=== PATIENT | male | born 1935 | race Caucasian/White ===

== ENCOUNTER → 2016-12-09 | Outpatient (CLI) | payer BC ==
[~2016-12-09] MED LIST: ASCO500T16 PO; ASPEC81 PO; CLTP PO; ESCI10TA17 PO; FIBER CAPSULE PO; FLM4 PO; LISI-725 PO; MULTTAB PO; OMEG10007 PO; OMEP20CA59 PO; SIMV20TA2 PO; VITA400C15 PO
[2016-12-09 09:24] LABS: BASO % 0.6 %; BASO ABS # 0.04 K/uL (0-0.2); COMPLETE YES; EOS % 4.3 %; HEMATOCRIT 33.4 % (42-52); IG% 0.3 %; LYMPH % 29.3 %; LYMPH ABS # 1.91 K/uL (1.2-3.4); MEAN CELL VOLUME 78.2 fL (80-100); MEAN CORPUSCULAR HEMOGLOBIN 24.4 pg (25-34); MEAN CORPUSCULAR HGB CONC 31.1 g/dl (32-36); MONO % 6.6 %; NEUT % 58.9 %; PLATELET COUNT 517 K/uL (130-400); RED BLOOD COUNT 4.27 M/uL (4.7-6.1); WHITE BLOOD COUNT 6.51 K/uL (4.8-10.8)
[2016-12-09 09:38] LABS: ALT/SGPT 18 U/L (12-78); AST/SGOT 16 U/L (15-37); BLOOD UREA NITROGEN 25 mg/dl (7-18); BUN/CREATININE RATIO 20.4 (10-20); CALCIUM 8.4 mg/dl (8.5-10.1); CARBON DIOXIDE 27 mmol/L (21-32); CHLORIDE 106 mmol/L (98-107); CHOLESTEROL 151 mg/dl (0-200); GLUCOSE 92 mg/dl (70-99); SODIUM 141 mmol/L (136-145); TRIGLYCERIDES 122 mg/dl (0-150); VERY LOW DENSITY LIPOPROT CALC 24 mg/dl
[2016-12-09 09:50] LABS: CHOLESTEROL/HDL RATIO 4.4; FERRITIN 155.9 ng/ml (8.0-388.0); HDL CHOLESTEROL 34 mg/dl; LDL CHOLESTEROL CALCULATED 93 mg/dl
== END | disposition home or self-care (01) ==
LOC: C.LAB1850 08:11
PROVIDERS: ATTEND Internal Medicine
DX: E78.5 Hyperlipidemia, unspecified (principal); N28.9 Disorder of kidney and ureter, unspecified; R05 Cough

== ENCOUNTER → 2017-03-29 | Outpatient (CLI) | payer BC ==
[2017-03-29 10:40] LABS: BASO % 0.5 %; BASO ABS # 0.03 K/uL (0-0.2); EOS % 2.6 %; HEMATOCRIT 33.7 % (42-52); IG% 0.2 %; LYMPH % 24.5 %; LYMPH ABS # 1.51 K/uL (1.2-3.4); MEAN CELL VOLUME 79.1 fL (80-100); MEAN CORPUSCULAR HEMOGLOBIN 25.1 pg (25-34); MEAN CORPUSCULAR HGB CONC 31.8 g/dl (32-36); MONO % 5.2 %; PLATELET COUNT 484 K/uL (130-400); RED BLOOD COUNT 4.26 M/uL (4.7-6.1); WHITE BLOOD COUNT 6.16 K/uL (4.8-10.8)
[2017-03-29 10:52] LABS: ALT/SGPT 19 U/L (12-78); AST/SGOT 17 U/L (15-37); BLOOD UREA NITROGEN 27 mg/dl (7-18); BUN/CREATININE RATIO 22.8 (10-20); CALCIUM 8.5 mg/dl (8.5-10.1); CARBON DIOXIDE 25 mmol/L (21-32); CHLORIDE 109 mmol/L (98-107); GLUCOSE 92 mg/dl (70-99); POTASSIUM 3.8 mmol/L (3.5-5.1); SODIUM 141 mmol/L (136-145)
[2017-03-29 10:54] LABS: ALB/GLOB RATIO 1.2 (0.9-2); ALKALINE PHOSPHATASE 37 U/L (45-117)
[2017-03-29 11:32] LABS: ANISOCYTOSIS PRESENT; COMPLETE YES; LARGE PLATELETS 1+; POIKILOCYTOSIS PRESENT; SCHISTOCYTES 1+
[2017-03-30 09:16] LABS: OVALOCYTES 1+; TEAR DROP CELLS 1+
== END | disposition home or self-care (01) ==
LOC: C.LAB1850 09:30
PROVIDERS: ATTEND Internal Medicine
DX: N28.9 Disorder of kidney and ureter, unspecified (principal); D64.9 Anemia, unspecified

== ENCOUNTER → 2017-04-07 | Outpatient (CLI) | payer BC ==
--- NOTE | 2017-04-12 11:44 | CODING QUERY MEDICAL NECESSITY ---
SUPPORTING DIAGNOSIS NEEDED A supporting diagnosis is required for the test/procedure performed on this patient in order for us to be reimbursed by the patient's insurance. Please provide a supporting diagnosis for the following test/procedure listed below next to the test name along with your signature. *If there is no additional diagnosis for this patient that would support the following test/procedure please document that below next to the test/procedure. Test(s)/Procedure(s) that require a supporting diagnosis: * PSA DIAGNOSIS: Provider Signature: Date: Thank you Shelbi Funes [employer] Once completed, please kindly fax back to [phone] For questions please call [phone]
== END | disposition home or self-care (01) ==
LOC: C.LABBC 12:30
PROVIDERS: ATTEND Urology
DX: R39.9 Unspecified symptoms and signs involving the genitourinary system (principal); C61 Malignant neoplasm of prostate

== ENCOUNTER → 2017-05-24 | Outpatient (CLI) | payer BC ==
[2017-05-24 09:37] LABS: BASO % 0.6 %; BASO ABS # 0.04 K/uL (0-0.2); COMPLETE YES; HEMATOCRIT 34.3 % (42-52); IG% 0.3 %; LYMPH % 27.7 %; LYMPH ABS # 1.78 K/uL (1.2-3.4); MEAN CELL VOLUME 79.6 fL (80-100); MEAN CORPUSCULAR HEMOGLOBIN 24.6 pg (25-34); MEAN CORPUSCULAR HGB CONC 30.9 g/dl (32-36); MONO % 5.9 %; NEUT % 62.5 %; PLATELET COUNT 473 K/uL (130-400); RED BLOOD COUNT 4.31 M/uL (4.7-6.1); WHITE BLOOD COUNT 6.43 K/uL (4.8-10.8)
[2017-05-24 09:59] LABS: TOTAL IRON BINDING CAPACITY 295 mcg/dl (250-450)
== END | disposition home or self-care (01) ==
LOC: C.LAB1850 08:22
PROVIDERS: ATTEND Internal Medicine
DX: D64.9 Anemia, unspecified (principal)

== ENCOUNTER → 2017-12-15 | Outpatient (CLI) | payer BC ==
[2017-12-15 09:49] LABS: BASO ABS # 0.07 K/uL (0-0.2); EOS % 5.3 %; EOS ABS # 0.36 K/uL (0-0.5); HEMATOCRIT 35.8 % (42-52); HEMOGLOBIN 11.3 g/dL (14.0-18.0); IG# 0.01 K/uL (0.00-0.02); LYMPH % 30.4 %; LYMPH ABS # 2.08 K/uL (1.2-3.4); MEAN CELL VOLUME 79.2 fL (80-100); MEAN CORPUSCULAR HGB CONC 31.6 g/dl (32-36); MONO % 5.6 %; MONO ABS # 0.38 K/uL (0.11-0.59); NEUT % 57.6 %; NEUT ABS # 3.94 K/uL (1.4-6.5); PLATELET COUNT 552 K/uL (130-400); RED CELL DISTRIBUTION WIDTH CV 19.5 % (11.5-14.5); RED CELL DISTRIBUTION WIDTH SD 52.7 fL (36.4-46.3); WHITE BLOOD COUNT 6.84 K/uL (4.8-10.8)
[2017-12-15 10:56] LABS: ALT/SGPT 19 U/L (12-78); BLOOD UREA NITROGEN 24 mg/dl (7-18); CALCIUM 8.6 mg/dl (8.5-10.1); CARBON DIOXIDE 27 mmol/L (21-32); CHOLESTEROL 169 mg/dl (0-200); CREATININE 1.26 mg/dl (0.60-1.40); GLUCOSE 93 mg/dl (70-99); POTASSIUM 3.9 mmol/L (3.5-5.1); SODIUM 138 mmol/L (136-145)
[2017-12-15 11:00] LABS: AST/SGOT 18 U/L (15-37); LDL CHOLESTEROL CALCULATED 114 mg/dl
== END | disposition home or self-care (01) ==
LOC: C.LAB1850 08:21
PROVIDERS: ATTEND Internal Medicine
DX: E78.5 Hyperlipidemia, unspecified (principal); I10 Essential (primary) hypertension; D64.9 Anemia, unspecified

== ENCOUNTER → 2018-01-24 | Outpatient (CLI) | payer BC | END | disposition home or self-care (01) | LOC: C.LAB1850 09:26 | PROVIDERS: ATTEND Urology | DX: C61 Malignant neoplasm of prostate (principal) ==

== ENCOUNTER 2020-10-30 11:21 | Inpatient (IN) ==
[2020-10-30] MEDS ORDERED: DEXAMETHASONE SOD INJ 10 MG/ML VIAL IV ONE (11:27)
--- NOTE | 2020-10-30 11:46 | Emergency Department Note ---
History of Present Illness General Chief complaint: Respiratory Distress Time Seen by Provider: 10/30/20 11:25 History of Present Illness Provider complaint: Difficulty breathing Onset (ago): day(s) 1 Associated symptoms: + shortness of breath 85-year-old male presents emergency department for difficulty breathing. Started today. Patient reports anxiety. Home Medications Medication Instructions Recorded Confirmed Type ascorbic acid (vitamin C) 500 mg 500 mg PO DAILY 01/26/19 10/30/20 History capsule,extended release aspirin 81 mg tablet,delayed 81 mg PO DAILY 01/26/19 10/30/20 History release calcium carbonate 600 mg (1,500 1 tab PO BID 01/26/19 10/30/20 History mg)-vitamin D3 200 unit tablet multivitamin,fb-pepz-qlsetnnz 1 tab PO DAILY 01/26/19 10/30/20 History omega-3 fatty acids-fish oil 360 1 cap PO DAILY 01/26/19 10/30/20 History mg-1,200 mg capsule psyllium husk 0.52 gram capsule 0.52 gm PO QAM 01/26/19 10/30/20 History vitamin E mixed 1,000 unit capsule 1,000 units PO QAM cap 01/26/19 10/30/20 History escitalopram oxalate 10 mg tablet 10 mg PO QAM #90 tab 06/10/20 10/30/20 Rx lisinopril 20 mg tablet 20 mg PO QAM #90 tab 06/10/20 10/30/20 Rx omeprazole 20 mg tablet,delayed 20 mg PO QAM #90 tab 06/10/20 10/30/20 Rx release simvastatin 20 mg tablet 20 mg PO QPM #90 tab 06/10/20 10/30/20 Rx tamsulosin 0.4 mg capsule 0.8 mg PO DAILY 90 Days #180 cap 06/17/20 10/30/20 Rx hydroxyzine HCl 25 mg tablet 25 mg PO BID PRN #60 tab 10/16/20 10/30/20 Rx Allergies Allergy/AdvReac Type Severity Reaction Status Date / Time No Known Allergies Allergy Mild Verified 10/25/20 10:03 Past Med/Surg History Medical History Anemia Anxiety Cervical spondylosis GERD (gastroesophageal reflux disease) HTN (hypertension) Hyperlipidemia Osteoarthritis Prostate cancer SEED IMPLANT AND RADIATION THERAPY Skin cancer Surgical History History of colonoscopy History of prostate surgery History of tonsillectomy and adenoidectomy History of tooth extraction Hx of cataract surgery LEFT Family History Sister Breast cancer Denies family history of Colon cancer Ovarian cancer Prostate cancer Myocardial infarction Social History Smoking Status: Former smoker Tobacco Type: Cigars Second Hand Exposure: No; Hx Alcohol Use: No Hx Substance Use: No Preferred Language: [place] Communication Ability: Effective Visual Impairment: No Limitations Hearing Ability: Normal Rn Integrity Required: No Beliefs That Will Affect Care: None marital status: Current Living Situation: Spouse current occupational status: retired Feels Safe at Home: Yes Safety Concerns: Feels Safe At This Time Assistive Devices: Cane and Walker Review of Systems Other (unable to obtain due to respiratory distress) Physical Exam Vital Signs Vital Signs - 24 hr 10/30/20 11:21 10/30/20 11:25 10/30/20 11:26 Temperature 36.7 C Temperature Source Oral Pulse Rate 117 H 119 H 114 H Pulse Rate from SpO2 Sensor 120 H Pulse Rhythm Regular Regular Respiratory Rate 37 H 31 H 32 H Respiratory Effort / Characteristics Spontaneous Labored Spontaneous Spontaneous Respiratory Depth Normal Normal Respiratory Pattern Regular Tachypnea Blood Pressure 95/63 L 95/63 L Blood Pressure Mean 73 73 Pulse Oximetry 98 98 98 Oxygen Delivery Method BiPAP BiPAP Oxygen Flow Rate Fraction of Inspired Oxygen 50 50 50 SaO2/FiO2 Ratio 196 196 Sepsis Recent Fever Within 48 Hours No Sepsis New/Unexplained Change in Mental Status No Sepsis Action Taken by Nursing Physician Notified 10/30/20 11:56 10/30/20 11:57 10/30/20 12:00 Temperature Temperature Source Pulse Rate 127 H 116 H Pulse Rate from SpO2 Sensor 114 H 116 H Pulse Rhythm Respiratory Rate 32 H 31 H 33 H Respiratory Effort / Characteristics Spontaneous Respiratory Depth Respiratory Pattern Blood Pressure 93/72 L 88/62 L Blood Pressure Mean 79 70 Pulse Oximetry 98 98 98 Oxygen Delivery Method BiPAP BiPAP BiPAP Oxygen Flow Rate Fraction of Inspired Oxygen 50 SaO2/FiO2 Ratio 196 Sepsis Recent Fever Within 48 Hours Sepsis New/Unexplained Change in Mental Status Sepsis Action Taken by Nursing 10/30/20 12:15 10/30/20 12:26 10/30/20 12:30 Temperature Temperature Source Pulse Rate 117 H 116 H Pulse Rate from SpO2 Sensor 113 H 105 H Pulse Rhythm Respiratory Rate 32 H 33 H 33 H Respiratory Effort / Characteristics Spontaneous Spontaneous Respiratory Depth Respiratory Pattern Blood Pressure 97/64 L 97/57 L Blood Pressure Mean 75 70 Pulse Oximetry 98 96 96 Oxygen Delivery Method BiPAP BiPAP BiPAP Oxygen Flow Rate Fraction of Inspired Oxygen 50 50 SaO2/FiO2 Ratio 196 196 Sepsis Recent Fever Within 48 Hours Sepsis New/Unexplained Change in Mental Status Sepsis Action Taken by Nursing 10/30/20 12:45 10/30/20 13:00 10/30/20 13:30 Temperature Temperature Source Pulse Rate 117 H 108 H 108 H Pulse Rate from SpO2 Sensor 112 H 102 H 105 H Pulse Rhythm Respiratory Rate 30 H 30 H 29 H Respiratory Effort / Characteristics Spontaneous Spontaneous Respiratory Depth Respiratory Pattern Blood Pressure 103/57 L 99/71 L 102/58 L Blood Pressure Mean 72 80 72 Pulse Oximetry 99 100 100 Oxygen Delivery Method BiPAP BiPAP Oxygen Flow Rate Fraction of Inspired Oxygen 50 50 SaO2/FiO2 Ratio 196 196 Sepsis Recent Fever Within 48 Hours Sepsis New/Unexplained Change in Mental Status Sepsis Action Taken by Nursing 10/30/20 13:44 10/30/20 13:45 10/30/20 14:00 Temperature Temperature Source Pulse Rate 102 H 105 H 106 H Pulse Rate from SpO2 Sensor 105 H 105 H Pulse Rhythm Respiratory Rate 29 H 33 H 28 H Respiratory Effort / Characteristics Spontaneous Spontaneous Respiratory Depth Normal Respiratory Pattern Tachypnea Blood Pressure 103/49 L 97/56 L Blood Pressure Mean 67 69 Pulse Oximetry 98 96 96 Oxygen Delivery Method Oxymask Oxygen Flow Rate 5 Fraction of Inspired Oxygen 50 SaO2/FiO2 Ratio 196 Sepsis Recent Fever Within 48 Hours Sepsis New/Unexplained Change in Mental Status Sepsis Action Taken by Nursing 10/30/20 14:15 10/30/20 14:30 10/30/20 14:45 Temperature Temperature Source Pulse Rate 109 H 110 H 108 H Pulse Rate from SpO2 Sensor 104 H 105 H 99 H Pulse Rhythm Respiratory Rate 32 H 31 H 24 Respiratory Effort / Characteristics Spontaneous Respiratory Depth Respiratory Pattern Blood Pressure 106/56 L 113/61 104/58 L Blood Pressure Mean 72 78 73 Pulse Oximetry 97 97 97 Oxygen Delivery Method Oxymask Oxygen Flow Rate 5 Fraction of Inspired Oxygen 50 SaO2/FiO2 Ratio 196 Sepsis Recent Fever Within 48 Hours Sepsis New/Unexplained Change in Mental Status Sepsis Action Taken by Nursing 10/30/20 15:00 Temperature Temperature Source Pulse Rate 112 H Pulse Rate from SpO2 Sensor 107 H Pulse Rhythm Respiratory Rate 29 H Respiratory Effort / Characteristics Respiratory Depth Respiratory Pattern Blood Pressure 117/60 Blood Pressure Mean 79 Pulse Oximetry 97 Oxygen Delivery Method Oxygen Flow Rate Fraction of Inspired Oxygen SaO2/FiO2 Ratio Sepsis Recent Fever Within 48 Hours Sepsis New/Unexplained Change in Mental Status Sepsis Action Taken by Nursing Physical Exam GENERAL: Patient in respiratory distress. HENT: Exam performed. - Head: Normocephalic and atraumatic. - Right Ear: External ear normal. No mastoid tenderness. - Left Ear: External ear normal. No mastoid tenderness. - Mouth/Throat: The oropharynx is clear and moist. No trismus in the jaw. No dental abscesses or uvula swelling. No oropharyngeal exudate or tonsillar abscesses. EYES: Conjunctivae and EOM are normal. Pupils are equal, round, and reactive to light. Right eye exhibits no discharge. Left eye exhibits no discharge. No sc leral icterus. NECK: Normal range of motion. Neck supple. No JVD present. No spinous process tenderness present. No carotid bruit present. No rigidity. No tracheal deviation and normal range of motion present. No Brudzinski's sign and no Kernig's sign noted. CV: Tachycardic rate, regular rhythm, normal heart sounds and intact distal pulses. There is no peripheral edema. Palpable radial pulses bue. PULM/CHEST: Rales bilaterally. Rhonchi bilaterally. ABD: Abdomen distended. MUSC/SKEL: Normal range of motion. There is no peripheral edema, tenderness or deformity. LYMPH: No cervical adenopathy. NEURO: He is alert and oriented to person, place, and time. He has normal strength. No cranial nerve deficit or sensory deficit. Coordination and gait normal. GCS eye subscore is 4. GCS verbal subscore is 5. GCS motor subscore is 6. Cerebellar tests wnl. SKIN: Skin is warm and dry. He is not diaphoretic. PSYCH: He has a normal mood and affect. Behavior is normal. Judgment and thought content normal. Course Course 1125: The patient was evaluated in room B1. A complete history and physical exam was performed. Cardiac monitoring: An order was placed for continuous cardiac monitoring. The monitor shows a rate of 120 with sinus tachycardia rhythm Patient was seen in full airborne precautions. Patient was seen in N95's, gloves, gowns, face shield by myself and staff. Patient was started on CPAP by EMS. Patient was transitioned to BiPAP. Patient was hypoxic on room air, Decadron 6 IV push mg ordered empirically for any COVID-19 infection. 1345: Vital signs stable on BiPAP. Labs show a platelet count of 1062. His blood gas within normal limits. Lactic of 2.5. Procalcitonin is also elevated. Chest x-ray shows possible infiltrate. Given the elevation of the procalcitonin patient will also be started on empiric antibiotics for possible pneumonia. This is thought to be due to the patient's thalassemia and he has a history of thrombocytosis. Creatinine 1.76. Patient is COVID-19 positive. Troponin is elevated. Imaging does show a large bowel obstruction. Patient will be admitted to the [facility] Dr. Callaway. Administered Medications Heparin Sodium/Dextrose (Heparin Sodium/Dextrose) 25,000 units in 500 mls @ 29 mls/hr IV .[id number] [facility]; Protocol Stop: 11/29/20 15:14 Last Admin: 10/30/20 16:30 Dose: 1,450 units/hr, 29 mls/hr Documented by: [id number] Cosigned by: [id number] Potassium Chloride/Sodium Chloride (1/2 Nss + 20meq Kcl 1000ml) 20 meq in 1,000 mls @ 125 mls/hr IV .Q8H [facility] Stop: 11/29/20 16:59 Last Admin: 10/30/20 18:05 Dose: 125 mls/hr Documented by: Discontinued Medications Dexamethasone (Dexamethasone Sod Inj 10 Mg/Ml Vial) 6 mg IV NOW ONE Stop: 10/30/20 11:28 Last Admin: 10/30/20 11:40 Dose: 6 mg Documented by: [id number] Heparin Sodium/Dextrose (Heparin 20335 Unit/500 Ml D5w) Confirm Administered Dose 25,000 units IV .STK-MED ONE Stop: 10/30/20 16:06 Last Admin: 10/30/20 16:30 Dose: 1,450 units Documented by: [id number] Cosigned by: [id number] Sodium Chloride (Nss 1000ml) 500 mls @ 999 mls/hr IV .Q31M ONE Stop: 10/30/20 12:56 Last Infusion: 10/30/20 13:28 Dose: 0 mls/hr Documented by: [id number] Admin: 10/30/20 12:32 Dose: 999 mls/hr Documented by: [id number] Cefepime HCl (Maxipime) 2,000 mg in 20 mls @ 5 mls/min IV NOW STA; Protocol Stop: 10/30/20 13:42 Last Admin: 10/30/20 14:26 Dose: 5 mls/min Documented by: [id number] Vancomycin HCl 1,750 mg/ (Sodium Chloride) 535 mls @ 200 mls/hr IV NOW ONE Stop: 10/30/20 16:24 Last Infusion: 10/30/20 17:12 Dose: 0 mls/hr Documented by: [id number] Admin: 10/30/20 14:30 Dose: 200 mls/hr Documented by: [id number] Doxycycline Hyclate 100 mg/ (Dextrose) 110 mls @ 50 mls/hr IV NOW STA Stop: 10/30/20 15:58 Last Infusion: 10/30/20 17:11 Dose: 0 mls/hr Documented by: [id number] Admin: 10/30/20 14:30 Dose: 50 mls/hr Documented by: [id number] Sodium Chloride (Nss 1000ml) 1,000 mls @ 999 mls/hr IV .Q1H1M ONE Stop: 10/30/20 15:43 Last Infusion: 10/30/20 17:31 Dose: 0 mls/hr Documented by: [id number] Admin: 10/30/20 16:30 Dose: 999 mls/hr Documented by: [id number] Critical Care Time Critical Care Time: Yes Total Critical Care Time: 85 I have personally spent greater than 85 minutes of critical care time in the direct management of this patient. This includes bedside care, interpretation of diagnostic studies, and testing, discussion with consultants, patient, and family members, and other required patient management activities. This 85 minutes is in excess of all separately billable procedures. Medical Decision Making Laboratory Data Result diagrams: 10/30/20 11:41 10/30/20 11:35 Lab Results 10/30/20 10/30/20 10/30/20 Range/Units 11:35 11:35 11:38 WBC (4.8-10.8) K/uL RBC (4.7-6.1) M/uL Hgb (14.0-18.0) g/dL Hct (42-52) % MCV (80-100) fL MCH (25-34) pg MCHC (32-36) g/dL RDW Std Deviation (36.4-46.3) fL RDW Coeff of Maryann (11.5-14.5) % Plt Count (130-400) K/uL Neutrophils % (Manual) % Lymphocytes % (Manual) % Monocytes % (Manual) % Basophils % (Manual) % Metamyelocytes % (Man) % Neutrophils # (Manual) (1.4-6.5) K/uL Total Absolute Neuts (1.4-6.5) K/uL Lymphocytes # (Manual) (1.2-3.4) K/uL Total Abs Lymphocytes (1.2-3.4) K/uL Monocytes # (Manual) (0.11-0.59) K/uL Basophils # (Manual) (0-0.2) K/uL Metamyelocytes # (Man) (0-0) K/uL Hypochromasia Poikilocytosis Anisocytosis Microcytosis PT INR APTT PTT Ratio D-Dimer (0-500) ug/L FEU VBG pH (7.36-7.41) VBG pCO2 (38-50) mmHg VBG pO2 mmHg VBG HCO3 mmol/L VBG O2 Saturation % VBG Base Excess mEq/L Barometric Pressure mm/Hg Sodium 137 (136-145) mmol/L Potassium 3.8 (3.5-5.1) mmol/L Chloride 103 (98-107) mmol/L Carbon Dioxide 23 (21-32) mmol/L Anion Gap 11.0 (3-11) BUN 62 H (7-18) mg/dl Creatinine 1.76 H (0.6-1.4) mg/dl Est Cr Clr Drug Dosing 34.7 ml/min Est GFR ( Amer) 40.0 Est GFR (Non-Af Amer) 34.5 BUN/Creatinine Ratio 35.0 H (10-20) Glucose 112 H (70-99) mg/dl Lactate 2.5 H* (0.4-2.0) mmol/L Calcium 8.4 L (8.5-10.1) mg/dl Magnesium 2.3 (1.8-2.4) mg/dl Iron (35-175) mcg/dl Transferrin (200-360) mg/dl Transferrin % Sat Ferritin (8-388) ng/ml Total Bilirubin 1.6 H (0.2-1) mg/dl AST 27 (15-37) U/L ALT 23 (12-78) U/L Alkaline Phosphatase 47 (45-117) U/L Lactate Dehydrogenase (87-241) U/L Total Creatine Kinase (39-308) U/L Troponin I 0.123 H* (0-0.045) ng/ml C-Reactive Protein (0-0.29) mg/dl NT-Pro-B Natriuret Pep 1619 (0-1800) pg/ml Total Protein 6.5 (6.4-8.2) gm/dl Albumin 2.9 L (3.4-5.0) gm/dl Globulin 3.6 (2.5-4.0) gm/dl Albumin/Globulin Ratio 0.8 L (0.9-2) Lipase 77 (73-393) U/L Procalcitonin (0-0.5) ng/ml COVID-19 Eval Order CovFluRsv at [facility] SARS-CoV-2 (PCR) (Negative) Influenza Type A (PCR) (Neg) Influenza Type B (PCR) (Neg) RSV (RT-PCR) (Neg) Blood Type Antibody Screen 10/30/20 10/30/20 10/30/20 Range/Units 11:38 11:41 11:41 WBC 9.72 (4.8-10.8) K/uL RBC 4.90 (4.7-6.1) M/uL Hgb 10.7 L (14.0-18.0) g/dL Hct 34.0 L (42-52) % MCV 69.4 L (80-100) fL MCH 21.8 L (25-34) pg MCHC 31.5 L (32-36) g/dL RDW Std Deviation 51.5 H (36.4-46.3) fL RDW Coeff of Maryann 22.2 H (11.5-14.5) % Plt Count 1062 H* (130-400) K/uL Neutrophils % (Manual) 79.2 % Lymphocytes % (Manual) 4.3 % Monocytes % (Manual) 7.0 % Basophils % (Manual) 1.7 % Metamyelocytes % (Man) 7.8 % Neutrophils # (Manual) 7.70 H (1.4-6.5) K/uL Total Absolute Neuts 7.70 H (1.4-6.5) K/uL Lymphocytes # (Manual) 0.42 L (1.2-3.4) K/uL Total Abs Lymphocytes 0.42 L (1.2-3.4) K/uL Monocytes # (Manual) 0.68 H (0.11-0.59) K/uL Basophils # (Manual) 0.17 (0-0.2) K/uL Metamyelocytes # (Man) 0.76 H (0-0) K/uL Hypochromasia Present Poikilocytosis Present Anisocytosis Present Microcytosis Present PT Cancelled INR Cancelled APTT Cancelled PTT Ratio Cancelled D-Dimer (0-500) ug/L FEU VBG pH (7.36-7.41) VBG pCO2 (38-50) mmHg VBG pO2 mmHg VBG HCO3 mmol/L VBG O2 Saturation % VBG Base Excess mEq/L Barometric Pressure mm/Hg Sodium (136-145) mmol/L Potassium (3.5-5.1) mmol/L Chloride (98-107) mmol/L Carbon Dioxide (21-32) mmol/L Anion Gap (3-11) BUN (7-18) mg/dl Creatinine (0.6-1.4) mg/dl Est Cr Clr Drug Dosing ml/min Est GFR ( Amer) Est GFR (Non-Af Amer) BUN/Creatinine Ratio (10-20) Glucose (70-99) mg/dl Lactate (0.4-2.0) mmol/L Calcium (8.5-10.1) mg/dl Magnesium (1.8-2.4) mg/dl Iron (35-175) mcg/dl Transferrin (200-360) mg/dl Transferrin % Sat Ferritin (8-388) ng/ml Total Bilirubin (0.2-1) mg/dl AST (15-37) U/L ALT (12-78) U/L Alkaline Phosphatase (45-117) U/L Lactate Dehydrogenase (87-241) U/L Total Creatine Kinase (39-308) U/L Troponin I (0-0.045) ng/ml C-Reactive Protein (0-0.29) mg/dl NT-Pro-B Natriuret Pep (0-1800) pg/ml Total Protein (6.4-8.2) gm/dl Albumin (3.4-5.0) gm/dl Globulin (2.5-4.0) gm/dl Albumin/Globulin Ratio (0.9-2) Lipase (73-393) U/L Procalcitonin (0-0.5) ng/ml COVID-19 Eval Order SARS-CoV-2 (PCR) POSITIVE A* (Negative) Influenza Type A (PCR) Negative (Neg) Influenza Type B (PCR) Negative (Neg) RSV (RT-PCR) Negative (Neg) Blood Type Antibody Screen 10/30/20 10/30/20 10/30/20 Range/Units 11:41 12:04 12:55 WBC (4.8-10.8) K/uL RBC (4.7-6.1) M/uL Hgb (14.0-18.0) g/dL Hct (42-52) % MCV (80-100) fL MCH (25-34) pg MCHC (32-36) g/dL RDW Std Deviation (36.4-46.3) fL RDW Coeff of Maryann (11.5-14.5) % Plt Count (130-400) K/uL Neutrophils % (Manual) % Lymphocytes % (Manual) % Monocytes % (Manual) % Basophils % (Manual) % Metamyelocytes % (Man) % Neutrophils # (Manual) (1.4-6.5) K/uL Total Absolute Neuts (1.4-6.5) K/uL Lymphocytes # (Manual) (1.2-3.4) K/uL Total Abs Lymphocytes (1.2-3.4) K/uL Monocytes # (Manual) (0.11-0.59) K/uL Basophils # (Manual) (0-0.2) K/uL Metamyelocytes # (Man) (0-0) K/uL Hypochromasia Poikilocytosis Anisocytosis Microcytosis PT 12.1 H INR 1.2 H APTT 25.6 PTT Ratio 1.0 D-Dimer (0-500) ug/L FEU VBG pH 7.42 H (7.36-7.41) VBG pCO2 33 L (38-50) mmHg VBG pO2 53 mmHg VBG HCO3 21 mmol/L VBG O2 Saturation 85.4 % VBG Base Excess -2.6 mEq/L Barometric Pressure 724.3 mm/Hg Sodium (136-145) mmol/L Potassium (3.5-5.1) mmol/L Chloride (98-107) mmol/L Carbon Dioxide (21-32) mmol/L Anion Gap (3-11) BUN (7-18) mg/dl Creatinine (0.6-1.4) mg/dl Est Cr Clr Drug Dosing ml/min Est GFR ( Amer) Est GFR (Non-Af Amer) BUN/Creatinine Ratio (10-20) Glucose (70-99) mg/dl Lactate (0.4-2.0) mmol/L Calcium (8.5-10.1) mg/dl Magnesium (1.8-2.4) mg/dl Iron (35-175) mcg/dl Transferrin (200-360) mg/dl Transferrin % Sat Ferritin (8-388) ng/ml Total Bilirubin (0.2-1) mg/dl AST (15-37) U/L ALT (12-78) U/L Alkaline Phosphatase (45-117) U/L Lactate Dehydrogenase (87-241) U/L Total Creatine Kinase (39-308) U/L Troponin I (0-0.045) ng/ml C-Reactive Protein (0-0.29) mg/dl NT-Pro-B Natriuret Pep (0-1800) pg/ml Total Protein (6.4-8.2) gm/dl Albumin (3.4-5.0) gm/dl Globulin (2.5-4.0) gm/dl Albumin/Globulin Ratio (0.9-2) Lipase (73-393) U/L Procalcitonin 5.45 H (0-0.5) ng/ml COVID-19 Eval Order SARS-CoV-2 (PCR) (Negative) Influenza Type A (PCR) (Neg) Influenza Type B (PCR) (Neg) RSV (RT-PCR) (Neg) Blood Type Antibody Screen 10/30/20 10/30/20 10/30/20 Range/Units 14:21 14:21 14:21 WBC (4.8-10.8) K/uL RBC (4.7-6.1) M/uL Hgb (14.0-18.0) g/dL Hct (42-52) % MCV (80-100) fL MCH (25-34) pg MCHC (32-36) g/dL RDW Std Deviation (36.4-46.3) fL RDW Coeff of Maryann (11.5-14.5) % Plt Count (130-400) K/uL Neutrophils % (Manual) % Lymphocytes % (Manual) % Monocytes % (Manual) % Basophils % (Manual) % Metamyelocytes % (Man) % Neutrophils # (Manual) (1.4-6.5) K/uL Total Absolute Neuts (1.4-6.5) K/uL Lymphocytes # (Manual) (1.2-3.4) K/uL Total Abs Lymphocytes (1.2-3.4) K/uL Monocytes # (Manual) (0.11-0.59) K/uL Basophils # (Manual) (0-0.2) K/uL Metamyelocytes # (Man) (0-0) K/uL Hypochromasia Poikilocytosis Anisocytosis Microcytosis PT INR APTT PTT Ratio D-Dimer 1989 H* (0-500) ug/L FEU VBG pH (7.36-7.41) VBG pCO2 (38-50) mmHg VBG pO2 mmHg VBG HCO3 mmol/L VBG O2 Saturation % VBG Base Excess mEq/L Barometric Pressure mm/Hg Sodium (136-145) mmol/L Potassium (3.5-5.1) mmol/L Chloride (98-107) mmol/L Carbon Dioxide (21-32) mmol/L Anion Gap (3-11) BUN (7-18) mg/dl Creatinine (0.6-1.4) mg/dl Est Cr Clr Drug Dosing ml/min Est GFR ( Amer) Est GFR (Non-Af Amer) BUN/Creatinine Ratio (10-20) Glucose (70-99) mg/dl Lactate (0.4-2.0) mmol/L Calcium (8.5-10.1) mg/dl Magnesium (1.8-2.4) mg/dl Iron < 5 L (35-175) mcg/dl Transferrin 208 (200-360) mg/dl Transferrin % Sat TNP Ferritin 61.5 (8-388) ng/ml Total Bilirubin (0.2-1) mg/dl AST (15-37) U/L ALT (12-78) U/L Alkaline Phosphatase (45-117) U/L Lactate Dehydrogenase (87-241) U/L Total Creatine Kinase 247 (39-308) U/L Troponin I (0-0.045) ng/ml C-Reactive Protein 12.30 H (0-0.29) mg/dl NT-Pro-B Natriuret Pep (0-1800) pg/ml Total Protein (6.4-8.2) gm/dl Albumin (3.4-5.0) gm/dl Globulin (2.5-4.0) gm/dl Albumin/Globulin Ratio (0.9-2) Lipase (73-393) U/L Procalcitonin (0-0.5) ng/ml COVID-19 Eval Order SARS-CoV-2 (PCR) (Negative) Influenza Type A (PCR) (Neg) Influenza Type B (PCR) (Neg) RSV (RT-PCR) (Neg) Blood Type O Positive Antibody Screen NEGATIVE 10/30/20 10/30/20 Range/Units 14:21 14:25 WBC (4.8-10.8) K/uL RBC (4.7-6.1) M/uL Hgb (14.0-18.0) g/dL Hct (42-52) % MCV (80-100) fL MCH (25-34) pg MCHC (32-36) g/dL RDW Std Deviation (36.4-46.3) fL RDW Coeff of Maryann (11.5-14.5) % Plt Count (130-400) K/uL Neutrophils % (Manual) % Lymphocytes % (Manual) % Monocytes % (Manual) % Basophils % (Manual) % Metamyelocytes % (Man) % Neutrophils # (Manual) (1.4-6.5) K/uL Total Absolute Neuts (1.4-6.5) K/uL Lymphocytes # (Manual) (1.2-3.4) K/uL Total Abs Lymphocytes (1.2-3.4) K/uL Monocytes # (Manual) (0.11-0.59) K/uL Basophils # (Manual) (0-0.2) K/uL Metamyelocytes # (Man) (0-0) K/uL Hypochromasia Poikilocytosis Anisocytosis Microcytosis PT INR APTT PTT Ratio D-Dimer (0-500) ug/L FEU VBG pH (7.36-7.41) VBG pCO2 (38-50) mmHg VBG pO2 mmHg VBG HCO3 mmol/L VBG O2 Saturation % VBG Base Excess mEq/L Barometric Pressure mm/Hg Sodium (136-145) mmol/L Potassium (3.5-5.1) mmol/L Chloride (98-107) mmol/L Carbon Dioxide (21-32) mmol/L Anion Gap (3-11) BUN (7-18) mg/dl Creatinine (0.6-1.4) mg/dl Est Cr Clr Drug Dosing ml/min Est GFR ( Amer) Est GFR (Non-Af Amer) BUN/Creatinine Ratio (10-20) Glucose (70-99) mg/dl Lactate 1.9 (0.4-2.0) mmol/L Calcium (8.5-10.1) mg/dl Magnesium (1.8-2.4) mg/dl Iron (35-175) mcg/dl Transferrin (200-360) mg/dl Transferrin % Sat Ferritin (8-388) ng/ml Total Bilirubin (0.2-1) mg/dl AST (15-37) U/L ALT (12-78) U/L Alkaline Phosphatase (45-117) U/L Lactate Dehydrogenase 277 H (87-241) U/L Total Creatine Kinase (39-308) U/L Troponin I (0-0.045) ng/ml C-Reactive Protein (0-0.29) mg/dl NT-Pro-B Natriuret Pep (0-1800) pg/ml Total Protein (6.4-8.2) gm/dl Albumin (3.4-5.0) gm/dl Globulin (2.5-4.0) gm/dl Albumin/Globulin Ratio (0.9-2) Lipase (73-393) U/L Procalcitonin (0-0.5) ng/ml COVID-19 Eval Order SARS-CoV-2 (PCR) (Negative) Influenza Type A (PCR) (Neg) Influenza Type B (PCR) (Neg) RSV (RT-PCR) (Neg) Blood Type Antibody Screen Imaging Data Radiologist's Impression: CT OF THE ABDOMEN AND PELVIS WITHOUT CONTRAST CLINICAL HISTORY: Abdominal pain. Distention. COMPARISON STUDY: Abdominal series October 25, 2020. TECHNIQUE: Axial images of the abdomen and pelvis were obtained without IV contrast. Images were reviewed in the axial, sagittal, and coronal planes. Automated exposure control was utilized for the study. A dose lowering techniqu e was utilized adhering to the principles of ALARA. FINDINGS: Imaged portions of the lower chest demonstrate multifocal groundglass opacities within the lungs. There is a moderate sized hiatal hernia with partially intrathoracic stomach. Visualized portions of the esophagus are dilated and fluid-filled. Small amount of ascites within the hernia sac is noted. Evaluation of the abdomen and pelvis is suboptimal on this unenhanced examination. There is no pneumatosis, free air or portal venous gas. Note is made of an indeterminate hypodense 2.4 cm lateral segment hepatic lesion. There is no biliary or pancreatic ductal dilatation. There is no peripancreatic infiltration. Mild splenomegaly is noted. A water attenuation 7.7 cm lesion within the upper pole of the right kidney is suboptimally assessed on this unenhanced exam but favors a cyst. Hypodense left adrenal nodularity is likely benign. No abdominal or pelvic lymphadenopathy is present. Brachytherapy seeds within the prostate are noted. There is a small right posterolateral bladder diverticula which contains small layering calcifications. A left internal hernia contains a small portion of the sigmoid colon. This does not result in the bowel obstruction. Note is made of moderately dilated fluid-filled small bowel. Addition, the cecum is markedly distended, measuring 10.6 cm in transverse dimension. There is a large amount of poorly formed stool within the right colon. Although suboptimally assessed on this unenhanced exam, there is probable transition point within the mid transverse colon on image 132 of 521. Although no mass is identified by CT, an obstructing lesion is the diagnosis of exclusion. The more distal colon is relatively decompressed. A small amount of ascites is noted. No bowel wall thickening is identified on this unenhanced exam. There is minimal mesenteric infiltration. No suspicious osseous lesions are present. There is no hydronephrosis. IMPRESSION: 1. Findings consistent with a large bowel obstruction with probable transition point within the mid transverse colon. Although no mass identified by CT, an occult obstructing lesion is the diagnosis of exclusion. Further evaluation with colonoscopy is recommended. Large amount of poorly formed stool within the right colon. Marked cecal distention. Moderate small bowel dilatation. Small amount of abdominal ascites and mild mesenteric infiltration. 2. Moderate sized hiatal hernia with partially intrathoracic stomach. Visualized portions of the esophagus dilated and fluid-filled. 3. Indeterminate 2.4 cm lateral segment hepatic lesion which could be assessed with a follow-up nonemergent liver protocol CT when clinical condition permits. 4. Multifocal ground glass opacities within the lower lungs suggestive of viral pneumonia. 5. Left inguinal hernia which contains a small portion of the sigmoid colon. This does not result in the bowel obstruction. 6. Mild splenomegaly. ACT 112: Negative or not required by law. Electronically signed by: Neil Venegas M.D. 10/30/2020 1:45 PM Dictated: 10/30/20 1323Transcribed: 10/30/20 1323 ECG Data Indication: + SOB/dyspnea Rate (beats per minute): 120 Rhythm: + sinus tachycardia ECG Intervals/blocks: + Normal QRS, + Prolonged QT and + Normal TX ECG ST segments: + Normal ST segments MDM Narrative 1125: The patient was evaluated in room B1. A complete history and physical exam was performed. Cardiac monitoring: An order was placed for continuous cardiac monitoring. The monitor shows a rate of 120 with sinus tachycardia rhythm Patient was seen in full airborne precautions. Patient was seen in N95's, gloves, gowns, face shield by myself and staff. Patient was started on CPAP by EMS. Patient was transitioned to BiPAP. Patient was hypoxic on room air, Decadron 6 IV push mg ordered empirically for any COVID-19 infection. 1345: Vital signs stable on BiPAP. Labs show a platelet count of 1062. His blood gas within normal limits. Lactic of 2.5. Procalcitonin is also elevated. Chest x-ray shows possible infiltrate. Given the elevation of the procalcitonin patient will also be started on empiric antibiotics for possible p neumonia. This is thought to be due to the patient's thalassemia and he has a history of thrombocytosis. Creatinine 1.76. Patient is COVID-19 positive. Troponin is elevated. Imaging does show a large bowel obstruction. Patient will be admitted to the [facility] Dr. Callaway. Impression & Plan Hypoxia, Large bowel obstruction, COVID-19, Elevated troponin Discharge Plan Visit Data Chief Complaint: Respiratory Distress ED Provider: Shailesh Watkins Discharge Problem: Hypoxia, Large bowel obstruction, COVID-19, Elevated troponin Patient Disposition: Admitted As Inpatient Discharge Instructions Interventions: ED Discharge Assessment Last Done: 10/30/20 17:05
[2020-10-30 12:20] LABS: Base Excess VBG -2.6 mEq/L; Oxygen Saturation VBG 85.4 %; pH VBG 7.42 (7.36-7.41)
[2020-10-30 12:25] LABS: Albumin Level 2.9 gm/dl (3.4-5.0); Calcium 8.4 mg/dl (8.5-10.1); Creatinine Clr Calc Pharmacy 34.7 ml/min; Est GFR (Non-African American) 34.5; Magnesium 2.3 mg/dl (1.8-2.4); Potassium 3.8 mmol/L (3.5-5.1)
[2020-10-30] MEDS ORDERED: SODIUM CHLORIDE 0.9% 1000ML 500 ML IV ONE (12:26)
[2020-10-30 12:27] LABS: Platelet Count 1062 K/uL (130-400)
[2020-10-30 12:32] LABS: Hemoglobin 10.7 g/dL (14.0-18.0); Mean Corpuscular Hemoglobin 21.8 pg (25-34); Mean Corpuscular Hgb Conc 31.5 g/dL (32-36); Mean Corpuscular Volume 69.4 fL (80-100); RDW Coefficient of Variation 22.2 % (11.5-14.5); RDW Standard Deviation 51.5 fL (36.4-46.3); White Blood Count 9.72 K/uL (4.8-10.8)
[2020-10-30 12:32] LABS: Influenza A virus by PCR Negative (Neg); Influenza B virus by PCR Negative (Neg); RSV by PCR Negative (Neg)
[2020-10-30 12:36] LABS: Albumin Globulin Ratio 0.8 (0.9-2); Bilirubin,Total 1.6 mg/dl (0.2-1); Globulin 3.6 gm/dl (2.5-4.0); Total Protein 6.5 gm/dl (6.4-8.2); Troponin I 0.123 ng/ml (0-0.045)
[2020-10-30 12:37] LABS: ALC (manual) 0.42 K/uL (1.2-3.4); Anisocytosis Present; Basophils # (manual) 0.17 K/uL (0-0.2); Basophils % (manual) 1.7 %; Hypochromasia Present; Lymphocytes # (manual) 0.42 K/uL (1.2-3.4); Lymphocytes % (manual) 4.3 %; Metamyelocytes # (manual) 0.76 K/uL (0-0); Metamyelocytes % (manual) 7.8 %; Microcytosis Present; Monocytes # (manual) 0.68 K/uL (0.11-0.59); Neutrophils % (manual) 79.2 %; Poikilocytosis Present
[2020-10-30 13:05] LABS: SARS CoV2 RNA(COVID-19) InHosp POSITIVE (Negative)
--- NOTE | 2020-10-30 13:18 | XRay Report ---
XR chest 1V portable CLINICAL HISTORY: Sepsis. COMPARISON STUDY: Chest radiograph October 25, 2020. FINDINGS: Lung volumes are mildly diminished. There is no pneumothorax. No definite pleural effusion. A 3.6 cm right midlung opacity is new since prior exam. There is left basilar opacity. Mild cardiome celso is noted without evidence for pulmonary edema. IMPRESSION: . 1. 3.6 cm right midlung opacity, new since chest radiograph of October 25, 2020. Therefore, this favo rs an infectious process. Left basilar opacity also may reflect an infectious process. Radiographic f ollow-up is recommended. 2. Cardiomegaly without evidence for pulmonary edema. ACT 112: Negative or not required by law. Electronically signed by: Neil Venegas M.D. 10/30/2020 1:17 PM
[2020-10-30 13:19] LABS: INR 1.2 (0.9-1.1); Partial Thromboplastin Time 25.6 Seconds (21.0-31.0); Prothrombin Time 12.1 Seconds (9.0-12.0)
[2020-10-30] MEDS ORDERED: CEFEPIME 2,000 MG/20 ML VIAL IV STA (13:39)
[2020-10-30] MEDS ORDERED: VANCOMYCIN CONSULT ACTIVE PRN (13:44)
[2020-10-30] MEDS ORDERED: VANCOMYCIN HCL 1,750 MG in SODIUM CHLORIDE 0.9% 500 ML IV ONE (13:44)
--- NOTE | 2020-10-30 13:46 | CT Scan Report ---
CT OF THE ABDOMEN AND PELVIS WITHOUT CONTRAST CLINICAL HISTORY: Abdominal pain. Distention. COMPARISON STUDY: Abdominal series October 25, 2020. TECHNIQUE: Axial images of the abdomen and pelvis were obtained without IV contrast. Images were revi ewed in the axial, sagittal, and coronal planes. Automated exposure control was utilized for the thelma dy. A dose lowering technique was utilized adhering to the principles of ALARA. FINDINGS: Imaged portions of the lower chest demonstrate multifocal groundglass opacities within the lungs. There is a moderate sized hiatal hernia with partially intrathoracic stomach. Visualized porti ons of the esophagus are dilated and fluid-filled. Small amount of ascites within the hernia sac is n oted. Evaluation of the abdomen and pelvis is suboptimal on this unenhanced examination. There is no pneuma tosis, free air or portal venous gas. Note is made of an indeterminate hypodense 2.4 cm lateral segme nt hepatic lesion. There is no biliary or pancreatic ductal dilatation. There is no peripancreatic in filtration. Mild splenomegaly is noted. A water attenuation 7.7 cm lesion within the upper pole of th e right kidney is suboptimally assessed on this unenhanced exam but favors a cyst. Hypodense left adr enal nodularity is likely benign. No abdominal or pelvic lymphadenopathy is present. Brachytherapy se eds within the prostate are noted. There is a small right posterolateral bladder diverticula which co ntains small layering calcifications. A left internal hernia contains a small portion of the sigmoid colon. This does not result in the bowel obstruction. Note is made of moderately dilated fluid-filled small bowel. Addition, the cecum is markedly distended, measuring 10.6 cm in transverse dimension. T here is a large amount of poorly formed stool within the right colon. Although suboptimally assessed on this unenhanced exam, there is probable transition point within the mid transverse colon on image 132 of 521. Although no mass is identified by CT, an obstructing lesion is the diagnosis of exclusion . The more distal colon is relatively decompressed. A small amount of ascites is noted. No bowel wall thickening is identified on this unenhanced exam. There is minimal mesenteric infiltration. No suspi cious osseous lesions are present. There is no hydronephrosis. IMPRESSION: 1. Findings consistent with a large bowel obstruction with probable transition point within the mid t ransverse colon. Although no mass identified by CT, an occult obstructing lesion is the diagnosis of exclusion. Further evaluation with colonoscopy is recommended. Large amount of poorly formed stool wi thin the right colon. Marked cecal distention. Moderate small bowel dilatation. Small amount of abdom inal ascites and mild mesenteric infiltration. 2. Moderate sized hiatal hernia with partially intrathoracic stomach. Visualized portions of the esop hagus dilated and fluid-filled. 3. Indeterminate 2.4 cm lateral segment hepatic lesion which could be assessed with a follow-up nonem ergent liver protocol CT when clinical condition permits. 4. Multifocal ground glass opacities within the lower lungs suggestive of viral pneumonia. 5. Left inguinal hernia which contains a small portion of the sigmoid colon. This does not result in the bowel obstruction. 6. Mild splenomegaly. ACT 112: Negative or not required by law. Electronically signed by: Neil Venegas M.D. 10/30/2020 1:45 PM
[2020-10-30] MEDS ORDERED: DOXYCYCLINE HYCLATE 100 MG in DEXTROSE 5% 100 ML IV STA (13:47)
--- NOTE | 2020-10-30 13:51 | History & Physical Report ---
Date of Service October 30, 2020 Assessment & Plan (1) Sepsis: Lactate 2.5, repeat 1.9 Avoiding aggressive IV fluids due to COVID-19 diagnosis. Suspected source community-acquired pneumonia, COVID-19. (2) Acute respiratory failure with hypoxia: Suspect secondary to mucous plugging requiring BiPAP on arrival given rapid improvement now currently requiring oxygen mask 5 L/min. Additionally secondary to COVID-19/bacterial pneumonia. Unable to get CTA to rule out PE therefore started on heparin drip as below. Aim O2 sats > 90% (3) Pneumonia due to COVID-19 virus: COVID isolation precautions Dexamethasone 6 mg IV daily Discussed convalescent plasma however opted against this given multiple other comorbidities contributing towards his overall illness and ambulate as significant his COVID-19 severity is. (4) Community acquired pneumonia: Community-acquired versus aspiration pneumonia - fluid-filled esophagus on CT with bilateral rhonchi on auscultation Possible diagnosis with elevated procalcitonin although this may be elevated in colon cancer. If MRSA nares swab negative vancomycin can be discontinued Switch cefepime for Unasyn and add doxycycline (5) Large bowel obstruction: Concerning for colon cancer given weight loss, imaging and age. Previous prostate brachytherapy however transition point in mid transverse colon with suggest against this is the cause. N.p.o., IV fluids, will defer NG tube at this time. Consult surgery and gastroenterology Ideally should have colonoscopy if able to tolerate a bowel prep although in the setting of COVID-19 unclear when he can have this. CEA added to a.m. labs (6) Microcytic anemia: History of thalassemia. Iron levels undetectable - suspect some degree of lower GI bleed with possible colon cancer, consider Venofer this admission once more stable. Monitor with H&H this evening due to starting on heparin drip. (7) Elevated d-dimer: Certainly may be elevated due to probable colon cancer and COVID-19 however given tachycardia with hypoxia in the setting of COVID-19 and possible cancer difficult to rule out pulmonary embolism. Will start treatment with IV heparin without bolus given risk of bleeding (likely some degree of acute blood loss anemia with elevated BUN out of proportion to creatinine in the setting of possible colon cancer and iron deficiency anemia). (8) Acute kidney injury: Suspected prerenal in the setting of poor oral intake. IV fluids as above. (9) Thrombocytosis: History of thrombocytosis (?essential), elevated in the setting of sepsis. Continue aspirin 81 mg p.o. (10) GERD (gastroesophageal reflux disease): Switch omeprazole for pantoprazole as per hospital formulary (11) HTN (hypertension): Avoid antihypertensives at this time. Discontinue lisinopril. (12) Prostate CA: Notable history of this. 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 He reports feeling fatigued, poor appetite with generalized weakness for the past week. He denies any fevers, chills, loss of taste or smell, headache, sore throat, nausea/vomiting, chest or abdominal pain. For the past 2 days he has had increasing shortness of breath with cough on lying flat. He was significantly worse today and unable to stand up therefore his called for an ambulance. The patient was started on CPAP by EMS due to hypoxia, however he managed to wean to oxygen mask @ 5 LPM when seen. He also reports increased anxiety for which he saw his PCP on October 16. He was started on hydroxyzine at this time and doubled the dose during the last week as he has felt increasingly anxious. He is also been having problems with changing bowel habit with abdominal distention also for the past 2 weeks. Chronic constipation prior to this. For the past 2 days he reports diarrhea with nonwatery stool. He denies any nausea, vomiting, abdominal pain, melena, bright red blood in stool. He reports passing urine normally with no hesitancy, frequency, nocturia or terminal dribbling (he has a significant history of prostate cancer treated with brachytherapy). He was seen in the emergency room for constipation 5 days ago and felt much improved after an enema. He also notes weight loss although cannot quantify this. Last colonoscopy 12 years ago. No family history of bowel cancer. In the ER chest x-ray with right midlung and left basilar opacity concerning for bacterial pneumonia. Procalcitonin positive. He was started on IV cefepime and vancomycin to cover for pneumonia. SARS-CoV-2 PCR positive, treated with 6 mg IV dexamethasone. Subsequent CT abdomen pelvis showed a large bowel obstruction with probable transition point mid transverse colon. He was referred to medicine for admission and ongoing management of COVID-19, bacterial pneumonia, hypoxia. Allergies Allergy/AdvReac Type Severity Reaction Status Date / Time No Known Allergies Allergy Mild Verified 10/25/20 10:03 Home Medications Medication Instructions Recorded Confirmed Type ascorbic acid (vitamin C) 500 mg 500 mg PO DAILY 01/26/19 10/30/20 History capsule,extended release aspirin 81 mg tablet,delayed 81 mg PO DAILY 01/26/19 10/30/20 History release calcium carbonate 600 mg (1,500 1 tab PO BID 01/26/19 10/30/20 History mg)-vitamin D3 200 unit tablet multivitamin,oh-nyrs-xxjothui 1 tab PO DAILY 01/26/19 10/30/20 History omega-3 fatty acids-fish oil 360 1 cap PO DAILY 01/26/19 10/30/20 History mg-1,200 mg capsule psyllium husk 0.52 gram capsule 0.52 gm PO QAM 01/26/19 10/30/20 History vitamin E mixed 1,000 unit capsule 1,000 units PO QAM cap 01/26/19 10/30/20 History escitalopram oxalate 10 mg tablet 10 mg PO QAM #90 tab 06/10/20 10/30/20 Rx lisinopril 20 mg tablet 20 mg PO QAM #90 tab 06/10/20 10/30/20 Rx omeprazole 20 mg tablet,delayed 20 mg PO QAM #90 tab 06/10/20 10/30/20 Rx release simvastatin 20 mg tablet 20 mg PO QPM #90 tab 06/10/20 10/30/20 Rx tamsulosin 0.4 mg capsule 0.8 mg PO DAILY 90 Days #180 cap 06/17/20 10/30/20 Rx hydroxyzine HCl 25 mg tablet 25 mg PO BID PRN #60 tab 10/16/20 10/30/20 Rx Past Med/Surg History Medical History Anemia Anxiety Cervical spondylosis GERD (gastroesophageal reflux disease) HTN (hypertension) Hyperlipidemia Osteoarthritis Prostate cancer SEED IMPLANT AND RADIATION THERAPY Skin cancer Surgical History History of colonoscopy History of prostate surgery History of tonsillectomy and adenoidectomy History of tooth extraction Hx of cataract surgery LEFT Family History Sister Breast cancer Denies family history of Colon cancer Ovarian cancer Prostate cancer Myocardial infarction Social History Smoking Status: Former smoker Tobacco Type: Cigars Second Hand Exposure: No; Hx Alcohol Use: No Hx Substance Use: No Preferred Language: Uzbek Communication Ability: Effective Visual Impairment: No Limitations Hearing Ability: Normal Oven Heater Helper Required: No Beliefs That Will Affect Care: None marital status: Current Living Situation: Spouse current occupational status: retired Feels Safe at Home: Yes Safety Concerns: Feels Safe At This Time Assistive Devices: Cane and Walker Review of Systems Review of Systems: All systems reviewed & are unremarkable except as noted in HPI & below Constitutional: + body aches, + fatigue, + weakness and + weight loss; no fever and no chills Physical Exam Constitutional: well developed, well nourished and + acute distress (Respiratory) Eyes: PERRL, conjunctivae normal, anicteric sclerae ENMT: Ears: no external ear abnormality Nose: no external nose abnormality Mouth: + dry oral mucous membranes Neck: trachea midline Respiratory: + respiratory distress, + labored breathing, + retractions, + uses accessory muscles, able to speak in complete sentences and + tachypneic; no cough, normal respiratory pattern and expiratory phase not prolonged Auscultation: + rhonchi (Bilaterally throughout); no diminished lung sounds and no wheezes Cardiovascular: Rate/Rhythm: regular rhythm and + tachycardic Heart Sounds: no murmur Vessels: no JVD Extremities: normal capillary refill; no calf tenderness and no pedal edema Gastrointestinal (Abdomen): Inspection/Auscultation: + abdomen distended and + hypoactive bowel sounds Percussion/Palpation: abdomen soft; abdomen nontender, no guarding and abdomen not rigid Musculoskeletal: no cyanosis or clubbing, extremities motor strength 5/5 Skin: no rashes, warm and dry Neurologic: moves all extremities and awake; no focal motor deficits and not confused Psychiatric: A+Ox3, euthymic affect Genitourinary: no CVA tenderness Results & Data Results & Data ([facility]) Vital Signs (Past 12 Hours) Vital Signs Temp Pulse Resp BP Pulse Ox 10/30/20 13:44 102 H 29 H 98 10/30/20 13:30 108 H 29 H 102/58 L 100 10/30/20 13:00 108 H 30 H 99/71 L 100 10/30/20 12:45 117 H 30 H 103/57 L 99 10/30/20 12:30 116 H 33 H 97/57 L 96 10/30/20 12:26 33 H 96 10/30/20 12:15 117 H 32 H 97/64 L 98 10/30/20 12:00 116 H 33 H 88/62 L 98 10/30/20 11:57 127 H 31 H 93/72 L 98 10/30/20 11:56 32 H 98 10/30/20 11:26 114 H 32 H 98 10/30/20 11:25 119 H 31 H 95/63 L 98 10/30/20 11:21 36.7 C 117 H 37 H 95/63 L 98 Diagnostic Findings XR chest 1V portable IMPRESSION: . 1. 3.6 cm right midlung opacity, new since chest radiograph of October 25, 2020. Therefore, this favors an infectious process. Left basilar opacity also may reflect an infectious process. Radiographic follow-up is recommended. 2. Cardiomegaly without evidence for pulmonary edema. CT OF THE ABDOMEN AND PELVIS WITHOUT CONTRAST IMPRESSION: 1. Findings consistent with a large bowel obstruction with probable transition point within the mid transverse colon. Although no mass identified by CT, an occult obstructing lesion is the diagnosis of exclusion. Further evaluation with colonoscopy is recommended. Large amount of poorly formed stool within the right colon. Marked cecal distention. Moderate small bowel dilatation. Small amount of abdominal ascites and mild mesenteric infiltration. 2. Moderate sized hiatal hernia with partially intrathoracic stomach. Visualized portions of the esophagus dilated and fluid-filled. 3. Indeterminate 2.4 cm lateral segment hepatic lesion which could be assessed with a follow-up nonemergent liver protocol CT when clinical condition permits. 4. Multifocal ground glass opacities within the lower lungs suggestive of viral pneumonia. 5. Left inguinal hernia which contains a small portion of the sigmoid colon. Thi s does not result in the bowel obstruction. 6. Mild splenomegaly. Medications Administered ER medications given: Dexamethasone 6 mg IV NSS 500 mL bolus Cefepime 2 g IV Vancomycin 1750 mg IV ECG Indication: SOB/dyspnea Rate (beats per minute): 120 Rhythm: sinus tachycardia Findings: no acute ischemic change Comparison ECG Date: from (April 02, 2016) Change: the following changes noted (Ventricular rate increased) Code Status & VTE Plan Code Status Full VTE Prophylaxis Plan VTE Prophylaxis will be ordered: Yes PG Care Time/CCT Total # of Minutes Spent Total Time Spent with Patient: Total time spent is greater than 50% in coordination of care (as documented) at patient's floor/unit and/or counseling patient: Coding Level of Care Code 19243 Initial Inpt Care Lvl 3 Diagnoses Sepsis A41.9 Acute respiratory failure with hypoxia J96.01 Pneumonia due to COVID-19 virus U07.1; J12.82 Community acquired pneumonia J18.9 Large bowel obstruction K56.609 Microcytic anemia D50.9 Elevated d-dimer R79.89 Acute kidney injury N17.9 Thrombocytosis D47.3 GERD (gastroesophageal reflux disease) K21.9 HTN (hypertension) I10 Prostate CA C61 Thalassemia syndrome D56.9 DVT prophylaxis Z29.9
[2020-10-30] MEDS ORDERED: SODIUM CHLORIDE 0.9% 1000ML 1,000 ML IV ONE (14:43)
[2020-10-30 15:01] LABS: D Dimer 1990 ug/L FEU (0-500)
[2020-10-30 15:02] LABS: Creatine Kinase 247 U/L (39-308); Ferritin 61.5 ng/ml (8-388); Iron < 5 mcg/dl (35-175); Transferrin 208 mg/dl (200-360)
[2020-10-30] MEDS ORDERED: HEPARIN 25000 UNIT/500 ML D5W IV ONE (16:05)
--- NOTE | 2020-10-30 16:14 | Electrocardiogram Report ---
Test Reason : Blood Pressure : / mmHG Vent. Rate : 120 BPM Atrial Rate : 120 BPM P-R Int : 146 ms QRS Dur : 088 ms QT Int : 376 ms P-R-T Axes : 061 020 010 degrees QTc Int : 531 ms Sinus tachycardia Nonspecific ST and T wave abnormality Abnormal ECG When compared with ECG of 02-APR-2016 15:38, Vent. rate has increased BY 44 BPM Confirmed by Francis Guadalupe ([id number]) on 10/30/2020 4:14:12 PM Referred By: ER Confirmed By:Francis Guadalupe
[2020-10-30] MEDS: HEPARIN SODIUM/DEXTROSE 25,000 UNITS/500 ML BAG IV SCH (16:30)
[2020-10-30] MEDS: Heparin IV Adult Wt-Based Standard *NO* Bolus Protocol IV SCH ×4 (17:00→20:02)
[2020-10-30] MEDS ORDERED: ACETAMINOPHEN 1,000 MG/100 ML VIAL IV PRN (17:00)
--- NOTE | 2020-10-30 18:04 | Pharmacy Report ---
Pharmacy Abx Dose Short Note - Date of Service October 30, 2020 - Assessment & Plan Assessment 85 year old M receiving vancomycin for treatment of pneumonia Day # 1 of antimicrobial therapy. Plan Vancomycin * patient currently has JEAN (current creatinine =1.76 mg/dL vs baseline of 1.03 mg/dL) * patient received 20 mg/kg vancomycin load (dose of 1750 mg) * Due to kidney injury, will order random for AM labs Pharmacy will continue to follow and will adjust dose/frequency as necessary. Thank you.
[2020-10-30] MEDS: SODIUM CHLOR 0.45% + 20MEQ KCL 20 MEQ/1,000 ML BAG IV SCH (18:05)
[2020-10-30] MEDS: AMPICILLIN/SULBACTAM SOD 3,000 MG in 0.9 % SODIUM CHLORIDE 100 ML IV SCH ×2 (18:15→23:25)
[2020-10-30 19:59] LABS: Appearance Urine Cloudy (Clear); Bacteria Urine Automated Negative (Negative); Blood Urine Negative (Negative); Color Urine Dark Yellow; Epithelial Cell Urine Auto >30 /lpf (0-5); Glucose Urine UA Negative (Negative); Ketones Urine Trace (Negative); Leukocyte Esterase Urine Negative (Negative); Nitrite Urine Negative (Negative); Protein Urine Trace (Negative); Specific Gravity Urine 1.024 (1.000-1.030); Urobilinogen Urine Negative (Negative)
[2020-10-30 20:02] LABS: Bilirubin Urine 1+ (Negative)
[2020-10-30 20:26] LABS: RBC Urine Automated 0-4 /hpf (0-4)
[2020-10-30 20:28] LABS: Calcium Oxalate Crystals Urine Present (None Prsent)
[2020-10-30 23:22] LABS: Hematocrit (blood only) 27.2 % (42-52); Hemoglobin 8.7 g/dL (14.0-18.0)
[2020-10-30 23:33] LABS: Partial Thromboplastin Ratio 1.2; Partial Thromboplastin Time 32.5 Seconds (21.0-31.0)
[2020-10-30] MEDS ORDERED: HEPARIN IV BOLUS 3,000 UNITS in SYRINGE 0 ML IV STA (23:41)
[2020-10-31] MEDS: SODIUM CHLOR 0.45% + 20MEQ KCL 20 MEQ/1,000 ML BAG IV SCH (01:52)
[2020-10-31] MEDS ORDERED: FUROSEMIDE 40 MG in SYRINGE 0 ML IV ONE (03:51)
--- NOTE | 2020-10-31 04:47 | Communication Note ---
Date of Service: October 31, 2020 Called by nurse regarding increased oxygen demand after getting up to use the bathroom. Was on 5L Oxymask, then increased to 11L due to hypoxia to 84%. P atient endorsed sensation of SOB during this episode. No complaints of CP, dizziness, lightheadedness. However, on exam patient had significant moist rales/crackles that could be heard on auscultation but could also be heard audibly with patient's breathing in the room. Lasix 40mg IV x1 given and IVF stopped. ABG and CXR ordered. CXR without significant change from prior imaging. ABG without acidosis. Low CO2 noted.
[2020-10-31 04:58] LABS: Eosinophils # (auto) 0.01 K/uL (0-0.5); Eosinophils % (auto) 0.1 %; Hemoglobin 9.2 g/dL (14.0-18.0); Immature Granulocytes # (auto) 0.02 K/uL (0.00-0.02); Immature Granulocytes % (auto) 0.2 %; Lymphocytes # (auto) 0.59 K/uL (1.2-3.4); Lymphocytes % (auto) 7.3 %; Mean Corpuscular Hemoglobin 22.3 pg (25-34); Mean Corpuscular Hgb Conc 31.7 g/dL (32-36); Mean Corpuscular Volume 70.2 fL (80-100); Monocytes # (auto) 0.85 K/uL (0.11-0.59); Monocytes % (auto) 10.6 %; Neutrophils # (auto) 6.56 K/uL (1.4-6.5); Neutrophils % (auto) 81.8 %; Platelet Count 895 K/uL (130-400); RDW Coefficient of Variation 21.9 % (11.5-14.5); RDW Standard Deviation 51.1 fL (36.4-46.3); Red Blood Count 4.13 M/uL (4.7-6.1); White Blood Count 8.03 K/uL (4.8-10.8)
[2020-10-31 04:59] LABS: Allen Test Pos (Pos); Base Excess ABG -2.8 mEq/L (-9-1.8); HCO3 ABG 21 mmol/L (19-24); Oxygen Saturation ABG 93.1 % (90-95); PCO2 ABG 32 mmHg (35-46); PO2 ABG 66 mmHg (80-95); pH ABG 7.44 (7.35-7.45)
[2020-10-31] MEDS: AMPICILLIN/SULBACTAM SOD 3,000 MG in 0.9 % SODIUM CHLORIDE 100 ML IV SCH ×4 (05:04→23:00)
[2020-10-31] MEDS: DOXYCYCLINE HYCLATE 100 MG in DEXTROSE 5% 100 ML IV SCH ×2 (05:05→17:25)
[2020-10-31 05:15] LABS: Albumin Level 2.4 gm/dl (3.4-5.0); BUN Creatinine Ratio 47.9 (10-20); Calcium 7.7 mg/dl (8.5-10.1); Creatinine Clr Calc Pharmacy 38.5 ml/min; Est GFR (African American) 50.5; Est GFR (Non-African American) 43.6; Potassium 3.6 mmol/L (3.5-5.1)
[2020-10-31 05:19] LABS: Partial Thromboplastin Ratio 1.7
[2020-10-31 05:50] LABS: Albumin Globulin Ratio 0.7 (0.9-2); Bilirubin,Total 1.3 mg/dl (0.2-1); Globulin 3.4 gm/dl (2.5-4.0); Total Protein 5.8 gm/dl (6.4-8.2); Troponin I 0.128 ng/ml (0-0.045)
[2020-10-31 06:24] LABS: Anisocytosis Present; Echinocytes 1+; Ovalocytes 1+; Tear Drop Cells 1+
[2020-10-31] MEDS: dexAMETHasone 6 MG in SYRINGE 0 ML IV SCH (07:20)
[2020-10-31 08:06] LABS: Partial Thromboplastin Ratio 1.3; Partial Thromboplastin Time 33.9 Seconds (21.0-31.0)
--- NOTE | 2020-10-31 08:25 | XRay Report ---
SINGLE VIEW CHEST CLINICAL HISTORY: Hypoxia. FINDINGS: An AP, portable, upright chest radiograph is compared to study dated 10/30/2020. The examinat ion is degraded by portable technique and apical lordotic positioning. The heart is enlarged noting a therosclerotic calcification of the thoracic aorta. The pulmonary vasculature is noncongested. An karla roximately 3 cm nodular opacity is seen in the right midlung. There is increasing patchy airspace con solidation the left mid to lower lung. No large pleural effusion or pneumothorax is seen. The skeleta l structures are osteopenic. The bony thorax is grossly intact. IMPRESSION: 1. Cardiomegaly without radiographic evidence of congestive failure. 2. There is increasing airspace consolidation the left mid to lower lung. Correlate clinically for ev idence of an infectious/inflammatory pneumonitis. 3. An approximately 3 cm nodular density is again seen in the right midlung. This is pathologically i ndeterminant and may be on an infectious basis. If this fails to resolve a chest CT should be obtaine d for further assessment. ACT 112: Negative or not required by law. Electronically signed by: Zachary Hicks M.D. 10/31/2020 8:24 AM
[2020-10-31] MEDS ORDERED: HEPARIN IV BOLUS 3,000 UNITS in SYRINGE 0 ML IV ONE ×2 (08:30→14:00)
[2020-10-31] MEDS ORDERED: DEXAMETHASONE SOD INJ 4 MG/ML VIAL IV SCH (09:00)
[2020-10-31] MEDS: HEPARIN SODIUM/DEXTROSE 25,000 UNITS/500 ML BAG IV SCH ×2 (10:03→10:50)
--- NOTE | 2020-10-31 11:32 | Gastrointestinal Consultation ---
Date of Consultation October 31, 2020 Assessment & Plan (1) Large bowel obstruction: (2) Pneumonia due to COVID-19 virus: (3) Constipation: Ddx: severe constipation vs ileus vs obstruction (?stricture or mass). Given chronicity, possibly represents a colon mass. Patient is not currently in any acute GI distress and is having ongoing hypoxia r/t COVID associated pneumonia which poses increased risk of anesthesia at present. Discussed this with Dr. Feldman. Therefore recommendations as follows: 1. NPO for now. 2. Recommend daily KUB imaging. Will obtain today. 3. NG insertion to LIW suction if abdominal pain or N/V develops. 4. Plan for possible colonoscopy next week if respiratory status improves and he is deemed a reasonable candidate for anesthesia. 5. Continue supportive medical management. Thank you for allowing us to participate in the care of this pleasant patient. If you have any questions or concerns, please do not hesitate to contact us. Supervising Physician Co-Signing Physician Notes I agree with the findings as documented by GINA Sifuentes History of Present Illness Reason for Consultation: Abnormal CT, Colon obstruction Requesting Physician: Dr. Callaway Attending Physician: Jean Marie Feldman, History of Present Illness Patient is a very pleasant 85 y.o male with a history of chronic constipation which has been ongoing for years admitted due to progressive weakness. He was noted to have a mild cough and hypoxia and was positive for COVID-19. He is unclear of how he contracted this illness as he has no known exposures. Since admission, he has developed worsened hypoxia this morning and has been escalated on supportive oxygen. He stated he remains chronically constipated and last bowel movement was the day before admission and reports "it was a good one". He denies any nausea or vomiting, abdominal pain or overt GIB symptoms. Reports only bloating. No fevers or chills. Last colonoscopy was performed in [address] Bermudez and no further surveillance was recommended due to age. No family history of colon cancer. Allergies Allergy/AdvReac Type Severity Reaction Status Date / Time No Known Allergies Allergy Mild Verified 10/25/20 10:03 Home Medications Medication Instructions Recorded Confirmed Type ascorbic acid (vitamin C) 500 mg 500 mg PO DAILY 01/26/19 10/30/20 History capsule,extended release aspirin 81 mg tablet,delayed 81 mg PO DAILY 01/26/19 10/30/20 History release calcium carbonate 600 mg (1,500 1 tab PO BID 01/26/19 10/30/20 History mg)-vitamin D3 200 unit tablet multivitamin,hd-ptnc-snwjihws 1 tab PO DAILY 01/26/19 10/30/20 History omega-3 fatty acids-fish oil 360 1 cap PO DAILY 01/26/19 10/30/20 History mg-1,200 mg capsule psyllium husk 0.52 gram capsule 0.52 gm PO QAM 01/26/19 10/30/20 History vitamin E mixed 1,000 unit capsule 1,000 units PO QAM cap 01/26/19 10/30/20 History escitalopram oxalate 10 mg tablet 10 mg PO QAM #90 tab 06/10/20 10/30/20 Rx lisinopril 20 mg tablet 20 mg PO QAM #90 tab 06/10/20 10/30/20 Rx omeprazole 20 mg tablet,delayed 20 mg PO QAM #90 tab 06/10/20 10/30/20 Rx release simvastatin 20 mg tablet 20 mg PO QPM #90 tab 06/10/20 10/30/20 Rx tamsulosin 0.4 mg capsule 0.8 mg PO DAILY 90 Days #180 cap 06/17/20 10/30/20 Rx hydroxyzine HCl 25 mg tablet 25 mg PO BID PRN #60 tab 10/16/20 10/30/20 Rx Patient History Medical History Anemia Anxiety Cervical spondylosis GERD (gastroesophageal reflux disease) HTN (hypertension) Hyperlipidemia Osteoarthritis Prostate cancer SEED IMPLANT AND RADIATION THERAPY Skin cancer Surgical History History of colonoscopy History of prostate surgery History of tonsillectomy and adenoidectomy History of tooth extraction Hx of cataract surgery LEFT Family History Sister Breast cancer Denies family history of Colon cancer Ovarian cancer Prostate cancer Myocardial infarction Social History Smoking Status: Former smoker Tobacco Type: Cigars Second Hand Exposure: No; Hx Alcohol Use: No Hx Substance Use: No Preferred Language: Maori Communication Ability: Effective Visual Impairment: No Limitations Hearing 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: Normal 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 Beliefs That Will Affect Care: None marital status: Current Living Situation: Spouse current occupational status: retired Feels Safe at Home: Yes Safety Concerns: Feels Safe At This Time Assistive Devices: Oxygen - Continuous Review of Systems Constitutional: as per Subjective / HPI Respiratory: as per Subjective / HPI, + cough, + dyspnea and + dyspnea on exertion Cardiovascular: no chest pain Gastrointestinal: as per Subjective / HPI Physical Exam Constitutional: WD/WN, vitals as above Respiratory: + tachypneic Auscultation: + crackles and + rales Cardiovascular: Rate/Rhythm: regular rate and regular rhythm Gastrointestinal (Abdomen): Inspection/Auscultation: + abdomen distended and normal bowel sounds Percussion/Palpation: abdomen soft; abdomen nontender Psychiatric: A+Ox3, euthymic affect Results & Data ([facility]) Vital Signs (Past 12 Hours) Vital Signs Temp Pulse Pulse Pulse Resp BP Pulse Ox 10/31/20 11:25 37.2 C 108 H 108 H 30 H 112/62 93 10/31/20 10:58 10/31/20 07:14 36.4 C L 102 H 102 H 24 123/67 95 10/31/20 06:44 95 10/31/20 03:38 37.0 C 113 H 26 H 136/66 90 10/31/20 01:29 101 H 10/30/20 23:36 37.3 C 94 H 24 104/49 L 94 Pulse Ox 10/31/20 11:25 10/31/20 10:58 92 10/31/20 07:14 10/31/20 06:44 10/31/20 03:38 10/31/20 01:29 10/30/20 23:36 Laboratory Results Abnormal lab results 10/30/20 10/30/20 10/30/20 Range/Units 11:35 11:35 11:38 RBC (4.7-6.1) M/uL Hgb (14.0-18.0) g/dL Hct (42-52) % MCV (80-100) fL MCH (25-34) pg MCHC (32-36) g/dL RDW Std Deviation (36.4-46.3) fL RDW Coeff of Maryann (11.5-14.5) % Plt Count (130-400) K/uL Neut # (Auto) (1.4-6.5) K/uL Lymph # (Auto) (1.2-3.4) K/uL [place] # (Auto) (0.11-0.59) K/uL Neutrophils # (Manual) (1.4-6.5) K/uL Total Absolute Neuts (1.4-6.5) K/uL Lymphocytes # (Manual) (1.2-3.4) K/uL Total Abs Lymphocytes (1.2-3.4) K/uL Monocytes # (Manual) (0.11-0.59) K/uL Metamyelocytes # (Man) (0-0) K/uL PT (9.0-12.0) Seconds INR (0.9-1.1) APTT (21.0-31.0) Seconds D-Dimer (0-500) ug/L FEU ABG pCO2 (35-46) mmHg ABG pO2 (80-95) mmHg VBG pH (7.36-7.41) VBG pCO2 (38-50) mmHg BUN 62 H (7-18) mg/dl Creatinine 1.76 H (0.6-1.4) mg/dl BUN/Creatinine Ratio 35.0 H (10-20) Glucose 112 H (70-99) mg/dl Lactate 2.5 H* (0.4-2.0) mmol/L Calcium 8.4 L (8.5-10.1) mg/dl Iron (35-175) mcg/dl Total Bilirubin 1.6 H (0.2-1) mg/dl Alkaline Phosphatase (45-117) U/L Lactate Dehydrogenase (87-241) U/L Troponin I 0.123 H* (0-0.045) ng/ml C-Reactive Protein (0-0.29) mg/dl Total Protein (6.4-8.2) gm/dl Albumin 2.9 L (3.4-5.0) gm/dl Albumin/Globulin Ratio 0.8 L (0.9-2) Procalcitonin (0-0.5) ng/ml Urine Appearance (Clear) Urine Protein (Negative) Urine Ketones (Negative) Urine Bilirubin (Negative) U Hyaline Cast (Auto) (0-5) /lpf U Epithel Cells (Auto) (0-5) /lpf Calcium Oxalate Crystal (None Prsent) Granular Casts (0) /lpf SARS-CoV-2 (PCR) POSITIVE A* (Negative) 10/30/20 10/30/20 10/30/20 Range/Units 11:41 11:41 12:04 RBC (4.7-6.1) M/uL Hgb 10.7 L (14.0-18.0) g/dL Hct 34.0 L (42-52) % MCV 69.4 L (80-100) fL MCH 21.8 L (25-34) pg MCHC 31.5 L (32-36) g/dL RDW Std Deviation 51.5 H (36.4-46.3) fL RDW Coeff of Maryann 22.2 H (11.5-14.5) % Plt Count 1062 H* (130-400) K/uL Neut # (Auto) (1.4-6.5) K/uL Lymph # (Auto) (1.2-3.4) K/uL [place] # (Auto) (0.11-0.59) K/uL Neutrophils # (Manual) 7.70 H (1.4-6.5) K/uL Total Absolute Neuts 7.70 H (1.4-6.5) K/uL Lymphocytes # (Manual) 0.42 L (1.2-3.4) K/uL Total Abs Lymphocytes 0.42 L (1.2-3.4) K/uL Monocytes # (Manual) 0.68 H (0.11-0.59) K/uL Metamyelocytes # (Man) 0.76 H (0-0) K/uL PT (9.0-12.0) Seconds INR (0.9-1.1) APTT (21.0-31.0) Seconds D-Dimer (0-500) ug/L FEU ABG pCO2 (35-46) mmHg ABG pO2 (80-95) mmHg VBG pH 7.42 H (7.36-7.41) VBG pCO2 33 L (38-50) mmHg BUN (7-18) mg/dl Creatinine (0.6-1.4) mg/dl BUN/Creatinine Ratio (10-20) Glucose (70-99) mg/dl Lactate (0.4-2.0) mmol/L Calcium (8.5-10.1) mg/dl Iron (35-175) mcg/dl Total Bilirubin (0.2-1) mg/dl Alkaline Phosphatase (45-117) U/L Lactate Dehydrogenase (87-241) U/L Troponin I (0-0.045) ng/ml C-Reactive Protein (0-0.29) mg/dl Total Protein (6.4-8.2) gm/dl Albumin (3.4-5.0) gm/dl Albumin/Globulin Ratio (0.9-2) Procalcitonin 5.45 H (0-0.5) ng/ml Urine Appearance (Clear) Urine Protein (Negative) Urine Ketones (Negative) Urine Bilirubin (Negative) U Hyaline Cast (Auto) (0-5) /lpf U Epithel Cells (Auto) (0-5) /lpf Calcium Oxalate Crystal (None Prsent) Granular Casts (0) /lpf SARS-CoV-2 (PCR) (Negative) 10/30/20 10/30/20 10/30/20 Range/Units 12:55 14:21 14:21 RBC (4.7-6.1) M/uL Hgb (14.0-18.0) g/dL Hct (42-52) % MCV (80-100) fL MCH (25-34) pg MCHC (32-36) g/dL RDW Std Deviation (36.4-46.3) fL RDW Coeff of Maryann (11.5-14.5) % Plt Count (130-400) K/uL Neut # (Auto) (1.4-6.5) K/uL Lymph # (Auto) (1.2-3.4) K/uL [place] # (Auto) (0.11-0.59) K/uL Neutrophils # (Manual) (1.4-6.5) K/uL Total Absolute Neuts (1.4-6.5) K/uL Lymphocytes # (Manual) (1.2-3.4) K/uL Total Abs Lymphocytes (1.2-3.4) K/uL Monocytes # (Manual) (0.11-0.59) K/uL Metamyelocytes # (Man) (0-0) K/uL PT 12.1 H (9.0-12.0) Seconds INR 1.2 H (0.9-1.1) APTT (21.0-31.0) Seconds D-Dimer 1990 H* (0-500) ug/L FEU ABG pCO2 (35-46) mmHg ABG pO2 (80-95) mmHg VBG pH (7.36-7.41) VBG pCO2 (38-50) mmHg BUN (7-18) mg/dl Creatinine (0.6-1.4) mg/dl BUN/Creatinine Ratio (10-20) Glucose (70-99) mg/dl Lactate (0.4-2.0) mmol/L Calcium (8.5-10.1) mg/dl Iron < 5 L (35-175) mcg/dl Total Bilirubin (0.2-1) mg/dl Alkaline Phosphatase (45-117) U/L Lactate Dehydrogenase (87-241) U/L Troponin I (0-0.045) ng/ml C-Reactive Protein 12.30 H (0-0.29) mg/dl Total Protein (6.4-8.2) gm/dl Albumin (3.4-5.0) gm/dl Albumin/Globulin Ratio (0.9-2) Procalcitonin (0-0.5) ng/ml Urine Appearance (Clear) Urine Protein (Negative) Urine Ketones (Negative) Urine Bilirubin (Negative) U Hyaline Cast (Auto) (0-5) /lpf U Epithel Cells (Auto) (0-5) /lpf Calcium Oxalate Crystal (None Prsent) Granular Casts (0) /lpf SARS-CoV-2 (PCR) (Negative) 10/30/20 10/30/20 10/30/20 Range/Units 14:21 19:20 23:03 RBC (4.7-6.1) M/uL Hgb 8.7 L (14.0-18.0) g/dL Hct 27.2 L (42-52) % MCV (80-100) fL MCH (25-34) pg MCHC (32-36) g/dL RDW Std Deviation (36.4-46.3) fL RDW Coeff of Maryann (11.5-14.5) % Plt Count (130-400) K/uL Neut # (Auto) (1.4-6.5) K/uL Lymph # (Auto) (1.2-3.4) K/uL [place] # (Auto) (0.11-0.59) K/uL Neutrophils # (Manual) (1.4-6.5) K/uL Total Absolute Neuts (1.4-6.5) K/uL Lymphocytes # (Manual) (1.2-3.4) K/uL Total Abs Lymphocytes (1.2-3.4) K/uL Monocytes # (Manual) (0.11-0.59) K/uL Metamyelocytes # (Man) (0-0) K/uL PT (9.0-12.0) Seconds INR (0.9-1.1) APTT (21.0-31.0) Seconds D-Dimer (0-500) ug/L FEU ABG pCO2 (35-46) mmHg ABG pO2 (80-95) mmHg VBG pH (7.36-7.41) VBG pCO2 (38-50) mmHg BUN (7-18) mg/dl Creatinine (0.6-1.4) mg/dl BUN/Creatinine Ratio (10-20) Glucose (70-99) mg/dl Lactate (0.4-2.0) mmol/L Calcium (8.5-10.1) mg/dl Iron (35-175) mcg/dl Total Bilirubin (0.2-1) mg/dl Alkaline Phosphatase (45-117) U/L Lactate Dehydrogenase 277 H (87-241) U/L Troponin I (0-0.045) ng/ml C-Reactive Protein (0-0.29) mg/dl Total Protein (6.4-8.2) gm/dl Albumin (3.4-5.0) gm/dl Albumin/Globulin Ratio (0.9-2) Procalcitonin (0-0.5) ng/ml Urine Appearance Cloudy A (Clear) Urine Protein Trace H (Negative) Urine Ketones Trace H (Negative) Urine Bilirubin 1+ H (Negative) U Hyaline Cast (Auto) 5-10 H (0-5) /lpf U Epithel Cells (Auto) >30 H (0-5) /lpf Calcium Oxalate Crystal Present A (None Prsent) Granular Casts 5-10 H (0) /lpf SARS-CoV-2 (PCR) (Negative) 10/30/20 10/31/20 10/31/20 Range/Units 23:03 04:33 04:33 RBC 4.13 L (4.7-6.1) M/uL Hgb 9.2 L (14.0-18.0) g/dL Hct 29.0 L (42-52) % MCV 70.2 L (80-100) fL MCH 22.3 L (25-34) pg MCHC 31.7 L (32-36) g/dL RDW Std Deviation 51.1 H (36.4-46.3) fL RDW Coeff of Maryann 21.9 H (11.5-14.5) % Plt Count 895 H (130-400) K/uL Neut # (Auto) 6.56 H (1.4-6.5) K/uL Lymph # (Auto) 0.59 L (1.2-3.4) K/uL [place] # (Auto) 0.85 H (0.11-0.59) K/uL Neutrophils # (Manual) (1.4-6.5) K/uL Total Absolute Neuts (1.4-6.5) K/uL Lymphocytes # (Manual) (1.2-3.4) K/uL Total Abs Lymphocytes (1.2-3.4) K/uL Monocytes # (Manual) (0.11-0.59) K/uL Metamyelocytes # (Man) (0-0) K/uL PT (9.0-12.0) Seconds INR (0.9-1.1) APTT 32.5 H (21.0-31.0) Seconds D-Dimer (0-500) ug/L FEU ABG pCO2 (35-46) mmHg ABG pO2 (80-95) mmHg VBG pH (7.36-7.41) VBG pCO2 (38-50) mmHg BUN 69 H (7-18) mg/dl Creatinine 1.45 H D (0.6-1.4) mg/dl BUN/Creatinine Ratio 47.9 H (10-20) Glucose 101 H (70-99) mg/dl Lactate (0.4-2.0) mmol/L Calcium 7.7 L (8.5-10.1) mg/dl Iron (35-175) mcg/dl Total Bilirubin 1.3 H (0.2-1) mg/dl Alkaline Phosphatase 43 L (45-117) U/L Lactate Dehydrogenase (87-241) U/L Troponin I 0.128 H* (0-0.045) ng/ml C-Reactive Protein (0-0.29) mg/dl Total Protein 5.8 L (6.4-8.2) gm/dl Albumin 2.4 L (3.4-5.0) gm/dl Albumin/Globulin Ratio 0.7 L (0.9-2) Procalcitonin (0-0.5) ng/ml Urine Appearance (Clear) Urine Protein (Negative) Urine Ketones (Negative) Urine Bilirubin (Negative) U Hyaline Cast (Auto) (0-5) /lpf U Epithel Cells (Auto) (0-5) /lpf Calcium Oxalate Crystal (None Prsent) Granular Casts (0) /lpf SARS-CoV-2 (PCR) (Negative) 10/31/20 10/31/20 10/31/20 Range/Units 04:33 04:38 07:07 RBC (4.7-6.1) M/uL Hgb (14.0-18.0) g/dL Hct (42-52) % MCV (80-100) fL MCH (25-34) pg MCHC (32-36) g/dL RDW Std Deviation (36.4-46.3) fL RDW Coeff of Maryann (11.5-14.5) % Plt Count (130-400) K/uL Neut # (Auto) (1.4-6.5) K/uL Lymph # (Auto) (1.2-3.4) K/uL [place] # (Auto) (0.11-0.59) K/uL Neutrophils # (Manual) (1.4-6.5) K/uL Total Absolute Neuts (1.4-6.5) K/uL Lymphocytes # (Manual) (1.2-3.4) K/uL Total Abs Lymphocytes (1.2-3.4) K/uL Monocytes # (Manual) (0.11-0.59) K/uL Metamyelocytes # (Man) (0-0) K/uL PT (9.0-12.0) Seconds INR (0.9-1.1) APTT 45.0 H 33.9 H (21.0-31.0) Seconds D-Dimer (0-500) ug/L FEU ABG pCO2 32 L (35-46) mmHg ABG pO2 66 L (80-95) mmHg VBG pH (7.36-7.41) VBG pCO2 (38-50) mmHg BUN (7-18) mg/dl Creatinine (0.6-1.4) mg/dl BUN/Creatinine Ratio (10-20) Glucose (70-99) mg/dl Lactate (0.4-2.0) mmol/L Calcium (8.5-10.1) mg/dl Iron (35-175) mcg/dl Total Bilirubin (0.2-1) mg/dl Alkaline Phosphatase (45-117) U/L Lactate Dehydrogenase (87-241) U/L Troponin I (0-0.045) ng/ml C-Reactive Protein (0-0.29) mg/dl Total Protein (6.4-8.2) gm/dl Albumin (3.4-5.0) gm/dl Albumin/Globulin Ratio (0.9-2) Procalcitonin (0-0.5) ng/ml Urine Appearance (Clear) Urine Protein (Negative) Urine Ketones (Negative) Urine Bilirubin (Negative) U Hyaline Cast (Auto) (0-5) /lpf U Epithel Cells (Auto) (0-5) /lpf Calcium Oxalate Crystal (None Prsent) Granular Casts (0) /lpf SARS-CoV-2 (PCR) (Negative) PG Care Time/CCT Total # of Minutes Spent Total Time Spent with Patient: Total time spent is greater than 50% in coordination of care (as documented) at patient's floor/unit and/or counseling patient: Coding Level of Care Code 22093 Initial Inpt Care Lvl 3 Diagnoses Large bowel obstruction K56.609 Pneumonia due to COVID-19 virus U07.1; J12.82 Constipation K59.00 Constipation type: unspecified constipation type (1) Constipation Constipation type: unspecified constipation type Qualified Code(s): K59.00 - Constipation, unspecified
--- NOTE | 2020-10-31 12:51 | XRay Report ---
KUB HISTORY: Acute generalized abdominal pain with distention cecal distention COMPARISON: CT abdomen pelvis 10/30/2020 FINDINGS: There are persistent dilated air filled loops of large and small bowel with large bowel loo ps measuring up to 6.2 cm and small bowel loops measuring up to 3.8 cm. This appears stable to mildly improved from comparison. No renal calculi. No ureteral calculi. No pneumoperitoneum or pneumatosis . No fracture. IMPRESSION: Persistent dilation involving loops of air-filled large and small bowel compatible with previously de scribed large bowel obstruction. ACT 112: Negative or not required by law. The above report was generated using voice recognition software. It may contain grammatical, syntax o r spelling errors. Electronically signed by: Kayden Valentin M.D. 10/31/2020 12:50 PM
[2020-10-31 13:33] LABS: Partial Thromboplastin Ratio 1.4; Partial Thromboplastin Time 36.3 Seconds (21.0-31.0)
--- NOTE | 2020-10-31 16:19 | Hospitalist Progress Note ---
Date of Service October 31, 2020 Assessment & Plan (1) Sepsis: Lactate 2.5, repeat 1.9 Avoiding aggressive IV fluids due to COVID-19 diagnosis. Suspected source community-acquired pneumonia, COVID-19 BP stable, no fever, WBC 8k continue Unasyn and Doxycycline, responding well no growth on blood cultures (2) Acute respiratory failure with hypoxia: due to bacterial pneumonia as well as COVID 19 pneumonia improved, down to 1L NC this evening flutter valve, mobilizing secretions dexamethasone for COVID got Lasix early this morning for some pulmonary edema, resolved stop heparin drip, low suspicion for PE Aim O2 sats > 90% (3) Pneumonia due to COVID-19 virus: COVID isolation precautions Dexamethasone 6 mg IV daily x 10 days, day 2 (4) Community acquired pneumonia: Community-acquired versus aspiration pneumonia - fluid-filled esophagus on CT with bilateral rhonchi on auscultation continue Unasyn and Doxycycline WBC normal productive cough with flutter valve on exam he has bilateral rhonchi and crackles (5) Large bowel obstruction: Concerning for colon cancer given weight loss, imaging and age. last colonoscopy was 12 years ago gives history of 2 weeks of bowel changes, chronic constipation last BM was two days ago, not passing gas appreciate GI consult, consider colonoscopy next week if respiratory status improves keep NPO KUB today still with dilated colon CEA noted to be normal (6) Microcytic anemia: History of thalassemia. Hb is 9 today repeat tomorrow (7) Elevated d-dimer: due to COVID 19 infection he has COVID pneumonia and bacterial pneumonia saturations improving with flutter valve and mobilizing sputum will stop heparin drip (8) Acute kidney injury: Suspected prerenal in the setting of poor oral intake. Cr improved to 1.4 from 1.7, making urine hold on fluids right now due to pulmonary edema overnight likely give maintenance fluids tomorrow since he is NPO (9) Thrombocytosis: History of thrombocytosis (?essential), elevated in the setting of sepsis. Continue aspirin 81 mg p.o. (10) GERD (gastroesophageal reflux disease): Switch omeprazole for pantoprazole as per hospital formulary (11) HTN (hypertension): Avoid antihypertensives at this time. Discontinue lisinopril. (12) Prostate CA: Notable history of this. 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 (14) DVT prophylaxis: Lovenox tomorrow Admission and Anticipated Discharge Date Admission Date: October 30, 2020 Subjective patient feeling much better, breathing easier, he got a dose of Lasix early this morning IV fluids off for now no nausea or vomiting, no abdominal pain, no BM since 2/2 will stop heparin drip, low chance of PE he is using flutter valve, coughing up a lot of sputum, breathing better and lungs clearing up discussed with GI, will plan for colonoscopy but want to improve respiratory status first maybe he can get scope next week reviewed chart reviewed labs, WBC 8k, Hb 9, plts 895 BUN 69 and Cr 1.45, troponin 0.128 CEA is normal at 1.6 as per COVID, he said his had it in September, she was on quarantine he never had symptoms or tested positive at that time Review of Systems Review of Systems: All systems reviewed & are unremarkable except as noted in Subjective Respiratory: + cough, + dyspnea, + dyspnea on exertion and + sputum production Cardiovascular: no chest pain, no palpitations, no syncope and no edema Gastrointestinal: + constipation (obstipation); no abdominal pain, no nausea, no vomiting and no diarrhea/loose stools Physical Exam Constitutional: WD/WN, vitals as above no acute distress Neck: trachea midline, no thyromegaly Respiratory: normal respiratory effort; no respiratory distress and no labored breathing Auscultation: + crackles and + rhonchi; no rales and no wheezes Cardiovascular: RRR, no murmur, no edema Gastrointestinal (Abdomen): Inspection/Auscultation: + abdomen distended and + hypoactive bowel sounds Percussion/Palpation: abdomen soft and + tympanic to percussion; abdomen nontender, no guarding and abdomen not rigid Musculoskeletal: no cyanosis or clubbing, extremities motor strength 5/5 Skin: no rashes, warm and dry Neurologic: patellar DTR's 2+ bilat, sensation intact and PERRL, EOMI, accommodation nl, no face palsy, no dysarthria Psychiatric: A+Ox3, euthymic affect Lymphatic: no cervical or axillary lymphadenopathy Results & Data Results & Data ([facility]) Vital Signs (Past 12 Hours) Vital Signs Temp Pulse Pulse Resp BP Pulse Ox Pulse Ox 10/31/20 15:12 37.5 C 96 H 96 H 24 111/67 93 10/31/20 11:25 37.2 C 108 H 108 H 30 H 112/62 93 10/31/20 10:58 92 10/31/20 07:14 36.4 C L 102 H 102 H 24 123/67 95 10/31/20 06:44 95 Laboratory Results Laboratory Results - last 24 hr 10/30/20 10/30/20 10/30/20 18:00 19:20 23:03 WBC RBC Hgb 8.7 L Hct 27.2 L MCV MCH MCHC RDW Std Deviation RDW Coeff of Maryann Plt Count Immature Gran % (Auto) Neut % (Auto) Lymph % (Auto) [place] % (Auto) Eos % (Auto) Baso % (Auto) Neut # (Auto) Lymph # (Auto) [place] # (Auto) Eos # (Auto) Baso # (Auto) Immature Gran # (Auto) Anisocytosis Tear Drop Cells Ovalocytes Echinocytes APTT PTT Ratio ABG pH ABG pCO2 ABG pO2 ABG HCO3 ABG O2 Saturation ABG Base Excess [place] Test Oxygen Given Sodium Potassium Chloride Carbon Dioxide Anion Gap BUN Creatinine Est Cr Clr Drug Dosing Est GFR ( Amer) Est GFR (Non-Af Amer) BUN/Creatinine Ratio Glucose Calcium Total Bilirubin AST ALT Alkaline Phosphatase Troponin I Total Protein Albumin Globulin Albumin/Globulin Ratio Carcinoembryonic Ag Urine Color Dark Yellow Urine Appearance Cloudy A Urine pH 5.0 Ur Specific Hobbs 1.024 Urine Protein Trace H Urine Glucose (UA) Negative Urine Ketones Trace H Urine Blood Negative Urine Nitrite Negative Urine Bilirubin 1+ H Urine Urobilinogen Negative Ur Leukocyte Esterase Negative Urine WBC (Auto) 1-5 Urine RBC (Auto) 0-4 U Hyaline Cast (Auto) 5-10 H U Epithel Cells (Auto) >30 H Urine Bacteria (Auto) Negative Calcium Oxalate Crystal Present A Granular Casts 5-10 H Urine Yeast Not Reportable Nasal Screen MRSA (PCR) Negative 10/30/20 10/31/20 10/31/20 23:03 04:33 04:33 WBC 8.03 RBC 4.13 L Hgb 9.2 L Hct 29.0 L MCV 70.2 L MCH 22.3 L MCHC 31.7 L RDW Std Deviation 51.1 H RDW Coeff of Maryann 21.9 H Plt Count 895 H Immature Gran % (Auto) 0.2 Neut % (Auto) 81.8 Lymph % (Auto) 7.3 [place] % (Auto) 10.6 Eos % (Auto) 0.1 Baso % (Auto) 0.0 Neut # (Auto) 6.56 H Lymph # (Auto) 0.59 L [place] # (Auto) 0.85 H Eos # (Auto) 0.01 Baso # (Auto) 0.00 Immature Gran # (Auto) 0.02 Anisocytosis Present Tear Drop Cells 1+ Ovalocytes 1+ Echinocytes 1+ APTT 32.5 H PTT Ratio 1.2 ABG pH ABG pCO2 ABG pO2 ABG HCO3 ABG O2 Saturation ABG Base Excess [place] Test Oxygen Given Sodium 138 Potassium 3.6 Chloride 107 Carbon Dioxide 23 Anion Gap 8.0 BUN 69 H Creatinine 1.45 H D Est Cr Clr Drug Dosing 38.5 Est GFR ( Amer) 50.5 Est GFR (Non-Af Amer) 43.6 BUN/Creatinine Ratio 47.9 H Glucose 101 H Calcium 7.7 L Total Bilirubin 1.3 H AST 27 ALT 22 Alkaline Phosphatase 43 L Troponin I 0.128 H* Total Protein 5.8 L Albumin 2.4 L Globulin 3.4 Albumin/Globulin Ratio 0.7 L Carcinoembryonic Ag Urine Color Urine Appearance Urine pH Ur Specific Hobbs Urine Protein Urine Glucose (UA) Urine Ketones Urine Blood Urine Nitrite Urine Bilirubin Urine Urobilinogen Ur Leukocyte Esterase Urine WBC (Auto) Urine RBC (Auto) U Hyaline Cast (Auto) U Epithel Cells (Auto) Urine Bacteria (Auto) Calcium Oxalate Crystal Granular Casts Urine Yeast Nasal Screen MRSA (PCR) 10/31/20 10/31/20 10/31/20 04:33 04:33 04:38 WBC RBC Hgb Hct MCV MCH MCHC RDW Std Deviation RDW Coeff of Maryann Plt Count Immature Gran % (Auto) Neut % (Auto) Lymph % (Auto) [place] % (Auto) Eos % (Auto) Baso % (Auto) Neut # (Auto) Lymph # (Auto) [place] # (Auto) Eos # (Auto) Baso # (Auto) Immature Gran # (Auto) Anisocytosis Tear Drop Cells Ovalocytes Echinocytes APTT 45.0 H PTT Ratio 1.7 ABG pH 7.44 ABG pCO2 32 L ABG pO2 66 L ABG HCO3 21 ABG O2 Saturation 93.1 ABG Base Excess -2.8 Milton Test Pos Oxygen Given 11L Sodium Potassium Chloride Carbon Dioxide Anion Gap BUN Creatinine Est Cr Clr Drug Dosing Est GFR ( Amer) Est GFR (Non-Af Amer) BUN/Creatinine Ratio Glucose Calcium Total Bilirubin AST ALT Alkaline Phosphatase Troponin I Total Protein Albumin Globulin Albumin/Globulin Ratio Carcinoembryonic Ag 1.6 Urine Color Urine Appearance Urine pH Ur Specific [place] Urine Protein Urine Glucose (UA) Urine Ketones Urine Blood Urine Nitrite Urine Bilirubin Urine Urobilinogen Ur Leukocyte Esterase Urine WBC (Auto) Urine RBC (Auto) U Hyaline Cast (Auto) U Epithel Cells (Auto) Urine Bacteria (Auto) Calcium Oxalate Crystal Granular Casts Urine Yeast Nasal Screen MRSA (PCR) 10/31/20 10/31/20 07:07 13:09 WBC RBC Hgb Hct MCV MCH MCHC RDW Std Deviation RDW Coeff of Maryann Plt Count Immature Gran % (Auto) Neut % (Auto) Lymph % (Auto) [place] % (Auto) Eos % (Auto) Baso % (Auto) Neut # (Auto) Lymph # (Auto) [place] # (Auto) Eos # (Auto) Baso # (Auto) Immature Gran # (Auto) Anisocytosis Tear Drop Cells Ovalocytes Echinocytes APTT 33.9 H 36.3 H PTT Ratio 1.3 1.4 ABG pH ABG pCO2 ABG pO2 ABG HCO3 ABG O2 Saturation ABG Base Excess [place] Test Oxygen Given Sodium Potassium Chloride Carbon Dioxide Anion Gap BUN Creatinine Est Cr Clr Drug Dosing Est GFR ( Amer) Est GFR (Non-Af Amer) BUN/Creatinine Ratio Glucose Calcium Total Bilirubin AST ALT Alkaline Phosphatase Troponin I Total Protein Albumin Globulin Albumin/Globulin Ratio Carcinoembryonic Ag Urine Color Urine Appearance Urine pH Ur Specific [place] Urine Protein Urine Glucose (UA) Urine Ketones Urine Blood Urine Nitrite Urine Bilirubin Urine Urobilinogen Ur Leukocyte Esterase Urine WBC (Auto) Urine RBC (Auto) U Hyaline Cast (Auto) U Epithel Cells (Auto) Urine Bacteria (Auto) Calcium Oxalate Crystal Granular Casts Urine Yeast Nasal Screen MRSA (PCR) Medications Administered Current Inpatient Medications Acetaminophen (Ofirmev) 1,000 mg in 100 mls @ 400 mls/hr IV Q8H PRN PRN Reason: Pain or Fever Stop: 11/02/20 16:59 Ampicillin Sodium/Sulbactam Sodium 3,000 mg/ Sodium Chloride 108 mls @ 200 mls/hr IV Q6H ADE; Protocol Stop: 11/06/20 16:59 Last Infusion: 10/31/20 11:40 Dose: Infused Documented by: Dexamethasone Sodium Phosphate (6 mg/ Syringe) 1.5 mls @ 1 mls/min IV DAILY ADE Stop: 11/09/20 08:59 Last Admin: 10/31/20 07:20 Dose: 1 mls/min Documented by: Doxycycline Hyclate 100 mg/ (Dextrose) 110 mls @ 50 mls/hr IV Q12H ADE Stop: 11/07/20 05:59 Last Infusion: 10/31/20 07:22 Dose: Infused Documented by: PG Care Time/CCT Total # of Minutes Spent Total Time Spent with Patient: Total time spent is greater than 50% in coordination of care (as documented) at patient's floor/unit and/or counseling patient: Coding Level of Care Code 38377 Subseq Hosp Care Lvl 3 Diagnoses Sepsis A41.9 Acute respiratory failure with hypoxia J96.01 Pneumonia due to COVID-19 virus U07.1; J12.82 Community acquired pneumonia J18.9 Large bowel obstruction K56.609 Microcytic anemia D50.9 Elevated d-dimer R79.89 Acute kidney injury N17.9 Thrombocytosis D47.3 GERD (gastroesophageal reflux disease) K21.9 HTN (hypertension) I10 Prostate CA C61 Thalassemia syndrome D56.9 DVT prophylaxis Z29.9
[2020-11-01] MEDS: AMPICILLIN/SULBACTAM SOD 3,000 MG in 0.9 % SODIUM CHLORIDE 100 ML IV SCH ×4 (05:27→23:47)
[2020-11-01] MEDS: DOXYCYCLINE HYCLATE 100 MG in DEXTROSE 5% 100 ML IV SCH ×2 (05:27→17:21)
[2020-11-01 06:36] LABS: Hematocrit (blood only) 27.2 % (42-52); Hemoglobin 8.6 g/dL (14.0-18.0); Mean Corpuscular Hemoglobin 22.2 pg (25-34); Mean Corpuscular Hgb Conc 31.6 g/dL (32-36); Mean Corpuscular Volume 70.3 fL (80-100); Platelet Count 784 K/uL (130-400); RDW Coefficient of Variation 22.2 % (11.5-14.5); RDW Standard Deviation 52.3 fL (36.4-46.3); Red Blood Count 3.87 M/uL (4.7-6.1); White Blood Count 8.89 K/uL (4.8-10.8)
[2020-11-01 07:07] LABS: BUN Creatinine Ratio 53.5 (10-20); Calcium 8.3 mg/dl (8.5-10.1); Creatinine Clr Calc Pharmacy 46.1 ml/min; Est GFR (African American) 62.9; Est GFR (Non-African American) 54.3; Magnesium 2.6 mg/dl (1.8-2.4); Potassium 3.6 mmol/L (3.5-5.1)
[2020-11-01] MEDS: dexAMETHasone 6 MG in SYRINGE 0 ML IV SCH (07:28)
[2020-11-01] MEDS: ENOXAPARIN INJ 40 MG/0.4 ML SYR SQ SCH (07:28)
[2020-11-01] MEDS ORDERED: LACTATED RINGER'S 1,000 ML IV SCH (08:00)
--- NOTE | 2020-11-01 08:37 | XRay Report ---
KUB HISTORY: large bowel obstruction COMPARISON: KUB 10/31/2020. FINDINGS: No significant change in the dilated gas-filled loops of large and small bowel consistent t he patient's known large bowel obstruction. No renal calculi. No ureteral calculi. No pneumoperitoneu m or pneumatosis. Multiple brachytherapy seeds again noted within the prostate gland. IMPRESSION: No significant change in the large bowel obstruction. ACT 112: Negative or not required by law. Electronically signed by: Rian Narvaez M.D. 11/01/2020 8:40 AM
--- NOTE | 2020-11-01 09:24 | Hospitalist Progress Note ---
Date of Service November 01, 2020 Assessment & Plan (1) Sepsis: Lactate 2.5, repeat 1.9 Suspected source community-acquired pneumonia, bacterial he is COVID positive but his had it in August, suspect he had it end of CXR does not have the appearance of COVID pneumonia BP stable, no fever, WBC 8k continue Unasyn and Doxycycline, responding well no growth on blood cultures (2) Acute respiratory failure with hypoxia: due to bacterial pneumonia as well as COVID 19 pneumonia improved, down to room air today while sitting up in the chair flutter valve, mobilizing secretions dexamethasone for COVID, continue for now but if he remains off oxygen then will stop Dexamethasone 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, resolved likely that his fluids were really aggressive initially that led to volume overload stopped heparin drip 10/31, low suspicion for PE Aim O2 sats > 90%, he is stable on room air (3) Pneumonia due to COVID-19 virus: COVID isolation precautions Dexamethasone 6 mg IV daily x 10 days, day 3 if he remains off oxygen then stop dexamethasone low clinical suspicion that this is truly COVID pneumonia, CXR looks more like bacterial (4) Community acquired pneumonia: Community-acquired versus aspiration pneumonia - fluid-filled esophagus on CT with bilateral rhonchi on auscultation continue Unasyn and Doxycycline for 7 day course WBC normal again today productive cough with flutter valve on exam he has bilateral rhonchi and crackles but they are less today (5) Large bowel obstruction: Concerning for colon cancer given weight loss, imaging and age. last colonoscopy was 12 years ago gives history of 2 weeks of bowel changes, chronic constipation last BM was three days ago, not passing gas still if he has some flatus then he can have some clear liquids appreciate GI consult, consider colonoscopy next week if respiratory status improves keep NPO KUB 2/5 is unchanged CEA noted to be normal on 10/31 (6) Microcytic anemia: History of thalassemia. Hb is 8.6 today repeat tomorrow (7) Elevated d-dimer: due to COVID 19 infection he has COVID pneumonia and bacterial pneumonia saturations improving with flutter valve and mobilizing sputum will stop heparin drip on 10/31 (8) Acute kidney injury: Suspected prerenal in the setting of poor oral intake. Cr improved to 1.2 from 1.7, making urine will give LR at 50cc/hr since he cannot eat or drink watch closely for any signs of pulmonary edema (9) Thrombocytosis: History of thrombocytosis (?essential), elevated in the setting of sepsis. Continue aspirin 81 mg p.o. plts 784 today (10) GERD (gastroesophageal reflux disease): Switch omeprazole for pantoprazole as per hospital formulary (11) HTN (hypertension): Avoid antihypertensives at this time. Discontinue lisinopril due to JEAN BP 140s systolic, let it ride for today (12) Prostate CA: Notable history of this. 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 (14) DVT prophylaxis: Lovenox Admission and Anticipated Discharge Date Admission Date: October 30, 2020 Subjective patient continues to improve from respiratory standpoint, he is coughing up phlegm, breathing easier sitting up in a chair his saturations are 93-94% on room air still no flatus or BM, will give him gentle LR at 50cc/hr reviewed labs, Cr down to 1.2, electrolytes stable, WBC normal KUB viewed by me, looks unchanged from yesterday with signs of obstruction, dilated small bowels Review of Systems Review of Systems: All systems reviewed & are unremarkable except as noted in Subjective Respiratory: + cough, + dyspnea, + dyspnea on exertion and + sputum production Gastrointestinal: + constipation (obstipation); no abdominal pain, no nausea, no vomiting and no diarrhea/loose stools Physical Exam Constitutional: WD/WN, vitals as above no acute distress Neck: trachea midline, no thyromegaly Respiratory: normal respiratory effort; no respiratory distress and no labored breathing Auscultation: + crackles and + rhonchi; no rales and no wheezes Cardiovascular: RRR, no murmur, no edema Gastrointestinal (Abdomen): Inspection/Auscultation: + abdomen distended and + hypoactive bowel sounds Percussion/Palpation: abdomen soft and + tympanic to percussion; abdomen nontender, no guarding and abdomen not rigid Musculoskeletal: no cyanosis or clubbing, extremities motor strength 5/5 Skin: no rashes, warm and dry Neurologic: patellar DTR's 2+ bilat, sensation intact and PERRL, EOMI, accommodation nl, no face palsy, no dysarthria Psychiatric: A+Ox3, euthymic affect Lymphatic: no cervical or axillary lymphadenopathy Results & Data Results & Data ([facility]) Vital Signs (Past 12 Hours) Vital Signs Temp Pulse Pulse Resp BP Pulse Ox Pulse Ox 11/01/20 07:36 95 11/01/20 07:19 36.9 C 86 18 141/75 H 95 11/01/20 03:51 36.5 C 90 25 H 127/74 91 11/01/20 00:33 87 11/01/20 00:00 37.0 C 91 H 21 118/69 91 Laboratory Results Laboratory Results - last 24 hr 10/31/20 11/01/20 11/01/20 13:09 05:42 05:42 WBC 8.89 RBC 3.87 L Hgb 8.6 L Hct 27.2 L MCV 70.3 L MCH 22.2 L MCHC 31.6 L RDW Std Deviation 52.3 H RDW Coeff of Maryann 22.2 H Plt Count 784 H APTT 36.3 H PTT Ratio 1.4 Sodium 142 Potassium 3.6 Chloride 110 H Carbon Dioxide 25 Anion Gap 7.0 BUN 65 H Creatinine 1.21 Est Cr Clr Drug Dosing 46.1 Est GFR ( Amer) 62.9 Est GFR (Non-Af Amer) 54.3 BUN/Creatinine Ratio 53.5 H Glucose 93 Calcium 8.3 L Magnesium 2.6 H Diagnostic Findings KUB HISTORY: large bowel obstruction COMPARISON: KUB 10/31/2020. FINDINGS: No significant change in the dilated gas-filled loops of large and small bowel consistent the patient's known large bowel obstruction. No renal calculi. No ureteral calculi. No pneumoperitoneum or pneumatosis. Multiple brachytherapy seeds again noted within the prostate gland. IMPRESSION: No significant change in the large bowel obstruction. Medications Administered Current Inpatient Medications Enoxaparin Sodium (Enoxaparin Inj 40 Mg/0.4 Ml Syr) 40 mg SQ QAM [facility] Stop: 12/01/20 08:59 Last Admin: 11/01/20 07:28 Dose: 40 mg Documented by: Acetaminophen (Ofirmev) 1,000 mg in 100 mls @ 400 mls/hr IV Q8H PRN PRN Reason: Pain or Fever Stop: 11/02/20 16:59 Ampicillin Sodium/Sulbactam Sodium 3,000 mg/ Sodium Chloride 108 mls @ 200 mls/hr IV Q6H ADE; Protocol Stop: 11/06/20 16:59 Last Infusion: 11/01/20 06:01 Dose: Infused Documented by: Dexamethasone Sodium Phosphate (6 mg/ Syringe) 1.5 mls @ 1 mls/min IV DAILY ADE Stop: 11/09/20 08:59 Last Admin: 11/01/20 07:28 Dose: 1 mls/min Documented by: Doxycycline Hyclate 100 mg/ (Dextrose) 110 mls @ 50 mls/hr IV Q12H ADE Stop: 11/07/20 05:59 Last Infusion: 11/01/20 07:45 Dose: Infused Documented by: Lactated Ringer's (Lr) 1,000 mls @ 50 mls/hr IV .Q20H ADE Stop: 12/01/20 07:59 Last Admin: 11/01/20 07:27 Dose: 50 mls/hr Documented by: PG Care Time/CCT Total # of Minutes Spent Total Time Spent with Patient: Total time spent is greater than 50% in coordination of care (as documented) at patient's floor/unit and/or counseling patient: Coding Level of Care Code 21360 Subseq Hosp Care Lvl 3 Diagnoses Sepsis A41.9 Acute respiratory failure with hypoxia J96.01 Pneumonia due to COVID-19 virus U07.1; J12.82 Community acquired pneumonia J18.9 Large bowel obstruction K56.609 Microcytic anemia D50.9 Elevated d-dimer R79.89 Acute kidney injury N17.9 Thrombocytosis D47.3 GERD (gastroesophageal reflux disease) K21.9 HTN (hypertension) I10 Prostate CA C61 Thalassemia syndrome D56.9 DVT prophylaxis Z29.9
--- NOTE | 2020-11-01 10:07 | Surgery Progress Note ---
Date of Service November 01, 2020 Assessment & Plan (1) Large bowel obstruction: Patient here with Covid + pneumonia, found to have large bowel obstruction - CT showed: Findings consistent with a large bowel obstruction with probable transition point within the mid transverse colon. Although no mass identified by CT, an occult obstructing lesion is the diagnosis of exclusion. Further evaluation with colonoscopy is recommended. Large amount of poorly formed stool within the right colon. Marked cecal distention. Moderate small bowel dilatation - Agree with GI workup for colonoscopy for further evaluation when able to tolerate bowel prep - Would have low threshold to place NGT should patient develop n/v or worsening abdominal pain - Following daily KUBs - Pt seen and examined with Dr. Rodriguez [facility] surgery covering over the weekend Admission and Anticipated Discharge Date Admission Date: October 30, 2020 Subjective Patient states he is doing okay. Denies abdominal pain/nausea/vomiting. No BM since 10/29. Says he is passing a very small amount of gas. Physical Exam Physical Exam: awake/alert, sitting up in bed Respiratory: normal respiratory effort Gastrointestinal (Abdomen): Inspection/Auscultation: + abdomen distended Percussion/Palpation: abdomen soft; abdomen nontender Results & Data ([facility]) Vital Signs (Past 12 Hours) Vital Signs Temp Pulse Pulse Resp BP Pulse Ox Pulse Ox 11/01/20 07:36 95 11/01/20 07:19 36.9 C 86 18 141/75 H 95 11/01/20 03:51 36.5 C 90 25 H 127/74 91 11/01/20 00:33 87 11/01/20 00:00 37.0 C 91 H 21 118/69 91 PG Care Time/CCT Total # of Minutes Spent Total Time Spent with Patient: Total time spent is greater than 50% in coordination of care (as documented) at patient's floor/unit and/or counseling patient: Coding Level of Care Code 16668 Subseq Hosp Care Lvl 1 Diagnoses Large bowel obstruction K56.609
--- NOTE | 2020-11-01 11:13 | Communication Note ---
Date of Service: November 01, 2020 Chart review of labs, vital signs and provider notes. Patient's oxygen demands are decreasing. Passing a small amount of flatus per general surgery note. KUB without any acute changes. Tentative colonoscopy Wednesday11/05/20 if acceptable anesthesia risk and patient amenable to testing.
[2020-11-02] MEDS: DOXYCYCLINE HYCLATE 100 MG in DEXTROSE 5% 100 ML IV SCH ×2 (05:35→18:40)
[2020-11-02] MEDS: AMPICILLIN/SULBACTAM SOD 3,000 MG in 0.9 % SODIUM CHLORIDE 100 ML IV SCH ×3 (05:36→18:13)
[2020-11-02 06:57] LABS: Hematocrit (blood only) 26.9 % (42-52); Hemoglobin 8.5 g/dL (14.0-18.0); Mean Corpuscular Hemoglobin 22.3 pg (25-34); Mean Corpuscular Hgb Conc 31.6 g/dL (32-36); Mean Corpuscular Volume 70.6 fL (80-100); Platelet Count 720 K/uL (130-400); RDW Coefficient of Variation 21.8 % (11.5-14.5); RDW Standard Deviation 52.4 fL (36.4-46.3); Red Blood Count 3.81 M/uL (4.7-6.1); White Blood Count 10.98 K/uL (4.8-10.8)
[2020-11-02 07:07] LABS: BUN Creatinine Ratio 55.1 (10-20); Calcium 8.7 mg/dl (8.5-10.1); Creatinine Clr Calc Pharmacy 58.7 ml/min; Est GFR (African American) 84.3; Est GFR (Non-African American) 72.7; Potassium 3.8 mmol/L (3.5-5.1)
[2020-11-02] MEDS: dexAMETHasone 6 MG in SYRINGE 0 ML IV SCH (08:14)
[2020-11-02] MEDS: ENOXAPARIN INJ 40 MG/0.4 ML SYR SQ SCH (08:14)
--- NOTE | 2020-11-02 09:36 | XRay Report ---
KUB HISTORY: large bowel obstruction COMPARISON: KUB 11/01/2020. FINDINGS: Dilated gas-filled loops of large and small bowel remain unchanged. This is consistent with the patient's known large bowel obstruction. Transition point is located within the distal transvers e colon. No renal calculi. No ureteral calculi. No pneumoperitoneum or pneumatosis. IMPRESSION: No change in the large bowel obstruction. ACT 112: Negative or not required by law. Electronically signed by: Rian Narvaez M.D. 11/02/2020 9:34 AM
--- NOTE | 2020-11-02 09:50 | Hospitalist Progress Note ---
Date of Service November 02, 2020 Assessment & Plan (1) Sepsis: Lactate 2.5, repeat 1.9 Suspected source community-acquired pneumonia, bacterial he is COVID positive but his had it in August, suspect he had it end of CXR does not have the appearance of COVID pneumonia BP stable, no fever, WBC normal continue Unasyn and Doxycycline, responding well no growth on blood cultures sepsis resolved (2) Acute respiratory failure with hypoxia: due to bacterial pneumonia, doubt there was any component of COVID 19 at this time improved, down to room air for three days, 96% today flutter valve, mobilizing secretions dexamethasone initially for COVID, stop now since he is not hypoxemic got Lasix spinner cap frame of 10/31 for some pulmonary edema, resolved likely that his fluids were really aggressive initially that led to volume overload stopped heparin drip 10/31, low suspicion for PE (3) Pneumonia due to COVID-19 virus: COVID isolation precautions Dexamethasone 6 mg IV daily x 10 days, day 4 today, will stop as he has been stable on room air low clinical suspicion that this is truly COVID pneumonia, CXR looks more like bacterial and he has productive cough, yellow sputum (4) Community acquired pneumonia: Community-acquired versus aspiration pneumonia - fluid-filled esophagus on CT with bilateral rhonchi on auscultation continue Unasyn and Doxycycline for 7 day course WBC normal productive cough with flutter valve on exam he had bilateral rhonchi and crackles but they are essentially resolved (5) Large bowel obstruction: Concerning for colon cancer given weight loss, imaging and age. last colonoscopy was 12 years ago gives history of 2 weeks of bowel changes, chronic constipation last BM was four days ago, not passing gas still if he has some flatus then he can have some clear liquids appreciate GI consult, plan for colonoscopy on Wednesday keep NPO except ice chips and sips KUB 11/02 is unchanged CEA noted to be normal on 10/31 (6) Microcytic anemia: History of thalassemia. Hb is 8.5 today repeat tomorrow (7) Elevated d-dimer: due to COVID 19 infection he has COVID pneumonia and bacterial pneumonia saturations improving with flutter valve and mobilizing sputum will stop heparin drip on 10/31 (8) Acute kidney injury: Suspected prerenal in the setting of poor oral intake. Cr improved to 0.9 today will give LR at 50cc/hr for another bag today since he cannot eat or drink watch closely for any signs of pulmonary edema (9) Thrombocytosis: History of thrombocytosis (?essential), elevated in the setting of sepsis. Continue aspirin 81 mg p.o. plts 720 today (10) GERD (gastroesophageal reflux disease): Switch omeprazole for pantoprazole as per hospital formulary (11) HTN (hypertension): give Vasotec IV, typically on Lisinopril BP 150s systolic (12) Prostate CA: Notable history of this. 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 (14) DVT prophylaxis: Lovenox Admission and Anticipated Discharge Date Admission Date: October 30, 2020 Subjective patient feeling well, no issues overnight no more flatus, no BM, he says he feels like he has to go but nothing comes out he is doing okay with ice chips, sips will resume the LR at 50 for another bag today, just to stay hydrated breathing is very stable, 96% on room air, coughing up phlegm but a lot less, lungs are clearer no fever/chills discussed with him plans for colonoscopy Wednesday, he agrees Review of Systems Review of Systems: All systems reviewed & are unremarkable except as noted in Subjective Constitutional: no fever, no chills, no sweats, no fatigue and no weakness Respiratory: + cough and + sputum production (scant yellow); no dyspnea and no dyspnea on exertion Cardiovascular: no chest pain Gastrointestinal: + bloating (distended) and + constipation (obstipation); no abdominal pain, no nausea, no vomiting and no diarrhea/loose stools Physical Exam Constitutional: WD/WN, vitals as above no acute distress Neck: trachea midline, no thyromegaly Respiratory: normal respiratory effort; no respiratory distress and no labored breathing Auscultation: no rales and no wheezes Cardiovascular: RRR, no murmur, no edema Gastrointestinal (Abdomen): Inspection/Auscultation: + abdomen distended and + hypoactive bowel sounds Percussion/Palpation: abdomen soft and + tympanic to percussion; abdomen nontender, no guarding and abdomen not rigid Musculoskeletal: no cyanosis or clubbing, extremities motor strength 5/5 Skin: no rashes, warm and dry Neurologic: patellar DTR's 2+ bilat, sensation intact and PERRL, EOMI, accommo dation nl, no face palsy, no dysarthria Psychiatric: A+Ox3, euthymic affect Lymphatic: no cervical or axillary lymphadenopathy Results & Data Results & Data ([facility]) Vital Signs (Past 12 Hours) Vital Signs Temp Pulse Pulse Resp BP Pulse Ox Pulse Ox 11/02/20 08:23 94 11/02/20 07:30 36.8 C 87 20 152/92 H 96 11/02/20 03:52 36.9 C 83 20 150/82 H 93 11/02/20 01:52 84 11/01/20 23:17 37.1 C 78 20 151/71 H 92 Laboratory Results Laboratory Results - last 24 hr 11/02/20 11/02/20 06:14 06:14 WBC 10.98 H RBC 3.81 L Hgb 8.5 L Hct 26.9 L MCV 70.6 L MCH 22.3 L MCHC 31.6 L RDW Std Deviation 52.4 H RDW Coeff of Maryann 21.8 H Plt Count 720 H Sodium 143 Potassium 3.8 Chloride 113 H Carbon Dioxide 22 Anion Gap 8.0 BUN 53 H Creatinine 0.95 Est Cr Clr Drug Dosing 58.7 Est GFR ( Amer) 84.3 Est GFR (Non-Af Amer) 72.7 BUN/Creatinine Ratio 55.1 H Glucose 86 Calcium 8.7 Diagnostic Findings KUB: unchanged appearance of large bowel obstruction, dilated small bowel loops Medications Administered Current Inpatient Medications Enoxaparin Sodium (Enoxaparin Inj 40 Mg/0.4 Ml Syr) 40 mg SQ QAM [facility] Stop: 12/01/20 08:59 Last Admin: 11/02/20 08:14 Dose: 40 mg Documented by: Acetaminophen (Ofirmev) 1,000 mg in 100 mls @ 400 mls/hr IV Q8H PRN PRN Reason: Pain or Fever Stop: 11/02/20 16:59 Ampicillin Sodium/Sulbactam Sodium 3,000 mg/ Sodium Chloride 108 mls @ 200 mls/hr IV Q6H [facility]; Protocol Stop: 11/06/20 16:59 Last Infusion: 11/02/20 06:58 Dose: Infused Documented by: Dexamethasone Sodium Phosphate (6 mg/ Syringe) 1.5 mls @ 1 mls/min IV DAILY [facility] Stop: 11/09/20 08:59 Last Admin: 11/02/20 08:14 Dose: 1 mls/min Documented by: Doxycycline Hyclate 100 mg/ (Dextrose) 110 mls @ 50 mls/hr IV Q12H ADE Stop: 11/07/20 05:59 Last Infusion: 11/02/20 08:00 Dose: Infused Documented by: PG Care Time/CCT Total # of Minutes Spent Total Time Spent with Patient: Total time spent is greater than 50% in coordination of care (as documented) at patient's floor/unit and/or counseling patient: Coding Level of Care Code 71493 Subseq Hosp Care Lvl 3 Diagnoses Sepsis A41.9 Acute respiratory failure with hypoxia J96.01 Pneumonia due to COVID-19 virus U07.1; J12.82 Community acquired pneumonia J18.9 Large bowel obstruction K56.609 Microcytic anemia D50.9 Elevated d-dimer R79.89 Acute kidney injury N17.9 Thrombocytosis D47.3 GERD (gastroesophageal reflux disease) K21.9 HTN (hypertension) I10 Prostate CA C61 Thalassemia syndrome D56.9 DVT prophylaxis Z29.9
[2020-11-02] MEDS ORDERED: LACTATED RINGER'S 1,000 ML IV SCH (10:15)
[2020-11-02] MEDS: ENALAPRILAT 1.25 MG in DEXTROSE 5% 25 ML IV SCH ×2 (11:17→18:12)
--- NOTE | 2020-11-02 14:44 | Surgery Progress Note ---
Date of Service F/U colon obstruction, pt is stable, passed some gas, no abdominal pain, no nausea, no vomiting, pt is on RA, no SOB, November 02, 2020 Assessment & Plan (1) Large bowel obstruction: KUB: IMPRESSION: No change in the large bowel obstruction. F/U colon obstruction, stable, no nausea, no vomiting, no abdominal pain, per-GI doctor colonoscopy on 11/05/2020, continue treatment, will F/U Present on Admission?: Yes Admission and Anticipated Discharge Date Admission Date: October 30, 2020 Supervising Physician Co-Signing Physician Notes I agree with the findings as documented by GINA Sifuentes Subjective patient feeling well, no issues overnight no more flatus, no BM, he says he feels like he has to go but nothing comes out he is doing okay with ice chips, sips will resume the LR at 50 for another bag today, just to stay hydrated breathing is very stable, 96% on room air, coughing up phlegm but a lot less, lungs are clearer no fever/chills discussed with him plans for colonoscopy Wednesday, he agrees Physical Exam Constitutional: WD/WN, vitals as above well developed and well nourished Neck: trachea midline, no thyromegaly Respiratory: normal respiratory effort, lungs clear to auscultation normal respiratory effort Cardiovascular: RRR, no murmur, no edema Gastrointestinal (Abdomen): normal bowel sounds, soft, nontender, no hepatosplenomegaly Musculoskeletal: no cyanosis or clubbing, extremities motor strength 5/5 Neurologic: awake Psychiatric: Orientation: alert and oriented x 3 Results & Data ([facility]) Vital Signs (Past 12 Hours) Vital Signs Temp Pulse Pulse Resp BP Pulse Ox Pulse Ox 11/02/20 11:25 36.8 C 87 20 139/78 96 11/02/20 08:24 65 11/02/20 08:23 94 11/02/20 07:30 36.8 C 87 20 152/92 H 96 11/02/20 03:52 36.9 C 83 20 150/82 H 93 Laboratory Results Abnormal lab results 11/02/20 11/02/20 Range/Units 06:14 06:14 WBC 10.98 H (4.8-10.8) K/uL RBC 3.81 L (4.7-6.1) M/uL Hgb 8.5 L (14.0-18.0) g/dL Hct 26.9 L (42-52) % MCV 70.6 L (80-100) fL MCH 22.3 L (25-34) pg MCHC 31.6 L (32-36) g/dL RDW Std Deviation 52.4 H (36.4-46.3) fL RDW Coeff of Maryann 21.8 H (11.5-14.5) % Plt Count 720 H (130-400) K/uL Chloride 113 H (98-107) mmol/L BUN 53 H (7-18) mg/dl BUN/Creatinine Ratio 55.1 H (10-20)
[2020-11-02] MEDS ORDERED: TPN/PPN CONSULT PHARMACY PRN (15:58)
[2020-11-03] MEDS: ENALAPRILAT 1.25 MG in DEXTROSE 5% 25 ML IV SCH ×5 (00:06→23:21)
[2020-11-03] MEDS: AMPICILLIN/SULBACTAM SOD 3,000 MG in 0.9 % SODIUM CHLORIDE 100 ML IV SCH ×5 (00:32→23:40)
[2020-11-03] MEDS: DOXYCYCLINE HYCLATE 100 MG in DEXTROSE 5% 100 ML IV SCH ×2 (06:20→18:23)
[2020-11-03 07:47] LABS: Hematocrit (blood only) 29.5 % (42-52); Hemoglobin 9.3 g/dL (14.0-18.0); Mean Corpuscular Hemoglobin 22.6 pg (25-34); Mean Corpuscular Hgb Conc 31.5 g/dL (32-36); Mean Corpuscular Volume 71.8 fL (80-100); Platelet Count 852 K/uL (130-400); RDW Coefficient of Variation 22.1 % (11.5-14.5); RDW Standard Deviation 52.7 fL (36.4-46.3); Red Blood Count 4.11 M/uL (4.7-6.1); White Blood Count 14.42 K/uL (4.8-10.8)
[2020-11-03] MEDS: ENOXAPARIN INJ 40 MG/0.4 ML SYR SQ SCH (08:12)
[2020-11-03 08:14] LABS: BUN Creatinine Ratio 46.2 (10-20); Calcium 8.9 mg/dl (8.5-10.1); Creatinine Clr Calc Pharmacy 62.7 ml/min; Est GFR (African American) 90.4; Magnesium 2.2 mg/dl (1.8-2.4); Potassium 4.1 mmol/L (3.5-5.1)
[2020-11-03 08:15] LABS: Phosphorus 3.2 mg/dl (2.5-4.9)
[2020-11-03] MEDS ORDERED: DEXTROSE 10% 1,000 ML IV PRN (09:05)
--- NOTE | 2020-11-03 09:16 | Pharmacy Report ---
Pharmacy PN Initial Consult - Date of Service November 03, 2020 - Scope Pharmacy has been consulted to manage parenteral nutrition orders and order appropriate labs. As part of the Nutrition Support Team guidelines, pharmacy will work in conjunction with dietary when determining the patients caloric needs. - Subjective The patient is a 85 year old M admitted on 10/30/20 15:01 for COVID 19 PNEUMONIA, LARGE BOWEL OBSTRUCTIONS,. Patient is to receive parenteral nutriti on for prolonged NPO status with bowel obstruction. Pertinent PMH: recent pulmonary edema - Objective Height: 5 ft 10 in Weight: 85.8 kg Diet: NPO Vascular Access:: peripheral Intake & Output (Last 24Hrs): Intake & Output 11/01/20 11/02/20 11/03/20 11/04/20 06:59 06:59 06:59 06:59 Intake Total 1038.75 / 1038.75 1799.5 / 1799.5 956 / 956 110 / 110 Output Total 1125 / 1125 825 / 825 625 / 625 Balance -86.25 / -86.25 974.5 / 974.5 331 / 331 110 / 110 Weight 87.2 kg 86.4 kg 85.8 kg Laboratory Data (Last 24 Hrs):: 11/03/20 05:40 Sodium 141 Potassium 4.1 Chloride 109 H Carbon Dioxide 21 BUN 41 H Creatinine 0.89 Glucose 72 Calcium 8.9 Phosphorus 3.2 Magnesium 2.2 Nutrition Assessment:: Please refer to the Notes section of the EMR for the most recent flat grinder operator note. - Assessment Patient with prolonged NPO status and large bowel obstruction. Recent pulmonary edema so volume restriction. - Plan For day 1 of PN administration, the following will be ordered: Macronutrients Amino acids 40 grams/day Dextrose 75 grams/day Lipids 50 grams/day Micronutrients Combined electrolytes 20 mL - contains 35 mEq Na, 20 meq K, 4.5 mEq Ca, 5 mEq Mg, 35 mEq Cl, 29.5 mEq acetate per 20 mL Sodium phosphate -- MMol Sodium chloride 25 mEq Sodium acetate 25 mEq Potassium phosphate 24 mMol Potassium chloride -- mEq Potassium acetate -- mEq Magnesium sulfate -- mEq Calcium gluconate -- mEq Multivitamins 10 mL Trace Elements 10 mL Additional additives: thiamine, folic acid, and pepcid Total volume 1200 mL to be infused over 24 hrs will provide 715 kcal/day Final osmolarity 875 mOsm/L (maximum for PPN is 900 mOsm/L) Labs to be ordered per PN order protocol Pharmacy will follow and adjust parenteral nutrition orders on a daily basis. Thank you.
--- NOTE | 2020-11-03 09:31 | Hospitalist Progress Note ---
Date of Service November 03, 2020 Assessment & Plan (1) Large bowel obstruction: Concerning for colon cancer given weight loss, imaging and age. last colonoscopy was 12 years ago gives history of 2 weeks of bowel changes, chronic constipation last BM was five days ago, scant flatus while here, no BM appreciate GI consult, plan for colonoscopy on Wednesday keep NPO except ice chips and sips KUB 11/02 is unchanged, repeat today will start PPN today, low volume CEA noted to be normal on 10/31 (2) Sepsis: Lactate 2.5, repeat 1.9 Suspected source community-acquired pneumonia, bacterial he is COVID positive but his had it in August, suspect he had it end of August/September CXR does not have the appearance of COVID pneumonia BP stable, no fever, WBC up to 14 today, suspect it is from dexamethasone use continue Unasyn and Doxycycline for 7 days total, responding well no growth on blood cultures sepsis resolved (3) Acute respiratory failure with hypoxia: due to bacterial pneumonia, doubt there was any component of COVID 19 at this time improved, down to room air for four days, 95% today flutter valve, mobilizing secretions dexamethasone initially for COVID, stopped since he was not hypoxemic got Lasix sensory scientist of 10/31 for some pulmonary edema, resolved likely that his fluids were really aggressive initially that led to volume overload stopped heparin drip 10/31, low suspicion for PE clinically presents like bacterial pneumonia and improving with antibiotics (4) Pneumonia due to COVID-19 virus: COVID isolation precautions Dexamethasone 6 mg IV daily, stopped after 4 days since he was stable on room air low clinical suspicion that this is truly COVID pneumonia, CXR looks more like bacterial and he has productive cough, yellow sputum (5) Community acquired pneumonia: Community-acquired versus aspiration pneumonia - fluid-filled esophagus on CT with bilateral rhonchi on auscultation continue Unasyn and Doxycycline for 7 day course, last day would be 11/05 in the afternoon/evening WBC 14k but suspect it is from dexamethasone productive cough with flutter valve on exam his lungs are clearing (6) Microcytic anemia: History of thalassemia. Hb is 9.3 today repeat tomorrow (7) Acute kidney injury: Suspected prerenal in the setting of poor oral intake. Cr improved to 0.89 today will hydrate with PPN starting today got LR at 50cc/hr the past two days (8) Thrombocytosis: History of thrombocytosis (?essential), elevated in the setting of sepsis. Continue aspirin 81 mg p.o. plts 852 today (9) GERD (gastroesophageal reflux disease): Switch omeprazole for pantoprazole as per hospital formulary (10) HTN (hypertension): give Vasotec IV, typically on Lisinopril BP 150s systolic (11) Prostate CA: Notable history of this. 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 (13) DVT prophylaxis: Lovenox Admission and Anticipated Discharge Date Admission Date: October 30, 2020 Subjective patient said he had a long night last night, could not sleep, was restless, agreed to try some Ativan tonight if he has similar issue he passed a little bit of gas today, still just taking some sips of water he feels like he might have to have a BM later will check a KUB labs show WBC up to 14k, suspect this is due to recent dexamethasone use, follow up tomorrow no fever, coughing up sputum, breathing feels good discussed starting some PPN today, he agrees with the plan he is frustrated being here, wishes he could just go home, understands he needs the scope Wednesday Review of Systems Review of Systems: All systems reviewed & are unremarkable except as noted in Subjective Physical Exam Constitutional: WD/WN, vitals as above no acute distress Neck: trachea midline, no thyromegaly Respiratory: normal respiratory effort; no respiratory distress and no labored breathing Auscultation: no rales and no wheezes Cardiovascular: RRR, no murmur, no edema Gastrointestinal (Abdomen): Inspection/Auscultation: + abdomen distended and + hypoactive bowel sounds Percussion/Palpation: abdomen soft and + tympanic to percussion; abdomen nontender, no guarding and abdomen not rigid Musculoskeletal: no cyanosis or clubbing, extremities motor strength 5/5 Skin: no rashes, warm and dry Neurologic: patellar DTR's 2+ bilat, sensation intact and PERRL, EOMI, accommodation nl, no face palsy, no dysarthria Psychiatric: A+Ox3, euthymic affect Lymphatic: no cervical or axillary lymphadenopathy Results & Data Results & Data ([facility]) Vital Signs (Past 12 Hours) Vital Signs Temp Pulse Pulse Resp BP Pulse Ox Pulse Ox 11/03/20 09:00 93 11/03/20 06:59 36.8 C 90 19 158/86 H 94 11/03/20 06:21 90 11/03/20 03:54 36.5 C 83 18 177/85 H 96 11/03/20 00:13 36.6 C 82 20 156/85 H 95 Laboratory Results Laboratory Results - last 24 hr 11/03/20 11/03/20 05:40 05:40 WBC 14.42 H RBC 4.11 L Hgb 9.3 L Hct 29.5 L MCV 71.8 L MCH 22.6 L MCHC 31.5 L RDW Std Deviation 52.7 H RDW Coeff of Maryann 22.1 H Plt Count 852 H Sodium 141 Potassium 4.1 Chloride 109 H Carbon Dioxide 21 Anion Gap 11.0 BUN 41 H Creatinine 0.89 Est Cr Clr Drug Dosing 62.7 Est GFR ( Amer) 90.4 Est GFR (Non-Af Amer) 78.0 BUN/Creatinine Ratio 46.2 H Glucose 72 Calcium 8.9 Phosphorus 3.2 Magnesium 2.2 Medications Administered Current Inpatient Medications Enoxaparin Sodium (Enoxaparin Inj 40 Mg/0.4 Ml Syr) 40 mg SQ QAM [facility] Stop: 12/01/20 08:59 Last Admin: 11/03/20 08:12 Dose: 40 mg Documented by: Ampicillin Sodium/Sulbactam Sodium 3,000 mg/ Sodium Chloride 108 mls @ 200 mls/hr IV Q6H [facility]; Protocol Stop: 11/06/20 16:59 Last Infusion: 11/03/20 06:20 Dose: Infused Documented by: Doxycycline Hyclate 100 mg/ (Dextrose) 110 mls @ 50 mls/hr IV Q12H [facility] Stop: 11/07/20 05:59 Last Infusion: 11/03/20 08:32 Dose: Infused Documented by: Enalaprilat 1.25 mg/ Dextrose 26 mls @ 100 mls/hr IV Q6 [facility] Stop: 12/02/20 11:59 Last Infusion: 11/03/20 05:37 Dose: Infused Documented by: Dextrose (D10w) 1,000 mls @ 0 mls/hr IV .Q0M PRN PRN Reason: protocol (see label comments) Stop: 12/03/20 09:04 Nutrition (Parenteral) 1,200 (ml/ TPN BAG) 1,200 mls @ 50 mls/hr IV .Q24H [facility]; Protocol Stop: 11/04/20 15:59 Miscellaneous Information (Tpn/Ppn Consult Pharmacy) 1 ea N/A UD PRN PRN Reason: Consult Stop: 12/02/20 15:57 PG Care Time/CCT Total # of Minutes Spent Total Time Spent with Patient: Total time spent is greater than 50% in coordination of care (as documented) at patient's floor/unit and/or counseling patient: Coding Level of Care Code 81374 Subseq Hosp Care Lvl 3 Diagnoses Large bowel obstruction K56.609 Sepsis A41.9 Acute respiratory failure with hypoxia J96.01 Pneumonia due to COVID-19 virus U07.1; J12.82 Community acquired pneumonia J18.9 Microcytic anemia D50.9 Acute kidney injury N17.9 Thrombocytosis D47.3 GERD (gastroesophageal reflux disease) K21.9 HTN (hypertension) I10 Prostate CA C61 Thalassemia syndrome D56.9 DVT prophylaxis Z29.9
--- NOTE | 2020-11-03 10:44 | Surgery Progress Note ---
Date of Service F/U colon obstruction, pt is stable, passed some gas, no abdominal pain, no nausea, no vomiting, pt is on RA, no SOB,but WBC 14,000 November 03, 2020 Assessment & Plan (1) Large bowel obstruction: KUB: IMPRESSION: No change in the large bowel obstruction. F/U colon obstruction, stable, no nausea, no vomiting, no abdominal pain, per-GI doctor colonoscopy on 11/05/2020, continue treatment, will F/U 11/03/2020 10:42AM F/U colon obstruction, stable, no nausea, no vomiting, no abdominal pain, per-GI doctor colonoscopy on 11/05/2020, continue iv antibiotic treatment, repeat labs in morning will F/U Admission and Anticipated Discharge Date Admission Date: October 30, 2020 Supervising Physician Co-Signing Physician Notes I agree with the findings as documented by GINA Sifuentes Subjective patient feeling well, no issues overnight no more flatus, no BM, he says he feels like he has to go but nothing comes out he is doing okay with ice chips, sips will resume the LR at 50 for another bag today, just to stay hydrated breathing is very stable, 96% on room air, coughing up phlegm but a lot less, lungs are clearer no fever/chills discussed with him plans for colonoscopy Wednesday, he agrees Physical Exam Constitutional: WD/WN, vitals as above well developed and well nourished Neck: trachea midline, no thyromegaly Respiratory: normal respiratory effort, lungs clear to auscultation normal respiratory effort Cardiovascular: RRR, no murmur, no edema Gastrointestinal (Abdomen): normal bowel sounds, soft, nontender, no hepatosplenomegaly mild distend, no tenderness, BS + Musculoskeletal: no cyanosis or clubbing, extremities motor strength 5/5 Neurologic: awake Psychiatric: Orientation: alert and oriented x 3 Results & Data ([facility]) Vital Signs (Past 12 Hours) Vital Signs Temp Pulse Pulse Resp BP Pulse Ox Pulse Ox 11/03/20 09:00 93 11/03/20 06:59 36.8 C 90 19 158/86 H 94 11/03/20 06:21 90 11/03/20 03:54 36.5 C 83 18 177/85 H 96 11/03/20 00:13 36.6 C 82 20 156/85 H 95
[2020-11-03] MEDS ORDERED: TPN IV SCH (16:00)
[2020-11-03] MEDS ORDERED: PERIPHERAL PN IV SCH (16:00)
--- NOTE | 2020-11-03 16:28 | XRay Report ---
KUB HISTORY: Follow up study in a patient with large bowel obstruction follow up large bowel obstruction COMPARISON: KUB 11/02/2020 FINDINGS: Persistent small bowel obstruction pattern appears unchanged from comparison. No pneumatosi s or pneumoperitoneum. No urolith or acute fracture identified. Brachytherapy seeds of the prostate. IMPRESSION: Persistent large bowel obstruction. ACT 112: Negative or not required by law. The above report was generated using voice recognition software. It may contain grammatical, syntax o r spelling errors. Electronically signed by: Kayden Valentin M.D. 11/03/2020 4:26 PM
[2020-11-03] MEDS: LORazepam 0.25 MG/0.5 ML VIAL IV PRN (23:40)
[2020-11-04] MEDS: AMPICILLIN/SULBACTAM SOD 3,000 MG in 0.9 % SODIUM CHLORIDE 100 ML IV SCH ×4 (05:43→23:54)
[2020-11-04 05:54] LABS: Hematocrit (blood only) 31.4 % (42-52); Hemoglobin 9.7 g/dL (14.0-18.0); Mean Corpuscular Hemoglobin 21.8 pg (25-34); Mean Corpuscular Hgb Conc 30.9 g/dL (32-36); Mean Corpuscular Volume 70.7 fL (80-100); Platelet Count 817 K/uL (130-400); RDW Coefficient of Variation 21.6 % (11.5-14.5); RDW Standard Deviation 52.1 fL (36.4-46.3); Red Blood Count 4.44 M/uL (4.7-6.1); White Blood Count 17.81 K/uL (4.8-10.8)
[2020-11-04 06:20] LABS: BUN Creatinine Ratio 39.5 (10-20); Calcium 8.7 mg/dl (8.5-10.1); Creatinine Clr Calc Pharmacy 63.4 ml/min; Est GFR (African American) 90.8; Est GFR (Non-African American) 78.3; Magnesium 2.1 mg/dl (1.8-2.4); Phosphorus 3.5 mg/dl (2.5-4.9); Potassium 4.1 mmol/L (3.5-5.1)
[2020-11-04] MEDS: ENALAPRILAT 1.25 MG in DEXTROSE 5% 25 ML IV SCH ×3 (06:31→17:57)
[2020-11-04] MEDS: DOXYCYCLINE HYCLATE 100 MG in DEXTROSE 5% 100 ML IV SCH ×2 (06:32→19:24)
--- NOTE | 2020-11-04 08:43 | Communication Note ---
Date of Service: November 04, 2020 stable on RA, plan for colonoscopy tomorrow in the OR to further evaluate for possible colonic mass proceed with colonoscopy. risks/benefits and procedure discussed with patient, who agrees to proceed César Orona MD Gastroenterology
[2020-11-04] MEDS: ENOXAPARIN INJ 40 MG/0.4 ML SYR SQ SCH (08:52)
--- NOTE | 2020-11-04 12:29 | Surgery Progress Note ---
Date of Service November 04, 2020 Assessment & Plan (1) Large bowel obstruction: Patient doing about the same, no worsening symptoms. Some flatus, no BM. KUB ordered for today. Over the weekend x-rays showed ongoing large bowel obstruction basically unchanged Patient's respiratory status has improved GI is planning on taking pt tomorrow for colonoscopy We will follow up on results from C-scope tomorrow Admission and Anticipated Discharge Date Admission Date: October 30, 2020 Subjective Patient states he is doing fine. Feels like time is moving slow in the hospital. Says abdomen is about the same. Denies pain/n/v. He is passing very little amounts of flatus. No BM. Breathing comfortably on room air. Physical Exam Physical Exam: awake/alert Constitutional: cooperative and comfortable; no acute distress Respiratory: normal respiratory effort (on room air) Gastrointestinal (Abdomen): Inspection/Auscultation: + abdomen distended Percussion/Palpation: abdomen soft; abdomen nontender Results & Data ([facility]) Vital Signs (Past 12 Hours) Vital Signs Temp Pulse Resp BP Pulse Ox 11/04/20 11:38 97 H 142/81 H 11/04/20 08:48 36.9 C 99 H 18 152/85 H 96 11/04/20 06:39 91 H 160/82 H 96 PG Care Time/CCT Total # of Minutes Spent Total Time Spent with Patient: Total time spent is greater than 50% in coordination of care (as documented) at patient's floor/unit and/or counseling patient: Coding Level of Care Code 53482 Subseq Hosp Care Lvl 1 Diagnoses Large bowel obstruction K56.609
--- NOTE | 2020-11-04 14:07 | XRay Report ---
XR KUB/Abdomen 1 view CLINICAL HISTORY: follow up colonic obstruction COMPARISON STUDY: November 03, 2020 FINDINGS: There is a persistent obstructive bowel gas pattern with a paucity of left colonic bowel ga s. Small bowel loops measure up to 5.2 cm in diameter. Note is made of prostate radiation therapy see ds. IMPRESSION: Persistent obstructive bowel gas pattern with a paucity of left colonic bowel gas, a fin ding consistent with a colonic obstruction ACT 112: Negative or not required by law. Electronically signed by: Maxx Ellis M.D. 11/04/2020 2:06 PM
[2020-11-04] MEDS ORDERED: TPN IV SCH (16:00)
[2020-11-04] MEDS ORDERED: PERIPHERAL PN IV SCH (16:00)
[2020-11-04] MEDS: LAVAGE SOLUTION 4000ML PO SCH (17:57)
--- NOTE | 2020-11-04 17:59 | Anesthesiology Consultation ---
Date of Service November 04, 2020 The patient tested positive for Covid 19 on 10/30/20. However, his tested positive for Covid 19 at the end of August and the patient was symptomatic for Covid 19 at that time as well. The patient currently has symptoms of pneumonia but the pneumonia is thought to be bacterial in origin as per internal medicine and has been improving with treatment. The patient remains under Covid 19 precautions. The patient is an elevated risk for anesthesia due to his pneumonia, however the surgery is a low risk procedure and may be necessary due to a possible colonic mass. I spoke with Dr. Marsh who will be the anesthesiologist in charge tomorrow. He will coordinate the patient's care tomorrow with Dr. Orona. Assessment & Plan (1) Encounter for pre-operative examination: Chart Review Chart Review: Acceptable Risk for Surgery (necessary surgery) Teaching & Discussion medicine is following History Surgery Operation Date: 11/05/20 07:00 Proposed Procedures p Colonoscopy - César Orona MD Height/Weight Height: 5 ft 10 in Weight: 86.2 kg Allergies Allergy/AdvReac Type Severity Reaction Status Date / Time No Known Allergies Allergy Mild Verified 10/25/20 10:03 Medications Home Medications Medication Instructions Recorded Confirmed Last Taken ascorbic acid (vitamin C) 500 mg 500 mg PO DAILY 01/26/19 10/30/20 07/19/19 capsule,extended release aspirin 81 mg tablet,delayed 81 mg PO DAILY 01/26/19 10/30/20 07/19/19 release calcium carbonate 600 mg (1,500 1 tab PO BID 01/26/19 10/30/20 07/19/19 mg)-vitamin D3 200 unit tablet multivitamin,un-ovhm-kbjfnaez 1 tab PO DAILY 01/26/19 10/30/20 07/19/19 omega-3 fatty acids-fish oil 360 1 cap PO DAILY 01/26/19 10/30/20 07/19/19 mg-1,200 mg capsule psyllium husk 0.52 gram capsule 0.52 gm PO QAM 01/26/19 10/30/20 07/19/19 vitamin E mixed 1,000 unit capsule 1,000 units PO QAM cap 01/26/19 10/30/20 07/19/19 escitalopram oxalate 10 mg tablet 10 mg PO QAM #90 tab 06/10/20 10/30/20 Unknown lisinopril 20 mg tablet 20 mg PO QAM #90 tab 06/10/20 10/30/20 Unknown omeprazole 20 mg tablet,delayed 20 mg PO QAM #90 tab 06/10/20 10/30/20 Unknown release simvastatin 20 mg tablet 20 mg PO QPM #90 tab 06/10/20 10/30/20 Unknown tamsulosin 0.4 mg capsule 0.8 mg PO DAILY 90 Days #180 cap 06/17/20 10/30/20 Unknown hydroxyzine HCl 25 mg tablet 25 mg PO BID PRN #60 tab 10/16/20 10/30/20 Unknown Active Medications Generic Name Dose Route Start Last Admin Trade Name Freq PRN Reason Stop Dose Admin Enoxaparin Sodium 40 mg 11/01/20 09:00 11/04/20 08:52 Enoxaparin Inj 40 Mg/0.4 Ml Syr SQ 12/01/20 08:59 40 mg QAM ADE Administration Ampicillin Sodium/Sulbactam 108 mls @ 200 mls/hr 10/30/20 18:00 11/04/20 18:10 Sodium 3,000 mg/ Sodium IV 11/06/20 16:59 200 mls/hr Chloride Q6H ADE Administration Protocol Doxycycline Hyclate 100 mg/ 110 mls @ 50 mls/hr 10/31/20 06:00 11/04/20 10:07 Dextrose IV 11/07/20 05:59 Infused Q12H ADE Infusion Enalaprilat 1.25 mg/ Dextrose 26 mls @ 100 mls/hr 11/02/20 12:00 11/04/20 18:26 IV 12/02/20 11:59 Infused Q6 ADE Infusion Lorazepam 0.25 mg in 0.5 mls @ 0.5 mls/min 11/03/20 13:00 11/03/20 23:40 Ativan IV 12/03/20 12:59 0.5 mls/min HS PRN Administration Insomnia Nutrition (Parenteral) 1,200 1,200 mls @ 50 mls/hr 11/04/20 16:00 11/04/20 16:11 ml/ TPN BAG IV 11/05/20 15:59 50 mls/hr .Q24H ADE Administration Protocol Polyethylene Glycol/Electrolytes 8 dose 11/04/20 18:00 11/04/20 17:57 Lavage Solution 4000ml PO 11/05/20 08:00 8 dose TODAY@0300,1800 ADE Administration Past Medical History Medical History (Updated 11/04/20 @ 18:52 by Rian Condon MD) Anemia Anxiety Cervical spondylosis GERD (gastroesophageal reflux disease) HTN (hypertension) Hyperlipidemia Osteoarthritis Prostate cancer SEED IMPLANT AND RADIATION THERAPY Skin cancer Weight loss Past Family History Family History Sister Breast cancer Denies family history of Colon cancer Ovarian cancer Prostate cancer Myocardial infarction Past Surgical History Surgical History History of colonoscopy History of prostate surgery History of tonsillectomy and adenoidectomy History of tooth extraction Hx of cataract surgery LEFT Social History Smoking Status: Former smoker Hx Alcohol Use: No Hx Substance Use: No substance use type: does not use Physical Exam Vital Signs Last Vital Signs Temp 36.5 C 11/04/20 16:18 Pulse 94 H 11/04/20 18:00 Resp 20 11/04/20 16:18 BP 144/84 H 11/04/20 18:00 Pulse Ox 94 11/04/20 16:18 Testing Laboratory Results 11/04/20 05:35 11/04/20 05:35 PT 12.1 Seconds (9.0-12.0) H 10/30/20 12:55 INR 1.2 (0.9-1.1) H 10/30/20 12:55 APTT 36.3 Seconds (21.0-31.0) H 10/31/20 13:09 Urine Color Dark Yellow 10/30/20 19:20 Urine Appearance Cloudy (Clear) A 10/30/20 19:20 Urine pH 5.0 (4.5-7.5) 10/30/20 19:20 Ur Specific [place] 1.024 (1.000-1.030) 10/30/20 19:20 Urine Protein Trace (Negative) H 10/30/20 19:20 Urine Glucose (UA) Negative (Negative) 10/30/20 19:20 Urine Ketones Trace (Negative) H 10/30/20 19:20 Urine Nitrite Negative (Negative) 10/30/20 19:20 Ur Leukocyte Esterase Negative (Negative) 02/03/21 19:20 Urine WBC (Auto) 1-5 /hpf (0-5) 10/30/20 19:20 Urine RBC (Auto) 0-4 /hpf (0-4) 10/30/20 19:20 U Hyaline Cast (Auto) 5-10 /lpf (0-5) H 10/30/20 19:20 U Epithel Cells (Auto) >30 /lpf (0-5) H 10/30/20 19:20 Urine Bacteria (Auto) Negative (Negative) 10/30/20 19:20 Blood Type O Positive 10/30/20 14:21 Antibody Screen NEGATIVE 10/30/20 14:21 10/30/20 12:04 Aerobic Blood Culture - Final Blood No growth in Aerobic bottle after 5 days. Anaerobic Blood Culture - Final 10/30/20 11:35 Aerobic Blood Culture - Final Blood No growth in Aerobic bottle after 5 days. Anaerobic Blood Culture - Final No growth in Anaerobic bottle after 5 days. 10/30/20 19:20 Urine Culture - Final Urine,Clean Catch No growth - less than 1,000 colonies/mL. 11/04/20 11/04/20 18:04 11:56 POC Glucose 127 H 132 H Electrocardiogram Date: 10/30/20 Findings: + NSST changes and + ST @ (120) Chest X-Ray Date: 10/31/20 SINGLE VIEW CHEST CLINICAL HISTORY: Hypoxia. FINDINGS: An AP, portable, upright chest radiograph is compared to study dated 10/30/2020. The examination is degraded by portable technique and apical lordotic positioning. The heart is enlarged noting atherosclerotic calcification of the thoracic aorta. The pulmonary vasculature is noncongested. An approximately 3 cm nodular opacity is seen in the right midlung. There is increasing patchy airspace consolidation the left mid to lower lung. No large pleural effusion or pneumothorax is seen. The skeletal structures are osteopenic. The bony thorax is grossly intact. IMPRESSION: 1. Cardiomegaly without radiographic evidence of congestive failure. 2. There is increasing airspace consolidation the left mid to lower lung. Correlate clinically for evidence of an infectious/inflammatory pneumonitis. 3. An approximately 3 cm nodular density is again seen in the right midlung. This is pathologically indeterminant and may be on an infectious basis. If this fails to resolve a chest CT should be obtained for further assessment. ACT 112: Negative or not required by law. Electronically signed by: Zachary Hicks M.D. 10/31/2020 8:24 AM Dictated: 10/31/20 0811Transcribed: 10/31/20 0811 Other Testing XR KUB/Abdomen 1 view CLINICAL HISTORY: follow up colonic obstruction COMPARISON STUDY: November 03, 2020 FINDINGS: There is a persistent obstructive bowel gas pattern with a paucity of left colonic bowel gas. Small bowel loops measure up to 5.2 cm in diameter. Note is made of prostate radiation therapy seeds. IMPRESSION: Persistent obstructive bowel gas pattern with a paucity of left colonic bowel gas, a finding consistent with a colonic obstruction ACT 112: Negative or not required by law. Electronically signed by: Maxx Ellis M.D. 11/04/2020 2:06 PM Dictated: 11/04/20 1404Transcribed: 11/04/20 1404
--- NOTE | 2020-11-04 22:45 | Hospitalist Progress Note ---
Date of Service November 04, 2020 Assessment & Plan (1) Large bowel obstruction: Concerning for colon cancer given weight loss, imaging and age. last colonoscopy was 12 years ago gives history of 2 weeks of bowel changes, chronic constipation last BM was five days ago, scant flatus while here, no BM appreciate GI consult, plan for colonoscopy on Wednesday keep NPO except ice chips and sips KUB 11/02 is unchanged will continue PPN today, low volume CEA noted to be normal on 10/31 Plan is for colonoscopy tomorrow. GI ordered prep (2) Sepsis: Lactate 2.5, repeat 1.9 Suspected source community-acquired pneumonia, bacterial he is COVID positive but his had it in August, suspect he had it end of CXR does not have the appearance of COVID pneumonia BP stable, no fever, WBC up to 14 today, suspect it is from dexamethasone use continue Unasyn and Doxycycline for 7 days total, responding well no growth on blood cultures sepsis resolved (3) Acute respiratory failure with hypoxia: due to bacterial pneumonia, doubt there was any component of COVID 19 at this time improved, down to room air for four days, 95% today flutter valve, mobilizing secretions dexamethasone initially for COVID, stopped since he was not hypoxemic got Lasix early breastfeeding care specialist of 10/31 for some pulmonary edema, resolved likely that his fluids were really aggressive initially that led to volume overload stopped heparin drip 10/31, low suspicion for PE clinically presents like bacterial pneumonia and improving with antibiotics (4) Pneumonia due to COVID-19 virus: COVID isolation precautions Dexamethasone 6 mg IV daily, stopped after 4 days since he was stable on room air low clinical suspicion that this is truly COVID pneumonia, CXR looks more like bacterial and he has productive cough, yellow sputum (5) Community acquired pneumonia: Community-acquired versus aspiration pneumonia - fluid-filled esophagus on CT with bilateral rhonchi on auscultation continue Unasyn and Doxycycline for 7 day course, last day would be 11/05 in the afternoon/evening WBC 14k but suspect it is from dexamethasone productive cough with flutter valve on exam his lungs are clearing (6) Microcytic anemia: History of thalassemia. Hb is 9.3 today repeat tomorrow (7) Acute kidney injury: Suspected prerenal in the setting of poor oral intake. Cr improved to 0.89 today will hydrate with PPN starting today got LR at 50cc/hr the past two days (8) Thrombocytosis: History of thrombocytosis (?essential), elevated in the setting of sepsis. Continue aspirin 81 mg p.o. plts 852 today (9) GERD (gastroesophageal reflux disease): Switch omeprazole for pantoprazole as per hospital formulary (10) HTN (hypertension): give Vasotec IV, typically on Lisinopril BP 150s systolic (11) Prostate CA: Notable history of this. 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 He has no complaints. Denies any BM today. Review of Systems Review of Systems: All systems reviewed & are unremarkable except as noted in HPI & below Physical Exam Physical Exam: Constitutional: WD/WN, vitals as above no acute distress Neck: trachea midline, no thyromegaly Respiratory: normal respiratory effort; no respiratory distress and no labored breathing Auscultation: no rales and no wheezes Cardiovascular: RRR, no murmur, no edema Gastrointestinal (Abdomen): Inspection/Auscultation: + abdomen distended and + hypoactive bowel sounds Percussion/Palpation: abdomen soft and + tympanic to percussion; abdomen nontender, no guarding and abdomen not rigid Musculoskeletal: no cyanosis or clubbing, extremities motor strength 5/5 Skin: no rashes, warm and dry Neurologic: patellar DTR's 2+ bilat, sensation intact and PERRL, EOMI, accommodation nl, no face palsy, no dysarthria Psychiatric: A+Ox3, euthymic affect Lymphatic: no cervical or axillary lymphadenopathy Results & Data Results & Data ([facility]) Vital Signs (Past 12 Hours) Vital Signs Temp Pulse Resp BP Pulse Ox 11/04/20 18:00 94 H 144/84 H 11/04/20 16:18 36.5 C 92 H 20 145/83 H 94 11/04/20 11:38 97 H 142/81 H PG Care Time/CCT Total # of Minutes Spent Total Time Spent with Patient: Total time spent is greater than 50% in coordination of care (as documented) at patient's floor/unit and/or counseling patient: Coding Level of Care Code 94848 Subseq Hosp Care Lvl 3 Diagnoses Large bowel obstruction K56.609 Sepsis A41.9 Acute respiratory failure with hypoxia J96.01 Pneumonia due to COVID-19 virus U07.1; J12.82 Community acquired pneumonia J18.9 Microcytic anemia D50.9 Acute kidney injury N17.9 Thrombocytosis D47.3 GERD (gastroesophageal reflux disease) K21.9 HTN (hypertension) I10 Prostate CA C61 Thalassemia syndrome D56.9 DVT prophylaxis Z29.9 Time Spent (min) 35
[2020-11-05] MEDS: ENALAPRILAT 1.25 MG in DEXTROSE 5% 25 ML IV SCH ×4 (00:31→17:48)
[2020-11-05] MEDS: LAVAGE SOLUTION 4000ML PO SCH (02:48)
[2020-11-05] MEDS ORDERED: ONDANSETRON INJ 2 MG/ML 2 ML VIAL IV STA (06:23)
[2020-11-05] MEDS: AMPICILLIN/SULBACTAM SOD 3,000 MG in 0.9 % SODIUM CHLORIDE 100 ML IV SCH ×3 (06:25→17:13)
[2020-11-05] MEDS ORDERED: LEVALBUTEROL HCL 0.63 MG/3 ML NEB NEB STA (06:42)
[2020-11-05 07:01] LABS: Hematocrit (blood only) 33.1 % (42-52); Hemoglobin 10.3 g/dL (14.0-18.0); Mean Corpuscular Hemoglobin 22.1 pg (25-34); Mean Corpuscular Hgb Conc 31.1 g/dL (32-36); Mean Corpuscular Volume 70.9 fL (80-100); Platelet Count 966 K/uL (130-400); RDW Coefficient of Variation 22.5 % (11.5-14.5); RDW Standard Deviation 53.3 fL (36.4-46.3); Red Blood Count 4.67 M/uL (4.7-6.1); White Blood Count 23.94 K/uL (4.8-10.8)
[2020-11-05] MEDS: DOXYCYCLINE HYCLATE 100 MG in DEXTROSE 5% 100 ML IV SCH ×2 (07:16→18:20)
[2020-11-05 07:20] LABS: Calcium 9.1 mg/dl (8.5-10.1); Creatinine Clr Calc Pharmacy 66.7 ml/min; Est GFR (African American) 88.8; Est GFR (Non-African American) 76.6; Magnesium 2.2 mg/dl (1.8-2.4); Phosphorus 4.2 mg/dl (2.5-4.9); Potassium 4.7 mmol/L (3.5-5.1)
[2020-11-05] MEDS: ENOXAPARIN INJ 40 MG/0.4 ML SYR SQ SCH (08:41)
--- NOTE | 2020-11-05 09:09 | XRay Report ---
SINGLE VIEW CHEST CLINICAL HISTORY: Aspiration. FINDINGS: 2 AP, portable, upright chest radiographs are compared to study dated 10/31/2020. The examina tion is degraded by portable technique and apical lordotic positioning. The heart is enlarged noting atherosclerotic calcification of the thoracic aorta. The pulmonary vasculature is noncongested. There are persistent bibasilar opacities, left greater than right. Perihilar opacities have almost complet otto resolved from previous. No large pleural effusion or pneumothorax is seen. The skeletal structure s are osteopenic. The bony thorax is grossly intact. Arthritic change is seen in the shoulders. IMPRESSION: 1. Cardiomegaly without radiographic evidence of congestive failure. 2. Bibasilar airspace opacities are similar to previous. Correlate clinically for evidence of pneumon ia/aspiration pneumonitis. 3. Right perihilar opacities have almost completely resolved from previous ACT 112: Negative or not required by law. Electronically signed by: Zachary Hicks M.D. 11/05/2020 9:08 AM
--- NOTE | 2020-11-05 11:44 | Gastroenterology Progress Note ---
Date of Service November 05, 2020 Assessment & Plan (1) Large bowel obstruction: (2) Pneumonia due to COVID-19 virus: (3) Constipation: Ddx: severe constipation vs ileus vs obstruction (?stricture or mass). Given chronicity, possibly represents a colon mass. Patient has become hypoxic this morning after an episode of vomiting and he remains in respiratory distress. Due to this, the patient is not interested in undergoing any invasive testing and remains higher risk for anesthesia. The refore, planned colonoscopy for today is now cancelled. Recommend a palliative care consultation. Admission and Anticipated Discharge Date Admission Date: October 30, 2020 Subjective Patient with feculent emesis at approximately 0700. Since that time, he has been noted to have declining respiratory status. At 10:16 he was noted to have 85% 02 saturation on 15 L NRB mask. Currently, he is at 91% with desaturation noted while talking and tachycardic. He verbalizes frustration with current health status and states he does not wish to have a colonoscopy. Review of Systems Respiratory: as per Subjective / HPI Cardiovascular: as per Subjective / HPI Gastrointestinal: as per Subjective / HPI Physical Exam Constitutional: + in distress (mild) Respiratory: + labored breathing and + tachypneic Auscultation: + diminished lung sounds (diffusely) Cardiovascular: Rate/Rhythm: + tachycardic Gastrointestinal (Abdomen): Inspection/Auscultation: + abdomen distended and + hyperactive bowel sounds Percussion/Palpation: abdomen nontender Results & Data Results & Data ([facility]) Vital Signs (Past 12 Hours) Vital Signs Temp Pulse Pulse Pulse Resp BP BP 11/05/20 10:16 11/05/20 09:30 11/05/20 08:29 11/05/20 07:51 11/05/20 07:38 11/05/20 07:20 97 H 18 11/05/20 06:51 103 H 20 11/05/20 06:42 36.1 C L 107 H 18 157/86 H 11/05/20 06:05 94 H 158/91 H Pulse Ox Pulse Ox 11/05/20 10:16 85 L 11/05/20 09:30 96 11/05/20 08:29 86 L 11/05/20 07:51 86 L 11/05/20 07:38 87 L 11/05/20 07:20 92 11/05/20 06:51 91 11/05/20 06:42 88 L 11/05/20 06:05 Laboratory Results Abnormal lab results 11/04/20 11/04/20 11/04/20 Range/Units 11:56 18:04 23:52 WBC (4.8-10.8) K/uL RBC (4.7-6.1) M/uL Hgb (14.0-18.0) g/dL Hct (42-52) % MCV (80-100) fL MCH (25-34) pg MCHC (32-36) g/dL RDW Std Deviation (36.4-46.3) fL RDW Coeff of Maryann (11.5-14.5) % Plt Count (130-400) K/uL Chloride (98-107) mmol/L BUN (7-18) mg/dl BUN/Creatinine Ratio (10-20) Glucose (70-99) mg/dl POC Glucose 132 H 127 H 114 H (70-99) mg/dl 11/05/20 11/05/20 11/05/20 Range/Units 05:32 05:32 06:03 WBC 23.94 H (4.8-10.8) K/uL RBC 4.67 L (4.7-6.1) M/uL Hgb 10.3 L (14.0-18.0) g/dL Hct 33.1 L (42-52) % MCV 70.9 L (80-100) fL MCH 22.1 L (25-34) pg MCHC 31.1 L (32-36) g/dL RDW Std Deviation 53.3 H (36.4-46.3) fL RDW Coeff of Maryann 22.5 H (11.5-14.5) % Plt Count 966 H (130-400) K/uL Chloride 108 H (98-107) mmol/L BUN 34 H (7-18) mg/dl BUN/Creatinine Ratio 37.0 H (10-20) Glucose 112 H (70-99) mg/dl POC Glucose 136 H (70-99) mg/dl PG Care Time/CCT Total # of Minutes Spent Total Time Spent with Patient: Total time spent is greater than 50% in boarding house cook rdination of care (as documented) at patient's floor/unit and/or counseling patient: Coding Level of Care Code 94084 Subseq Hosp Care Lvl 3 Diagnoses Large bowel obstruction K56.609 Pneumonia due to COVID-19 virus U07.1; J12.82 Constipation K59.00 Constipation type: unspecified constipation type (1) Constipation Constipation type: unspecified constipation type Qualified Code(s): K59.00 - Constipation, unspecified
--- NOTE | 2020-11-05 13:10 | Pulmonary Consultation ---
Date of Consultation November 05, 2020 Assessment & Plan (1) Hypoxia: (2) Acute respiratory failure with hypoxia: Impression: 85-year-old male admitted with a Covid positive test however his chest x-ray findings and oxygenation on presentation were not entirely concerning. He had acute decompensation this morning associated with some nausea and vomiting. Unclear if this is related to his bowel obstruction. There was concern that he would require adjuvant respiratory therapy but he appe ars to be improved with supplemental oxygen and supportive care. Recommendations: 1. Acute on chronic hypoxemic respiratory failure: Could be related to aspiration event however the x-ray findings were not particularly concerning. Given that he may have a colonic malignancy as well as a hypercoagulable state in the setting of Covid, I would proceed with a CT angiogram to exclude PE. This will also allow for interrogation of the pulmonary parenchyma and better elucidation of etiologies for his hypoxemic respiratory failure. Would not recommend empiric anticoagulation currently until we have been able to better assess. Wean oxygen to maintain saturations at or above 90% 2. Possible aspiration events: The patient has been on antibiotics in the form of Unasyn and doxycycline since presentation and is currently day #7. Will await results of his white blood cell count as well as the CT imaging before making changes to his antimicrobial regiment. He is at risk for intra-abdominal processes as well. 3. Covid pneumonia: Findings on his x-ray are minimal currently and certainly would not account for this degree of hypoxemia. No indication for steroids or remdesivir currently. Management of the patient's other medical issues is deferred to his primary service and GI service. His persistent climbing white blood cell count is concerning for a potential evolving abdominal process. He does have significant thrombocytosis which also may be an acute phase reactant. His prognosis is somewhat guarded. If colonoscopy is recommended and the patient needs mechanical ventilation to facilitate this in order to better define his intra-abdominal process and prevent obstruction, I would be happy to assist with intubation and caring for the patient post procedurally in the ICU if needed. If he elects to forego any additional procedures, would strongly recommend reassessment of CODE STATUS and involvement of palliative care as his current process may not be compatible with his goals of therapy 40 minutes critical care time was spent evaluating managing this patient with po tential life-threatening illness and process. History of Present Illness Attending Physician: Bruce Merino History of Present Illness Asked by hospitalist to evaluate this patient with respiratory distress. History is obtained from discussion with the hospitalist, review electronic medical record, and interview the patient. The patient is an 85-year-old male with a history of hyperlipidemia, reflux, and hypertension who was admitted to the facility October 30. He presented with shortness of breath. He initially was on CPAP but then weaned to nasal cannula. He was noted to have increasing abdominal distention and chronic constipation. He tested positive for Covid and was initially treated with dexamethasone as well as cefepime and vancomycin. CT of the abdomen demonstrated potential bowel obstruction with transition point in the transverse colon. Surgical consultation was obtained and was recommended that the patient undergo colonoscopy. He was completing the prep for his colonoscopy which was anticipated to take place today. This morning he became acutely nauseated and vomited. Thereafter he had an increase in his oxygen requirement. He was on 15 L nonrebreather and I was contacted by the hospitalist as they were concerned he may deteriorate to the point of requiring intubation. I recommended the patient be transferred to higher level of care where we could intubate him if possible. I assessed the patient on the Covid unit. He is currently resting comfortably. He is not tachypneic and has respiratory rate in the mid to high teens. His oxygen saturation is currently 97% on 15 L. I did turn him down to 12 L which he tolerated quite well. He states that he is continuing to have some nausea and abdominal pain but nothing compared to what he had this morning. He denies any chest pain or palpitations. No syncope or presyncope. He is not noted any significant lower extremity edema. He continues to have a distended abdomen. He has been on DVT prophylaxis throughout his hospitalization. He initially presented with an elevated D-dimer and was placed on a heparin infusion. This was discontinued within 24 hours as it was felt to be more consistent with Covid pneumonia and bacterial pneumonia. He never had a CT angiogram. Given his clinical decline, his colonoscopy today was canceled. Allergies Allergy/AdvReac Type Severity Reaction Status Date / Time No Known Allergies Allergy Mild Verified 10/25/20 10:03 Home Medications Medication Instructions Recorded Confirmed Type ascorbic acid (vitamin C) 500 mg 500 mg PO DAILY 01/26/19 10/30/20 History capsule,extended release aspirin 81 mg tablet,delayed 81 mg PO DAILY 01/26/19 10/30/20 History release calcium carbonate 600 mg (1,500 1 tab PO BID 01/26/19 10/30/20 History mg)-vitamin D3 200 unit tablet multivitamin,ad-bguy-hcoswwmk 1 tab PO DAILY 01/26/19 10/30/20 History omega-3 fatty acids-fish oil 360 1 cap PO DAILY 01/26/19 10/30/20 History mg-1,200 mg capsule psyllium husk 0.52 gram capsule 0.52 gm PO QAM 01/26/19 10/30/20 History vitamin E mixed 1,000 unit capsule 1,000 units PO QAM cap 01/26/19 10/30/20 History escitalopram oxalate 10 mg tablet 10 mg PO QAM #90 tab 06/10/20 10/30/20 Rx lisinopril 20 mg tablet 20 mg PO QAM #90 tab 06/10/20 10/30/20 Rx omeprazole 20 mg tablet,delayed 20 mg PO QAM #90 tab 06/10/20 10/30/20 Rx release simvastatin 20 mg tablet 20 mg PO QPM #90 tab 06/10/20 10/30/20 Rx tamsulosin 0.4 mg capsule 0.8 mg PO DAILY 90 Days #180 cap 06/17/20 10/30/20 Rx hydroxyzine HCl 25 mg tablet 25 mg PO BID PRN #60 tab 10/16/20 10/30/20 Rx Patient History Medical History (Updated 11/04/20 @ 18:52 by Rian Condon MD) Anemia Anxiety Cervical spondylosis GERD (gastroesophageal reflux disease) HTN (hypertension) Hyperlipidemia Osteoarthritis Prostate cancer SEED IMPLANT AND RADIATION THERAPY Skin cancer Weight loss Surgical History History of colonoscopy History of prostate surgery History of tonsillectomy and adenoidectomy History of tooth extraction Hx of cataract surgery LEFT Family History Sister Breast cancer Denies family history of Colon cancer Ovarian cancer Prostate cancer Myocardial infarction Social History Smoking Status: Former smoker Tobacco Type: Cigars Second Hand Exposure: No; Hx Alcohol Use: No Hx Substance Use: No Preferred Language: Ug[place] Communication Ability: Effective Visual Impairment: No Limitations Hearing Ability: Normal Cooker Cleaner Required: No Beliefs That Will Affect Care: None marital status: Current Living Situation: Spouse current occupational status: retired Feels Safe at Home: Yes Safety Concerns: Feels Safe At This Time Assistive Devices: Oxygen - Continuous and Walker Review of Systems Review of Systems: All systems reviewed & are unremarkable except as noted in HPI & below Physical Exam Constitutional: WD/WN, vitals as above well developed and well nourished Neck: trachea midline, no thyromegaly Respiratory: normal respiratory effort, lungs clear to auscultation normal respiratory effort Cardiovascular: RRR, no murmur, no edema Gastrointestinal (Abdomen): normal bowel sounds, soft, nontender, no he patosplenomegaly mild distend, no tenderness, BS + Musculoskeletal: no cyanosis or clubbing, extremities motor strength 5/5 Neurologic: awake Psychiatric: Orientation: alert and oriented x 3 Results & Data Results & Data ([facility]) Vital Signs (Past 12 Hours) Vital Signs Temp Pulse Pulse Pulse Resp BP BP 11/05/20 10:16 11/05/20 09:30 11/05/20 08:29 11/05/20 07:51 11/05/20 07:38 11/05/20 07:20 97 H 18 11/05/20 06:51 103 H 20 11/05/20 06:42 36.1 C L 107 H 18 157/86 H 11/05/20 06:05 94 H 158/91 H Pulse Ox Pulse Ox 11/05/20 10:16 85 L 11/05/20 09:30 96 11/05/20 08:29 86 L 11/05/20 07:51 86 L 11/05/20 07:38 87 L 11/05/20 07:20 92 11/05/20 06:51 91 11/05/20 06:42 88 L 11/05/20 06:05 Laboratory Results 11/05/20 05:32 11/05/20 05:32 Diagnostic Findings Chest x-ray from this morning was independently reviewed. No overt airspace opa cities identified. Previously noted right perihilar opacities resolved. Mild cardiomegaly although it is a portable film. PG Care Time/CCT Total # of Minutes Spent Total Time Spent with Patient: Total time spent is greater than 50% in coordination of care (as documented) at patient's floor/unit and/or counseling patient: Coding Level of Care Code None Diagnoses Hypoxia R09.02 Acute respiratory failure with hypoxia J96.01 Time Spent (min) 40 Comment 40 minutes critical care time. Please code [id number]
[2020-11-05] MEDS ORDERED: OPTIRAY 320 125ml IV ONE (15:01)
--- NOTE | 2020-11-05 15:29 | CT Scan Report ---
CT ANGIOGRAPHY OF THE CHEST, PULMONARY EMBOLUS PROTOCOL CLINICAL HISTORY: Shortness of breath. COMPARISON STUDY: Chest radiographs October 31, 2020 and November 05, 2020. TECHNIQUE: Following IV administration of 121 mL of Optiray-320, helical axial images of the chest we re obtained utilizing the pulmonary embolus protocol. Maximal intensity projections and sagittal and coronal reformats were viewed on an independent 3D workstation. IV contrast was administered withou t complication. Automated exposure control was utilized for the study. A dose lowering technique wa s utilized adhering to the principles of ALARA. CT DOSE: 369.63 mGycm FINDINGS: No pulmonary emboli are identified although the segmental and subsegmental pulmonary arter ies are suboptimally assessed given respiratory motion. There is no thoracic aortic dissection. Mild cardiomegaly is noted. A moderate sized hiatal hernia is noted. The esophagus is dilated and fluid-fi lled. There is also a suspected fluid within the hernia sac. Secretions within the trachea are noted. Lungs are suboptimally assessed given respiratory motion. Moderate multifocal airspace opacities are noted within the lungs, including subluxation within both lower lobes. There are numerous tree-in-bu d nodules within the lungs. There is no pneumothorax. No pleural effusion is noted. Visualized portio ns of the upper abdomen again demonstrate an indeterminate 2.8 cm hypodense lateral segment hepatic l esion on image 23 of 233. Dilated bowel loops are partially imaged within the upper abdomen. IMPRESSION: 1. No pulmonary emboli identified although segmental and subsegmental pulmonary arteries suboptimally assessed due to respiratory motion. 2. Multifocal airspace opacities within lungs, including consolidation within both lower lobes, great est within the right lower lobe. The findings may reflect aspiration pneumonitis or pneumonia. 3. Redemonstration of an indeterminate 2.8 cm lateral hepatic segment lesion. This can be assessed wi th a nonemergent liver protocol CT when clinical condition permits. 4. Moderate sized hiatal hernia. 5. Dilated loops of bowel within the upper abdomen, partially imaged on this exam, suggestive of a la rge bowel obstruction. This is depicted on prior abdominal CT. ACT 112: Positive. There are findings on this exam that require communication between the performing entity and the patient following Patient Test Result Information Act ([place] Act 112) guidelines. Electronically signed by: Neil Venegas M.D. 11/05/2020 3:28 PM
[2020-11-05] MEDS ORDERED: TPN IV SCH (16:00)
[2020-11-05] MEDS ORDERED: PERIPHERAL PN IV SCH (16:00)
--- NOTE | 2020-11-05 16:01 | Electrocardiogram Report ---
Test Reason : Blood Pressure : / mmHG Vent. Rate : 109 BPM Atrial Rate : 109 BPM P-R Int : 128 ms QRS Dur : 086 ms QT Int : 380 ms P-R-T Axes : 014 -03 032 degrees QTc Int : 511 ms Sinus tachycardia Normal ECG When compared with ECG of 30-OCT-2020 11:27, No significant change Confirmed by Adrian Bates ([id number]) on 11/05/2020 4:01:10 PM Referred By: REFERRED SELF Confirmed By:Adrian Bates
--- NOTE | 2020-11-05 22:06 | Hospitalist Progress Note ---
Date of Service November 05, 2020 Assessment & Plan (1) Acute respiratory failure with hypoxia: due to bacterial pneumonia, doubt there was any component of COVID 19 at this time improved, down to room air for four days, 95% today flutter valve, mobilizing secretions dexamethasone initially for COVID, stopped since he was not hypoxemic got Lasix boat buffer plastic of 10/31 for some pulmonary edema, resolved likely that his fluids were really aggressive initially that led to volume overload stopped heparin drip 10/31, low suspicion for PE clinically presents like bacterial pneumonia and improving with antibiotics On 11/05 patient required more oxygen. Will continue current antibiotics. Obtained chest x ray. Will transfer to PCU for more oxygen requirements, may require high flow oxygen. Concern over BIPAP as patient reports regurgitations Had multiple visits with patient. Patient improved by evening, consulted pulmonary appreciate input. (2) Large bowel obstruction: Concerning for colon cancer given weight loss, imaging and age. last colonoscopy was 12 years ago gives history of 2 weeks of bowel changes, chronic constipation last BM was five days ago, scant flatus while here, no BM appreciate GI consult, plan for colonoscopy on Wednesday keep NPO except ice chips and sips KUB 11/02 is unchanged will continue PPN today, low volume CEA noted to be normal on 10/31 Plan is for colonoscopy delayed. Patient is still very much interested in colonoscopy, however due to more oxygen requirement, this is delayed. Depends on how quickly patient responds to antibiotics. (3) Sepsis: Lactate 2.5, repeat 1.9 Suspected source community-acquired pneumonia, bacterial he is COVID positive but his had it in August, suspect he had it end of CXR does not have the appearance of COVID pneumonia BP stable, no fever, WBC up to 14 today, suspect it is from dexamethasone use continue Unasyn and Doxycycline for 7 days total, responding well no growth on blood cultures sepsis resolved (4) Pneumonia due to COVID-19 virus: COVID isolation precautions Dexamethasone 6 mg IV daily, stopped after 4 days since he was stable on room air low clinical suspicion that this is truly COVID pneumonia, CXR looks more like bacterial and he has productive cough, yellow sputum (5) Community acquired pneumonia: Community-acquired versus aspiration pneumonia - fluid-filled esophagus on CT with bilateral rhonchi on auscultation continue Unasyn and Doxycycline for 7 day course, last day would be 11/05 in the afternoon/evening WBC 14k but suspect it is from dexamethasone productive cough with flutter valve (6) Microcytic anemia: History of thalassemia. Hb is 9.3 today repeat tomorrow (7) Acute kidney injury: Suspected prerenal in the setting of poor oral intake. Cr improved to 0.89 today will hydrate with PPN starting today got LR at 50cc/hr the past two days (8) Thrombocytosis: History of thrombocytosis (?essential), elevated in the setting of sepsis. Continue aspirin 81 mg p.o. plts 852 today (9) GERD (gastroesophageal reflux disease): Switch omeprazole for pantoprazole as per hospital formulary (10) HTN (hypertension): give Vasotec IV, typically on Lisinopril BP 150s systolic (11) Prostate CA: Notable history of this. 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 Patient had an episode of aspiration at 6:30 am. Patient vomited brownish material and shortly thereafter became hypoxic. Despite requiring oxygen, patient reports not being in acute distress. Review of Systems Review of Systems: All systems reviewed & are unremarkable except as noted in HPI & below Physical Exam Physical Exam: Constitutional: WD/WN, vitals as above no acute distress, on oxymask Neck: trachea midline, no thyromegaly Respiratory: normal respiratory effort; no respiratory distress and no labored breathing Auscultation: no rales and no wheezes Cardiovascular: RRR, no murmur, no edema Gastrointestinal (Abdomen): Inspection/Auscultation: + abdomen distended and + hypoactive bowel sounds Percussion/Palpation: abdomen soft and + tympanic to percussion; abdomen nontender, no guarding and abdomen not rigid Musculoskeletal: no cyanosis or clubbing, extremities motor strength 5/5 Skin: no rashes, warm and dry Neurologic: patellar DTR's 2+ bilat, sensation intact and PERRL, EOMI, accommodation nl, no face palsy, no dysarthria Psychiatric: A+Ox3, euthymic affect Lymphatic: no cervical or axillary lymphadenopathy Results & Data Results & Data ([facility]) Vital Signs (Past 12 Hours) Vital Signs Temp Pulse Resp BP Pulse Ox 11/05/20 19:44 36.9 C 93 H 25 H 112/63 99 11/05/20 15:49 37.0 C 108 H 22 114/68 95 11/05/20 13:00 110 H 24 93 11/05/20 11:25 37.2 C 118 H 30 H 124/78 93 11/05/20 10:16 85 L PG Care Time/CCT Total # of Minutes Spent Total Time Spent with Patient: Total time spent is greater than 50% in coordination of care (as documented) at patient's floor/unit and/or counseling p atient: Prolonged Care Time Prolonged Care Time: Yes Total Prolonged Care Time: 65 Spent from 7:30 to 8:15 10:00 to 10:05 13:05 to 13:10 18:10 to 18:20 Coding Level of Care Code 73544 Subseq Hosp Care Lvl 3 Diagnoses Acute respiratory failure with hypoxia J96.01 Large bowel obstruction K56.609 Sepsis A41.9 Pneumonia due to COVID-19 virus U07.1; J12.82 Community acquired pneumonia J18.9 Microcytic anemia D50.9 Acute kidney injury N17.9 Thrombocytosis D47.3 GERD (gastroesophageal reflux disease) K21.9 HTN (hypertension) I10 Prostate CA C61 Thalassemia syndrome D56.9 DVT prophylaxis Z29.9 Additional Codes Prolonged Care Time - Prolonged Care Time: Yes ([id number])
[2020-11-06] MEDS: ENALAPRILAT 1.25 MG in DEXTROSE 5% 25 ML IV SCH ×4 (00:24→17:19)
[2020-11-06] MEDS: AMPICILLIN/SULBACTAM SOD 3,000 MG in 0.9 % SODIUM CHLORIDE 100 ML IV SCH ×3 (00:24→11:51)
[2020-11-06] MEDS: DOXYCYCLINE HYCLATE 100 MG in DEXTROSE 5% 100 ML IV SCH ×2 (06:40→17:53)
[2020-11-06] MEDS: ENOXAPARIN INJ 40 MG/0.4 ML SYR SQ SCH (08:16)
[2020-11-06 08:17] LABS: BUN Creatinine Ratio 41.5 (10-20); Calcium 8.3 mg/dl (8.5-10.1); Creatinine Clr Calc Pharmacy 56.8 ml/min; Magnesium 2.2 mg/dl (1.8-2.4); Phosphorus 4.2 mg/dl (2.5-4.9); Potassium 3.8 mmol/L (3.5-5.1)
--- NOTE | 2020-11-06 10:12 | Communication Note ---
Date of Service: November 06, 2020 GI brief note patient is improved from a respiratory standpoint and now wishes to have colonoscopy. Recs: --give 1 fleet enema tonight after 8 pm --NPO --colonoscopy tomorrow to further evaluate César Orona MD Gastroenterology
--- NOTE | 2020-11-06 12:30 | Pulmonology Progress Note ---
Date of Service November 06, 2020 Assessment & Plan (1) Acute respiratory failure with hypoxia: Impression: This is an 85-year-old male that is a retired [employer]. He retired in 1994. The patient presented with shortness of breath. He was initially on CPAP and then weaned to nasal cannula. The patient then was found to have potential bowel obstruction with transition point in the transverse colon. He was being prepped for GI work-up and had vomiting with suspected aspiration. He initially required 15 L of supplemental oxygen via Oxymask to maintain saturations above 90%. He is currently weaned down to 2 L/min via nasal cannula. He did have a positive Covid test and was treated with remdesivir and dexamethasone. He is currently receiving doxy cycline and Unasyn (day #8). Patient is afebrile per chart review. Recommendations: 1. Hypoxia: Patient has CT scan of the chest chest with contrast which was negative for pulmonary emboli. There is evidence of bilateral lower lobe consolidation versus infiltrate. Right is worse than left. This could be pneumonitis. Patient currently is on day 8 of IV antibiotics including Unasyn and doxycycline. We will continue to titrate supplemental oxygen to maintain SaO2 greater than 90%. Patient has progressively elevating leukocytosis concerning for infection. This is most likely secondary to abdominal process. From a pulmonary standpoint, the patient appears stable to undergo colonoscopy with conscious sedation. Continue to titrate supplemental oxygen to maintain SaO2 greater than 90%. Ambulate patient as tolerated. We will also recommend incentive spirometry every hour while awake. If patient still requiring supplemental oxygen at time of discharge, would order two-step evaluation. 2. Possible aspiration pneumonitis: Patient appears comfortable with 2 L/min via nasal cannula. He has no conversational dyspnea. He has no rhonchorous breath sounds. He is currently on day #8 of Unasyn and doxycycline. This should provide adequate coverage for aspiration pneumonitis. We will continue with aspiration precautions including head of bed greater than 30 degrees at all times. 3. COVID-19 pneumonia: This appears to be resolving. Imaging yesterday does not show progressive infiltrate or suggestion of ARDs. No bronchospasm on exam. Oxygenation is improving. Would not recommend additional steroids at this time. Continue with prophylactic anticoagulation with enoxaparin. CTA of the chest yesterday with no evidence of pulmonary emboli or progressive pneumonia consistent with Covid. 4. Leukocytosis: This progressively has been increasing and is currently a 24,000. Low suspicion that this is related to pulmonary process. We will continue to rule out intra-abdominal process and continue antibiotics for now. Currently not on systemic steroids or any other agents that would cause i ncreased white count. Continue to monitor daily labs. Consider checking lactic acid. Procalcitonin on 11/05/2020 was elevated at 0.61 -consider trending procalcitonin. Blood cultures on 10/30/2020 were negative for growth x2. No indication for repeat blood cultures at this time as patient has been afebrile. Thank you for including us in the care of this patient. He seems to be significantly improved from a pulmonary standpoint. We will sign off at this time. Please feel free to reconsult as needed. (2) Pneumonia due to COVID-19 virus: (3) Ileus, unspecified: (4) Thrombocytosis: (5) Large bowel obstruction: Admission and Anticipated Discharge Date Admission Date: October 30, 2020 Supervising Physician Co-Signing Physician Notes Seen and agree with AP as noted by JAMAL. Will sign off. Call if questions. Subjective Attending: Dr. Reynaga Patient seen and examined at bedside. He is comfortable and currently oxygenating well with 2 L/min via nasal cannula. He has no shortness of breath. He denies any chest pain. He has no back pain. He denies any abdominal pain. He has been having watery diarrhea secondary to prep for colonoscopy. He denies any abdominal pain at this time. He denies fever, chills, sweats, rigors. He does have a minimal cough and reports only clear sputum. He denies any hemoptysis. He has no other acute complaints. Review of Systems Review of Systems: All systems reviewed & are unremarkable except as noted in Subjective Physical Exam Physical Exam: GENERAL : No acute distress EYES: No icterus, gaze conjugate NOSE: No evidence of epistaxis MOUTH: No lesions or candidiasis NECK: Supple LUNGS: CTA B/L, no wheezes, rales or rhonchi. No appreciation of adventitious breath sounds. He does have a slight cough with deep inspiration with no sputum production. HEART: Regular, rate controlled ABDOMEN: Soft, NT, ND, BS Present. Patient does not have any pain to palpation. He does have some high-pitched belly sounds with auscultation. EXTREMITIES: No LE edema, pedal pulses intact and equal bilaterally. He has no pain with palpation of feet. He has no calf tenderness. NEURO: A&OX3 Results & Data Results & Data ([facility]) Vital Signs (Past 12 Hours) Vital Signs Temp Pulse Pulse Resp BP Pulse Ox Pulse Ox 11/06/20 11:15 36.8 C 78 20 111/52 L 99 11/06/20 08:46 92 11/06/20 08:15 18 93 11/06/20 08:00 78 11/06/20 07:34 36.8 C 73 22 114/55 L 99 11/06/20 04:00 36.9 C 85 20 143/59 H 100 Laboratory Results 11/05/20 05:32 11/06/20 06:23 INR 1.2 (0.9-1.1) H 10/30/20 12:55 Diagnostic Findings No new diagnostic imaging since 11/05/2020 PG Care Time/CCT Total # of Minutes Spent Total Time Spent with Patient: Total time spent is greater than 50% in coordination of care (as documented) at patient's floor/unit and/or counseling patient: 30 minutes Coding Level of Care Code 50295 Subseq Hosp Care Lvl 2 Diagnoses Acute respiratory failure with hypoxia J96.01 Pneumonia due to COVID-19 virus U07.1; J12.82 Ileus, unspecified K56.7 Thrombocytosis D47.3 Large bowel obstruction K56.609 Time Spent (min) 30
[2020-11-06] MEDS ORDERED: TPN IV SCH (16:00)
[2020-11-06] MEDS ORDERED: PERIPHERAL PN IV SCH (16:00)
[2020-11-06] MEDS ORDERED: SOD PHOSPHATE/SOD BIPHOSPHATE ENEMA 132 ML BTL PR ONE (20:00)
[2020-11-06] MEDS: LORazepam 0.25 MG/0.5 ML VIAL IV PRN (20:49)
--- NOTE | 2020-11-06 23:18 | Hospitalist Progress Note ---
Date of Service November 06, 2020 Assessment & Plan (1) Acute respiratory failure with hypoxia: due to bacterial pneumonia, doubt there was any component of COVID 19 at this time improved, down to room air for four days, 95% today flutter valve, mobilizing secretions dexamethasone initially for COVID, stopped since he was not hypoxemic got Lasix intelligence agent of 10/31 for some pulmonary edema, resolved likely that his fluids were really aggressive initially that led to volume overload stopped heparin drip 10/31, low suspicion for PE clinically presents like bacterial pneumonia and improving with antibiotics The day prior he had an aspiration event and required oxymask and transfered to PCU. Patient is now improving and only on 2 liters (was on 15 liters). Colonoscopy will be completed on Wednesday by Dr. Holliday. Patient will have a colonic stent. He will have 2 fleet enemas on evening and one Wednesday morning. (2) Large bowel obstruction: Concerning for colon cancer given weight loss, imaging and age. last colonoscopy was 12 years ago gives history of 2 weeks of bowel changes, chronic constipation last BM was five days ago, scant flatus while here, no BM appreciate GI consult, plan for colonoscopy on Wednesday keep NPO except ice chips and sips KUB 11/02 is unchanged will continue PPN today, low volume CEA noted to be normal on 10/31 Plan is for colonoscopy delayed until Wednesday. Patient is still very much interested in colonoscopy. (3) Sepsis: Lactate 2.5, repeat 1.9 Suspected source community-acquired pneumonia, bacterial he is COVID positive but his had it in August, suspect he had it end of CXR does not have the appearance of COVID pneumonia BP stable, no fever, WBC up to 14 today, suspect it is from dexamethasone use continue Unasyn and Doxycycline for 7 days total, responding well no growth on blood cultures sepsis resolved (4) Pneumonia due to COVID-19 virus: COVID isolation precautions Dexamethasone 6 mg IV daily, stopped after 4 days since he was stable on room air low clinical suspicion that this is truly COVID pneumonia, CXR looks more like bacterial and he has productive cough, yellow sputum (5) Community acquired pneumonia: Community-acquired versus aspiration pneumonia - fluid-filled esophagus on CT with bilateral rhonchi on auscultation continue Unasyn and Doxycycline for 7 day course, last day would be 11/05 in the afternoon/evening WBC 14k but suspect it is from dexamethasone productive cough with flutter valve. Patient now had an aspiration event. (6) Microcytic anemia: History of thalassemia. Hb is 10.3 (7) Acute kidney injury: Suspected prerenal in the setting of poor oral intake. resolved (8) Thrombocytosis: History of thrombocytosis (?essential), elevated in the setting of sepsis. Continue aspirin 81 mg p.o. plts over 900 (9) GERD (gastroesophageal reflux disease): Switch omeprazole for pantoprazole as per hospital formulary (10) HTN (hypertension): give Vasotec IV, typically on Lisinopril BP 150s systolic (11) Prostate CA: Notable history of this. 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 As per nurse, he has been transitioned to 2 liters nasal cannula. Review of Systems Review of Systems: All systems reviewed & are unremarkable except as noted in HPI & below Physical Exam Physical Exam: Constitutional: WD/WN, vitals as above no acute distress, on nasal cannula Neck: trachea midline, no thyromegaly Respiratory: normal respiratory effort; no respiratory distress and no labored breathing Auscultation: no rales and no wheezes Cardiovascular: RRR, no murmur, no edema Gastrointestinal (Abdomen): Inspection/Auscultation: + abdomen distended Percussion/Palpation: abdomen soft and + tympanic to percussion; abdomen nontender, no guarding and abdomen not rigid Musculoskeletal: no cyanosis or clubbing, extremities motor strength 5/5 Skin: no rashes, warm and dry Neurologic: patellar DTR's 2+ bilat, sensation intact and PERRL, EOMI, accommodation nl, no face palsy, no dysarthria Psychiatric: A+Ox3, euthymic affect Lymphatic: no cervical or axillary lymphadenopathy Results & Data Results & Data ([facility]) Vital Signs (Past 12 Hours) Vital Signs Temp Pulse Pulse Resp BP Pulse Ox 11/06/20 19:31 36.9 C 86 17 125/71 96 11/06/20 16:00 96 11/06/20 15:39 36.5 C 74 20 112/53 L 98 11/06/20 15:27 75 11/06/20 12:39 92 11/06/20 11:30 95 PG Care Time/CCT Total # of Minutes Spent Total Time Spent with Patient: Total time spent is greater than 50% in coordination of care (as documented) at patient's floor/unit and/or counseling patient: Coding Level of Care Code 92880 Subseq Hosp Care Lvl 3 Diagnoses Acute respiratory failure with hypoxia J96.01 Large bowel obstruction K56.609 Sepsis A41.9 Pneumonia due to COVID-19 virus U07.1; J12.82 Community acquired pneumonia J18.9 Microcytic anemia D50.9 Acute kidney injury N17.9 Thrombocytosis D47.3 GERD (gastroesophageal reflux disease) K21.9 HTN (hypertension) I10 Prostate CA C61 Thalassemia syndrome D56.9 DVT prophylaxis Z29.9 Time Spent (min) 35
[2020-11-07] MEDS: ENALAPRILAT 1.25 MG in DEXTROSE 5% 25 ML IV SCH ×5 (00:06→17:25)
[2020-11-07 06:23] LABS: BUN Creatinine Ratio 37.7 (10-20); Calcium 8.1 mg/dl (8.5-10.1); Creatinine Clr Calc Pharmacy 68.8 ml/min; Est GFR (African American) 93.9; Magnesium 2.2 mg/dl (1.8-2.4); Potassium 3.9 mmol/L (3.5-5.1)
[2020-11-07 08:32] LABS: Anisocytosis Present; Basophils # (auto) 0.01 K/uL (0-0.2); Basophils % (auto) 0.1 %; Eosinophils # (auto) 0.16 K/uL (0-0.5); Eosinophils % (auto) 1.5 %; Hematocrit (blood only) 27.4 % (42-52); Hemoglobin 8.4 g/dL (14.0-18.0); Immature Granulocytes # (auto) 0.06 K/uL (0.00-0.02); Immature Granulocytes % (auto) 0.6 %; Lymphocytes # (auto) 0.73 K/uL (1.2-3.4); Lymphocytes % (auto) 6.7 %; Mean Corpuscular Hemoglobin 22.1 pg (25-34); Mean Corpuscular Hgb Conc 30.7 g/dL (32-36); Mean Corpuscular Volume 72.1 fL (80-100); Microcytosis Present; Monocytes # (auto) 0.52 K/uL (0.11-0.59); Monocytes % (auto) 4.8 %; Neutrophils # (auto) 9.41 K/uL (1.4-6.5); Neutrophils % (auto) 86.3 %; Ovalocytes 1+; Platelet Count 506 K/uL (130-400); Platelet Estimate Increased (Normal); Poikilocytosis Present; RDW Coefficient of Variation 22.1 % (11.5-14.5); RDW Standard Deviation 54.5 fL (36.4-46.3); Tear Drop Cells 1+; Toxic Vacuolation 1+; White Blood Count 10.89 K/uL (4.8-10.8)
[2020-11-07] MEDS: ENOXAPARIN INJ 40 MG/0.4 ML SYR SQ SCH (08:52)
[2020-11-07] MEDS ORDERED: SOD PHOSPHATE/SOD BIPHOSPHATE ENEMA 132 ML BTL PR STA (09:05)
--- NOTE | 2020-11-07 11:23 | Gastroenterology Progress Note ---
Date of Service November 07, 2020 Assessment & Plan (1) Pneumonia due to COVID-19 virus: (2) Large bowel obstruction: Pt is a 85 y/o male, currently admitted w COVID19 pneumonia on isolation; followed by GI for large bowel obstruction w CT evidence of transition point over transverse colon. - Repeat KUB today - Keep NPO - Plan for colonoscopy w colonic stent placement in OR by Dr. Amy Holliday. Prep w tap water and fleets enema Admission and Anticipated Discharge Date Admission Date: October 30, 2020 Supervising Physician Co-Signing Physician Notes I saw and evaluated the patient. We are planning to do a colonic stent as per the request from Dr. Orona. The patient presents with colonic obstruction suspicious for a mass in the transverse colon. We have discussed the risks and benefits of colonoscopy and stent placement to include bleeding, infection, perforation, failed deployment of a stent and need for follow-up procedures to include surgeries Subjective Pt in COVI 19 isolation room. He denies cough, SOB, CP, abd pain, n/v. He is passing flatus but admits not having stools and having hard time holding in his enema. Denies rectal bleeding. Review of Systems Review of Systems: All systems reviewed & are unremarkable except as noted in HPI & below Physical Exam Constitutional: WD/WN, vitals as above well groomed, cooperative and comfortable Eyes: PERRL, conjunctivae normal, anicteric sclerae ENMT: external ear and nose normal, oropharynx normal Respiratory: normal respiratory effort, lungs clear to auscultation Auscultation: + diminished lung sounds (lower lobes) Cardiovascular: RRR, no murmur, no edema Gastrointestinal (Abdomen): Percussion/Palpation: abdomen soft; abdomen nontender Unable to auscultate bowel sounds Skin: no rashes, warm and dry no jaundice Psychiatric: A+Ox3, euthymic affect Lymphatic: no lymphedema Results & Data ([facility]) Vital Signs (Past 12 Hours) Vital Signs Temp Pulse Pulse Pulse Resp BP Pulse Ox 11/07/20 08:00 76 11/07/20 07:51 36.8 C 76 20 131/62 99 11/07/20 06:47 36.9 C 77 18 124/57 L 92 11/07/20 03:31 36.9 C 75 17 114/55 L 96 02/10/21 23:47 36.5 C 78 17 151/94 H 98 11/06/20 23:30 76
--- NOTE | 2020-11-07 12:27 | XRay Report ---
KUB HISTORY: re-eval bowel obstruction COMPARISON: KUB 26 05/02/2021. FINDINGS: Dilated gas-filled loops of large and small bowel have slightly improved. Findings still re main consistent with a large bowel obstruction. No renal calculi. No ureteral calculi. No pneumoperi toneum or pneumatosis. Multiple brachytherapy seeds again noted the prostate gland. IMPRESSION: Above findings consistent with a large bowel obstruction. The dilated gas-filled loops of large and s mall bowel have slightly improved. ACT 112: Negative or not required by law. Electronically signed by: Rian Narvaez M.D. 11/07/2020 12:25 PM
[2020-11-07] MEDS ORDERED: fentaNYL citrate 100 MCG/2 ML VIAL ONE ×2 (14:04)
[2020-11-07] MEDS ORDERED: MIDAZOLAM HCL 1 MG/ML 2ML VIAL ONE (14:04)
[2020-11-07] MEDS ORDERED: MINERAL OIL 30 ML UDC ONE (14:23)
--- NOTE | 2020-11-07 14:37 | Anesthesiology Consultation ---
Date of Service November 07, 2020 Assessment & Plan (1) Encounter for pre-operative examination: Chart Review Chart Review: Acceptable Risk for Surgery and Patient NOT seen in Pre Admission Testing Consults Requested none History Surgery Operation Date: 11/05/20 07:00 Proposed Procedures p Colonoscopy - César Orona MD Operation Date: 11/07/20 08:50 Proposed Procedures p Colonoscopy with Colonic Stent Placement - Amy Holliday DO Operation Date: 11/07/20 16:00 Proposed Procedures p Colonoscopy Dr. Orona - César Orona MD Height/Weight Height: 5 ft 10 in Weight: 84 kg Allergies Allergy/AdvReac Type Severity Reaction Status Date / Time No Known Allergies Allergy Mild Verified 10/25/20 10:03 Medications Home Medications Medication Instructions Recorded Confirmed Last Taken ascorbic acid (vitamin C) 500 mg 500 mg PO DAILY 01/26/19 10/30/20 07/19/19 capsule,extended release aspirin 81 mg tablet,delayed 81 mg PO DAILY 01/26/19 10/30/20 07/19/19 release calcium carbonate 600 mg (1,500 1 tab PO BID 01/26/19 10/30/20 07/19/19 mg)-vitamin D3 200 unit tablet multivitamin,[id number] 1 tab PO DAILY 01/26/19 10/30/20 07/19/19 omega-3 fatty acids-fish oil 360 1 cap PO DAILY 01/26/19 10/30/20 07/19/19 mg-1,200 mg capsule psyllium husk 0.52 gram capsule 0.52 gm PO QAM 01/26/19 10/30/20 07/19/19 vitamin E mixed 1,000 unit capsule 1,000 units PO QAM cap 01/26/19 10/30/20 07/19/19 escitalopram oxalate 10 mg tablet 10 mg PO QAM #90 tab 06/10/20 10/30/20 Unknown lisinopril 20 mg tablet 20 mg PO QAM #90 tab 06/10/20 10/30/20 Unknown omeprazole 20 mg tablet,delayed 20 mg PO QAM #90 tab 06/10/20 10/30/20 Unknown release simvastatin 20 mg tablet 20 mg PO QPM #90 tab 06/10/20 10/30/20 Unknown tamsulosin 0.4 mg capsule 0.8 mg PO DAILY 90 Days #180 cap 06/17/20 10/30/20 Unknown hydroxyzine HCl 25 mg tablet 25 mg PO BID PRN #60 tab 10/16/20 10/30/20 Unknown Active Medications Generic Name Dose Route Start Last Admin Trade Name Freq PRN Reason Stop Dose Admin Enoxaparin Sodium 40 mg 11/01/20 09:00 11/07/20 08:52 Enoxaparin Inj 40 Mg/0.4 Ml Syr SQ 12/01/20 08:59 40 mg QAM ADE Administration Enalaprilat 1.25 mg/ Dextrose 26 mls @ 100 mls/hr 11/02/20 12:00 11/07/20 12:49 IV 12/02/20 11:59 Infused Q6 ADE Infusion Lorazepam 0.25 mg in 0.5 mls @ 0.5 mls/min 11/03/20 13:00 11/06/20 20:49 Ativan IV 12/03/20 12:59 0.5 mls/min HS PRN Administration Insomnia Nutrition (Parenteral) 1,200 1,200 mls @ 50 mls/hr 11/06/20 16:00 11/06/20 15:49 ml/ TPN BAG IV 11/07/20 15:59 50 mls/hr .Q24H ADE Administration Protocol NPO Date Last Intake of Fluids: 11/07/20 Time Last Intake of Fluids: 11:00 Last Intake of Fluids Comment: sip this am Date Last Intake of Solids: 10/28/20 Time Last Intake of Solids: 23:59 Past Medical History Medical History Anemia Anxiety Cervical spondylosis GERD (gastroesophageal reflux disease) HTN (hypertension) Hyperlipidemia Osteoarthritis Prostate cancer SEED IMPLANT AND RADIATION THERAPY Skin cancer Weight loss Past Family History Family History Sister Breast cancer Denies family history of Colon cancer Ovarian cancer Prostate cancer Myocardial infarction Past Surgical History Surgical History History of colonoscopy History of prostate surgery History of tonsillectomy and adenoidectomy History of tooth extraction Hx of cataract surgery LEFT Social History Smoking Status: Former smoker Hx Alcohol Use: No Hx Substance Use: No substance use type: does not use Physical Exam Vital Signs Last Vital Signs Temp 36.6 C 11/07/20 14:18 Pulse 73 11/07/20 14:18 Resp 18 11/07/20 14:18 BP 132/60 11/07/20 14:18 Pulse Ox 100 11/07/20 14:18 Testing Laboratory Results 11/07/20 07:44 11/07/20 05:13 PT 12.1 Seconds (9.0-12.0) H 10/30/20 12:55 INR 1.2 (0.9-1.1) H 10/30/20 12:55 APTT 36.3 Seconds (21.0-31.0) H 10/31/20 13:09 Urine Color Dark Yellow 10/30/20 19:20 Urine Appearance Cloudy (Clear) A 10/30/20 19:20 Urine pH 5.0 (4.5-7.5) 10/30/20 19:20 Ur Specific [place] 1.024 (1.000-1.030) 10/30/20 19:20 Urine Protein Trace (Negative) H 10/30/20 19:20 Urine Glucose (UA) Negative (Negative) 10/30/20 19:20 Urine Ketones Trace (Negative) H 10/30/20 19:20 Urine Nitrite Negative (Negative) 10/30/20 19:20 Ur Leukocyte Esterase Negative (Negative) 10/30/20 19:20 Urine WBC (Auto) 1-5 /hpf (0-5) 10/30/20 19:20 Urine RBC (Auto) 0-4 /hpf (0-4) 10/30/20 19:20 U Hyaline Cast (Auto) 5-10 /lpf (0-5) H 10/30/20 19:20 U Epithel Cells (Auto) >30 /lpf (0-5) H 10/30/20 19:20 Urine Bacteria (Auto) Negative (Negative) 10/30/20 19:20 Blood Type O Positive 10/30/20 14:21 Antibody Screen NEGATIVE 10/30/20 14:21 10/30/20 12:04 Aerobic Blood Culture - Final Blood No growth in Aerobic bottle after 5 days. Anaerobic Blood Culture - Final 10/30/20 11:35 Aerobic Blood Culture - Final Blood No growth in Aerobic bottle after 5 days. Anaerobic Blood Culture - Final No growth in Anaerobic bottle after 5 days. 10/30/20 19:20 Urine Culture - Final Urine,Clean Catch No growth - less than 1,000 colonies/mL. 11/07/20 06:16 POC Glucose 109 H Electrocardiogram Date: 10/30/20 Findings: + NSST changes and + ST @ (120) Chest X-Ray Date: 10/31/20 SINGLE VIEW CHEST CLINICAL HISTORY: Hypoxia. FINDINGS: An AP, portable, upright chest radiograph is compared to study dated 10/30/2020. The examination is degraded by portable technique and apical lordotic positioning. The heart is enlarged noting atherosclerotic calcification of the thoracic aorta. The pulmonary vasculature is noncongested. An approximately 3 cm nodular opacity is seen in the right midlung. There is increasing patchy airspace consolidation the left mid to lower lung. No large pleural effusion or pneumothorax is seen. The skeletal structures are osteopenic. The bony thorax is grossly intact. IMPRESSION: 1. Cardiomegaly without radiographic evidence of congestive failure. 2. There is increasing airspace consolidation the left mid to lower lung. Correlate clinically for evidence of an infectious/inflammatory pneumonitis. 3. An approximately 3 cm nodular density is again seen in the right midlung. This is pathologically indeterminant and may be on an infectious basis. If this fails to resolve a chest CT should be obtained for further assessment. ACT 112: Negative or not required by law. Electronically signed by: Zachary Hicks M.D. 10/31/2020 8:24 AM Dictated: 10/31/20 0811Transcribed: 10/31/20 0811 Other Testing XR KUB/Abdomen 1 view CLINICAL HISTORY: follow up colonic obstruction COMPARISON STUDY: November 03, 2020 FINDINGS: There is a persistent obstructive bowel gas pattern with a paucity of left colonic bowel gas. Small bowel loops measure up to 5.2 cm in diameter. Note is made of prostate radiation therapy seeds. IMPRESSION: Persistent obstructive bowel gas pattern with a paucity of left colonic bowel gas, a finding consistent with a colonic obstruction ACT 112: Negative or not required by law. Electronically signed by: Maxx Ellis M.D. 11/04/2020 2:06 PM Dictated: 11/04/20 1404Transcribed: 11/04/20 1404
[2020-11-07] MEDS ORDERED: ePHEDrine sulfate 50 MG/ML AMP IV PRN (14:52)
[2020-11-07] MEDS ORDERED: ATROPINE SULFATE 0.1 MG/ML 10ML SYR IV PRN (14:52)
--- NOTE | 2020-11-07 15:43 | Hospitalist Progress Note ---
Date of Service November 07, 2020 Assessment & Plan (1) Acute respiratory failure with hypoxia: Due to bacterial pneumonia, doubt there was any component of COVID-19 at this time. Dexamethasone initially for COVID, stopped since he was not hypoxemic. Got Lasix shaft tender of 10/31 for some pulmonary edema, resolved likely that his fluids were really aggressive initially that led to volume overload - Clinically presents like bacterial pneumonia and improving with antibiotics. On 11/05, he had an aspiration event and required Oxymask and transferred to PCU. - Improving again at this time. Down to 3L NC with 100% O2 sat. Not on any abx at present. (2) Large bowel obstruction: Concerning for colon cancer given weight loss, imaging and age. Last colonoscopy was 12 years ago. - CEA noted to be normal on 10/31. - Colonoscopy on 11/08 with probable colonic stent. (3) Sepsis: Suspected source community-acquired pneumonia, bacterial. - As above. (4) Pneumonia due to COVID-19 virus: COVID isolation precautions. Initially on dexamethasone 6 mg IV daily, stopped after 4 days since he was stable on room air. - Low clinical suspicion that this is truly COVID pneumonia, CXR looks more like bacterial and he has productive cough, yellow sputum. (5) Community acquired pneumonia: Community-acquired versus aspiration pneumonia - fluid-filled esophagus on CT with bilateral rhonchi on auscultation. - Last day of Unasyn and doxycycline was 11/05 (6) HTN (hypertension): BP presently 130/60. Usually on lisinopril 20 mg PO daily. - Continue enalaprilat IV until not NPO (7) Thrombocytosis: History of thrombocytosis (?essential), elevated in the setting of sepsis. - Plts now 500 on 11/07 - Hold aspirin 81 mg p.o. for now. (8) Microcytic anemia: History of thalassemia. - Hgb was 8.4 on 11/07. (9) GERD (gastroesophageal reflux disease): No issues today. - Previously switched omeprazole for pantoprazole as per hospital formulary - Presently not on anything for being NPO (10) Prostate CA: Notable history of this. Treated with seed radiotherapy. - No inpatient needs (11) DVT prophylaxis: Lovenox 40 mg SQ daily -> Hold on 11/08 for colonoscopy and stent Admission and Anticipated Discharge Date Admission Date: October 30, 2020 Subjective Feeling fine overall. He is impatient to get his stent done. Reports no fevers/chills, chest pain, shortness of breath, abdominal pain, nausea, or vomiting. Physical Exam Constitutional: WD/WN, vitals as above Eyes: EOM intact bilaterally; no conjunctival abnormality ENMT: external ear and nose normal, oropharynx normal Neck: trachea midline, no thyromegaly normal visual inspection Respiratory: normal respiratory effort, lungs clear to auscultation no respiratory distress Cardiovascular: RRR, no murmur, no edema Gastrointestinal (Abdomen): Inspection/Auscultation: abdomen normal to inspection; abdomen not distended Musculoskeletal: no cyanosis or clubbing, extremities motor strength 5/5 Skin: no rashes, warm and dry Neurologic: moves all extremities and awake Psychiatric: Orientation: alert, oriented to person and cooperative Results & Data Results & Data ([facility]) Vital Signs (Past 12 Hours) Vital Signs Temp Pulse Pulse Pulse Resp BP Pulse Ox 11/07/20 14:18 36.6 C 73 18 132/60 100 11/07/20 11:35 36.4 C L 73 20 118/60 97 11/07/20 08:00 76 11/07/20 07:51 36.8 C 76 20 131/62 99 11/07/20 06:47 36.9 C 77 18 124/57 L 92 PG Care Time/CCT Total # of Minutes Spent Total Time Spent with Patient: Total time spent is greater than 50% in coordination of care (as documented) at patient's floor/unit and/or counseling patient: Coding Level of Care Code 85810 Subseq Hosp Care Lvl 2 Diagnoses Acute respiratory failure with hypoxia J96.01 Large bowel obstruction K56.609 Sepsis A41.9 Pneumonia due to COVID-19 virus U07.1; J12.82 Community acquired pneumonia J18.9 HTN (hypertension) I10 Thrombocytosis D47.3 Microcytic anemia D50.9 GERD (gastroesophageal reflux disease) K21.9 Prostate CA C61 DVT prophylaxis Z29.9
--- NOTE | 2020-11-07 15:57 | GI REPORT ---
Patient Name: Adrian Blanco Procedure Date: 11/07/2020 2:32 PM Date of : 1935 Admit Type: Inpatient Age: 85 Gender: Male Attending MD: Amy Holliday DO Procedure: Colonoscopy Providers: Amy Holliday DO Referring MD: Oleg Griffith Md Indications: Abnormal CT of the GI tract Medicines: General Anesthesia Complications: No immediate complications. Estimated blood loss: Minimal. Estimated Blood Loss: Estimated blood loss was minimal. Procedure: Pre-Anesthesia Assessment: - Prior to the procedure, a History and Physical was performed, and patient medications, allergies and sensitivities were reviewed. The patient's tolerance of previous anesthesia was reviewed. - The risks and benefits of the procedure and the sedation options and risks were discussed with the patient. All questions were answered and informed consent was obtained. - Patient identification and proposed procedure were verified prior to the procedure by the physician, the nurse and the adoption coordinator. The procedure was verified in the procedure room. - Pre-procedure physical examination revealed no contraindications to sedation. - ASA Grade Assessment: IV - A patient with severe systemic disease that is a constant threat to life. - After reviewing the risks and benefits, the patient was deemed in satisfactory condition to undergo the procedure. - The anesthesia plan was to use general anesthesia. - Immediately prior to administration of medications, the patient was re-assessed for adequacy to receive sedatives. - The heart rate, respiratory rate, oxygen saturations, blood pressure, adequacy of pulmonary ventilation, and response to care were monitored throughout the procedure. - The physical status of the patient was re-assessed after the procedure. After I obtained informed consent, the scope was passed under direct vision. Throughout the procedure, the patient's blood pressure, pulse, and oxygen saturations were monitored continuously. The Endoscope was introduced through the anus and advanced to the transverse colon to examine a mass. This was the intended extent. The colonoscopy was performed without difficulty. The patient tolerated the procedure well. The quality of the bowel preparation was fair. Findings: The digital rectal exam findings include non-thrombosed external hemorrhoids. Pertinent negatives include normal sphincter tone. A fungating and ulcerated completely obstructing large mass was found in the transverse colon. The mass was circumferential and obstructed the lumen. In addition, its diameter measured three mm. Oozing was present. Biopsies were taken with a cold forceps for histology. This was stented with Swoopo Evolution Colonic Stent (8 cm length, REF OLI [id number], LOT [id number])) under fluoroscopic guidance using a 0.035 Guidwire placed through the stricture with an extraction balloon. Estimated blood loss was minimal. The pathology specimen was placed into Bottle A. Impression: - Preparation of the colon was fair. - Non-thrombosed external hemorrhoids found on digital rectal exam. - Rule out malignancy, completely obstructing tumor in the transverse colon. Biopsied. Colonic stent placed. Recommendation: - Return patient to hospital omra for ongoing care. - NPO today. - Await pathology results. - Start Miralax 17 gm 1 time daily to prevent stent occlusion. - General surgery consultation - Medical oncology consultation Amy Holliday D.O. Amy Holliday, 11/07/2020 3:56:49 PM This report has been signed electronically. Note Initiated On: 11/07/2020 2:32 PM Number of Addenda: 0 I attest to the content of the Intraoperative Record and orders documented therein, exceptions below {[id number]}
--- NOTE | 2020-11-07 15:58 | Post Operative Brief Note ---
Immediate Post Op Note v1 Date of Surgery November 07, 2020 Pre & Post Diagnosis Operation Date: 11/05/20 07:00 <No data on this case meets the specified criteria> Operation Date: 11/07/20 08:50 <No data on this case meets the specified criteria> Operation Date: 11/07/20 16:00 Colonic obstruction I identified the patient and participated in the time-out.: Yes Procedure Operation Date: 11/05/20 07:00 <No data on this case meets the specified criteria> Operation Date: 11/07/20 08:50 <No data on this case meets the specified criteria> Operation Date: 11/07/20 16:00 Colonoscopy, Obstructing mass in the transverse colon, Colonic stent placed. Surgeon Amy Holliday DO Casting Machine Operator Automatic none Estimated Blood Loss 0 Findings Consistent with Post-Op Diagnosis
--- NOTE | 2020-11-07 15:59 | Communication Note ---
Date of Service: November 07, 2020 The patient underwent colonoscopy this afternoon. He was found to have a obstructing colonic mass in the midportion of the transverse colon. Biopsies were obtained. The mass was stented with an 8 cm colonic stent. Recommendations N.p.o. today Continue daily abdominal x-rays Would start MiraLAX 17 g daily tomorrow General surgery consultation Medical oncology consultation
[2020-11-07] MEDS ORDERED: TPN IV SCH (16:00)
[2020-11-07] MEDS ORDERED: PERIPHERAL PN IV SCH (16:00)
--- NOTE | 2020-11-07 16:00 | Fluoroscopy Report ---
[place] [facility] CLINICAL HISTORY: COLONOSCOPY W/STENT PLACEMENT COMPARISON STUDY: Supine abdomen dated 11/07/2020 FLUOROSCOPY TIME: 37 seconds. NUMBER OF FLUOROSCOPIC IMAGES: 5 FINDINGS: 5 fluoroscopic spot images demonstrating a colonoscope. An expandable stent was deployed in the region of the left transverse colon. The stent demonstrates a moderate waist. IMPRESSION: Fluoroscopic spot images obtained during deployment of a transverse colon expandable holland nt. ACT 112: Negative or not required by law. Electronically signed by: Maxx Ellis M.D. 11/07/2020 3:59 PM
[2020-11-07] MEDS ORDERED: LIDOCAINE HCL 2% 2 ML VIAL/AMP(20MG/ML) INFIL ONE (16:29)
[2020-11-07] MEDS ORDERED: PROPOFOL IV EMULSION 10 MG/ML 20 ML VIAL IV ONE (16:29)
[2020-11-07] MEDS ORDERED: PHENYLEPHRINE 100MCG/ML 5ML SYR ONE (16:29)
[2020-11-07] MEDS ORDERED: ROCURONIUM BROMIDE 10 MG/ML 5 ML VIAL IV ONE (16:29)
[2020-11-07] MEDS ORDERED: NEOSTIGMINE METHYLSULFATE 1 MG/ML 10ML VIAL ONE (16:29)
[2020-11-07] MEDS ORDERED: SUCCINYLCHOLINE 100MG/5ML SYR IV ONE (16:29)
[2020-11-07] MEDS ORDERED: GLYCOPYRROLATE 0.2 MG/ML VIAL ONE (16:29)
--- NOTE | 2020-11-07 18:47 | Anesthesiology Progress Note ---
Date of Service November 07, 2020 Anesthesia Post Procedure Vital Signs Vital Signs: Temp Pulse Pulse Pulse Resp BP Pulse Ox 11/07/20 16:55 68 22 132/52 L 98 11/07/20 16:45 36.6 C 74 22 124/52 L 96 11/07/20 16:35 60 24 116/65 99 11/07/20 16:25 65 23 135/58 L 95 11/07/20 16:17 36.9 C 66 20 125/60 92 11/07/20 16:00 69 11/07/20 14:18 36.6 C 73 18 132/60 100 11/07/20 11:35 36.4 C L 73 20 118/60 97 11/07/20 08:00 76 11/07/20 07:51 36.8 C 76 20 131/62 99 11/07/20 06:47 36.9 C 77 18 124/57 L 92 11/07/20 03:31 36.9 C 75 17 114/55 L 96 11/06/20 23:47 36.5 C 78 17 151/94 H 98 11/06/20 23:30 76 11/06/20 19:31 36.9 C 86 17 125/71 96 Transfer of Care Handoff Completed per policy Notes Mental Status: alert / awake / arousable and participated in evaluation Patient Amnestic to Procedure: Yes Nausea / Vomiting: adequately controlled Pain: adequately controlled Airway Patency, RR, SpO2: stable & adequate BP & HR: stable & adequate Hydration State: stable & adequate Anesthetic Complications: no major complications apparent
[2020-11-08] MEDS: ENALAPRILAT 1.25 MG in DEXTROSE 5% 25 ML IV SCH ×2 (00:50→06:00)
[2020-11-08 07:38] LABS: BUN Creatinine Ratio 29.8 (10-20); Creatinine Clr Calc Pharmacy 79.7 ml/min; Est GFR (African American) 99.7; Est GFR (Non-African American) 86.1; Magnesium 2.2 mg/dl (1.8-2.4); Potassium 4.3 mmol/L (3.5-5.1)
[2020-11-08 07:39] LABS: Phosphorus 3.4 mg/dl (2.5-4.9)
--- NOTE | 2020-11-08 08:23 | Surgery Progress Note ---
Date of Service November 08, 2020 Assessment & Plan (1) Large bowel obstruction: Discussed the patient the procedure that was done by gastroenterology yesterday indicating we will proceed with plans for elective colon resection the patient would like to proceed with this soon as possible although at the present time he is recuperating for Covid and he certainly has an element of malnutrition not able to eat fully although he is on hyperalimentation my feeling would be to postpone the surgery for a week or 2 until he regains his strength and continues to recover from the Covid We will discuss with the medical service but if they agree with the plans that I outlined the patient to be discharged at their discretion I will see him in the office in a week or 2 the plan elective surgery These plans were also discussed with the patient who is eager to have surgery done and all his questions were answered Admission and Anticipated Discharge Date Admission Date: October 30, 2020 Subjective Feels much better today hungry no abdominal pain Physical Exam Physical Exam: Alert coherent comfortable The abdomen is soft nontender no masses Results & Data ([facility]) Vital Signs (Past 12 Hours) Vital Signs Temp Pulse Pulse Resp BP Pulse Ox 11/08/20 08:06 36.9 C 79 19 137/66 97 11/08/20 08:00 70 11/08/20 04:46 36.8 C 65 18 129/65 97 11/07/20 23:34 37.1 C 71 22 107/60 98 11/07/20 23:02 73 PG Care Time/CCT Total # of Minutes Spent Total Time Spent with Patient: Total time spent is greater than 50% in coordination of care (as documented) at patient's floor/unit and/or counseling patient: Coding Level of Care Code 84884 Subseq Hosp Care Lvl 3 Diagnoses Large bowel obstruction K56.609
[2020-11-08] MEDS: POLYETHYLENE (MIRALAX) 17 GM PACK PO SCH (10:56)
--- NOTE | 2020-11-08 11:57 | Gastroenterology Progress Note ---
Date of Service November 08, 2020 Assessment & Plan (1) Pneumonia due to COVID-19 virus: (2) Large bowel obstruction: Pt is a 85 y/o male, currently admitted w COVID19 pneumonia on isolation; followed by GI for large bowel obstruction w CT evidence of transition point over transverse colon. He had colonoscopy w colonic stent placement over transverse colon obstructing lesion yesterday. Is passing loose stools and flatus, abd exam benign. - KUB today - Miralax 17g daily - Surgery consulted to terri for colonic mass resection - CL diet today, FL diet tomorrow and eventually may have soft, low fiber diet to help maintain stent patency Admission and Anticipated Discharge Date Admission Date: October 30, 2020 Supervising Physician Co-Signing Physician Notes Discussed the patient with my nurse practitioner. The patient appears to have responded well to placement of the colonic stent yesterday. Recommendations Miralax 17 g/day Colace 200 mg/day Appreciate surgical evaluation These call with any questions or concerns, GI to sign off Subjective Pt feels well, denies abd pain, n/v. Having loose stools and passing flatus Review of Systems Review of Systems: All systems reviewed & are unremarkable except as noted in HPI & below Physical Exam Constitutional: WD/WN, vitals as above well groomed, cooperative and comfortable Eyes: PERRL, conjunctivae normal, anicteric sclerae ENMT: external ear and nose normal, oropharynx normal Respiratory: normal respiratory effort, lungs clear to auscultation Cardiovascular: RRR, no murmur, no edema Gastrointestinal (Abdomen): normal bowel sounds, soft, nontender, no hepatosplenomegaly Skin: no rashes, warm and dry no jaundice Psychiatric: A+Ox3, euthymic affect Lymphatic: no lymphedema Results & Data ([facility]) Vital Signs (Past 12 Hours) Vital Signs Temp Pulse Pulse Resp BP Pulse Ox 11/08/20 08:06 36.9 C 79 19 137/66 97 11/08/20 08:00 70 11/08/20 04:46 36.8 C 65 18 129/65 97
--- NOTE | 2020-11-08 12:51 | XRay Report ---
KUB HISTORY: s/p colonic stent placement, eval bowel obstruction COMPARISON: KUB 11/07/2020. FINDINGS: Redemonstration of the multiple dilated gas-filled loops of large and small bowel. This has slightly progressed. There has been interval placement of a stent within the expected location of th e mid to distal transverse colon. This is at the location of the transition point for the large bowel obstruction. No renal calculi. No ureteral calculi. No pneumoperitoneum or pneumatosis. IMPRESSION: 1. Interval placement of a stent within the expected location of the mid to distal transverse colon. This is at the location of the transition point for the large bowel obstruction. 2. Mildly dilated gas-filled loops of large and small bowel have slightly progressed. This could be r elated to the recent stent placement rather than a progressive large bowel obstruction. Follow-up rec ommended. ACT 112: Negative or not required by law. Electronically signed by: Rian Narvaez M.D. 11/08/2020 12:50 PM
--- NOTE | 2020-11-08 13:05 | Hospitalist Progress Note ---
Date of Service November 08, 2020 Assessment & Plan (1) Acute respiratory failure with hypoxia: Due to bacterial pneumonia, doubt there was any component of COVID-19 at this time. Dexamethasone initially for COVID, stopped since he was not hypoxemic. Got Lasix sharepoint solutions architect of 10/31 for some pulmonary edema, resolved likely that his fluids were really aggressive initially that led to volume overload - Clinically presents like bacterial pneumonia and improving with antibiotics. On 11/05, he had an aspiration event and required Oxymask and transferred to PCU. - Improving again at this time. Down to room air. Discussed with ADVANCED DEVELOPER who feel this is related to LBO which is now resolved. Will defer consult for now. (2) Large bowel obstruction: Concerning for colon cancer given weight loss, imaging and age. Last colonoscopy was 12 years ago. - CEA noted to be normal on 10/31. - Colonoscopy on 11/07 with colonic stent. Now having BMs. Advancing diet per GI. - Likely cancer. Biopsies taken and will follow up with Dr. Rodriguez in 1-2 weeks to discuss surgical options. (3) Sepsis: Suspected source community-acquired pneumonia, bacterial. - As above. (4) Pneumonia due to COVID-19 virus: COVID isolation precautions. Initially on dexamethasone 6 mg IV daily, stopped after 4 days since he was stable on room air. - Low clinical suspicion that this is truly COVID pneumonia, CXR looks more like bacterial and he has productive cough, yellow sputum. (5) Community acquired pneumonia: Community-acquired versus aspiration pneumonia - fluid-filled esophagus on CT with bilateral rhonchi on auscultation. - Last day of Unasyn and doxycycline was 11/05 (6) HTN (hypertension): BP presently 130/60. Usually on lisinopril 20 mg PO daily. - Restart lisinopril as needed (7) Thrombocytosis: History of thrombocytosis (?essential), elevated in the setting of sepsis. - Plts now 500 on 11/07 - Hold aspirin 81 mg p.o. for now given need for surgery in the near future. (8) Microcytic anemia: History of thalassemia. - Hgb was 8.4 on 11/07. (9) GERD (gastroesophageal reflux disease): No issues today. - Previously switched omeprazole for pantoprazole as per hospital formulary - Presently not on anything for being NPO (10) Prostate CA: Notable history of this. Treated with seed radiotherapy. - No inpatient needs (11) DVT prophylaxis: Lovenox 40 mg SQ daily -> Hold for colonoscopy and stent. Will defer un less he is not discharged tomorrow. Admission and Anticipated Discharge Date Admission Date: October 30, 2020 Subjective Now having BMs. Doing well. Reports no fevers/chills, chest pain, shortness of breath, abdominal pain, nausea, or vomiting. Physical Exam Constitutional: WD/WN, vitals as above Eyes: EOM intact bilaterally; no conjunctival abnormality ENMT: external ear and nose normal, oropharynx normal Neck: trachea midline, no thyromegaly normal visual inspection Respiratory: normal respiratory effort, lungs clear to auscultation no respiratory distress Cardiovascular: RRR, no murmur, no edema Gastrointestinal (Abdomen): Inspection/Auscultation: abdomen normal to inspection; abdomen not distended Musculoskeletal: no cyanosis or clubbing, extremities motor strength 5/5 Skin: no rashes, warm and dry Neurologic: moves all extremities and awake Psychiatric: Orientation: alert, oriented to person and cooperative Results & Data Results & Data ([facility]) Vital Signs (Past 12 Hours) Vital Signs Temp Pulse Pulse Resp BP Pulse Ox 11/08/20 11:56 36.6 C 81 21 124/66 95 11/08/20 08:06 36.9 C 79 19 137/66 97 11/08/20 08:00 70 11/08/20 04:46 36.8 C 65 18 129/65 97 PG Care Time/CCT Total # of Minutes Spent Total Time Spent with Patient: Total time spent is greater than 50% in coordination of care (as documented) at patient's floor/unit and/or counseling patient: Coding Level of Care Code 26344 Subseq Hosp Care Lvl 2 Diagnoses Acute respiratory failure with hypoxia J96.01 Large bowel obstruction K56.609 Sepsis A41.9 Pneumonia due to COVID-19 virus U07.1; J12.82 Community acquired pneumonia J18.9 HTN (hypertension) I10 Thrombocytosis D47.3 Microcytic anemia D50.9 GERD (gastroesophageal reflux disease) K21.9 Prostate CA C61 DVT prophylaxis Z29.9
[2020-11-08] MEDS: LORazepam 0.25 MG/0.5 ML VIAL IV PRN (19:56)
[2020-11-09 06:30] LABS: Hematocrit (blood only) 27.5 % (42-52); Hemoglobin 8.5 g/dL (14.0-18.0); Mean Corpuscular Hgb Conc 30.9 g/dL (32-36); Mean Corpuscular Volume 71.2 fL (80-100); Platelet Count 587 K/uL (130-400); RDW Coefficient of Variation 22.2 % (11.5-14.5); RDW Standard Deviation 53.5 fL (36.4-46.3); Red Blood Count 3.86 M/uL (4.7-6.1); White Blood Count 11.92 K/uL (4.8-10.8)
[2020-11-09 06:47] LABS: Albumin Level 2.1 gm/dl (3.4-5.0); BUN Creatinine Ratio 24.2 (10-20); Calcium 7.8 mg/dl (8.5-10.1); Creatinine Clr Calc Pharmacy 80.8 ml/min; Est GFR (African American) 100.3; Est GFR (Non-African American) 86.6; Magnesium 2.2 mg/dl (1.8-2.4); Potassium 4.2 mmol/L (3.5-5.1)
[2020-11-09 06:50] LABS: Albumin Globulin Ratio 0.6 (0.9-2); Bilirubin,Total 0.8 mg/dl (0.2-1); Globulin 3.3 gm/dl (2.5-4.0); Total Protein 5.4 gm/dl (6.4-8.2)
[2020-11-09] MEDS: POLYETHYLENE (MIRALAX) 17 GM PACK PO SCH (08:31)
--- NOTE | 2020-11-09 12:28 | Hospitalist Progress Note ---
Date of Service November 09, 2020 Assessment & Plan (1) Large bowel obstruction: Concerning for colon cancer given weight loss, imaging and age. Last colonoscopy was 12 years ago. - CEA noted to be normal on 10/31. - Colonoscopy on 11/07 with colonic stent. Now having BMs. Advancing diet per GI. - Likely cancer. Biopsies taken and will follow up with Dr. Rodriguez in 1-2 weeks to discuss surgical options. - Will advance to soft diet today. Discussed with and daughter the next steps as well. Hopefully home tomorrow if tolerating diet. (2) Acute respiratory failure with hypoxia: Due to bacterial pneumonia, doubt there was any component of COVID-19 at this time. Dexamethasone initially for COVID, stopped since he was not hypoxemic. Got [employer] electronics hardware design engineer of 10/31 for some pulmonary edema, resolved likely that his fluids were really aggressive initially that led to volume overload - Clinically presents like bacterial pneumonia and improving with antibiotics. On 11/05, he had an aspiration event and required Oxymask and transferred to PCU. - Down to room air. Discussed with UTILITY TECHNICIAN who feel this is related to LBO which is now resolved. Will defer consult for now. (3) Sepsis: Suspected source community-acquired pneumonia, bacterial. - As above. (4) Pneumonia due to COVID-19 virus: COVID isolation precautions. Initially on dexamethasone 6 mg IV daily, stopped after 4 days since he was stable on room air. - Low clinical suspicion that this is truly COVID pneumonia, CXR looks more like bacterial and he has productive cough, yellow sputum. (5) Community acquired pneumonia: Community-acquired versus aspiration pneumonia - fluid-filled esophagus on CT with bilateral rhonchi on auscultation. - Last day of Unasyn and doxycycline was 11/05 - Breathing comfortably on room air at present. (6) HTN (hypertension): BP presently 125/80. Usually on lisinopril 20 mg PO daily. - Restart lisinopril as needed (7) Thrombocytosis: History of thrombocytosis (?essential), elevated in the setting of sepsis. - Plts now 500 on 11/07 - Hold aspirin 81 mg p.o. for now given need for surgery in the near future. (8) Microcytic anemia: History of thalassemia. - Hgb was 8.5 on 11/09. Will give IV iron x 1 dose as iron studies indicate low iron as well. (9) GERD (gastroesophageal reflux disease): No issues today. - Previously switched omeprazole for pantoprazole as per hospital formulary - Continue PPI (10) Prostate CA: Notable history of this. Treated with seed radiotherapy. - No inpatient needs (11) DVT prophylaxis: Lovenox 40 mg SQ daily Admission and Anticipated Discharge Date Admission Date: October 30, 2020 Subjective Feeling weak, but overall he reports improvement in appetite. Reports no fevers/chills, chest pain, shortness of breath, abdominal pain, nausea, or vomiting. Physical Exam Constitutional: WD/WN, vitals as above Eyes: EOM intact bilaterally; no conjunctival abnormality ENMT: external ear and nose normal, oropharynx normal Neck: trachea midline, no thyromegaly normal visual inspection Respiratory: normal respiratory effort, lungs clear to auscultation no respiratory distress Cardiovascular: RRR, no murmur, no edema Gastrointestinal (Abdomen): Inspection/Auscultation: abdomen normal to inspection; abdomen not distended Musculoskeletal: no cyanosis or clubbing, extremities motor strength 5/5 Skin: no rashes, warm and dry Neurologic: moves all extremities and awake Psychiatric: Orientation: alert, oriented to person and cooperative Results & Data Results & Data ([facility]) Vital Signs (Past 12 Hours) Vital Signs Temp Pulse Pulse Resp BP Pulse Ox 11/09/20 11:07 36.8 C 87 19 124/82 96 11/09/20 08:00 84 11/09/20 07:45 36.7 C 86 18 123/67 93 PG Care Time/CCT Total # of Minutes Spent Total Time Spent with Patient: Total time spent is greater than 50% in coordination of care (as documented) at patient's floor/unit and/or counseling patient: Coding Level of Care Code 67880 Subseq Hosp Care Lvl 2 Diagnoses Large bowel obstruction K56.609 Acute respiratory failure with hypoxia J96.01 Sepsis A41.9 Pneumonia due to COVID-19 virus U07.1; J12.82 Community acquired pneumonia J18.9 HTN (hypertension) I10 Thrombocytosis D47.3 Microcytic anemia D50.9 GERD (gastroesophageal reflux disease) K21.9 Prostate CA C61 DVT prophylaxis Z29.9
[2020-11-09] MEDS ORDERED: IRON SUCROSE 300 MG in SODIUM CHLORIDE 0.9% 250 ML IV ONE (13:15)
[2020-11-09] MEDS ORDERED: ALUMINUM/MAGNESIUM SUSP 30 ML UDC PO PRN (14:13)
[2020-11-10] MEDS ORDERED: hydrOXYzine HCl 25 MG TAB PO PRN (07:16)
[2020-11-10] MEDS: ESCITALOPRAM OXALATE 10 MG TAB PO SCH (09:08)
[2020-11-10] MEDS: TAMSULOSIN HCL 0.4 MG CAP PO SCH (09:09)
[2020-11-10] MEDS: PANTOprazole 40 MG TAB PO SCH (09:12)
[2020-11-10] MEDS: ENOXAPARIN INJ 40 MG/0.4 ML SYR SQ SCH (09:13)
[2020-11-10] MEDS: POLYETHYLENE (MIRALAX) 17 GM PACK PO SCH (09:16)
--- NOTE | 2020-11-10 12:20 | Hospitalist Progress Note ---
Date of Service November 10, 2020 Assessment & Plan (1) Large bowel obstruction: Concerning for colon cancer given weight loss, imaging and age. Last colonoscopy was 12 years ago. - CEA noted to be normal on 10/31. - Colonoscopy on 11/07 with colonic stent. Now having BMs. Advancing diet per GI. - Likely cancer. Biopsies taken and will follow up with Dr. Rodriguez in 1-2 weeks to discuss surgical options. - Advanced to soft diet on 11/09. Doing well, but the patient now feels a SNF would be a better option for safety. (2) Acute respiratory failure with hypoxia: Due to bacterial pneumonia, doubt there was any component of COVID-19 at this time. Dexamethasone initially for COVID, stopped since he was not hypoxemic. Got Lasix health program manager of 10/31 for some pulmonary edema, resolved likely that his fluids were really aggressive initially that led to volume overload - Clinically presents like bacterial pneumonia and improving with antibiotics. On 11/05, he had an aspiration event and required Oxymask and transferred to PCU. - Down to room air. Discussed with DIRECTOR OF CATERING who feel this is related to LBO which is now resolved. Will defer consult for now. (3) Sepsis: Suspected source community-acquired pneumonia, bacterial. - As above. (4) Pneumonia due to COVID-19 virus: COVID isolation precautions. Initially on dexamethasone 6 mg IV daily, stopped after 4 days since he was stable on room air. - Low clinical suspicion that this is truly COVID pneumonia, CXR looks more like bacterial and he has productive cough, yellow sputum. (5) Community acquired pneumonia: Community-acquired versus aspiration pneumonia - fluid-filled esophagus on CT with bilateral rhonchi on auscultation. - Last day of Unasyn and doxycycline was 11/05 - Breathing comfortably on room air at present. (6) HTN (hypertension): BP presently 140/70. Usually on lisinopril 20 mg PO daily. - Restart lisinopril as needed (7) Thrombocytosis: History of thrombocytosis (?essential), elevated in the setting of sepsis. - Plts now 500 on 11/07 - Hold aspirin 81 mg p.o. for now given need for surgery in the near future. (8) Microcytic anemia: History of thalassemia. - Hgb was 8.5 on 11/09. IV iron x 1 dose on 11/09. (9) GERD (gastroesophageal reflux disease): No issues today. - Previously switched omeprazole for pantoprazole as per hospital formulary - Continue PPI (10) Prostate CA: Notable history of this. Treated with seed radiotherapy. - No inpatient needs (11) DVT prophylaxis: Lovenox 40 mg SQ daily Admission and Anticipated Discharge Date Admission Date: October 30, 2020 Subjective Feeling well today. No major concerns. Still having looser stools. Reports no fevers/chills, chest pain, shortness of breath, abdominal pain, nausea, or vomiting. Physical Exam Constitutional: WD/WN, vitals as above Eyes: EOM intact bilaterally; no conjunctival abnormality ENMT: external ear and nose normal, oropharynx normal Neck: trachea midline, no thyromegaly normal visual inspection Respiratory: normal respiratory effort, lungs clear to auscultation no respiratory distress Cardiovascular: RRR, no murmur, no edema Gastrointestinal (Abdomen): Inspection/Auscultation: abdomen normal to insp ection; abdomen not distended Musculoskeletal: no cyanosis or clubbing, extremities motor strength 5/5 Skin: no rashes, warm and dry Neurologic: moves all extremities and awake Psychiatric: Orientation: alert, oriented to person and cooperative Results & Data Results & Data ([facility]) Vital Signs (Past 12 Hours) Vital Signs Temp Pulse Resp BP Pulse Ox 11/10/20 07:12 36.8 C 88 18 137/70 90 PG Care Time/CCT Total # of Minutes Spent Total Time Spent with Patient: Total time spent is greater than 50% in coordination of care (as documented) at patient's floor/unit and/or counseling patient: Coding Level of Care Code 40101 Subseq Hosp Care Lvl 2 Diagnoses Large bowel obstruction K56.609 Acute respiratory failure with hypoxia J96.01 Sepsis A41.9 Pneumonia due to COVID-19 virus U07.1; J12.82 Community acquired pneumonia J18.9 HTN (hypertension) I10 Thrombocytosis D47.3 Microcytic anemia D50.9 GERD (gastroesophageal reflux disease) K21.9 Prostate CA C61 DVT prophylaxis Z29.9
[2020-11-11] MEDS: POLYETHYLENE (MIRALAX) 17 GM PACK PO SCH (08:42)
[2020-11-11] MEDS: ESCITALOPRAM OXALATE 10 MG TAB PO SCH (08:42)
[2020-11-11] MEDS: ENOXAPARIN INJ 40 MG/0.4 ML SYR SQ SCH (08:42)
[2020-11-11] MEDS: PANTOprazole 40 MG TAB PO SCH (08:42)
[2020-11-11] MEDS: TAMSULOSIN HCL 0.4 MG CAP PO SCH (08:42)
--- NOTE | 2020-11-11 14:32 | Hospitalist Progress Note ---
Date of Service November 11, 2020 Assessment & Plan (1) Large bowel obstruction: Concerning for colon cancer given weight loss, imaging and age. Last colonoscopy was 12 years ago. - CEA noted to be normal on 10/31. - Colonoscopy on 11/07 with colonic stent. Now having BMs. Advancing diet per GI. - Likely cancer. Biopsies taken and will follow up with Dr. Rodriguez in 1-2 weeks to discuss surgical options. - Advanced to soft diet on 11/09. Doing well, but the patient now feels a SNF would be a better option for safety. Referrals made. (2) Acute respiratory failure with hypoxia: Due to bacterial pneumonia, doubt there was any component of COVID-19 at this time. Dexamethasone initially for COVID, stopped since he was not hypoxemic. Got Lasix citrus fruit colorer of 10/31 for some pulmonary edema, resolved likely that his fluids were really aggressive initially that led to volume overload - Clinically presents like bacterial pneumonia and improving with antibiotics. On 11/05, he had an aspiration event and required Oxymask and transferred to PCU. - Down to room air. Discussed with WELDING MACHINE OPERATOR [employer] who feel this is related to LBO which is now resolved. Will defer consult for now. (3) Sepsis: Suspected source community-acquired pneumonia, bacterial. - As above. (4) Pneumonia due to COVID-19 virus: COVID isolation precautions. Initially on dexamethasone 6 mg IV daily, stopped after 4 days since he was stable on room air. - Low clinical suspicion that this is truly COVID pneumonia, CXR looks more like bacterial and he has productive cough, yellow sputum. (5) Community acquired pneumonia: Community-acquired versus aspiration pneumonia - fluid-filled esophagus on CT with bilateral rhonchi on auscultation. - Last day of Unasyn and doxycycline was 11/05 - Breathing comfortably on room air at present. (6) HTN (hypertension): BP presently 140/70. Usually on lisinopril 20 mg PO daily. - Restart lisinopril as needed (7) Thrombocytosis: History of thrombocytosis (?essential), elevated in the setting of sepsis. - Plts now 500 on 11/07 - Hold aspirin 81 mg p.o. for now given need for surgery in the near future. (8) Microcytic anemia: History of thalassemia. - Hgb was 8.5 on 11/09. IV iron x 1 dose on 11/09. (9) GERD (gastroesophageal reflux disease): No issues today. - Previously switched omeprazole for pantoprazole as per hospital formulary - Continue PPI (10) Prostate CA: Notable history of this. Treated with seed radiotherapy. - No inpatient needs (11) DVT prophylaxis: Lovenox 40 mg SQ daily Admission and Anticipated Discharge Date Admission Date: October 30, 2020 Subjective Had a large BM which he reports "wiped him out." Otherwise, reports no fevers/chills, chest pain, shortness of breath, abdominal pain, nausea, or vomiting. Physical Exam Constitutional: WD/WN, vitals as above Eyes: EOM intact bilaterally; no conjunctival abnormality ENMT: external ear and nose normal, oropharynx normal Neck: trachea midline, no thyromegaly normal visual inspection Respiratory: normal respiratory effort, lungs clear to auscultation no respiratory distress Cardiovascular: RRR, no murmur, no edema Gastrointestinal (Abdomen): Inspection/Auscultation: abdomen normal to inspection; abdomen not distended Musculoskeletal: no cyanosis or clubbing, extremities motor strength 5/5 Skin: no rashes, warm and dry Neurologic: moves all extremities and awake Psychiatric: Orientation: alert, oriented to person and cooperative Results & Data Results & Data ([facility]) Vital Signs (Past 12 Hours) Vital Signs Temp Pulse Resp BP Pulse Ox 11/11/20 07:36 36.8 C 92 H 19 112/53 L 94 11/11/20 03:44 36.8 C 93 H 20 105/54 L 93 PG Care Time/CCT Total # of Minutes Spent Total Time Spent with Patient: Total time spent is greater than 50% in coordination of care (as documented) at patient's floor/unit and/or counseling patient: Coding Level of Care Code 39627 Subseq Hosp Care Lvl 1 Diagnoses Large bowel obstruction K56.609 Acute respiratory failure with hypoxia J96.01 Sepsis A41.9 Pneumonia due to COVID-19 virus U07.1; J12.82 Community acquired pneumonia J18.9 HTN (hypertension) I10 Thrombocytosis D47.3 Microcytic anemia D50.9 GERD (gastroesophageal reflux disease) K21.9 Prostate CA C61 DVT prophylaxis Z29.9
[2020-11-12] MEDS: ESCITALOPRAM OXALATE 10 MG TAB PO SCH (08:23)
[2020-11-12] MEDS: PANTOprazole 40 MG TAB PO SCH (08:23)
[2020-11-12] MEDS: TAMSULOSIN HCL 0.4 MG CAP PO SCH (08:23)
[2020-11-12] MEDS: ENOXAPARIN INJ 40 MG/0.4 ML SYR SQ SCH (08:23)
[2020-11-12] MEDS: POLYETHYLENE (MIRALAX) 17 GM PACK PO SCH (08:24)
--- NOTE | 2020-11-12 21:45 | Hospitalist Progress Note ---
Date of Service November 12, 2020 Assessment & Plan (1) Large bowel obstruction: Concerning for colon cancer given weight loss, imaging and age. Last colonoscopy was 12 years ago. - CEA noted to be normal on 10/31. - Colonoscopy on 11/07 with colonic stent. Now having BMs. Advancing diet per GI. - Likely cancer. Biopsies taken and will follow up with Dr. Rodriguez in 1-2 weeks to discuss surgical options. - Advanced to soft diet on 11/09. Doing wel om 11/12l, but the patient now feels a SNF would be a better option for safety. Referrals made. (2) Acute respiratory failure with hypoxia: Due to bacterial pneumonia, doubt there was any component of COVID-19 at this time. Dexamethasone initially for COVID, stopped since he was not hypoxemic. Got Lasix oil mixer of 10/31 for some pulmonary edema, resolved likely that his fluids were really aggressive initially that led to volume overload - Clinically presents like bacterial pneumonia and improving with antibiotics. On 11/05, he had an aspiration event and required Oxymask and transferred to PCU. - Down to room air. Discussed with HELP DESK INTERN who feel this is related to LBO which is now resolved. Will defer consult for now. (3) Sepsis: Suspected source community-acquired pneumonia, bacterial. - As above. (4) Pneumonia due to COVID-19 virus: COVID isolation precautions. Initially on dexamethasone 6 mg IV daily, stopped after 4 days since he was stable on room air. - Low clinical suspicion that this is truly COVID pneumonia, CXR looks more like bacterial and he has productive cough, yellow sputum. (5) Community acquired pneumonia: Community-acquired versus aspiration pneumonia - fluid-filled esophagus on CT with bilateral rhonchi on auscultation. - Last day of Unasyn and doxycycline was 11/05 - Breathing comfortably on room air at present. (6) HTN (hypertension): BP presently 140/70. Usually on lisinopril 20 mg PO daily. - Restart lisinopril as needed (7) Thrombocytosis: History of thrombocytosis (?essential), elevated in the setting of sepsis. - Plts now 500 on 11/07 - Hold aspirin 81 mg p.o. for now given need for surgery in the near future. (8) Microcytic anemia: History of thalassemia. - Hgb was 8.5 on 11/09. IV iron x 1 dose on 11/09. (9) GERD (gastroesophageal reflux disease): No issues today. - Previously switched omeprazole for pantoprazole as per hospital formulary - Continue PPI (10) Prostate CA: Notable history of this. Treated with seed radiotherapy. - No inpatient needs (11) DVT prophylaxis: Lovenox 40 mg SQ daily Admission and Anticipated Discharge Date Admission Date: October 30, 2020 Subjective Patient reports feeling well. He has no new symptoms. Review of Systems Review of Systems: All systems reviewed & are unremarkable except as noted in HPI & below Physical Exam Physical Exam: Constitutional: WD/WN, vitals as above no acute distress, on nasal cannula Neck: trachea midline, no thyromegaly Respiratory: normal respiratory effort; no respiratory distress and no labored breathing Auscultation: no rales and no wheezes Cardiovascular: RRR, no murmur, no edema Gastrointestinal (Abdomen): Inspection/Auscultation: + abdomen distended Percussion/Palpation: abdomen soft and + tympanic to percussion; abdomen nontender, no guarding and abdomen not rigid Musculoskeletal: no cyanosis or clubbing, extremities motor strength 5/5 Skin: no rashes, warm and dry Neurologic: patellar DTR's 2+ bilat, sensation intact and PERRL, EOMI, accommodation nl, no face palsy, no dysarthria Psychiatric: A+Ox3, euthymic affect Lymphatic: no cervical or axillary lymphadenopathy Results & Data Results & Data ([facility]) Vital Signs (Past 12 Hours) Vital Signs Temp Pulse Resp BP Pulse Ox 11/12/20 15:07 36.4 C L 84 20 121/68 94 PG Care Time/CCT Total # of Minutes Spent Total Time Spent with Patient: Total time spent is greater than 50% in coordination of care (as documented) at patient's floor/unit and/or counseling patient: Coding Level of Care Code 90743 Subseq Hosp Care Lvl 2 Diagnoses Large bowel obstruction K56.609 Acute respiratory failure with hypoxia J96.01 Sepsis A41.9 Pneumonia due to COVID-19 virus U07.1; J12.82 Community acquired pneumonia J18.9 HTN (hypertension) I10 Thrombocytosis D47.3 Microcytic anemia D50.9 GERD (gastroesophageal reflux disease) K21.9 Prostate CA C61 DVT prophylaxis Z29.9 Time Spent (min) 25
[2020-11-13 07:54] LABS: BUN Creatinine Ratio 17.1 (10-20); Calcium 7.9 mg/dl (8.5-10.1); Creatinine Clr Calc Pharmacy 65.6 ml/min; Est GFR (African American) 92.1; Est GFR (Non-African American) 79.5; Potassium 3.8 mmol/L (3.5-5.1)
[2020-11-13 07:55] LABS: Hematocrit (blood only) 22.3 % (42-52); Hemoglobin 6.9 g/dL (14.0-18.0); Mean Corpuscular Hemoglobin 22.2 pg (25-34); Mean Corpuscular Hgb Conc 30.9 g/dL (32-36); Mean Corpuscular Volume 71.7 fL (80-100); Platelet Count 447 K/uL (130-400); RDW Coefficient of Variation 22.6 % (11.5-14.5); RDW Standard Deviation 54.8 fL (36.4-46.3); Red Blood Count 3.11 M/uL (4.7-6.1); White Blood Count 4.84 K/uL (4.8-10.8)
[2020-11-13 07:56] LABS: Anisocytosis Present; Basophils # (auto) 0.01 K/uL (0-0.2); Basophils % (auto) 0.2 %; Eosinophils # (auto) 0.06 K/uL (0-0.5); Eosinophils % (auto) 1.2 %; Hypochromasia Present; Immature Granulocytes # (auto) 0.01 K/uL (0.00-0.02); Immature Granulocytes % (auto) 0.2 %; Lymphocytes # (auto) 0.78 K/uL (1.2-3.4); Lymphocytes % (auto) 16.1 %; Monocytes # (auto) 0.28 K/uL (0.11-0.59); Monocytes % (auto) 5.8 %; Neutrophils % (auto) 76.5 %; Schistocytes 1+; Tear Drop Cells 1+
[2020-11-13] MEDS: ESCITALOPRAM OXALATE 10 MG TAB PO SCH (08:39)
[2020-11-13] MEDS: TAMSULOSIN HCL 0.4 MG CAP PO SCH (08:39)
[2020-11-13] MEDS: PANTOprazole 40 MG TAB PO SCH (08:40)
[2020-11-13] MEDS: ENOXAPARIN INJ 40 MG/0.4 ML SYR SQ SCH (08:40)
[2020-11-13 08:46] LABS: Hematocrit (blood only) 25.6 % (42-52); Hemoglobin 7.9 g/dL (14.0-18.0)
[2020-11-13] MEDS: POLYETHYLENE (MIRALAX) 17 GM PACK PO SCH (08:55)
[2020-11-13] MEDS ORDERED: IRON SUCROSE 200 MG in 0.9 % SODIUM CHLORIDE 100 ML IV ONE (17:06)
[2020-11-13 17:24] LABS: Hematocrit (blood only) 22.3 % (42-52); Hemoglobin 6.9 g/dL (14.0-18.0)
[2020-11-13] MEDS ORDERED: SODIUM CHLORIDE 0.9% 250 ML IV PRN (17:29)
--- NOTE | 2020-11-13 22:25 | Hospitalist Progress Note ---
Date of Service November 13, 2020 Assessment & Plan (1) Large bowel obstruction: Concerning for colon cancer given weight loss, imaging and age. Last colonoscopy was 12 years ago. - CEA noted to be normal on 10/31. - Colonoscopy on 11/07 with colonic stent. Now having BMs. Advancing diet per GI. - Likely cancer. Biopsies taken and will follow up with Dr. Rodriguez in 1-2 weeks to discuss surgical options. - Advanced to soft diet on 11/09. Doing wel om 16l, but the patient now feels a SNF would be a better option for safety. Referrals made. (2) Acute respiratory failure with hypoxia: Due to bacterial pneumonia, doubt there was any component of COVID-19 at this time. Dexamethasone initially for COVID, stopped since he was not hypoxemic. Got Lasix rn lab of 10/31 for some pulmonary edema, resolved likely that his fluids were really aggressive initially that led to volume overload - Clinically presents like bacterial pneumonia and improving with antibiotics. On 11/05, he had an aspiration event and required Oxymask and transferred to PCU. - Down to room air. Discussed with CASH CLERK who feel this is related to LBO which is now resolved. Will defer consult for now. (3) Sepsis: Suspected source community-acquired pneumonia, bacterial. - As above. (4) Pneumonia due to COVID-19 virus: COVID isolation precautions. Initially on dexamethasone 6 mg IV daily, stopped after 4 days since he was stable on room air. - Low clinical suspicion that this is truly COVID pneumonia, CXR looks more like bacterial and he has productive cough, yellow sputum. (5) Community acquired pneumonia: Community-acquired versus aspiration pneumonia - fluid-filled esophagus on CT with bilateral rhonchi on auscultation. - Last day of Unasyn and doxycycline was 11/05 - Breathing comfortably on room air at present. (6) HTN (hypertension): BP presently 140/70. Usually on lisinopril 20 mg PO daily. - Restart lisinopril as needed (7) Thrombocytosis: History of thrombocytosis (?essential), elevated in the setting of sepsis. - Plts now 500 on 11/07 - Hold aspirin 81 mg p.o. for now given need for surgery in the near future. (8) Microcytic anemia: History of thalassemia. - Hgb was 8.5 on 11/09. IV iron x 1 dose on 11/09. Hemoglobin dropped further, likely has a slow GI bleed. hemoglobin is 6.9 reordered hemoglobin and it was higher. in the afternoon, however hemoglobin again was 6.9. Likely these values are correct given that 2 of the 3 lab results were below the threshold. Will transfuse. Obtain verbal and written consent from the patient, who showed understanding. (9) GERD (gastroesophageal reflux disease): No issues today. - Previously switched omeprazole for pantoprazole as per hospital formulary - Continue PPI (10) Prostate CA: Notable history of this. Treated with seed radiotherapy. - No inpatient needs (11) DVT prophylaxis: Lovenox 40 mg SQ daily Admission and Anticipated Discharge Date Admission Date: October 30, 2020 Subjective 85 yo male reports feeling well. He has no new complaints. Review of Systems Review of Systems: All systems reviewed & are unremarkable except as noted in HPI & below Physical Exam Physical Exam: Constitutional: WD/WN, vitals as above no acute distress, on nasal cannula Neck: trachea midline, no thyromegaly Respiratory: normal respiratory effort; no respiratory distress and no labored breathing Auscultation: no rales and no wheezes Cardiovascular: RRR, no murmur, no edema Gastrointestinal (Abdomen): Inspection/Auscultation: + abdomen distended Percussion/Palpation: abdomen soft and + tympanic to percussion; abdomen nontender, no guarding and abdomen not rigid Musculoskeletal: no cyanosis or clubbing, extremities motor strength 5/5 Skin: no rashes, warm and dry Neurologic: patellar DTR's 2+ bilat, sensation intact and PERRL, EOMI, accommodation nl, no face palsy, no dysarthria Psychiatric: A+Ox3, euthymic affect Lymphatic: no cervical or axillary lymphadenopathy Results & Data Results & Data ([facility]) Vital Signs (Past 12 Hours) Vital Signs Temp Pulse Pulse Resp BP BP Pulse Ox 11/13/20 21:24 37 C 84 18 131/70 94 11/13/20 20:55 36.4 C L 86 18 131/63 96 11/13/20 19:55 36.4 C L 83 18 123/65 94 11/13/20 19:25 36.4 C L 85 16 109/64 96 11/13/20 18:55 37 C 82 17 110/61 98 11/13/20 18:40 37.4 C 80 18 110/66 11/13/20 18:20 37.1 C 82 18 126/62 11/13/20 16:27 36.4 C L 87 17 115/67 94 PG Care Time/CCT Total # of Minutes Spent Total Time Spent with Patient: Total time spent is greater than 50% in coordination of care (as documented) at patient's floor/unit and/or counseling patient: Coding Level of Care Code 19340 Subseq Hosp Care Lvl 3 Diagnoses Large bowel obstruction K56.609 Acute respiratory failure with hypoxia J96.01 Sepsis A41.9 Pneumonia due to COVID-19 virus U07.1; J12.82 Community acquired pneumonia J18.9 HTN (hypertension) I10 Thrombocytosis D47.3 Microcytic anemia D50.9 GERD (gastroesophageal reflux disease) K21.9 Prostate CA C61 DVT prophylaxis Z29.9 Time Spent (min) 35
[2020-11-14 06:29] LABS: BUN Creatinine Ratio 16.6 (10-20); Calcium 7.8 mg/dl (8.5-10.1); Creatinine Clr Calc Pharmacy 68.8 ml/min; Est GFR (African American) 93.9; Potassium 3.8 mmol/L (3.5-5.1)
[2020-11-14 06:32] LABS: Hematocrit (blood only) 25.3 % (42-52); Hemoglobin 7.9 g/dL (14.0-18.0); Mean Corpuscular Hemoglobin 23.2 pg (25-34); Mean Corpuscular Hgb Conc 31.2 g/dL (32-36); Mean Corpuscular Volume 74.2 fL (80-100); Platelet Count 488 K/uL (130-400); RDW Coefficient of Variation 23.2 % (11.5-14.5); RDW Standard Deviation 59.5 fL (36.4-46.3); Red Blood Count 3.41 M/uL (4.7-6.1); White Blood Count 4.55 K/uL (4.8-10.8)
[2020-11-14] MEDS: ENOXAPARIN INJ 40 MG/0.4 ML SYR SQ SCH (08:49)
[2020-11-14] MEDS: ESCITALOPRAM OXALATE 10 MG TAB PO SCH (08:49)
[2020-11-14] MEDS: TAMSULOSIN HCL 0.4 MG CAP PO SCH (08:49)
[2020-11-14] MEDS: PANTOprazole 40 MG TAB PO SCH (08:49)
[2020-11-14] MEDS: POLYETHYLENE (MIRALAX) 17 GM PACK PO SCH (08:49)
--- NOTE | 2020-11-22 08:32 | Discharge Summary ---
Date of Service November 14, 2020 Admission HPI Per Admitting Provider Adrian Blanco is an 85-year-old male who presents to the ER with shortness of breath. He reports feeling fatigued, poor appetite with generalized weakness for the past week. He denies any fevers, chills, loss of taste or smell, headache, sore throat, nausea/vomiting, chest or abdominal pain. For the past 2 days he has had increasing shortness of breath with cough on lying flat. He was significantly worse today and unable to stand up therefore his called for an ambulance. The patient was started on CPAP by EMS due to hypoxia, however he managed to wean to oxygen mask @ 5 LPM when seen. He also reports increased anxiety for which he saw his PCP on October 16. He was started on hydroxyzine at this time and doubled the dose during the last week as he has felt increasingly anxious. He is also been having problems with changing bowel habit with abdominal distention also for the past 2 weeks. Chronic constipation prior to this. For the past 2 days he reports diarrhea with nonwatery stool. He denies any nausea, vomiting, abdominal pain, melena, bright red blood in stool. He reports passing urine normally with no hesitancy, frequency, nocturia or terminal dribbling (he has a significant history of prostate cancer treated with brachytherapy). He was seen in the emergency room for constipation 5 days ago and felt much improved after an enema. He also notes weight loss although cannot quantify this. Last colonoscopy 12 years ago. No family history of bowel cancer. In the ER chest x-ray with right midlung and left basilar opacity concerning for bacterial pneumonia. Procalcitonin positive. He was started on IV cefepime and vancomycin to cover for pneumonia. SARS-CoV-2 PCR positive, treated with 6 mg IV dexamethasone. Subsequent CT abdomen pelvis showed a large bowel obstruction with probable transition point mid transverse colon. He was referred to medicine for admission and ongoing management of COVID-19, bacterial pneumonia, hypoxia. Principal Diagnosis large bowel obstruction Discharge Exam Constitutional: WD/WN, vitals as above no acute distress, on nasal cannula Neck: trachea midline, no thyromegaly Respiratory: normal respiratory effort; no respiratory distress and no labored breathing Auscultation: no rales and no wheezes Cardiovascular: RRR, no murmur, no edema Gastrointestinal (Abdomen): Inspection/Auscultation: + abdomen distended Percussion/Palpation: abdomen soft and abdomen nontender, no guarding and abdomen not rigid Musculoskeletal: no cyanosis or clubbing, extremities motor strength 5/5 Skin: no rashes, warm and dry Neurologic: patellar DTR's 2+ bilat, sensation intact and PERRL, EOMI, accommodation nl, no face palsy, no dysarthria Psychiatric: A+Ox3, euthymic affect Lymphatic: no cervical or axillary lymphadenopathy Discharge Data Allergies Allergy/AdvReac Type Severity Reaction Status Date / Time No Known Allergies Allergy Mild Verified 10/25/20 10:03 Consultations 10/30/20 13:43 ED Decision to Admit Stat 10/30/20 14:41 Consult General Surgery Routine 10/30/20 15:17 Consult Gastroenterology Routine 11/05/20 22:06 Consult Pulmonology Routine Procedures Performed Operation Date: 11/05/20 07:00 <No data on this case meets the specified criteria> Operation Date: 11/07/20 08:50 Actual Procedures p Colonoscopy with Colonic Stent Placement(Not Applicable) - Amy Holliday DO Operation Date: 11/07/20 16:00 <No data on this case meets the specified criteria> Ordered Studies 10/30/20 12:27 CT abd pelvis wo con Stat 11/05/20 13:15 CT angio chest PE protocol Urgent 11/07/20 13:30 FL KUB Routine FL fluoroscopy <1hr Routine Hospital Course (1) Large bowel obstruction: Concerning for colon cancer given weight loss, imaging and age. Last colonoscopy was 12 years ago. - CEA noted to be normal on 10/31. - Colonoscopy on 11/07 with colonic stent. Now having BMs. Advancing diet per GI. - Likely cancer. Biopsies taken and will follow up with Dr. Rodriguez in 1-2 weeks to discuss surgical options. - Advanced to soft diet on 11/09. Doing well om 11/13, but the patient now feels a SNF would be a better option for safety. Referrals made. Continue to do well on 11/14 and will be discharged (2) Acute respiratory failure with hypoxia: Due to bacterial pneumonia, doubt there was any component of COVID-19 at this time. Dexamethasone initially for COVID, stopped since he was not hypoxemic. Got Lasix ramp service agent of 10/31 for some pulmonary edema, resolved likely that his fluids were really aggressive initially that led to volume overload - Clinically presents like bacterial pneumonia and improving with antibiotics. On 11/05, he had an aspiration event and required Oxymask and transferred to PCU. - Down to room air. Discussed with CUSTOMER ENGAGEMENT REPRESENTATIVE who feel this is related to LBO which is now resolved. Will defer consult for now. (3) Sepsis: Suspected source community-acquired pneumonia, bacterial. - As above. (4) Pneumonia due to COVID-19 virus: COVID isolation precautions. Initially on dexamethasone 6 mg IV daily, stopped after 4 days since he was stable on room air. - Low clinical suspicion that this is truly COVID pneumonia, CXR looks more like bacterial and he has productive cough, yellow sputum. (5) Community acquired pneumonia: Community-acquired versus aspiration pneumonia - fluid-filled esophagus on CT with bilateral rhonchi on auscultation. - Last day of Unasyn and doxycycline was 11/05 - Breathing comfortably on room air at present. (6) HTN (hypertension): BP presently 140/70. Usually on lisinopril 20 mg PO daily. - Restart lisinopril as needed (7) Thrombocytosis: History of thrombocytosis (?essential), elevated in the setting of sepsis. - Plts now 500 on 11/07 - Hold aspirin 81 mg p.o. for now given need for surgery in the near future. (8) Microcytic anemia: History of thalassemia. - Hgb was 8.5 on 11/09. IV iron x 1 dose on 11/09. Hemoglobin dropped further, likely has a slow GI bleed. hemoglobin is 6.9 reordered hemoglobin and it was higher. in the afternoon, however hemoglobin again was 6.9. Likely these values are correct given that 2 of the 3 lab results were below the threshold. Will transfuse. Obtain verbal and written consent from the patient, who showed understanding. (9) GERD (gastroesophageal reflux disease): No issues today. - Previously switched omeprazole for pantoprazole as per hospital formulary - Continue PPI (10) Prostate CA: Notable history of this. Treated with seed radiotherapy. - No inpatient needs (11) DVT prophylaxis: Lovenox 40 mg SQ daily Total Time Total Time Spent Total Time Spent (In Minutes): 32 Discharge Plan Discharge Items Patient Disposition: Transfer Assisted Fac Reason For Visit: COVID 19 PNEUMONIA, LARGE BOWEL OBSTRUCTIONS, Discharge Diagnosis: COVID 19 Pneumonia, Large Bowel Obstructions Activity: Resume your previous activity Non-emergency contact: Primary Care Provider Call non-emergency contact if: you have any medication questions Follow-up/Referrals: Francis Garcia MD [Primary Care Provider] - Marcus Rodriguez MD [Surgeon] - (Please call the office to be seen in 7-10 days to further discuss and schedule surgery) Diet: Heart Healthy Diet Texture: Pureed (blended smooth) Addtl Attending Provider Instructions: Followup with Dr. Rodriguez in a week or 2 the plan elective surgery Pending Studies at Discharge: No Stand-Alone Forms: My [facility] [place] [employer] Skilled Items Patient informed of condition?: No DNR: No Discharge Level of Care: Skilled Communicable Disease: No Discharge Prognosis: Stable Lines: None Urinary Catheter: No Medications and DC Order Prescriptions: Continued calcium carbonate-vitamin D3 600 mg(1,500mg) -200 unit tablet 1 tab PO BID RF: 0 omega-3 fatty acids-fish oil [Fish Oil] 360-1,200 mg capsule 1 cap PO DAILY RF: 0 psyllium husk [Metamucil] 0.52 gram capsule 0.52 gm PO QAM RF: 0 multivitamin,ar-ostw-uwkoicyp tablet 1 tab PO DAILY RF: 0 ascorbic acid (vitamin C) 500 mg capsule, extended release 500 mg PO DAILY RF: 0 vitamin E mixed 1,000 unit capsule 1,000 units PO QAM RF: 0 simvastatin 20 mg tablet 20 mg PO QPM Qty: 90 RF: 3 escitalopram oxalate [Lexapro] 10 mg tablet 10 mg PO QAM Qty: 90 RF: 3 hydroxyzine HCl 25 mg tablet 25 mg PO BID PRN (Reason: anxiety) Qty: 60 RF: 3 tamsulosin 0.4 mg capsule 0.8 mg PO DAILY 90 Days Qty: 180 RF: 3 Changed omeprazole 20 mg tablet,delayed release (DR/EC) 40 mg PO QAM Qty: 90 RF: 3 Discontinued aspirin [Adult Aspirin Regimen] 81 mg tablet,delayed release (DR/EC) 81 mg PO DAILY RF: 0 lisinopril 20 mg tablet 20 mg PO QAM Qty: 90 RF: 3 Discharge Orders: Discharge Order (Routine); Ordered 11/14/20 Ordered By: Bruce Merino Admission Data Admit Date/Time: 10/30/20 15:01 Attending Provider: Bruce Merino Admit Provider: Jacob Callaway Primary Care Provider: Francis Garcia Other Providers: Marcus Rdoriguez ; Rafa Reynaga ; César Orona ; Niya Augustine Other Interventions: Discharge Summary Assessment (RN) Last Done: 11/14/20 16:57 Coding Level of Care Code D/C Day Management >30 mins Diagnoses Large bowel obstruction K56.609 Acute respiratory failure with hypoxia J96.01 Sepsis A41.9 Pneumonia due to COVID-19 virus U07.1; J12.82 Community acquired pneumonia J18.9 HTN (hypertension) I10 Thrombocytosis D47.3 Microcytic anemia D50.9 GERD (gastroesophageal reflux disease) K21.9 Prostate CA C61 DVT prophylaxis Z29.9
== END 2020-11-14 17:58 | DRG 853 ==
LOC: ED 11:21 → 2E 15:01 → SUATTDRO 15:01 → 2E 17:05 → 3E 11-03 19:35 → 2E 11-05 11:24 → 3N 11-11 18:10

== ENCOUNTER 2020-11-29 11:04 | Inpatient (IN) ==
[2020-11-29] MEDS ORDERED: MoRPHine SULFATE 2 MG/ML CARP IV PRN (12:12)
[2020-11-29] MEDS ORDERED: MoRPHine SULFATE 4 MG/ML 1 ML CARP\\VIAL IV PRN (12:12)
[2020-11-29] MEDS ORDERED: ONDANSETRON INJ 2 MG/ML 2 ML VIAL IV PRN (12:12)
[2020-11-29] MEDS ORDERED: ACETAMINOPHEN 325 MG TAB PO PRN (12:12)
[2020-11-29 12:59] LABS: Basophils # (auto) 0.04 K/uL (0-0.2); Basophils % (auto) 0.4 %; Eosinophils # (auto) 0.14 K/uL (0-0.5); Eosinophils % (auto) 1.4 %; Hematocrit (blood only) 31.6 % (42-52); Hemoglobin 9.7 g/dL (14.0-18.0); Immature Granulocytes # (auto) 0.02 K/uL (0.00-0.02); Immature Granulocytes % (auto) 0.2 %; Lymphocytes # (auto) 1.86 K/uL (1.2-3.4); Mean Corpuscular Hemoglobin 22.8 pg (25-34); Mean Corpuscular Hgb Conc 30.7 g/dL (32-36); Mean Corpuscular Volume 74.4 fL (80-100); Monocytes # (auto) 0.54 K/uL (0.11-0.59); Monocytes % (auto) 5.2 %; Neutrophils # (auto) 7.71 K/uL (1.4-6.5); Neutrophils % (auto) 74.8 %; Platelet Count 644 K/uL (130-400); RDW Coefficient of Variation 23.2 % (11.5-14.5); RDW Standard Deviation 60.2 fL (36.4-46.3); Red Blood Count 4.25 M/uL (4.7-6.1); White Blood Count 10.31 K/uL (4.8-10.8)
[2020-11-29] MEDS ORDERED: TPN/PPN CONSULT PHARMACY STA (12:59)
[2020-11-29] MEDS ORDERED: PATIENT'S HEIGHT AND/OR WEIGHT NEEDED SCH (13:00)
[2020-11-29] MEDS ORDERED: TPN/PPN CONSULT PHARMACY PRN (13:04)
[2020-11-29] MEDS ORDERED: DEXTROSE 10% 1,000 ML IV PRN (13:10)
[2020-11-29 13:16] LABS: Anisocytosis Present; Ovalocytes 1+; Tear Drop Cells 1+
[2020-11-29 13:35] LABS: Creatinine Clr Calc Pharmacy 54.7 ml/min; Est GFR (African American) 77.3; Est GFR (Non-African American) 66.7; Magnesium 2.2 mg/dl (1.8-2.4); Phosphorus 3.4 mg/dl (2.5-4.9); Potassium 4.2 mmol/L (3.5-5.1)
--- NOTE | 2020-11-29 14:24 | Pharmacy Report ---
Pharmacy PN Initial Consult - Date of Service November 29, 2020 - Scope Pharmacy has been consulted to manage parenteral nutrition orders and order appropriate labs. As part of the Nutrition Support Team guidelines, pharmacy will work in conjunction with dietary when determining the patients caloric needs. - Subjective The patient is a 85 year old M admitted on 11/29/20 12:16 for MALNUTRITION, FAILURE TO THRIVE. Patient is to receive parenteral nutrition for prolonged malnutrition/weight loss secondary to colon cancer (in preparation for surgery). Pertinent PMH: * Recent COVID-19 pneumonia and bowel obstruction. Pathology obtained during that admission in October showed findings consistent with infiltrative adenocarcinoma. * GERD - Objective Height: 5 ft 10 in Weight: 76.3 kg Intake & Output (Last 24Hrs): Intake & Output 11/27/20 11/28/20 11/29/20 11/30/20 06:59 06:59 06:59 06:59 Weight 76.3 kg Laboratory Data (Last 24 Hrs):: 11/29/20 12:45 Sodium 137 Potassium 4.2 Chloride 106 Carbon Dioxide 24 BUN 22 H Creatinine 1.02 Glucose 83 Calcium 9.0 Phosphorus 3.4 Magnesium 2.2 Nutrition Assessment:: Please refer to the Notes section of the EMR for the most recent unindentured apprentice note. - Assessment * AP is an 85 year old male who was recently discharged from [facility] on 11/14/20 * During that time he was treated for COVID-19 pneumonia and found to have large bowel obstruction secondary to obstructing lesion * Biopsy of transverse colon revealed findings consistent with infiltrative adenocarcinoma * Patient discharged to [facility], but patient has struggled to maintain physiological reserve with PO * TPN was initiated in hopes of surgical intervention in the near-term * PICC line to be placed today - will initiate PPN today with first bag and then plan for TPN starting tomorrow * Electrolytes stable * Patient at risk for refeeding syndrome - will maximize phosphate/potassium in PPN (limited by osmolarity) and add thiamine 200 mg * Discussed with general surgery PAAlanC and will utilize minimum volume PPN/TPN * Total volume of 1200 mL today - limited in macronutrients for today's bag - Plan For day 1 of PN administration, the following will be ordered: Macronutrients Amino acids 40 grams/day Dextrose 75 grams/day Lipids 25 grams/day Micronutrients Combined electrolytes 220 mL - contains 35 mEq Na, 20 meq K, 4.5 mEq Ca, 5 mEq Mg, 35 mEq Cl, 29.5 mEq acetate per 20 mL Sodium phosphate MMol Sodium chloride 25 mEq Sodium acetate 10 mEq Potassium phosphate 24 mMol Potassium chloride mEq Potassium acetate 20 mEq Magnesium sulfate 4.06 mEq Calcium gluconate mEq Multivitamins 10 mL Trace Elements 10 mL Additional additives: folic acid 1 mg and thiamine 200 mg Total volume 1200 mL to be infused over 24 hrs will provide 665 kcal/day Final osmolarity 880 mOsm/L (maximum for PPN is 900 mOsm/L) Labs to be ordered per PN order protocol Pharmacy will follow and adjust parenteral nutrition orders on a daily basis. Thank you.
[2020-11-29] MEDS ORDERED: hydrOXYzine HCl 25 MG TAB PO PRN (14:30)
[2020-11-29] MEDS ORDERED: THIAMINE HCL 50 MG TABLET PO ONE (15:00)
[2020-11-29] MEDS ORDERED: PERIPHERAL PN IV SCH (16:00)
[2020-11-29] MEDS ORDERED: TPN IV SCH (16:00)
--- NOTE | 2020-11-29 18:44 | Hospitalist Progress Note ---
Date of Service November 29, 2020 Assessment & Plan (1) Weight loss: Struggling with adequate intake, losing weight, admitted for nutritional support so that he can be optimized prior to surgery for his colon lesion. TPN has been started, dietitian consulted, we will encourage oral intake, and de pending on how he is doing also consider an appetite stimulant (2) Adenocarcinoma: Transverse colonstented. Plan is for surgical intervention in the near fu ture, but the patient was having significant failure to thrive post having had Covidhence above plan (3) HTN (hypertension): Per history, but at this point time his blood pressure is at the low end of normal. He is not on any antihypertensives, we will continue to follow (4) BPH (benign prostatic hyperplasia): Continue tamsulosin (5) Hypercholesteremia: Okay to continue with Zocor for now (6) DVT prophylaxis: Lovenox (7) Discharge planning issues: Medical for now, follow along with surgery, work towards optimizing to manage his transverse colon lesion. Admission and Anticipated Discharge Date Admission Date: November 29, 2020 Subjective Resting comfortably in bed, TPN infusing Physical Exam Physical Exam: General he is resting comfortably, no distress, appears s omewhat thin with maybe a little bit of temporal muscle wasting. HEENT normocephalic atraumatic mucous membranes moist. Breathing unlabored no accessory muscle use good effort. Skin shows no rashes no pallor or icterus. Neuro no resting asymmetry Results & Data Results & Data ([facility]) Vital Signs (Past 12 Hours) Vital Signs Temp Pulse Resp BP Pulse Ox 11/29/20 16:04 98.1 F 80 16 96/55 L 99 11/29/20 12:40 97.3 F L 98 H 14 102/62 99 PG Care Time/CCT Total # of Minutes Spent Total Time Spent with Patient: Total time spent is greater than 50% in coordination of care (as documented) at patient's floor/unit and/or counseling patient: Coding Level of Care Code 10614 Subseq Hosp Care Lvl 1 Diagnoses Weight loss R63.4 Adenocarcinoma C80.1 HTN (hypertension) I10 BPH (benign prostatic hyperplasia) N40.0 Hypercholesteremia E78.00 DVT prophylaxis Z29.9 Discharge planning issues Z02.9
--- NOTE | 2020-11-29 18:44 | Billing Data ---
Date of Service November 29, 2020 Coding Level of Care Code 56450 Subseq Hosp Care Lvl 1
[2020-11-29] MEDS: SIMVASTATIN 20 MG TAB PO SCH (20:43)
--- NOTE | 2020-11-30 05:55 | Surgery Progress Note ---
Date of Service November 30, 2020 Assessment & Plan (1) Adenocarcinoma: Patient is status post colonoscopy with stent placement. Plan was to pursue elective surgical resection once patient's nutritional status was optimized. As patient was noted to be malnourished while at [facility] it was felt that admission was warranted to help optimize his nutritional status. To new diet as tolerated Continue parenteral nutrition as ordered Lovenox is in place for DVT prevention Admission and Anticipated Discharge Date Admission Date: November 29, 2020 Subjective Patient is resting comfortably in bed. No nausea, vomiting, fevers, shakes, chills are reported. Physical Exam Constitutional: well developed and well nourished; no acute distress Respiratory: normal respiratory effort; no respiratory distress and no labored breathing Cardiovascular: Rate/Rhythm: regular rate and regular rhythm Gastrointestinal (Abdomen): Percussion/Palpation: abdomen soft; abdomen nontender Results & Data ([facility]) Vital Signs (Past 12 Hours) Vital Signs Temp Pulse Resp BP Pulse Ox 11/29/20 22:31 36.9 C 71 18 128/66 96 PG Care Time/CCT Total # of Minutes Spent Total Time Spent with Patient: Total time spent is greater than 50% in coordination of care (as documented) at patient's floor/unit and/or counseling patient: Coding Level of Care Code 81837 Subseq Hosp Care Lvl 1 Diagnoses Adenocarcinoma C80.1
[2020-11-30 06:54] LABS: BUN Creatinine Ratio 30.4 (10-20); Creatinine Clr Calc Pharmacy 76.4 ml/min; Est GFR (Non-African American) 84.6; Magnesium 2.3 mg/dl (1.8-2.4); Potassium 4.3 mmol/L (3.5-5.1)
[2020-11-30 06:56] LABS: Phosphorus 3.7 mg/dl (2.5-4.9)
[2020-11-30] MEDS: ESCITALOPRAM OXALATE 10 MG TAB PO SCH (09:34)
[2020-11-30] MEDS: TAMSULOSIN HCL 0.4 MG CAP PO SCH (09:34)
[2020-11-30] MEDS: PSYLLIUM 58.6% POWDER PACKET PO SCH (09:35)
[2020-11-30] MEDS: ENOXAPARIN INJ 40 MG/0.4 ML SYR SQ SCH (09:35)
[2020-11-30 13:15] LABS: Bilirubin,Total 0.4 mg/dl (0.2-1)
[2020-11-30] MEDS ORDERED: TPN IV SCH (16:00)
[2020-11-30] MEDS ORDERED: CENTRAL PN IV SCH (16:00)
--- NOTE | 2020-11-30 19:03 | Hospitalist Progress Note ---
Date of Service November 30, 2020 Assessment & Plan (1) Weight loss: Struggling with adequate intake, losing weight, admitted for nutritional support so that he can be optimized prior to surgery for his colon lesion. TPN has been started, dietitian consulted, he is actually doing quite well on oral intake now. Probably no need for an appetite stimulant. Continue to encourage. (2) Adenocarcinoma: Transverse colonstented. Plan is for surgical intervention in the near future, but the patient was having significant failure to thrive post having had Covidhence above plan We will work together with surgery to determine when he would be most optimized to proceed (3) HTN (hypertension): Per history. BP is acceptable. No medications. Follow (4) BPH (benign prostatic hyperplasia): Continue tamsulosin (5) Hypercholesteremia: Okay to continue with Zocor for now (6) DVT prophylaxis: Lovenox (7) Discharge planning issues: Medical for now, follow along with surgery, work towards optimizing to manage his transverse colon lesion. Admission and Anticipated Discharge Date Admission Date: November 29, 2020 Subjective feeling ok. tolerating TPN well. Actually eating quite well as well. No abdominal pain, no chest pain no shortness of breath. Review of Systems Review of Systems: All systems reviewed & are unremarkable except as noted in HPI & below Physical Exam Physical Exam: Vitals noted, in no distress. HEENT normocephalic atraumatic mucous membranes moist. Breathing unlabored no accessory muscle use good effort. Skin shows no rashes no pallor or icterus. Neuro shows no focal deficits. Results & Data Results & Data ([facility]) Vital Signs (Past 12 Hours) Vital Signs Temp Pulse Resp BP Pulse Ox 11/30/20 15:26 98.2 F 67 16 138/67 95 11/30/20 07:18 97.3 F L 73 18 126/63 96 PG Care Time/CCT Total # of Minutes Spent Total Time Spent with Patient: Total time spent is greater than 50% in coordination of care (as documented) at patient's floor/unit and/or counseling patient: Coding Level of Care Code 10893 Subseq Hosp Care Lvl 2 Diagnoses Weight loss R63.4 Adenocarcinoma C80.1 HTN (hypertension) I10 BPH (benign prostatic hyperplasia) N40.0 Hypercholesteremia E78.00 DVT prophylaxis Z29.9 Discharge planning issues Z02.9
[2020-11-30] MEDS: SIMVASTATIN 20 MG TAB PO SCH (19:47)
--- NOTE | 2020-12-01 06:31 | Surgery Progress Note ---
Date of Service December 01, 2020 Assessment & Plan (1) Adenocarcinoma: Patient is status post colonoscopy with stent placement during previous admission Elective surgical resection planned once patient's nutritional status improved It was felt that admission was required to optimize nutritional status Continue parenteral nutrition as ordered Continue current diet Lovenox is in place for DVT prevention Admission and Anticipated Discharge Date Admission Date: November 29, 2020 Subjective Patient is resting in bed and no complaints are noted at this time. Physical Exam Constitutional: no acute distress Gastrointestinal (Abdomen): Percussion/Palpation: abdomen soft; abdomen nontender Results & Data ([facility]) Vital Signs (Past 12 Hours) Vital Signs Temp Pulse Resp BP Pulse Ox 11/30/20 23:26 36.5 C 79 18 127/61 94 PG Care Time/CCT Total # of Minutes Spent Total Time Spent with Patient: Total time spent is greater than 50% in coordination of care (as documented) at patient's floor/unit and/or counseling patient: Coding Level of Care Code 35748 Subseq Hosp Care Lvl 1 Diagnoses Adenocarcinoma C80.1
[2020-12-01 06:45] LABS: BUN Creatinine Ratio 32.5 (10-20); Calcium 8.2 mg/dl (8.5-10.1); Creatinine Clr Calc Pharmacy 77.4 ml/min; Est GFR (African American) 98.6; Est GFR (Non-African American) 85.1; Magnesium 2.3 mg/dl (1.8-2.4); Phosphorus 3.7 mg/dl (2.5-4.9); Potassium 4.4 mmol/L (3.5-5.1)
[2020-12-01] MEDS: ESCITALOPRAM OXALATE 10 MG TAB PO SCH (08:03)
[2020-12-01] MEDS: TAMSULOSIN HCL 0.4 MG CAP PO SCH (08:03)
[2020-12-01] MEDS: PSYLLIUM 58.6% POWDER PACKET PO SCH (08:04)
[2020-12-01] MEDS: PANTOprazole 40 MG TAB PO SCH (08:04)
[2020-12-01] MEDS: ENOXAPARIN INJ 40 MG/0.4 ML SYR SQ SCH (08:04)
[2020-12-01] MEDS ORDERED: TPN IV SCH (16:00)
[2020-12-01] MEDS ORDERED: CENTRAL PN IV SCH (16:00)
--- NOTE | 2020-12-01 16:52 | Hospitalist Progress Note ---
Date of Service December 01, 2020 Assessment & Plan (1) Weight loss: Struggling with adequate intake, losing weight, admitted for nutritional support so that he can be optimized prior to surgery for his colon lesion. TPN has been started, dietitian consulted, he is actually doing quite well on oral intake now. Probably no need for an appetite stimulant given that he is eating quite well. Continue to encourage. (2) Adenocarcinoma: Transverse colonstented. Plan is for surgical intervention in the near future, but the patient was having significant failure to thrive post having had Covidhence above plan We will work together with surgery to determine when he would be most optimized to proceed, but he is definitely showing nutritional status improvement by the day (3) HTN (hypertension): Per history. BP remains acceptable. No medications. Follow (4) BPH (benign prostatic hyperplasia): Continue tamsulosin, no problems identified (5) Hypercholesteremia: Okay to continue with Zocor for now (6) DVT prophylaxis: Lovenox (7) Discharge planning issues: Medical for now, follow along with surgery, work towards optimizing to manage his transverse colon lesion. Admission and Anticipated Discharge Date Admission Date: November 29, 2020 Subjective Feeling well overall. Tolerating TPN well. Had eggs and waffles for breakfast, noted a question of a little bit of indigestion for a little while later versus a little bit of back pain for a little while later he said he could not quite tell. At any rate it is gone. No other new complaints. Review of Systems Review of Systems: All systems reviewed & are unremarkable except as noted in HPI & below Physical Exam Physical Exam: In general he is awake and alert pleasant no distress. HEENT normocephalic atraumatic mucous membranes moist. Abdomen is soft nondistended nontender no masses organomegaly, breathing unlabored no accessory muscle use good effort. Skin shows no rashes no pallor or icterus. Results & Data Results & Data ([facility]) Vital Signs (Past 12 Hours) Vital Signs Temp Pulse Resp BP Pulse Ox 12/01/20 15:08 99.1 F 76 18 112/65 97 12/01/20 07:27 97.7 F 76 18 131/67 97 PG Care Time/CCT Total # of Minutes Spent Total Time Spent with Patient: Total time spent is greater than 50% in coordination of care (as documented) at patient's floor/unit and/or counseling patient: Coding Level of Care Code 96800 Subseq Hosp Care Lvl 2 Diagnoses Weight loss R63.4 Adenocarcinoma C80.1 HTN (hypertension) I10 BPH (benign prostatic hyperplasia) N40.0 Hypercholesteremia E78.00 DVT prophylaxis Z29.9 Discharge planning issues Z02.9
[2020-12-01] MEDS: SIMVASTATIN 20 MG TAB PO SCH (20:35)
[2020-12-02 06:35] LABS: BUN Creatinine Ratio 40.5 (10-20); Calcium 8.3 mg/dl (8.5-10.1); Creatinine Clr Calc Pharmacy 78.5 ml/min; Est GFR (African American) 99.2; Est GFR (Non-African American) 85.6; Magnesium 2.3 mg/dl (1.8-2.4); Potassium 4.5 mmol/L (3.5-5.1)
[2020-12-02] MEDS: PANTOprazole 40 MG TAB PO SCH (08:07)
[2020-12-02] MEDS: TAMSULOSIN HCL 0.4 MG CAP PO SCH (08:07)
[2020-12-02] MEDS: PSYLLIUM 58.6% POWDER PACKET PO SCH (08:08)
[2020-12-02] MEDS: ENOXAPARIN INJ 40 MG/0.4 ML SYR SQ SCH (08:08)
[2020-12-02] MEDS: ESCITALOPRAM OXALATE 10 MG TAB PO SCH (08:08)
--- NOTE | 2020-12-02 08:20 | Surgery Progress Note ---
Date of Service December 02, 2020 Assessment & Plan (1) Adenocarcinoma: Patient is status post colonoscopy with stent placement during previous admission Continue parenteral nutrition as ordered Continue current diet Tentatively plan surgery for Seen with Dr. Rodriguez Admission and Anticipated Discharge Date Admission Date: November 29, 2020 Subjective bowels moving, tolerating regular diet Physical Exam Gastrointestinal (Abdomen): Percussion/Palpation: abdomen soft Results & Data ([facility]) Vital Signs (Past 12 Hours) Vital Signs Temp Pulse Resp BP Pulse Ox 12/02/20 07:41 36.5 C 85 16 168/77 H 94 12/01/20 22:17 36.4 C L 79 16 122/64 96 PG Care Time/CCT Total # of Minutes Spent Total Time Spent with Patient: Total time spent is greater than 50% in coordination of care (as documented) at patient's floor/unit and/or counseling patient: Coding Level of Care Code None Diagnoses Adenocarcinoma C80.1
[2020-12-02] MEDS ORDERED: CENTRAL PN IV SCH (16:00)
[2020-12-02] MEDS ORDERED: TPN IV SCH (16:00)
[2020-12-02] MEDS: SIMVASTATIN 20 MG TAB PO SCH (19:45)
--- NOTE | 2020-12-03 06:49 | Hospitalist Progress Note ---
Date of Service December 03, 2020 Assessment & Plan (1) Weight loss: Struggling with adequate intake, losing weight, admitted for nutritional support so that he can be optimized prior to surgery for his colon lesion. TPN has been started, dietitian consulted, he is actually doing quite well on oral intake now. Probably no need for an appetite stimulant given that he is eating quite well. Continue to encourage. He continues to be doing well and plan is fot surgery on 12/05/20 (2) Adenocarcinoma: Transverse colonstented. Plan is for surgical intervention in the near future, but the patient was having significant failure to thrive post having had Covidhence above plan We will work together with surgery to determine when he would be most optimized to proceed, but he is definitely showing nutritional status improvement by the day (3) HTN (hypertension): Per history. BP remains acceptable. No medications. Follow (4) BPH (benign prostatic hyperplasia): Continue tamsulosin, no problems identified (5) Hypercholesteremia: Okay to continue with Zocor for now (6) DVT prophylaxis: Lovenox (7) Discharge planning issues: Medical for now, follow along with surgery, work towards optimizing to manage his transverse colon lesion. Admission and Anticipated Discharge Date Admission Date: November 29, 2020 Subjective Patient reports feeling well. He has no new symptoms at this time. Review of Systems Review of Systems: All systems reviewed & are unremarkable except as noted in HPI & below Physical Exam Constitutional: WD/WN, vitals as above Eyes: PERRL, conjunctivae normal, anicteric sclerae ENMT: external ear and nose normal, oropharynx normal Neck: trachea midline, no thyromegaly Respiratory: normal respiratory effort, lungs clear to auscultation Cardiovascular: RRR, no murmur, no edema Gastrointestinal (Abdomen): normal bowel sounds, soft, nontender, no hepatosplenomegaly Skin: no rashes, warm and dry Results & Data Results & Data ([facility]) Vital Signs (Past 12 Hours) Vital Signs Temp Pulse Resp BP Pulse Ox 12/02/20 23:23 36.3 C L 77 16 125/64 96 PG Care Time/CCT Total # of Minutes Spent Total Time Spent with Patient: Total time spent is greater than 50% in coordination of care (as documented) at patient's floor/unit and/or counseling patient: Coding Level of Care Code 25525 Subseq Hosp Care Lvl 3 Diagnoses Weight loss R63.4 Adenocarcinoma C80.1 HTN (hypertension) I10 BPH (benign prostatic hyperplasia) N40.0 Hypercholesteremia E78.00 DVT prophylaxis Z29.9 Discharge planning issues Z02.9 Time Spent (min) 35
[2020-12-03] MEDS: PANTOprazole 40 MG TAB PO SCH (08:10)
[2020-12-03] MEDS: ESCITALOPRAM OXALATE 10 MG TAB PO SCH (08:10)
[2020-12-03] MEDS: ENOXAPARIN INJ 40 MG/0.4 ML SYR SQ SCH (08:11)
[2020-12-03] MEDS: TAMSULOSIN HCL 0.4 MG CAP PO SCH (08:11)
[2020-12-03] MEDS: PSYLLIUM 58.6% POWDER PACKET PO SCH (08:11)
[2020-12-03 09:09] LABS: BUN Creatinine Ratio 45.6 (10-20); Calcium 8.5 mg/dl (8.5-10.1); Creatinine Clr Calc Pharmacy 76.4 ml/min; Est GFR (Non-African American) 84.6; Magnesium 2.3 mg/dl (1.8-2.4); Potassium 4.5 mmol/L (3.5-5.1)
--- NOTE | 2020-12-03 12:27 | Surgery Progress Note ---
Date of Service December 03, 2020 Assessment & Plan (1) Adenocarcinoma: Patient is status post colonoscopy with stent placement during previous admission Continue parenteral nutrition as ordered Will back down to full liquids for colon prep, add boost, plan surgery for Seen with Dr. Rodriguez Admission and Anticipated Discharge Date Admission Date: November 29, 2020 Subjective feeling better, tolerating diet Physical Exam Gastrointestinal (Abdomen): Percussion/Palpation: abdomen soft Results & Data ([facility]) Vital Signs (Past 12 Hours) Vital Signs Temp Pulse Resp BP Pulse Ox 12/03/20 07:36 36.6 C 78 16 114/61 94 PG Care Time/CCT Total # of Minutes Spent Total Time Spent with Patient: Total time spent is greater than 50% in coordination of care (as documented) at patient's floor/unit and/or counseling patient: Coding Level of Care Code 34268 Subseq Hosp Care Lvl 1 Diagnoses Adenocarcinoma C80.1
[2020-12-03] MEDS ORDERED: CENTRAL PN IV SCH (16:00)
[2020-12-03] MEDS ORDERED: TPN IV SCH (16:00)
[2020-12-03] MEDS: SIMVASTATIN 20 MG TAB PO SCH (19:26)
--- NOTE | 2020-12-04 08:18 | Surgery Progress Note ---
Date of Service December 04, 2020 Assessment & Plan (1) Adenocarcinoma: Patient is status post colonoscopy with stent placement during previous admission Continue parenteral nutrition as ordered Plan for colon resection tomorrow Seen with Dr. Rodriguez Admission and Anticipated Discharge Date Admission Date: November 29, 2020 Subjective no complaints Physical Exam Gastrointestinal (Abdomen): Percussion/Palpation: abdomen soft Results & Data ([facility]) Vital Signs (Past 12 Hours) Vital Signs Temp Pulse Resp BP Pulse Ox 12/04/20 07:07 36.2 C L 78 16 126/64 97 12/03/20 22:33 36.9 C 80 18 107/55 L 95 PG Care Time/CCT Total # of Minutes Spent Total Time Spent with Patient: Total time spent is greater than 50% in coordination of care (as documented) at patient's floor/unit and/or counseling patient: Coding Level of Care Code 14736 Subseq Hosp Care Lvl 1 Diagnoses Adenocarcinoma C80.1
[2020-12-04] MEDS: ENOXAPARIN INJ 40 MG/0.4 ML SYR SQ SCH (08:51)
[2020-12-04] MEDS: TAMSULOSIN HCL 0.4 MG CAP PO SCH (08:51)
[2020-12-04] MEDS: PANTOprazole 40 MG TAB PO SCH (08:51)
[2020-12-04] MEDS: ESCITALOPRAM OXALATE 10 MG TAB PO SCH (08:51)
[2020-12-04] MEDS: PSYLLIUM 58.6% POWDER PACKET PO SCH (08:51)
[2020-12-04] MEDS: bisacodyL 5 MG TABEC PO SCH ×2 (09:18→20:16)
[2020-12-04] MEDS: NEOMYCIN SULFATE 500 MG TAB PO SCH ×3 (13:12→20:13)
[2020-12-04] MEDS: metroNIDAZOLE 500 MG TAB PO SCH ×3 (13:12→20:13)
--- NOTE | 2020-12-04 13:16 | Anesthesiology Consultation ---
Date of Service December 04, 2020 Assessment & Plan Chart Review Chart Review: Acceptable Risk for Surgery and Patient NOT seen in Pre Admission Testing Consults Requested none ASA ASA4 Proposed Anesthesia Anesthesia Type: General Anesthesia Line Insertion: Arterial line History Surgery Operation Date: 12/05/20 07:00 Proposed Procedures p Open Colon Resection - Marcus Rodriguez MD, FACS Height/Weight Height: 5 ft 10 in Weight: 75.5 kg Allergies Allergy/AdvReac Type Severity Reaction Status Date / Time No Known Allergies Allergy Mild Verified 10/25/20 10:03 Medications Home Medications Medication Instructions Recorded Confirmed Last Taken ascorbic acid (vitamin C) 500 mg 500 mg PO DAILY 01/26/19 10/30/20 07/19/19 capsule,extended release calcium carbonate 600 mg (1,500 1 tab PO BID 01/26/19 10/30/20 07/19/19 mg)-vitamin D3 200 unit tablet multivitamin,ut-jsnk-kbjczwcy 1 tab PO DAILY 01/26/19 10/30/20 07/19/19 omega-3 fatty acids-fish oil 360 1 cap PO DAILY 01/26/19 10/30/20 07/19/19 mg-1,200 mg capsule psyllium husk 0.52 gram capsule 0.52 gm PO QAM 01/26/19 10/30/20 07/19/19 vitamin E mixed 1,000 unit capsule 1,000 units PO QAM cap 01/26/19 10/30/20 07/19/19 escitalopram oxalate 10 mg tablet 10 mg PO QAM #90 tab 06/10/20 10/30/20 Unknown simvastatin 20 mg tablet 20 mg PO QPM #90 tab 06/10/20 10/30/20 Unknown tamsulosin 0.4 mg capsule 0.8 mg PO DAILY 90 Days #180 cap 06/17/20 10/30/20 Unknown hydroxyzine HCl 25 mg tablet 25 mg PO BID PRN #60 tab 10/16/20 10/30/20 Unknown omeprazole 40 mg PO QAM #90 tab 11/14/20 10/30/20 Unknown Active Medications Generic Name Dose Route Start Last Admin Trade Name Freq PRN Reason Stop Dose Admin Bisacodyl 5 mg 12/04/20 09:00 12/04/20 09:18 Bisacodyl 5 Mg Tabec PO 12/05/20 08:59 5 mg BID ADE Administration Enoxaparin Sodium 40 mg 11/30/20 09:00 12/04/20 08:51 Enoxaparin Inj 40 Mg/0.4 Ml Syr SQ 12/30/20 08:59 40 mg QAM ADE Administration Escitalopram Oxalate 10 mg 11/30/20 09:00 12/04/20 08:51 Escitalopram Oxalate 10 Mg Tab PO 12/30/20 08:59 10 mg QAM ADE Administration Nutrition (Parenteral) 1,867 1,867 mls @ 77.8 mls/hr 12/03/20 16:00 12/03/20 16:38 ml/ TPN BAG IV 12/04/20 15:59 77.8 mls/hr .Q24H ADE Administration Protocol Metronidazole 500 mg 12/04/20 14:00 12/04/20 13:12 Metronidazole 500 Mg Tab PO 12/04/20 20:01 500 mg TODAY@1400,1600,2000 ADE Administration Neomycin Sulfate 1,000 mg 12/04/20 14:00 12/04/20 13:12 Neomycin Sulfate 500 Mg Tab PO 12/04/20 20:01 1,000 mg TODAY@1400,1600,2000 ADE Administration Pantoprazole Sodium 40 mg 12/01/20 09:00 12/04/20 08:51 Pantoprazole 40 Mg Tab PO 12/31/20 08:59 40 mg QAM ADE Administration Psyllium Hydrophilic Mucilloid 1 pkt 11/30/20 09:00 12/04/20 08:51 Psyllium 58.6% Powder Packet PO 12/30/20 08:59 1 pkt QAM ADE Administration Simvastatin 20 mg 11/29/20 21:00 12/03/20 19:26 Simvastatin 20 Mg Tab PO 12/29/20 20:59 20 mg QPM ADE Administration Tamsulosin HCl 0.8 mg 11/30/20 09:00 12/04/20 08:51 Tamsulosin Hcl 0.4 Mg Cap PO 12/30/20 08:59 0.8 mg DAILY ADE Administration Past Medical History Medical History Anemia Anxiety Cervical spondylosis GERD (gastroesophageal reflux disease) HTN (hypertension) Hyperlipidemia Osteoarthritis Prostate cancer SEED IMPLANT AND RADIATION THERAPY Skin cancer Weight loss Exercise / Class Metabolic Activity III < 4 Walking/Shop/Light housework Past Family History Family History Sister Breast cancer Denies family history of Colon cancer Ovarian cancer Prostate cancer Myocardial infarction Past Surgical History Surgical History History of colonoscopy History of prostate surgery History of tonsillectomy and adenoidectomy History of tooth extraction Hx of cataract surgery LEFT Past Anesthesia History No Hx of Anesthesia Complications and No Family Hx of Anesthesia Complications History of PONV No Hx of PONV and No Hx of Motion Sickness Social History Smoking Status: Never smoker Hx Alcohol Use: No Hx Substance Use: No substance use type: does not use Physical Exam Vital Signs Last Vital Signs Temp 36.2 C L 12/04/20 07:07 Pulse 78 12/04/20 07:07 Resp 16 12/04/20 07:07 BP 126/64 12/04/20 07:07 Pulse Ox 97 12/04/20 07:07 Testing Laboratory Results 11/29/20 12:45 12/03/20 08:08 12/04/20 12/04/20 11:59 06:14 POC Glucose 111 H 186 H Electrocardiogram Date: 11/05/20 Findings: + ST @ (at 109) Echocardiogram Date: 04/03/16 EF: 60% LV Function: normal RWMA: + none Other Findings: + diastolic dysfunction (grade 1) Valvular Disease: + pertinent finding (TR- moderate; GA-mild;Increased RV systolic pressure- 50-60 Torr)
[2020-12-04] MEDS ORDERED: CENTRAL PN IV SCH (16:00)
[2020-12-04] MEDS ORDERED: TPN IV SCH (16:00)
[2020-12-04] MEDS: SIMVASTATIN 20 MG TAB PO SCH (20:14)
[2020-12-05] MEDS ORDERED: ACETAMINOPHEN 1000 MG/100 ML IV IV ONE (06:31)
--- NOTE | 2020-12-05 06:36 | History & Physical Bridge Note ---
Date of Service December 05, 2020 History & Physical Bridge Note I have examined the patient, reviewed the History & Physical and in the interval since the performance of the History & Physical I have noted the following changes of clinical significance: no changes noted all question answered asked pt to void and will hold off anderson insertion
[2020-12-05] MEDS ORDERED: ONDANSETRON INJ 2 MG/ML 2 ML VIAL ONE (06:49)
[2020-12-05] MEDS ORDERED: PROPOFOL IV EMULSION 10 MG/ML 20 ML VIAL IV ONE (06:49)
[2020-12-05] MEDS ORDERED: DEXAMETHASONE SOD INJ 4 MG/ML VIAL ONE (06:49)
[2020-12-05] MEDS ORDERED: CISATRACURIUM BESYLATE IV SOLN 2 MG/ML 10 ML VIAL IV ONE (06:49)
[2020-12-05] MEDS ORDERED: SUCCINYLCHOLINE 100MG/5ML SYR IV ONE (06:49)
[2020-12-05] MEDS ORDERED: fentaNYL citrate 100 MCG/2 ML VIAL ONE ×2 (06:49→08:11)
[2020-12-05] MEDS ORDERED: HYDROmorphone INJ 1 MG/ML SYRINGE ONE ×2 (07:32→08:35)
[2020-12-05] MEDS: ENOXAPARIN INJ 40 MG/0.4 ML SYR SQ SCH (07:35)
[2020-12-05] MEDS: TAMSULOSIN HCL 0.4 MG CAP PO SCH (07:35)
[2020-12-05] MEDS: PSYLLIUM 58.6% POWDER PACKET PO SCH (07:35)
[2020-12-05] MEDS: PANTOprazole 40 MG TAB PO SCH (07:35)
[2020-12-05] MEDS: ESCITALOPRAM OXALATE 10 MG TAB PO SCH (07:35)
[2020-12-05] MEDS ORDERED: cefOXitin 2,000 MG in DEXTROSE 5% 50 ML IV STA (07:35)
[2020-12-05] MEDS ORDERED: LABETALOL HCL IV 5 MG/ML 20ML IV ONE (08:51)
[2020-12-05] MEDS ORDERED: GLYCOPYRROLATE 0.2 MG/ML VIAL ONE (08:51)
[2020-12-05] MEDS ORDERED: NEOSTIGMINE METHYLSULFATE 5 MG/5 ML SYR ONE (08:51)
[2020-12-05] MEDS ORDERED: ALBUMIN HUMAN 5% 12.5 GM/250 ML VIAL IV ONE (09:11)
--- NOTE | 2020-12-05 09:30 | Post Operative Brief Note ---
PG Immediate Post Op with CF Date of Surgery December 05, 2020 Pre & Post Diagnosis Operation Date: 12/05/20 07:00 Pre-Op Diagnosis: Colon cancer Post-Op Diagnosis: Colon cancer I identified the patient and participated in the time-out.: Yes Procedure Operation Date: 12/05/20 07:00 Actual Procedures p Open Colon Resection - Marcus Rodriguez MD, FACS Surgeon Marcus Rodriguez MD, FACS Woodworker b colton hernandez Estimated Blood Loss 100 Findings Consistent with Post-Op Diagnosis Specimens Specimen Description: A. Ascending, hepatic and transverse colon- long silk suture on right colic, semi long silk suture on middle colic Drains Talita Drain
[2020-12-05] MEDS ORDERED: NALOXONE HCL 0.4 MG/1 ML VIAL/CARP IV PRN ×2 (09:46→11:01)
[2020-12-05] MEDS ORDERED: fentaNYL citrate 100 MCG/2 ML VIAL IV PRN (09:46)
[2020-12-05] MEDS ORDERED: LABETALOL HCL IV 5 MG/ML 20ML IV PRN (09:46)
[2020-12-05] MEDS ORDERED: ePHEDrine sulfate 50 MG/ML AMP IV PRN (09:46)
[2020-12-05] MEDS ORDERED: ATROPINE SULFATE 0.1 MG/ML 10ML SYR IV PRN (09:46)
[2020-12-05] MEDS ORDERED: ONDANSETRON INJ 2 MG/ML 2 ML VIAL IV PRN (09:46)
[2020-12-05] MEDS ORDERED: HYDROmorphone INJ 1 MG/ML SYRINGE IV PRN (09:46)
[2020-12-05] MEDS ORDERED: PROMETHAZINE HCL 12.5 MG in SODIUM CHLORIDE 0.9% 50 ML IV PRN (09:46)
--- NOTE | 2020-12-05 09:55 | Operative Report ---
PG Post Operative Report Pre & Post Diagnosis Operation Date: 12/05/20 07:00 Pre-Op Diagnosis: Colon cancer Post-Op Diagnosis: Colon cancer I identified the patient and participated in the time-out.: Yes Procedure Operation Date: 12/05/20 07:00 Actual Procedures p Resection of ascending, hepatic and transverse colon - Marcus Rodriguez MD, FACS Patient was brought into the operating room theater general trach anesthesia supine position the abdomen was prepped byline solution properly draped systemic antibiotics given timeout was had patient was identified made a small incision above the umbilicus midline approximately 4 inches long deepened through subcutaneous tissue we entered the abdominal cavity there was no gross pathology identified we at this point ran the small bowel from the ligament of Treitz down to the terminal ileum. The transverse colon is where the area had been stented because of obstructing lesion we need to extend the incision more cephalad to access that since the greater omentum was pushing it up towards the stomach once we extended that incision I was able to palpate the area which the stent I can feel in the proximal aspect to be in gauze and what appeared to be more tumor than what a constricting lesion which was narrowed could be appreciated was not sure if the mass extended well beyond the limit of the stent I palpated the hepatic flexure which was not that far away from the stent and the ascending colon I cannot feel any significant masses because this is been an area that was not inspected with endoscopic evaluation divided the greater omentum from the mesentery to the right colon but we took it off the greater curvature the stomach ligated between hemostats and 2-0 silk ties once we are able to mobilize this in the wound we found that of the colon itself in the towards the left upper quadrant was redundant on itself had a very mobile splenic flexure ascending colon towards us we were able to free this up so we had enough mobility from the colonic aspect distal to the stent for anastomosis we also mobilized the right colon dividing the white line of Toldt and significant omentum adherent from this around the and underneath the liver to the right colon these were taken down in similar fashion and with the specimen eventually we mobilized the right colon to the terminal ileum the appendix was fibrotic and significant adhesions retroperitoneally that we freed it all up at this point having given the situation and the lesion where it was I felt it be better to remove the ascending colon along with the lesion worried that if I did an office resection of the mass itself the vascular supply may be compromised therefore we at this point the use the MANUEL stapler to divide the colon distal to the lesion approximately 15 cm firing the MANUEL then we scored the mesentery circumferentially all the way down to the terminal ileum I dissected the retroperitoneal area bluntly mostly identifying the duodenum and avoiding any close injury to it. We then divided the mesentery with 2-0 silk suture from that area that we scored in the terminal ileum to the L beyond the lesion and used an apical 2-0 silk one of the sutures in the mesentery to estrellita the area that would be the upper limits of our closure of the mesentery. Used a MANUEL to divide the terminal ileum approximately 4 inches from the ileocecal valve. Once the specimen had been removed I marked the middle colic with a short silk suture double tying at the approximately in the right colic in a similar fashion with a long silk suture of note I did not palpate any gross lymph nodes although the patient has significant amount of fatty tissue in the specimen. Hemostasis that area appear satisfactory at this point I asked anesthesia to put an NG tube since the patient had a hiatal hernia and we felt event was in the stomach appropriately we pulled it back at 55 cm estrellita to the neighbors. We then closed the mesentery to avoid any internal rotation with down or openings with 2-0 interrupted silk using intestinal clamp and the colon distal to the line of resection and is similarly we brought into the terminal ileum to do a [id number] anastomosis. First while we oversewed the staple line in both the colon and the terminal ileum with 3 interrupted suture initially I thought that the alignment of the colon would be best to place the colon into a [id number] fashion using the staple line on both abdomen as a on the same axis but this rotated better to have the 2 lines of resection and cytocide anastomosis and o pposite poles. We did a 2 layer anastomosis using 3-0 silk outer layer 3-0 chromic inner layer we checked the anastomosis but accommodate a finger and a half without any difficulty we then made sure the mesentery to this loop was closed with interrupted 3-0 silk suture. Once that is performed we irrigated the abdomen and hemostasis was excellent we then closed the abdomen with #1 PDS starting one cephalad one caudad tying in the middle we used the quarter inch Talita in the subcu attachments the stent and proximal end of the incision with 3-0 silk suture mau for skin edges dressing was applied procedure was tolerated well by the patient estimated blood loss approximately 100 cc addendumB Ernesto hernandez was present throughout the procedure and helped the retraction exposure and wound closure Surgeon Marcus Rodriguez MD, FACS Machine Sneller b ernesto hernandez Estimated Blood Loss 100 Findings Consistent with Post-Op Diagnosis Specimens right hepatic and transverse colon Description of Procedure merda I attest to the content of the Intraoperative Record and any orders documented therein. Any exceptions are noted below.
[2020-12-05 10:06] LABS: Hematocrit (blood only) 29.4 % (42-52)
[2020-12-05 10:27] LABS: BUN Creatinine Ratio 35.2 (10-20); Calcium 8.4 mg/dl (8.5-10.1); Creatinine Clr Calc Pharmacy 53.6 ml/min; Est GFR (African American) 75.5; Est GFR (Non-African American) 65.2; Potassium 4.5 mmol/L (3.5-5.1)
[2020-12-05 10:30] LABS: Bilirubin,Total 0.6 mg/dl (0.2-1); Phosphorus 4.4 mg/dl (2.5-4.9)
[2020-12-05] MEDS ORDERED: ACETAMINOPHEN 1,000 MG/100 ML VIAL IV PRN (11:01)
--- NOTE | 2020-12-05 11:02 | Anesthesiology Progress Note ---
Date of Service December 05, 2020 Anesthesia Post Procedure Vital Signs Vital Signs: Temp Pulse Pulse Resp BP BP Pulse Ox 12/05/20 10:50 81 20 109/55 L 97 12/05/20 10:40 79 16 114/62 97 12/05/20 10:30 36.8 C 80 16 108/57 L 96 12/05/20 10:20 84 20 104/45 L 116/63 96 12/05/20 10:10 88 20 115/63 123/61 100 12/05/20 10:00 95 H 16 131/73 149/84 H 100 12/05/20 09:55 88 14 143/90 H 151/62 H 95 12/05/20 09:49 36.4 C L 82 12 167/64 H 95 12/05/20 06:19 36.9 C 84 18 123/67 96 12/04/20 23:15 36.6 C 85 16 122/62 95 12/04/20 15:43 37.1 C 89 16 125/70 93 Transfer of Care Handoff Completed per policy Notes Mental Status: alert / awake / arousable and participated in evaluation Patient Amnestic to Procedure: Yes Nausea / Vomiting: adequately controlled Pain: adequately controlled Airway Patency, RR, SpO2: stable & adequate BP & HR: stable & adequate Hydration State: stable & adequate Anesthetic Complications: no major complications apparent
[2020-12-05] MEDS: LACTATED RINGER'S 1,000 ML IV SCH ×2 (11:08→20:55)
[2020-12-05] MEDS: MoRPHine SULFATE PCA 30 MG/30 ML IV PRN (12:25)
[2020-12-05] MEDS: SODIUM CHLORIDE 0.9% 1000ML 1,000 ML IV SCH (12:25)
[2020-12-05] MEDS: PANTOprazole 40 MG in SYRINGE 0 ML IV SCH (12:48)
[2020-12-05] MEDS: cefOXitin 2,000 MG in DEXTROSE 5% 50 ML IV SCH ×2 (15:45→19:48)
[2020-12-05] MEDS ORDERED: CENTRAL PN IV SCH (16:00)
[2020-12-05] MEDS ORDERED: TPN IV SCH (16:00)
[2020-12-06] MEDS: cefOXitin 2,000 MG in DEXTROSE 5% 50 ML IV SCH ×2 (01:11→06:53)
[2020-12-06 07:19] LABS: Basophils # (auto) 0.01 K/uL (0-0.2); Basophils % (auto) 0.1 %; Eosinophils % (auto) 0.9 %; Hemoglobin 8.5 g/dL (14.0-18.0); Immature Granulocytes # (auto) 0.02 K/uL (0.00-0.02); Immature Granulocytes % (auto) 0.2 %; Lymphocytes # (auto) 1.62 K/uL (1.2-3.4); Lymphocytes % (auto) 14.2 %; Mean Corpuscular Hemoglobin 22.8 pg (25-34); Mean Corpuscular Hgb Conc 31.5 g/dL (32-36); Mean Corpuscular Volume 72.6 fL (80-100); Monocytes # (auto) 0.81 K/uL (0.11-0.59); Monocytes % (auto) 7.1 %; Neutrophils # (auto) 8.83 K/uL (1.4-6.5); Neutrophils % (auto) 77.5 %; Platelet Count 642 K/uL (130-400); RDW Coefficient of Variation 23.1 % (11.5-14.5); RDW Standard Deviation 58.8 fL (36.4-46.3); Red Blood Count 3.72 M/uL (4.7-6.1); White Blood Count 11.39 K/uL (4.8-10.8)
--- NOTE | 2020-12-06 07:51 | Surgery Progress Note ---
Date of Service December 06, 2020 Assessment & Plan Admission and Anticipated Discharge Date Admission Date: November 29, 2020 Her plan is to DC the NG tube may start him on some clear liquids increase his activity keep him on hyperalimentation will oral intake is sufficient Subjective Patient is 24 hours postop colon resection states feels fine except last night he had a panic attack which resolved States has not taken anything for pain is voiding frequently no burning Physical Exam Physical Exam: Alert coherent comfortable without any complaints NG drainage is minimal Abdomen is benign as 1 would expect postoperatively no suprapubic fullness No pedal edema Results & Data ([facility]) Vital Signs (Past 12 Hours) Vital Signs Temp Pulse Pulse Resp BP Pulse Ox 12/06/20 07:18 36.6 C 81 18 140/66 95 12/06/20 03:29 37.0 C 86 22 138/68 96 12/05/20 23:39 36.6 C 86 20 123/62 97 hemoglobin noted PRP is still pending PG Care Time/CCT Total # of Minutes Spent Total Time Spent with Patient: Total time spent is greater than 50% in coordination of care (as documented) at patient's floor/unit and/or counseling patient: Coding Level of Care Code None
[2020-12-06 07:54] LABS: Calcium 9.1 mg/dl (8.5-10.1); Creatinine Clr Calc Pharmacy 68.8 ml/min; Est GFR (African American) 93.9; Potassium 4.5 mmol/L (3.5-5.1)
[2020-12-06 08:01] LABS: Anisocytosis Present; Ovalocytes 1+; Schistocytes 1+
[2020-12-06] MEDS: TAMSULOSIN HCL 0.4 MG CAP PO SCH (08:28)
[2020-12-06] MEDS: ESCITALOPRAM OXALATE 10 MG TAB PO SCH (08:28)
[2020-12-06] MEDS: PANTOprazole 40 MG in SYRINGE 0 ML IV SCH (12:06)
[2020-12-06] MEDS: SODIUM CHLORIDE 0.9% 1000ML 1,000 ML IV SCH (12:06)
[2020-12-06] MEDS: HEPARIN SOD 5,000 UNIT/0.5 ML VIAL SQ SCH ×2 (15:27→22:30)
[2020-12-06] MEDS ORDERED: TPN IV SCH (16:00)
[2020-12-06] MEDS ORDERED: CENTRAL PN IV SCH (16:00)
--- NOTE | 2020-12-06 22:51 | Hospitalist Progress Note ---
Date of Service December 06, 2020 Assessment & Plan (1) Weight loss: Severe malnutrition treated with PICC and TPN. Struggling with adequate intake, losing weight, admitted for nutritional support so that he can be optimized prior to surgery for his colon lesion. TPN has been started, dietitian consulted, he is actually doing quite well on oral intake now. Probably no need for an appetite stimulant given that he is eating quite well. Continue to encourage. He continues to be doing well after colectomy on 12/05. Removed NG tube on 12/06, started a clear liquid. (2) Adenocarcinoma: Transverse colonstented. S/P COLON RESECTION. (3) HTN (hypertension): Per history. BP remains acceptable. No medications. Follow (4) BPH (benign prostatic hyperplasia): Continue tamsulosin, no problems identified (5) Hypercholesteremia: Okay to continue with Zocor for now (6) DVT prophylaxis: Lovenox (7) Discharge planning issues: will continue to intermittently followup with patient. During medical course. Admission and Anticipated Discharge Date Admission Date: November 29, 2020 Subjective Patient reports tolerating diet this evening. Review of Systems Review of Systems: All systems reviewed & are unremarkable except as noted in HPI & below Physical Exam Constitutional: WD/WN, vitals as above Eyes: PERRL, conjunctivae normal, anicteric sclerae ENMT: external ear and nose normal, oropharynx normal Neck: trachea midline, no thyromegaly Respiratory: normal respiratory effort, lungs clear to auscultation Cardiovascular: RRR, no murmur, no edema Gastrointestinal (Abdomen): normal bowel sounds, soft, nontender, no hepatosplenomegaly (except for mildy tender near incision site) Skin: no rashes, warm and dry Results & Data Results & Data ([facility]) Vital Signs (Past 12 Hours) Vital Signs Temp Pulse Resp BP Pulse Ox 12/06/20 15:21 36.7 C 84 16 118/64 96 PG Care Time/CCT Total # of Minutes Spent Total Time Spent with Patient: Total time spent is greater than 50% in coordination of care (as documented) at patient's floor/unit and/or counseling patient: Coding Level of Care Code 43132 Subseq Hosp Care Lvl 2 Diagnoses Weight loss R63.4 Adenocarcinoma C80.1 HTN (hypertension) I10 BPH (benign prostatic hyperplasia) N40.0 Hypercholesteremia E78.00 DVT prophylaxis Z29.9 Discharge planning issues Z02.9 Time Spent (min) 25
[2020-12-07] MEDS: HEPARIN SOD 5,000 UNIT/0.5 ML VIAL SQ SCH ×3 (05:10→21:02)
[2020-12-07 06:43] LABS: Basophils # (auto) 0.01 K/uL (0-0.2); Basophils % (auto) 0.1 %; Eosinophils # (auto) 0.17 K/uL (0-0.5); Hematocrit (blood only) 28.2 % (42-52); Hemoglobin 8.5 g/dL (14.0-18.0); Immature Granulocytes # (auto) 0.02 K/uL (0.00-0.02); Immature Granulocytes % (auto) 0.2 %; Lymphocytes # (auto) 1.62 K/uL (1.2-3.4); Lymphocytes % (auto) 18.6 %; Mean Corpuscular Hemoglobin 22.4 pg (25-34); Mean Corpuscular Hgb Conc 30.1 g/dL (32-36); Mean Corpuscular Volume 74.2 fL (80-100); Monocytes # (auto) 0.65 K/uL (0.11-0.59); Monocytes % (auto) 7.5 %; Neutrophils # (auto) 6.23 K/uL (1.4-6.5); Neutrophils % (auto) 71.6 %; Platelet Count 656 K/uL (130-400); RDW Coefficient of Variation 23.4 % (11.5-14.5); RDW Standard Deviation 59.8 fL (36.4-46.3)
[2020-12-07 07:03] LABS: Anisocytosis Present; Ovalocytes 1+; Poikilocytosis Present
[2020-12-07 07:11] LABS: BUN Creatinine Ratio 56.2 (10-20); Calcium 8.3 mg/dl (8.5-10.1); Creatinine Clr Calc Pharmacy 83.2 ml/min; Est GFR (African American) 101.5; Est GFR (Non-African American) 87.6; Magnesium 2.1 mg/dl (1.8-2.4); Potassium 4.3 mmol/L (3.5-5.1)
[2020-12-07 07:15] LABS: Phosphorus 3.6 mg/dl (2.5-4.9)
[2020-12-07] MEDS: TAMSULOSIN HCL 0.4 MG CAP PO SCH (08:35)
[2020-12-07] MEDS: ESCITALOPRAM OXALATE 10 MG TAB PO SCH (08:35)
--- NOTE | 2020-12-07 09:24 | Surgery Progress Note ---
Date of Service December 07, 2020 Assessment & Plan (1) Adenocarcinoma: Postoperative day #2 status post resection of right and transverse colon Tolerating NG output flatus and bowel function has not completely returned Would continue clear liquids for now Encouraged him to get out of bed more Discharge planning underway Admission and Anticipated Discharge Date Admission Date: November 29, 2020 Subjective Postoperative day #2 status post resection of ascending and transverse colon Had NG removed yesterday and is tolerating that Denies nausea and vomiting Has taken small amounts of clear liquids Has not had flatus or bowel movement yet Has not been out of bed much Physical Exam Gastrointestinal (Abdomen): Inspection/Auscultation: + abdominal surgical incision (Clean, dry and intact), + abdominal surgical drain present (Talita in place) and + hypoactive bowel sounds; abdomen not distended Percussion/Palpation: + abdomen tender (Incisional only) and abdomen soft Results & Data ([facility]) Vital Signs (Past 12 Hours) Vital Signs Temp Pulse Resp BP BP Pulse Ox 12/07/20 08:16 36.7 C 91 H 18 125/65 96 12/06/20 23:48 36.4 C L 86 20 132/62 96 Laboratory Results 12/07/20 12/07/20 12/07/20 Range/Units 06:05 06:05 05:45 WBC 8.70 (4.8-10.8) K/uL RBC 3.80 L (4.7-6.1) M/uL Hgb 8.5 L (14.0-18.0) g/dL Hct 28.2 L (42-52) % MCV 74.2 L (80-100) fL MCH 22.4 L (25-34) pg MCHC 30.1 L (32-36) g/dL RDW Std Deviation 59.8 H (36.4-46.3) fL RDW Coeff of Maryann 23.4 H (11.5-14.5) % Plt Count 656 H (130-400) K/uL Immature Gran % (Auto) 0.2 % Neut % (Auto) 71.6 % Lymph % (Auto) 18.6 % Davis % (Auto) 7.5 % Eos % (Auto) 2.0 % Baso % (Auto) 0.1 % Neut # (Auto) 6.23 (1.4-6.5) K/uL Lymph # (Auto) 1.62 (1.2-3.4) K/uL Davis # (Auto) 0.65 H (0.11-0.59) K/uL Eos # (Auto) 0.17 (0-0.5) K/uL Baso # (Auto) 0.01 (0-0.2) K/uL Immature Gran # (Auto) 0.02 (0.00-0.02) K/uL Poikilocytosis Present Anisocytosis Present Ovalocytes 1+ Sodium 138 (136-145) mmol/L Potassium 4.3 (3.5-5.1) mmol/L Chloride 106 (98-107) mmol/L Carbon Dioxide 26 (21-32) mmol/L Anion Gap 6.0 (3-11) BUN 37 H (7-18) mg/dl Creatinine 0.67 (0.6-1.4) mg/dl Est Cr Clr Drug Dosing 83.2 ml/min Est GFR ( Amer) 101.5 Est GFR (Non-Af Amer) 87.6 BUN/Creatinine Ratio 56.2 H (10-20) Glucose 107 H (70-99) mg/dl POC Glucose 121 H (70-99) mg/dl Calcium 8.3 L (8.5-10.1) mg/dl Phosphorus 3.6 (2.5-4.9) mg/dl Magnesium 2.1 (1.8-2.4) mg/dl 12/06/20 12/06/20 12/06/20 Range/Units 23:53 16:49 11:52 WBC (4.8-10.8) K/uL RBC (4.7-6.1) M/uL Hgb (14.0-18.0) g/dL Hct (42-52) % MCV (80-100) fL MCH (25-34) pg MCHC (32-36) g/dL RDW Std Deviation (36.4-46.3) fL RDW Coeff of Maryann (11.5-14.5) % Plt Count (130-400) K/uL Immature Gran % (Auto) % Neut % (Auto) % Lymph % (Auto) % Davis % (Auto) % Eos % (Auto) % Baso % (Auto) % Neut # (Auto) (1.4-6.5) K/uL Lymph # (Auto) (1.2-3.4) K/uL Davis # (Auto) (0.11-0.59) K/uL Eos # (Auto) (0-0.5) K/uL Baso # (Auto) (0-0.2) K/uL Immature Gran # (Auto) (0.00-0.02) K/uL Poikilocytosis Anisocytosis Ovalocytes Sodium (136-145) mmol/L Potassium (3.5-5.1) mmol/L Chloride (98-107) mmol/L Carbon Dioxide (21-32) mmol/L Anion Gap (3-11) BUN (7-18) mg/dl Creatinine (0.6-1.4) mg/dl Est Cr Clr Drug Dosing ml/min Est GFR ( Amer) Est GFR (Non-Af Amer) BUN/Creatinine Ratio (10-20) Glucose (70-99) mg/dl POC Glucose 125 H 127 H 133 H (70-99) mg/dl Calcium (8.5-10.1) mg/dl Phosphorus (2.5-4.9) mg/dl Magnesium (1.8-2.4) mg/dl
[2020-12-07] MEDS: PANTOprazole 40 MG in SYRINGE 0 ML IV SCH (10:49)
[2020-12-07] MEDS: SODIUM CHLORIDE 0.9% 1000ML 1,000 ML IV SCH (13:52)
--- NOTE | 2020-12-07 15:17 | Pharmacy Report ---
PHA: Parenteral Nutrition Con - Date of Service December 07, 2020 - Scope Pharmacy was consulted on 11/29/20 to manage parenteral nutrition orders for this patient. - Subjective The patient is currently on day 9 of central parenteral nutrition for prolonged malnutrition/failure to thrive. - Objective Height: 5 ft 10 in Weight: 75.4 kg Intake & Output (24hrs):: Intake & Output 12/05/20 12/06/20 12/07/20 12/08/20 06:59 06:59 06:59 07:59 Intake Total 2954.903 / 2954.903 2270.060 / 2270.060 264 / 264 741.75 / 741.75 Output Total 1075 / 1075 825 / 825 1575 / 1575 450 / 450 Balance 1879.903 / 4051.033 2949.060 / 1445.060 -1311 / -1311 291.75 / 291.75 Weight 75.5 kg 75.5 kg 75.4 kg Laboratory Data (Last 24 Hr):: 12/07/20 06:05 Sodium 138 Potassium 4.3 Chloride 106 Carbon Dioxide 26 BUN 37 H Creatinine 0.67 Glucose 107 H Calcium 8.3 L Phosphorus 3.6 Magnesium 2.1 Nutrition Assessment:: Please refer to the Notes section of the EMR for the most recent category manager note. - Assessment * Macronutrients remain at goal * Patient is now ordered a PO diet, but PO intake is minimal * Discussed with Dr. Polanco - will continue goal macronutrients today * Electrolytes stable - will make minor changes given we will be using Travasol today rather than Aminosyn * Electrolyte components differ between amino acid products - Plan For day 9 of PN administration, the following will be ordered: Macronutrients Amino acids 1220 grams/day Dextrose 225 grams/day Lipids 50 grams/day Micronutrients Combined electrolytes 20 mL - contains 35 mEq Na, 20 meq K, 4.5 mEq Ca, 5 mEq Mg, 35 mEq Cl, 29.5 mEq acetate per 20 mL Sodium phosphate 9 MMol Sodium acetate 40 mEq Potassium phosphate 15 mMol Magnesium sulfate 4.06 mEq Calcium gluconate 4.65 mEq Multivitamins 10 mL Trace Elements 1 mL Additional additives: thiamine 200 mg, folic acid 1 mg Total volume 1843 mL to be infused over 24 hrs will provide 1745 kcal/day Labs, as indicated, will be ordered per protocol Pharmacy will continue to follow and adjust parenteral nutrition orders on a daily basis. Thank you for allowing us to participate in the care of this patient.
[2020-12-07] MEDS ORDERED: TPN IV SCH (16:00)
[2020-12-07] MEDS ORDERED: CENTRAL PN IV SCH (16:00)
--- NOTE | 2020-12-07 16:09 | Hospitalist Progress Note ---
Date of Service December 07, 2020 Assessment & Plan (1) Adenocarcinoma: Adenocarcinoma of the colon. Diagnosed on colonoscopy on 11/07/2020 with colonic stent placed then. - S/p colon resection with Dr. Rodriguez on 12/05/2020. - On clear liquids per surgery. Defer to their management. (2) Weight loss: Severe malnutrition treated with PICC and TPN due to colon cancer. - Continue TPN per surgery - Diet per surgery (3) HTN (hypertension): BP today is 125/65. Had previously been on lisinoril 20 mg PO daily, but stopped as I think with nutrition and surgery, he doesn't need it now. - Monitor (4) BPH (benign prostatic hyperplasia): No LUTS presently. 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 - Monitor platelets -> Presently 656. (6) Hypercholesteremia: - Okay to continue with Zocor once taking consistent PO. (7) Thalassemia syndrome: Hemoglobin today is 8.5. Hx of macrocytic anemia. - Monitor (8) DVT prophylaxis: Heparin 5000 units SQ Q8h per primary team Admission and Anticipated Discharge Date Admission Date: November 29, 2020 Subjective Doing well today. No major abdominal pain. Reports no fevers/chills, chest pain, shortness of breath, nausea, or vomiting. Physical Exam Constitutional: WD/WN, vitals as above Eyes: EOM intact bilaterally; no conjunctival abnormality ENMT: external ear and nose normal, oropharynx normal Neck: trachea midline, no thyromegaly normal visual inspection Respiratory: normal respiratory effort, lungs clear to auscultation no respiratory distress Cardiovascular: RRR, no murmur, no edema Gastrointestinal (Abdomen): Inspection/Auscultation: abdomen normal to inspection; abdomen not distended Musculoskeletal: no cyanosis or clubbing, extremities motor strength 5/5 Skin: no rashes, warm and dry Neurologic: moves all extremities and awake Psychiatric: Orientation: alert, oriented to person and cooperative Results & Data Results & Data ([facility]) Vital Signs (Past 12 Hours) Vital Signs Temp Pulse Resp BP Pulse Ox 12/07/20 08:16 36.7 C 91 H 18 125/65 96 PG Care Time/CCT Total # of Minutes Spent Total Time Spent with Patient: Total time spent is greater than 50% in coordination of care (as documented) at patient's floor/unit and/or counseling patient: Coding Level of Care Code 69055 Subseq Hosp Care Lvl 2 Diagnoses Adenocarcinoma C80.1 Weight loss R63.4 HTN (hypertension) I10 BPH (benign prostatic hyperplasia) N40.0 Thrombocytosis D47.3 Hypercholesteremia E78.00 Thalassemia syndrome D56.9 DVT prophylaxis Z29.9
[2020-12-07] MEDS: MoRPHine SULFATE PCA 30 MG/30 ML IV PRN (21:17)
[2020-12-08] MEDS: HEPARIN SOD 5,000 UNIT/0.5 ML VIAL SQ SCH ×3 (05:46→21:56)
[2020-12-08 06:48] LABS: Basophils # (auto) 0.02 K/uL (0-0.2); Basophils % (auto) 0.2 %; Eosinophils # (auto) 0.23 K/uL (0-0.5); Eosinophils % (auto) 2.7 %; Hematocrit (blood only) 26.6 % (42-52); Hemoglobin 8.2 g/dL (14.0-18.0); Immature Granulocytes # (auto) 0.03 K/uL (0.00-0.02); Immature Granulocytes % (auto) 0.4 %; Lymphocytes % (auto) 24.9 %; Mean Corpuscular Hemoglobin 22.6 pg (25-34); Mean Corpuscular Hgb Conc 30.8 g/dL (32-36); Mean Corpuscular Volume 73.3 fL (80-100); Monocytes # (auto) 0.61 K/uL (0.11-0.59); Monocytes % (auto) 7.2 %; Neutrophils # (auto) 5.44 K/uL (1.4-6.5); Neutrophils % (auto) 64.6 %; Platelet Count 681 K/uL (130-400); RDW Coefficient of Variation 23.2 % (11.5-14.5); RDW Standard Deviation 59.2 fL (36.4-46.3); Red Blood Count 3.63 M/uL (4.7-6.1); White Blood Count 8.43 K/uL (4.8-10.8)
[2020-12-08 07:12] LABS: Anisocytosis Present; Microcytosis Present; Ovalocytes 1+; Poikilocytosis Present
[2020-12-08 07:14] LABS: BUN Creatinine Ratio 47.9 (10-20); Calcium 8.7 mg/dl (8.5-10.1); Est GFR (African American) 100.9; Est GFR (Non-African American) 87.1; Potassium 4.1 mmol/L (3.5-5.1)
[2020-12-08] MEDS: ESCITALOPRAM OXALATE 10 MG TAB PO SCH (09:23)
[2020-12-08] MEDS: TAMSULOSIN HCL 0.4 MG CAP PO SCH (09:23)
--- NOTE | 2020-12-08 09:59 | Surgery Progress Note ---
Date of Service December 08, 2020 Assessment & Plan (1) Adenocarcinoma: pod 3 12/08/20 Patient is third postoperative day colon resection At this point will put him on a regular diet so he can choose what ever he wants but his appetite is still not up to par and we will continue on hyper L for today We will DC IV narcotics and give him something p.o. on a as needed basis His activity is improving in fact he is trying to walk towards the hallways Patient is status post colonoscopy with stent placement during previous admission Continue parenteral nutrition as ordered Plan for colon resection tomorrow Seen with Dr. Rodriguez Admission and Anticipated Discharge Date Admission Date: November 29, 2020 Subjective Feels well tolerated some liquids but does not want much more had some flatus but no bowel movements yet no abdominal discomfort Physical Exam Physical Exam: Alert comfortable in no distress The abdomen completely benign incision intact without any redness or drainage [place] in place No pedal edema Results & Data ([facility]) Vital Signs (Past 12 Hours) Vital Signs Temp Pulse Resp BP BP Pulse Ox 12/08/20 07:55 37.0 C 85 18 122/65 96 12/07/20 23:00 37.0 C 86 22 129/64 94 PG Care Time/CCT Total # of Minutes Spent Total Time Spent with Patient: Total time spent is greater than 50% in coordination of care (as documented) at patient's floor/unit and/or counseling patient: Coding Level of Care Code None Diagnoses Adenocarcinoma C80.1
[2020-12-08] MEDS ORDERED: oxyCODONE/ACETAMINOPHEN 5mg/325mg TAB PO PRN (10:00)
[2020-12-08] MEDS: PANTOprazole 40 MG in SYRINGE 0 ML IV SCH (10:58)
--- NOTE | 2020-12-08 14:01 | Communication Note ---
Date of Service: December 08, [address] Rodriguez today. Patient doing well, advancing diet, moving around. Vitals and labs have been stable for a few days. I will sign off from routine visits at this point. I will be on service until December 12. Feel free to contact me for any questions or concerns.
[2020-12-08] MEDS ORDERED: CENTRAL PN IV SCH (16:00)
[2020-12-08] MEDS ORDERED: TPN IV SCH (16:00)
[2020-12-09] MEDS: HEPARIN SOD 5,000 UNIT/0.5 ML VIAL SQ SCH ×3 (05:35→20:39)
[2020-12-09] MEDS: ESCITALOPRAM OXALATE 10 MG TAB PO SCH (07:29)
[2020-12-09] MEDS: TAMSULOSIN HCL 0.4 MG CAP PO SCH (07:29)
[2020-12-09 08:12] LABS: Basophils # (auto) 0.02 K/uL (0-0.2); Basophils % (auto) 0.3 %; Eosinophils # (auto) 0.34 K/uL (0-0.5); Eosinophils % (auto) 4.4 %; Hematocrit (blood only) 25.8 % (42-52); Immature Granulocytes # (auto) 0.02 K/uL (0.00-0.02); Immature Granulocytes % (auto) 0.3 %; Lymphocytes # (auto) 1.61 K/uL (1.2-3.4); Mean Corpuscular Hemoglobin 22.7 pg (25-34); Mean Corpuscular Volume 73.1 fL (80-100); Monocytes # (auto) 0.54 K/uL (0.11-0.59); Neutrophils # (auto) 5.14 K/uL (1.4-6.5); Platelet Count 605 K/uL (130-400); RDW Coefficient of Variation 22.9 % (11.5-14.5); RDW Standard Deviation 58.4 fL (36.4-46.3); Red Blood Count 3.53 M/uL (4.7-6.1); White Blood Count 7.67 K/uL (4.8-10.8)
[2020-12-09 08:34] LABS: Anisocytosis Present; Giant Platelets 1+; Microcytosis Present; Ovalocytes 1+; Poikilocytosis Present
--- NOTE | 2020-12-09 08:46 | Surgery Progress Note ---
Date of Service December 09, 2020 Assessment & Plan (1) Adenocarcinoma: pod4 At the present time will wean off the hyperalimentation completing the delivery of this present bag Patient will require another 1 or 2 days of in-hospital care try to build the strength but he is voicing to go to rehab before going home Path is pending at this time pod 3 12/08/20 Patient is third postoperative day colon resection At this point will put him on a regular diet so he can choose what ever he wants but his appetite is still not up to par and we will continue on hyper L for today We will DC IV narcotics and give him something p.o. on a as needed basis His activity is improving in fact he is trying to walk towards the hallways Patient is status post colonoscopy with stent placement during previous admission Continue parenteral nutrition as ordered Plan for colon resection tomorrow Seen with Dr. Rodriguez Admission and Anticipated Discharge Date Admission Date: November 29, 2020 Subjective Patient is feeling well this morning he is eating better actually at this time he is eating scrambled eggs states that yesterday he had a bowel movement denies any abdominal discomfort states still feels a little bit weak overall Physical Exam Physical Exam: Alert coherent sitting in bed eating his breakfast without any issues The abdomen is completely benign the [place] in the subcu still present the incision without cellulitis Results & Data ([facility]) Vital Signs (Past 12 Hours) Vital Signs Temp Pulse Resp BP Pulse Ox 12/09/20 07:51 36.2 C L 92 H 18 114/68 94 12/08/20 22:59 36.7 C 89 18 128/56 L 96 PG Care Time/CCT Total # of Minutes Spent Total Time Spent with Patient: Total time spent is greater than 50% in coordination of care (as documented) at patient's floor/unit and/or counseling patient: Coding Level of Care Code None Diagnoses Adenocarcinoma C80.1
[2020-12-09 09:13] LABS: BUN Creatinine Ratio 55.4 (10-20); Calcium 8.3 mg/dl (8.5-10.1); Creatinine Clr Calc Pharmacy 92.9 ml/min; Est GFR (African American) 106.3; Est GFR (Non-African American) 91.7; Potassium 4.2 mmol/L (3.5-5.1)
[2020-12-09] MEDS: PANTOprazole 40 MG in SYRINGE 0 ML IV SCH (11:22)
[2020-12-10] MEDS: HEPARIN SOD 5,000 UNIT/0.5 ML VIAL SQ SCH ×3 (05:48→20:46)
[2020-12-10] MEDS: TAMSULOSIN HCL 0.4 MG CAP PO SCH (07:25)
[2020-12-10] MEDS: ESCITALOPRAM OXALATE 10 MG TAB PO SCH (07:25)
--- NOTE | 2020-12-10 08:43 | Surgery Progress Note ---
Date of Service December 10, 2020 Assessment & Plan (1) Adenocarcinoma: POD 5 resection transverse colon CA seen with Dr. Rodriguez discussed pathology results d/c planning, can hopefully return to [facility] Admission and Anticipated Discharge Date Admission Date: November 29, 2020 Supervising Physician Co-Signing Physician Notes Path report discussed with patient anticipate another 24 hours before discharge to [facility] if bed is available (patient came from [facility]) He is progressing well with physical therapy and that he may shower Subjective appetite fair, no pain, working with PT Physical Exam Gastrointestinal (Abdomen): Inspection/Auscultation: + abdominal surgical incision (no erythema); abdomen not distended Percussion/Palpation: abdomen soft Results & Data ([facility]) Vital Signs (Past 12 Hours) Vital Signs Temp Pulse Pulse Resp BP Pulse Ox 12/10/20 06:56 36.9 C 83 18 117/67 96 12/09/20 23:10 36.5 C 84 18 116/64 97 PG Care Time/CCT Total # of Minutes Spent Total Time Spent with Patient: Total time spent is greater than 50% in coordination of care (as documented) at patient's floor/unit and/or counseling patient: Coding Level of Care Code None Diagnoses Adenocarcinoma C80.1
[2020-12-10] MEDS: PANTOprazole 40 MG TAB PO SCH (10:50)
[2020-12-11] MEDS: HEPARIN SOD 5,000 UNIT/0.5 ML VIAL SQ SCH ×3 (05:30→21:38)
--- NOTE | 2020-12-11 06:55 | Surgery Progress Note ---
Date of Service December 11, 2020 Assessment & Plan (1) Adenocarcinoma: POD6 Awaiting disposition to [facility] Covid test done yesterday is negative POD 5 resection transverse colon CA seen with Dr. Rodriguez discussed pathology results d/c planning, can hopefully return to [facility] Admission and Anticipated Discharge Date Admission Date: November 29, 2020 Subjective Comfortable no abdominal discomfort states ate well yesterday his bowels did not move yesterday but he did have a bowel on the day before Physical Exam Physical Exam: Comfortable laying in bed states had a good day yesterday Abdomen is completely benign mau intact no drainage in the incision no cellulitis no peripheral edema Results & Data ([facility]) Vital Signs (Past 12 Hours) Vital Signs Temp Pulse Resp BP Pulse Ox 12/10/20 22:26 36.7 C 89 14 115/67 95 PG Care Time/CCT Total # of Minutes Spent Total Time Spent with Patient: Total time spent is greater than 50% in coordination of care (as documented) at patient's floor/unit and/or counseling patient: Coding Level of Care Code None Diagnoses Adenocarcinoma C80.1
[2020-12-11] MEDS: PANTOprazole 40 MG TAB PO SCH (09:10)
[2020-12-11] MEDS: TAMSULOSIN HCL 0.4 MG CAP PO SCH (09:10)
[2020-12-11] MEDS: ESCITALOPRAM OXALATE 10 MG TAB PO SCH (09:10)
[2020-12-12] MEDS: HEPARIN SOD 5,000 UNIT/0.5 ML VIAL SQ SCH ×3 (05:11→21:34)
--- NOTE | 2020-12-12 06:49 | Surgery Progress Note ---
Date of Service December 12, 2020 Assessment & Plan (1) Adenocarcinoma: Patient is scheduled to go back to [facility] today stating that that is the only place will take his insurance He is 7 days postop and open colon resection ascending to splenic flexure We will schedule appointment to see oncology for their input I suspect no chemo will be started We will remove mau before he is discharged this way we will not to see him in the office in 1 week we will see him back in approximately 1 month sooner if there is any problems He may shower no driving no lifting anything heavier than 10 pounds All question answered Present on Admission?: Yes Admission and Anticipated Discharge Date Admission Date: November 29, 2020 Subjective Had a good day as a no abdominal discomfort moved bowels on a pured diet would like something more substantial Physical Exam Physical Exam: Alert coherent resting comfortable in bed Abdomen is completely benign midline incision is healing well there is no drainage mau intact Results & Data ([facility]) Vital Signs (Past 12 Hours) Vital Signs Temp Pulse Resp BP Pulse Ox 12/11/20 21:50 36.6 C 82 16 124/65 96 PG Care Time/CCT Total # of Minutes Spent Total Time Spent with Patient: Total time spent is greater than 50% in coordination of care (as documented) at patient's floor/unit and/or counseling patient: Coding Level of Care Code None Diagnoses Adenocarcinoma C80.1
[2020-12-12 07:19] LABS: Hematocrit (blood only) 26.2 % (42-52); Hemoglobin 8.2 g/dL (14.0-18.0); Mean Corpuscular Hemoglobin 22.5 pg (25-34); Mean Corpuscular Hgb Conc 31.3 g/dL (32-36); Platelet Count 676 K/uL (130-400); RDW Standard Deviation 58.3 fL (36.4-46.3); Red Blood Count 3.64 M/uL (4.7-6.1); White Blood Count 7.79 K/uL (4.8-10.8)
[2020-12-12] MEDS: PANTOprazole 40 MG TAB PO SCH (08:02)
[2020-12-12] MEDS: TAMSULOSIN HCL 0.4 MG CAP PO SCH (08:02)
[2020-12-12] MEDS: ESCITALOPRAM OXALATE 10 MG TAB PO SCH (08:02)
[2020-12-13] MEDS: HEPARIN SOD 5,000 UNIT/0.5 ML VIAL SQ SCH ×2 (05:26→14:11)
--- NOTE | 2020-12-13 07:57 | Surgery Progress Note ---
Date of Service December 13, 2020 Assessment & Plan (1) Large bowel obstruction: POD 8 colon resection seen with dr. Michael faulkner for transfer when bed available diet as evens Admission and Anticipated Discharge Date Admission Date: November 29, 2020 Subjective no c/o, still on pureed diet Physical Exam Gastrointestinal (Abdomen): Inspection/Auscultation: + abdominal surgical incision (clean, dry); abdomen not distended Percussion/Palpation: abdomen soft Results & Data ([facility]) Vital Signs (Past 12 Hours) Vital Signs Temp Pulse Resp BP Pulse Ox 12/13/20 07:24 36.1 C L 89 16 115/65 95 12/12/20 23:04 36.6 C 85 14 125/65 95 PG Care Time/CCT Total # of Minutes Spent Total Time Spent with Patient: Total time spent is greater than 50% in coordination of care (as documented) at patient's floor/unit and/or counseling patient: Coding Level of Care Code None Diagnoses Large bowel obstruction K56.609
[2020-12-13] MEDS: TAMSULOSIN HCL 0.4 MG CAP PO SCH (08:04)
[2020-12-13] MEDS: ESCITALOPRAM OXALATE 10 MG TAB PO SCH (08:05)
[2020-12-13] MEDS: PANTOprazole 40 MG TAB PO SCH (08:05)
--- NOTE | 2020-12-13 13:16 | Discharge Summary ---
Date of Service December 13, 2020 Principal Diagnosis 1. Colon Cancer 2. Malnutrition Discharge Exam Gastrointestinal (Abdomen) Inspection/Auscultation: + abdominal surgical incision (clean, dry); abdomen not distended Percussion/Palpation: abdomen soft Discharge Data Allergies Allergy/AdvReac Type Severity Reaction Status Date / Time No Known Allergies Allergy Mild Verified 10/25/20 10:03 Consultations 11/29/20 12:57 Consult Hospitalist Routine 12/13/20 07:58 Consult Oncology Routine Procedures Performed Operation Date: 12/05/20 07:00 Actual Procedures p Resection of ascending, hepatic and transverse colon - Marcus Rodriguez MD, [facility] Hospital Course (1) Adenocarcinoma: 85 y/o male admitted for malnutrition related to obstructing colon cancer. He was diagnosed in early October, however he also tested positive for COVID at that time. He had colonic stent placed with the plan for resection once he recovered from his respiratory illness and was discharged to rehab. He was seen in the surgical clinic in follow-up and due to failure to thrive was admitted for definitive treatment of his cancer. Hyperalimentation was initiated and continued for approximately a week while his oral intake and strength improved. He was then taken to the OR for resection of right and transverse colon with primary anastomosis. He did well postoperatively. NG tube was removed on POD 1 and he was kept on clear liquids until he had returning bowel function on day 3. He was able to tolerate an advancing diet over the next few days and TPN was discontinued. He continued to require assistance with daily activities and arrangements were made for return to skilled care/rehab. He was ready for [facility] on POD 8. He should have outpatient oncology evaluation, although lymph nodes were negative for metastatic disease. Total Time Total Time Spent Total Time Spent (In Minutes): 20 Discharge Plan Discharge Items Patient Disposition: Transfer [facility] Reason For Visit: MALNUTRITION, FAILURE TO THRIVE Discharge Diagnosis: open colon resection Activity: Per Instructions section Lifting: No more than 10 pounds Bathing Comment: may shower; no soaking in tubs/pools Exercise/Sports: Wait until after follow-up appointment Driving/Machine Use: do not resume driving while taking narcotics for pain Non-emergency contact: Surgeon Call non-emergency contact if: you have any medication questions, your symptoms worsen, your pain is not controlled, your pain is worsening, your pain is concerning for you, you have a fever, your temperature is above 101.5, your wound has increased redness, your wound has increased drainage and your wound pain has increased Follow-up/Referrals: Marcus Rodriguez MD, FACS [Surgeon] - 01/08/21 10:45 am (Please call to schedule follow up in clinic in 3-4 weeks) [facility] [Primary Care Provider] - Diet: Low Fiber Addtl Attending Provider Instructions: -Tylenol 650mg orally every 4-6 hours, as needed for pain. Do not exceed more than 3 grams of Acetaminophen within a 24 hour time period. Pending Studies at Discharge: Yes Studies:: surgical pathology Stand-Alone Forms: My [employer], Smoking Cessation Skilled Items Patient informed of condition?: Yes DNR: No Discharge Level of Care: Other Communicable Disease: No Discharge Prognosis: Improving Lines: None Urinary Catheter: No Medications and DC Order Prescriptions: Continued calcium carbonate-vitamin D3 600 mg(1,500mg) -200 unit tablet 1 tab PO BID RF: 0 omega-3 fatty acids-fish oil [Fish Oil] 360-1,200 mg capsule 1 cap PO DAILY RF: 0 psyllium husk [Metamucil] 0.52 gram capsule 0.52 gm PO QAM RF: 0 multivitamin,kb-enmn-gwrdlvjk tablet 1 tab PO DAILY RF: 0 ascorbic acid (vitamin C) 500 mg capsule, extended release 500 mg PO DAILY RF: 0 vitamin E mixed 1,000 unit capsule 1,000 units PO QAM RF: 0 simvastatin 20 mg tablet 20 mg PO QPM Qty: 90 RF: 3 escitalopram oxalate [Lexapro] 10 mg tablet 10 mg PO QAM Qty: 90 RF: 3 hydroxyzine HCl 25 mg tablet 25 mg PO BID PRN (Reason: anxiety) Qty: 60 RF: 3 tamsulosin 0.4 mg capsule 0.8 mg PO DAILY 90 Days Qty: 180 RF: 3 omeprazole 20 mg tablet,delayed release (DR/EC) 40 mg PO QAM Qty: 90 RF: 3 Discharge Orders: Discharge Order (Routine); Ordered 12/13/20 Ordered By: Jose Orozco Admission Data Admit Date/Time: 11/29/20 12:16 Attending Provider: Marcus Rodriguez Admit Provider: Marcus Rodriguez Primary Care Provider: [facility] Other Providers: Bruce Merino ; Jean Marie Feldman ; [facility] ; L[facility] Mcallister [facility] [place] ; [facility] ; [facility], ; Leopoldo Masterson V. Coding Level of Care Code D/C Day Management <30 mins Diagnoses Adenocarcinoma C80.1
== END 2020-12-13 17:21 | DRG 329 ==
LOC: 3N 12:16

== ENCOUNTER 2021-02-11 16:42 | Inpatient (IN) ==
[2021-02-11] MEDS ORDERED: PIPERACILL/TAZOBAC CONSULT ACTIVE PRN (17:00)
[2021-02-11] MEDS ORDERED: ONDANSETRON INJ 2 MG/ML 2 ML VIAL IV PRN (17:00)
[2021-02-11] MEDS ORDERED: ACETAMINOPHEN 325 MG TAB PO PRN (17:00)
[2021-02-11] MEDS ORDERED: ALUMINUM/MAGNESIUM SUSP 30 ML UDC PO PRN (17:00)
--- NOTE | 2021-02-11 17:13 | History & Physical Report ---
Date of Service February 11, 2021 Assessment & Plan (1) Abnormal chest CT: The consideration of empyema patient will be started on Zosyn therapy blood cultures will be obtained pulmonary consultation be undertaken prior to possible thoracentesis coagulation studies will also be obtained CT scan of the chest 02/10/2021 IMPRESSION: 1. Interval atelectasis of the right lower lobe associated with pleural effusion and few areas of gas collection within collapsed portion of the right lower lobe associated with decreased attenuation which also extend to pleural collection and concerning for pulmonary abscess and empyema in appropriate clinical setting. Pleural parenchymal fistula cannot be completely ruled out. Please correlate above-mentioned findings with clinical . Findings were discussed with Leopoldo Jennings at 13:59 hours on February 10, 2021. 2. Interval development of splenomegaly. 3. Stable liver lesions. 4. No significant lymphadenopathy. Questionable hypoattenuating structure is again seen adjustment of the mid aspect of the right scapula which is unchanged since prior. 5. Atherosclerosis. 6. Mild ectasia of ascending aorta. 7. Mild interval enlargement of pulmonary artery diameter which could be seen in pulmonary hypertension. 8. Left thyroid nodule. (2) Adenocarcinoma, colon: T4N0 adenocarcinoma his colon resected this October seeing Dr. Masterson as mentioned no chemotherapy yet MRI of the abdomen February 05, 2021 IMPRESSION: 1. Significantly motion compromised examination 2. There is a large thick-walled pleural collection at the right lung base which is new from 10/30/2020. The sterility of this collection cannot be assessed by imaging, and empyema is not excluded. 3. There are 2 indeterminant T2 hyperintense hepatic lesions as above. These appear to demonstrate progressive fill-in on the postcontrast imaging and likely represent hemangiomas. Attention at follow-up is recommended. Contrast- enhanced CT is recommended for follow-up studies due to the degree of motion artifact on MRI. 4. Normal MRCP (3) Thalassemia syndrome: Patient has chronic anemia his hemoglobin February 05 was 8 (4) Anxiety: Patient will continue on Lexapro (5) DVT prophylaxis: Patient is a high risk for DVT given his malignancy and his weakened state the patient will be started on Lovenox on the after his procedures performed History of Present Illness Primary Care Provider: Francis Garcia MD 85-year-old male who was seen in pulmonary office for a pleural effusion with concern for empyema. Patient was sent as a direct admission for chest tube placement and removal with analysis of fluid. Patient is recovering from Covid pneumonia which was diagnosed October 30, 2020 is now outside of the 90-day window and will be retested. Patient also during that admission was found to have a large bowel obstruction which required surgical resection and was found to have stage IV adenocarcinoma. Patient most recently saw Dr. Masterson and although there was no defined metastatic disease there was some concerning lesions in the liver which may be hemangioma but further testing is required as the image but did have motion artifact degradation. Because the patient is still recovering from his significant illness as he was in the hospital for prolonged period of time and at rehab for prolonged period of time Dr. Masterson has postpone any chemotherapy due to his performance status and is hopeful that he could improve his nutrition and physical performance prior to initiating chemotherapy. Patiently brought in our facility he will be started on Zosyn therapy to cover gram negatives and anaerobes he will have a pulmonary consultation for possible ultrasound-guided drainage of his pleural effusion with analysis for empyema. Patient will have a Covid test on presentation and a MRSA nasal swab in case we would need to add coverage for MRSA Allergies Allergy/AdvReac Type Severity Reaction Status Date / Time No Known Allergies Allergy Mild Verified 02/10/21 15:56 Home Medications Medication Instructions Recorded Confirmed Type psyllium husk 0.52 gram capsule 0.52 gm PO QAM 01/26/19 02/10/21 History escitalopram oxalate 10 mg tablet 10 mg PO QAM #90 tab 06/10/20 02/10/21 Rx simvastatin 20 mg tablet 20 mg PO QPM #90 tab 06/10/20 02/10/21 Rx tamsulosin 0.4 mg capsule 0.8 mg PO DAILY 90 Days #180 cap 06/17/20 02/10/21 Rx aspirin 81 mg tablet,delayed 81 mg PO DAILY 01/27/21 02/10/21 History release pantoprazole 40 mg tablet,delayed 40 mg PO DAILY 01/29/21 02/10/21 History release Past Med/Surg History Medical History Anemia Anxiety Cervical spondylosis GERD (gastroesophageal reflux disease) HTN (hypertension) Hyperlipidemia Osteoarthritis Prostate cancer Skin cancer Weight loss Surgical History History of colon resection (12/05/20) History of colonoscopy History of prostate surgery History of tonsillectomy and adenoidectomy History of tooth extraction Hx of cataract surgery Family History Sister Breast cancer Denies family history of Colon cancer Ovarian cancer Prostate cancer Myocardial infarction Social History Smoking Status: Never smoker Tobacco Type: Cigars Second Hand Exposure: No; Hx Alcohol Use: No Hx Substance Use: No Preferred Language: Mongolian Communication Ability: Effective Visual Impairment: No Limitations Hearing Ability: Normal 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: No Beliefs That Will Affect Care: None marital status: Current Living Situation: Spouse and Family current occupational status: retired Feels Safe at Home: No Is there a partner from a previous relationship who is making you feel unsafe now?: No Assistive Devices: Walker Review of Systems Review of Systems: Mild distress and fatigue no headache, blurry or double vision no speech or swallowing issues no chest pain, pressure or palpitations Patient has some mild dyspnea on exertion no abdominal pain, nausea or vomiting, diarrhea or constipation no dysuria, hematuria or frequency no focal joint pain or swelling no back pain, CVA tenderness or radicular pain no bruising, bleeding or rashes no focal signs of weakness or numbness or altered sensation no complaints of anxiety or depression.. Physical Exam Physical Exam: The patient appeared well nourished and normally developed. Vital signs as documented. Head exam is normocephalic atraumatic Neck is without JVD, thyromegaly, or carotid bruits. Lungs absent breath sounds at the right base with some minor crackles above approximately 1/3-1/[address], Cardiac exam, Rhythm is regular.. No murmurs, rubs or gallops. Abdominal exam reveals normal bowel sounds, soft non tender, no masses Extremities are nonedematous and both pedal pulses are present Neurologic exam is alert and oriented, no focal loss of strength or sensation Skin is without bruises or rashes Psychologically is without concerns for anxiety or depression Code Status & VTE Plan VTE Prophylaxis Plan VTE Prophylaxis will be ordered: Yes PG Care Time/CCT Total # of Minutes Spent Total Time Spent with Patient: Total time spent is greater than 50% in coordination of care (as documented) at patient's floor/unit and/or counseling patient: Coding Level of Care Code 17920 Initial Inpt Care Lvl [address] R93.89 Adenocarcinoma, colon C18.9 Thalassemia syndrome D56.9 Anxiety F41.9 DVT prophylaxis Z29.9
[2021-02-11] MEDS ORDERED: PIPERACILLIN/TAZOBACTAM 3.375 GM in DEXTROSE 5% 100 ML IV ONE (17:30)
[2021-02-11] MEDS: PATIENT'S HEIGHT AND/OR WEIGHT NEEDED SCH (18:57)
[2021-02-11 20:07] LABS: INR 1.2 (0.9-1.1); Partial Thromboplastin Ratio 1.1; Partial Thromboplastin Time 27.9 Seconds (21.0-31.0); Prothrombin Time 11.9 Seconds (9.0-12.0)
[2021-02-11 20:13] LABS: BUN Creatinine Ratio 18.1 (10-20); Calcium 8.8 mg/dl (8.5-10.1); Creatinine Clr Calc Pharmacy 65.6 ml/min; Est GFR (African American) 92.1 ml/min; Est GFR (Non-African American) 79.5 ml/min; Hematocrit (blood only) 11.6 % (42-52); Hemoglobin 3.3 g/dL (14.0-18.0); Mean Corpuscular Hemoglobin 19.1 pg (25-34); Mean Corpuscular Hgb Conc 28.4 g/dL (32-36); Mean Corpuscular Volume 67.1 fL (80-100); Platelet Count 1094 K/uL (130-400); Potassium 3.5 mmol/L (3.5-5.1); Red Blood Count 1.73 M/uL (4.7-6.1); White Blood Count 15.77 K/uL (4.8-10.8)
[2021-02-11] MEDS ORDERED: SODIUM CHLORIDE 0.9% 250 ML IV PRN (20:40)
[2021-02-11] MEDS ORDERED: LACTATED RINGER'S 1,000 ML IV ONE (20:43)
[2021-02-11 20:55] LABS: Hematocrit (blood only) 23.5 % (42-52); Hemoglobin 6.9 g/dL (14.0-18.0)
--- NOTE | 2021-02-11 20:58 | Communication Note ---
Date of Service: February 11, 2021 Notified by nursing of critical lab value hg 3.3, hct 11 from direct admit. At bedside asymptomatic, vitals 128/50, HR 104, breathing easily on RA. No SOB/C P/dizziness/numbness/tingling repeated stat h&h, returned 6.9/38. Consented for blood at bedside. Paperwork in chart. 1u pRBC ordered for transfusion.
[2021-02-11 21:32] LABS: Anisocytosis Present; Basophils # (auto) 0.03 K/uL (0-0.2); Basophils % (auto) 0.2 %; Eosinophils # (auto) 0.25 K/uL (0-0.5); Eosinophils % (auto) 1.6 %; Giant Platelets 2+; Hypochromasia Present; Immature Granulocytes # (auto) 0.04 K/uL (0.00-0.02); Immature Granulocytes % (auto) 0.3 %; Lymphocytes # (auto) 1.84 K/uL (1.2-3.4); Lymphocytes % (auto) 11.7 %; Monocytes # (auto) 0.96 K/uL (0.11-0.59); Monocytes % (auto) 6.1 %; Neutrophils # (auto) 12.65 K/uL (1.4-6.5); Neutrophils % (auto) 80.1 %; Ovalocytes 1+; Schistocytes Occasional
[2021-02-12] MEDS: PATIENT'S HEIGHT AND/OR WEIGHT NEEDED SCH (00:13)
[2021-02-12] MEDS: PIPERACILLIN/TAZOBACTAM 3.375 GM in DEXTROSE 5% 100 ML IV SCH ×3 (01:36→15:30)
[2021-02-12] MEDS: TAMSULOSIN HCL 0.4 MG CAP PO SCH ×2 (01:36→20:30)
[2021-02-12 03:34] LABS: Basophils # (auto) 0.02 K/uL (0-0.2); Basophils % (auto) 0.2 %; Eosinophils # (auto) 0.21 K/uL (0-0.5); Eosinophils % (auto) 2.2 %; Hematocrit (blood only) 24.4 % (42-52); Hemoglobin 7.5 g/dL (14.0-18.0); Immature Granulocytes # (auto) 0.04 K/uL (0.00-0.02); Immature Granulocytes % (auto) 0.4 %; Lymphocytes # (auto) 1.24 K/uL (1.2-3.4); Lymphocytes % (auto) 13.2 %; Mean Corpuscular Hemoglobin 21.1 pg (25-34); Mean Corpuscular Volume 68.5 fL (80-100); Mean Platelet Volume 10.4 fL (7.4-10.4); Monocytes # (auto) 0.57 K/uL (0.11-0.59); Monocytes % (auto) 6.1 %; Neutrophils # (auto) 7.28 K/uL (1.4-6.5); Neutrophils % (auto) 77.9 %; Platelet Count 667 K/uL (130-400); RDW Coefficient of Variation 21.3 % (11.5-14.5); RDW Standard Deviation 51.8 fL (36.4-46.3); Red Blood Count 3.56 M/uL (4.7-6.1); White Blood Count 9.36 K/uL (4.8-10.8)
[2021-02-12 03:40] LABS: Mean Corpuscular Hgb Conc 30.7 g/dL (32-36)
[2021-02-12 03:54] LABS: BUN Creatinine Ratio 19.6 (10-20); Calcium 8.4 mg/dl (8.5-10.1); Creatinine Clr Calc Pharmacy 73.4 ml/min; Est GFR (African American) 96.4 ml/min; Est GFR (Non-African American) 83.2 ml/min; Potassium 3.8 mmol/L (3.5-5.1)
[2021-02-12 04:03] LABS: Anisocytosis Present; Giant Platelets 1+; Hypochromasia Present; Microcytosis Present; Schistocytes Occasional; Tear Drop Cells Occasional
--- NOTE | 2021-02-12 05:21 | Pulmonary Consultation ---
Date of Consultation February 12, 2021 Assessment & Plan (1) Empyema: (2) Pleural effusion: (3) Abnormal chest CT: Impression: 85-year-old male 3 of T4 adenocarcinoma the colon now with radiographic findings suggestive of empyema. Recommendations: 1. Probable empyema: The patient will undergo thoracentesis/pigtail catheter placement under ultrasound guidance in the right chest. Fluid will be sent for microbiologic and cytologic analysis. 2. Agree with broad-spectrum antibiotics. Zosyn should be adequate. We will adjust antibiotics based on results of culture data. 3. It is unclear if the patient's pleural space will resolve with catheter drainage and/or intrapleural thrombolysis. He may require surgical intervention which is not available at this institution and would require transfer to [facility]. The above recommendations and plan were discussed with the patient in detail. Questions were answered to the best of my ability. He expressed understanding and is in agreement with the plan as outlined History of Present Illness Attending Physician: Gaston Humphrey MD History of Present Illness Asked by hospitalist to evaluate this patient with complicated pleural effusion. History is obtained from discussion with the patient and reviewed electronic medical record. The patient was also discussed with my partner, Dr. García who s aw the patient in clinic yesterday. The patient is an 85-year-old male. Patient has a history of an obstructing colon cancer and is status post resection. He is not been able to undergo chemotherapy due to his debilitated state. He followed up with oncology on the with an MRI of the abdomen and pelvis to evaluate some hepatic lesions thought to be outreach representative of hemangioma. On that scan it was noted that there was a thick-walled right-sided pleural effusion. This was followed up wi a CT scan of the chest which confirmed probable empyema. This patient was seen in pulmonary clinic and referred to direct admission. He is been initiated on Zosyn. The patient is surprisingly asymptomatic. He denies any chest pain or palpitations. He does have a poor functional status at baseline. He is not coughing, wheezing, or expectorating phlegm. Of note during his last hospitalization the patient was noted to have aspiration events unclear if it was related to his colonic obstruction. Pulmonary is consulted for additional evaluation of his Allergies Allergy/AdvReac Type Severity Reaction Status Date / Time No Known Allergies Allergy Mild Verified 05/17/21 15:56 Home Medications Medication Instructions Recorded Confirmed Type psyllium husk 0.52 gram capsule 0.52 gm PO QAM 01/26/19 02/10/21 History escitalopram oxalate 10 mg tablet 10 mg PO QAM #90 tab 06/10/20 02/10/21 Rx simvastatin 20 mg tablet 20 mg PO QPM #90 tab 06/10/20 02/10/21 Rx tamsulosin 0.4 mg capsule 0.8 mg PO DAILY 90 Days #180 cap 06/17/20 02/10/21 Rx aspirin 81 mg tablet,delayed 81 mg PO DAILY 01/27/21 02/10/21 History release pantoprazole 40 mg tablet,delayed 40 mg PO DAILY 01/29/21 02/10/21 History release Patient History Medical History Anemia Anxiety Cervical spondylosis GERD (gastroesophageal reflux disease) HTN (hypertension) Hyperlipidemia Osteoarthritis Prostate cancer Skin cancer Weight loss Surgical History History of colon resection (12/05/20) History of colonoscopy History of prostate surgery History of tonsillectomy and adenoidectomy History of tooth extraction Hx of cataract surgery Family History Sister Breast cancer Denies family history of Colon cancer Ovarian cancer Prostate cancer Myocardial infarction Social History Smoking Status: Never smoker Tobacco Type: Cigars Second Hand Exposure: No; Do You Dip or Chew Tobacco: No; Tobacco Cessation Education Requested by Patient: No Hx Alcohol Use: No Hx Substance Use: No Preferred Language: Venezuelan Communication Ability: Effective Visual Impairment: No Limitations Hearing Ability: Normal 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 Beliefs That Will Affect Care: None marital status: Current Living Situation: Spouse and Family current occupational status: retired Other Information That Helps Us Care for You: No Feels Safe at Home: No Is there a partner from a previous relationship who is making you feel unsafe now?: No Any Concerns about Your Family Situation: No Would You Like to Speak to Someone About Your Situation: No Safety Concerns: Feels Safe At This Time Assistive Devices: Walker Review of Systems Review of Systems: See HPI and admission H&P Physical Exam Physical Exam: Constitutional: No acute distress HEENT: EOMI, PERRLA Respiratory system: Decreased air entry on the right side, no wheeze, no rhonchi, positive crackles bilateral lower lobes CVS: S1-S2 positive, no murmurs or gallops Abdomen: Soft, nontender, nondistended, positive bowel sounds x4 Extremities: +2 pulses bilaterally radialis, no cyanosis, +1 pitting edema bilateral lower extremity Neuro: Awake alert oriented x3 Psych: Normal mood and affect Skin: no rashes, warm and dry Lymphatic: no cervical or axillary lymphadenopathy Results & Data Results & Data ([facility] [place]) Vital Signs (Past 12 Hours) Vital Signs Temp Pulse Pulse Resp BP BP Pulse Ox 02/12/21 00:15 36.5 C 89 18 136/60 95 02/11/21 23:21 36.7 C 89 16 124/64 95 02/11/21 23:15 36.4 C L 90 18 124/71 95 02/11/21 22:45 36.5 C 96 H 18 142/82 H 96 02/11/21 22:30 36.6 C 86 16 119/65 95 02/11/21 22:13 37.1 C 88 16 126/60 96 02/11/21 21:48 36.7 C 109 H 20 128/50 L 99 02/11/21 18:51 36.7 C 104 H 20 128/50 L 100 Laboratory Results 02/12/21 03:21 02/12/21 03:[address] of the chest independently reviewed. CT OF THE CHEST WITH IV CONTRAST CLINICAL HISTORY: COLON CA COMPARISON STUDY: November 05, 2020 TECHNIQUE: Following the IV administration of mL of Optiray, CT of the thorax was performed from the thoracic inlet to the lung bases. Images are reviewed in the axial, sagittal, and coronal planes. IV contrast was administered without co mplication. A dose lowering technique was utilized adhering to the principles of ALARA. CT DOSE: 329.88 mGy.cm FINDINGS: There is no axillary, supraclavicular or internal mammary lymphadenopathy seen. 3 cm hypoattenuating structure is seen adjacent to the medial aspect of the right scapula, unchanged since prior (series 4 image 27). There are a few mottled mediastinal lymph nodes measuring up to 1.2 cm in short axis. Azygos is prominent. Thyroid: Visualized portion of the thyroid gland shows 1.0 cm hypoattenuating nodule within left thyroid lobe, appear more conspicuous since prior study. Esophagus is populous. Large hiatal hernia slightly decreased in size since prior. Thoracic aorta: Redemonstration of mild ectasia of ascending aorta measuring up to 4.2 cm in diameter. Multiple calcified and noncalcified plaques are seen within the aortic wall. Pulmonary vasculature: Diameter of the main pulmonary artery is slightly enlarged since prior study now measuring 2.9 cm, could be seen in pulmonary hypertension. HEART: The heart is normal in size and configuration, without pericardial effusion. Mild coronary calcifications are seen. Lungs and pleural spaces: Tracheobronchial tree is patent. Interval development of the large and possibly loculated right pleural effusion. There is questionable hypoattenuating lesion within right lower lobe with few foci of gas collection extending from collapse/consolidated aspect of the right lower lobe to pleural collection. Previously seen patchy areas of airspace consolidation within left lower lobe are improved since prior. Interval development of nodule adjacent of the lateral aspect of the right minor fissure measuring 8 mm in size (serious 4 image 177) Upper abdomen: Limited evaluation of upper abdominal viscera again shows hypoattenuating 2.5 cm lesion within left lobe of the liver with minimal peripheral nodular enhancement, unchanged since prior study likely representing hemangioma. There are a few smaller hypoattenuating lesions are seen within right and left lobe of the liver, not significantly changed since prior, statistically most likely represent cysts or hemangiomas. There is interval enlargement of the spleen now measuring 15 cm in largest dimension. Skeletal structures: Multilevel degenerative changes of the spine. Multiple Schmorl nodes and patchy areas of sclerosis are again seen throughout thoracic spine. Focal sclerotic lesion is seen with its spinous process of T3 which is unchanged since prior. IMPRESSION: 1. Interval atelectasis of the right lower lobe associated with pleural effusi on and few areas of gas collection within collapsed portion of the right lower lobe associated with decreased attenuation which also extend to pleural collection and concerning for pulmonary abscess and empyema in appropriate clinical setting. Pleural parenchymal fistula cannot be completely ruled out. Please correlate above-mentioned findings with clinical presentation. Findings were discussed with Leopoldo Jennings at 13:59 hours on February 10, 2021. 2. Interval development of splenomegaly. 3. Stable liver lesions. 4. No significant lymphadenopathy. Questionable hypoattenuating structure is again seen adjustment of the mid aspect of the right scapula which is unchanged since prior. 5. Atherosclerosis. 6. Mild ectasia of ascending aorta. 7. Mild interval enlargement of pulmonary artery diameter which could be seen in pulmonary hypertension. 8. Left thyroid nodule. PG Care Time/CCT Total # of Minutes Spent Total Time Spent with Patient: Total time spent is greater than 50% in c oordination of care (as documented) at patient's floor/unit and/or counseling patient: Coding Level of Care Code 29023 Initial Inpt Care Lvl 3 Diagnoses Empyema J86.9 Pleural effusion J90 Abnormal chest CT R93.89
--- NOTE | 2021-02-12 05:25 | Procedure Note ---
Procedure Note Date of Service February 12, 2021 Procedure: Diagnostic therapeutic ultrasound-guided 14 Romanian skater catheter placement in the right chest Face Burler: Dr. Rafa Reynaga Indication: Pleural effusion/empyema Consent: Signed by patient and verified with timeout prior to procedure Anesthesia: 5 mL's 1% lidocaine without epinephrine local. Procedure: Consent was verified and timeout performed. Appropriate imaging studies were reviewed prior to the procedure. Patient was placed in a seated position and limited thoracic ultrasound was performed of the bilateral chest. No significant effusion was identified on the left. The right chest demonstrated a high loculated effusion just inferior to the tip of the scapula. Site appropriate for thoracentesis was selected. The skin was prepped and draped in normal sterile fashion. Lidocaine was used for local analgesia. James pus was aspirated via the finder needle. The syringe was removed from the needle and a wire passed through the needle into the pleural space. The needle was removed with the wire left in place. A small skin mio was made with the scalpel. The tract was dilated over the wire without difficulty. After the dilator was removed, a 14 Romanian skater catheter was advanced over the wire into the pleural space. The wire was removed and the catheter left intact. The pigtail was secured. A sterile dressing was applied and system attached to suction. Purulent fluid was again obtained and a total of 150 mL was removed. Fluid was sent for Gram stain and culture, cell count differential, total protein, and LDH as well as glucose. The patient tolerated the procedure well without obvious complication. Follow- up chest x-ray pending. We will initiate mist 2 protocol to see how effective we can be with thrombolysis. The patient may require referral to a tertiary care center for video-assisted thoracoscopic decortication. Coding CPT Codes Pulmonary/Thoracic - Pulmonary and Thoracic: 46296 Pleural drainage w/imaging ([id number]) [facility] [place] Procedure Codes (Charges) Pulmonary/Thoracic Procedure 1: Pulmonary and Thoracic: 89759 Pleural drainage w/imaging
--- NOTE | 2021-02-12 06:43 | XRay Report ---
XR chest 1V portable HISTORY: 85 years-old Male S/P Thoracentesis status post thoracentesis. COMPARISON: Chest CT 02/10/2021 TECHNIQUE: Portable AP view of the chest FINDINGS: Cardiac silhouette is mildly enlarged. The left lung is generally clear. Calcified plaque of the thor acic aorta. No pneumothorax. A pleural drainage catheter projects over the right lung base. There is a persistent right pleural effusion along with right lung base consolidation. Bones appear grossly in tact with degenerative changes of the shoulders and spine. IMPRESSION: 1. Interval placement of a right-sided chest tube with distal tip projected over the right lung base. There is a persistent right pleural effusion with right lung base consolidation. 2. No pneumothorax. ACT 112: Negative or not required by law. The above report was generated using voice recognition software. It may contain grammatical, syntax o r spelling errors. Electronically signed by: Benitez Valentin M.D. 02/12/2021 6:41 AM
[2021-02-12] MEDS: ALTEPLASE, RECOMBINANT 10 MG in SYRINGE 50 ML IPL SCH ×2 (07:12→18:21)
[2021-02-12] MEDS: ESCITALOPRAM OXALATE 10 MG TAB PO SCH (07:36)
[2021-02-12] MEDS: PANTOprazole 40 MG TAB PO SCH (07:36)
[2021-02-12 07:59] LABS: Appearance Pleural Fluid TURBID; Basophils, Fluid 0 %; Color Pleural Fluid STRAW; Eosinophils, Fluid 0 %; Lymphocytes, Fluid 2 %; Mono,Macrophage,Mesothelial 20 %; Neutrophils, Fluid 78 %; RBC Pleural Fluid (A) 928000 /uL; Source Pleural Fluid RIGHT LUNG; WBC Pleural Fluid (A) 303966 /uL
[2021-02-12] MEDS: DORNASE ALFA 5 ML in SYRINGE 25 ML IPL SCH ×2 (08:22→19:32)
--- NOTE | 2021-02-12 12:02 | Hospitalist Progress Note ---
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 He is completely asymptomatic and hemodynamically stable. Pleural Effusion - Concerning for Empyema - MRI-A/P performed for evaluation of known preexisting liver lesions incidentally discovered right-sided pleural effusion that had radiologic characteristics of empyemia - Pulmonology following, appreciate management insight and recommendations: - s/p pigtail catheter placement for collection of fluid - Empiric Zosyn -- modify based on pleural fluid culture, analysis - At this time, unclear if effusion will resolve with drainage +/- intrapleural thrombolysis -- if it does not, may require transfer for surgical intervention - Await pleural fluid microscopy, analysis, culture Colonic Adenocarcinoma -- follows with Dr. Masterson - Noted to have T4N0 adenocarcinoma -- s/p resection in October - Not on chemotherapy -- patient actively in discussion with Dr. Masterson - Liver lesions that previously were concerning for metastasis seem to be more consistent with hemangiomas based on most recent MRI Microcytic Anemia - Patient with known history of thalassemia and chronic anemia - Asymptomatic on history, exam - Baseline Hgb 7-9 - Hgb 3.3 on 02/11 - drawn in syringe w/ IV start -- suspect dilational, iatrogenic error - Repeat Hgb 6.9 - Did receive 1U pRBC in AM of 02/12 --> repeat Hgb 7.5 - Consider transfusion Hgb < 7 and symptomatic - Will trend Chronic Medical Conditions Anxiety: Stable. Continue Lexapro. BPH: Continue Flomax GERD: Continue Protonix Dispo: MS FEN/GI: Regular PPX: pLov Code: FULL CODE (2) Hypercholesteremia: (3) Hyperlipidemia: (4) GERD (gastroesophageal reflux disease): (5) Renal insufficiency: (6) Thalassemia syndrome: (7) Acute kidney injury: (8) Sepsis: (9) Elevated d-dimer: (10) Acute respiratory failure with hypoxia: (11) Elevated troponin: (12) Microcytic anemia: (13) Adenocarcinoma, colon: (14) Adenocarcinoma: (15) Pleural effusion: Admission and Anticipated Discharge Date Admission Date: February 11, 2021 Supervising Physician Co-Signing Physician Notes Patient seen and examined with PGY-1 Dr. Trujillo. Agree with history, exam findings, assessment and plan of care as outlined. In brief, Mr. Blanco is an 85 year old male with history significant for adenocarcinoma of the colon and empyema admitted with new fluid collection in the right lung. Direct admission from pulm office. Feels well. Denies dyspnea and chest pain. Not requiring supplemental O2. No fevers. Well appearing. Chest tube in place. Decreased breath sounds on the right. 1. right pleural effusion. s/p thoracentesis with placement pigtail catheter. Appears to be transudative. Continue with zosyn. Appreciate pulmonology recommendations and management of this. 2. Colon adenocarcinoma. Follow[facility] by [facility]/Dr. Masterson. 3. Anemia. Asymptomatic. Transfused 1 unit with appropriate response. Hgb now 7.5. Other chronic issues stable. Home medications are being continued. Dispo: pending clinical improvement. Subjective Feeling well overall. Chest tube site is a little sore, but other than that, not reporting any discomfort. Breathing without difficulty. No chest pain. No a bdominal pain. No nausea, vomiting. Denies any recent fevers, chills, sweats, symptoms of illness that proceeded this. Review of Systems Review of Systems: as per HPI Physical Exam Physical Exam: General: 85 year old male who is lying back in his hospital bed, relaxed, upon my arrival. NAD. Cardiac: Normal rate and regular rhythm; S1 and S2 present with no murmurs, rubs, or gallops. Pulmonary: Good respiratory effort with symmetric expansion of the chest. No use of accessory muscles. Left lung CTAB w/o crackles or wheezes; right thorax with chest tube in place, R lung demonstrates reduced sounds at the base extending into the midlung faulkner. Abdominal: Normoactive bowel sounds. Abdomen was soft, nondistended, and non- tender to palpation. Extremities: Upper and lower extremities are warm and well perfused. Psych: Well-developed, well-nourished, appropriately dressed for occasion. Behavior is cooperative and appropriate. Affect is WNL. Insight is appropriate. Results & Data Results & Data ([facility]) Vital Signs (Past 12 Hours) Vital Signs Temp Pulse Pulse Resp BP BP Pulse Ox 05/19/21 07:29 36.6 C 73 18 130/66 93 02/12/21 00:15 36.5 C 89 18 136/60 95 Resident Activity Tracking Resident Involvement: Resident Care Provided Care Provided: Adult Hospital Medicine
[2021-02-12 13:54] LABS: Hemoglobin 7.9 g/dL (14.0-18.0)
[2021-02-12] MEDS: ENOXAPARIN INJ 40 MG/0.4 ML SYR SQ SCH (16:44)
[2021-02-13] MEDS: PIPERACILLIN/TAZOBACTAM 3.375 GM in DEXTROSE 5% 100 ML IV SCH ×3 (01:44→16:31)
[2021-02-13] MEDS: ALTEPLASE, RECOMBINANT 10 MG in SYRINGE 50 ML IPL SCH ×2 (06:10→18:24)
[2021-02-13] MEDS: DORNASE ALFA 5 ML in SYRINGE 25 ML IPL SCH ×2 (07:10→19:25)
--- NOTE | 2021-02-13 07:58 | XRay Report ---
XR chest 1V not portable HISTORY: empyema COMPARISON: Chest 02/12/2021. FINDINGS: No change in position of the right basilar pleural catheter. Hazy appearance to the right l ower lung zone is also unchanged. This likely represents a combination of pleural effusion and consol idation. No pneumothorax. The left lung is clear. The heart remains mildly enlarged. IMPRESSION: No change compared to the prior study. Right basilar pleural catheter and right basilar density/effus ion persists. No pneumothorax. ACT 112: Negative or not required by law. Electronically signed by: Rian Narvaez M.D. 02/13/2021 7:57 AM
[2021-02-13] MEDS: PANTOprazole 40 MG TAB PO SCH (08:08)
[2021-02-13] MEDS: ESCITALOPRAM OXALATE 10 MG TAB PO SCH (08:08)
[2021-02-13 08:18] LABS: Basophils # (auto) 0.01 K/uL (0-0.2); Basophils % (auto) 0.1 %; Eosinophils # (auto) 0.16 K/uL (0-0.5); Eosinophils % (auto) 1.4 %; Hematocrit (blood only) 27.2 % (42-52); Hemoglobin 8.4 g/dL (14.0-18.0); Immature Granulocytes # (auto) 0.03 K/uL (0.00-0.02); Immature Granulocytes % (auto) 0.3 %; Lymphocytes # (auto) 1.48 K/uL (1.2-3.4); Lymphocytes % (auto) 12.6 %; Mean Corpuscular Hemoglobin 20.8 pg (25-34); Mean Corpuscular Hgb Conc 30.9 g/dL (32-36); Mean Corpuscular Volume 67.5 fL (80-100); Mean Platelet Volume 10.9 fL (7.4-10.4); Monocytes # (auto) 0.79 K/uL (0.11-0.59); Monocytes % (auto) 6.7 %; Neutrophils # (auto) 9.32 K/uL (1.4-6.5); Neutrophils % (auto) 78.9 %; Platelet Count 781 K/uL (130-400); RDW Coefficient of Variation 21.9 % (11.5-14.5); RDW Standard Deviation 50.8 fL (36.4-46.3); Red Blood Count 4.03 M/uL (4.7-6.1); White Blood Count 11.79 K/uL (4.8-10.8)
[2021-02-13 08:44] LABS: Anisocytosis Present; Hypochromasia Present; Microcytosis Present; Ovalocytes 1+; Schistocytes Occasional
--- NOTE | 2021-02-13 10:15 | Pulmonology Progress Note ---
Date of Service February 13, 2021 Assessment & Plan (1) Empyema: (2) Pleural effusion: (3) Abnormal chest CT: Impression: 85-year-old male 3 of T4 adenocarcinoma the colon now with empyema status post 14 [place] pigtail catheter placed 02/12/2021. He is currently on the mist 2 protocol Recommendations: 1. Empyema: Continue mist 2 protocol with current drain. His x-ray looks about the same. Unclear if this will resolve with the current tube or if it require surgical evacuation. May consider repeat imaging once he is completed the mist 2 protocol and if the opacities persist, consider for referral to tertiary center for video-assisted decortication. 2. Agree with broad-spectrum antibiotics. Zosyn should be adequate. We will adjust antibiotics based on results of culture data. 3. Will discuss with thoracic surgery [facility]. managment of the patients other medical issues per admitting service. Admission and Anticipated Discharge Date Admission Date: February 11, 2021 Subjective Comment. He is without complaints this morning. He denies chest pain palpi tations. He does have a rhonchorous cough but is not complaining of any shortness of breath. No fevers chills or night sweats overnight. Review of Systems Review of Systems: All systems reviewed & are unremarkable except as noted in HPI & below Physical Exam Constitutional: + frail appearing; no acute distress Neck: trachea midline, no thyromegaly Respiratory: normal respiratory effort; no respiratory distress and no labored breathing Cardiovascular: RRR, no murmur, no edema Chest (Breasts): Additional Comments: Chest tube with purulent discharge. No air leak. Gastrointestinal (Abdomen): normal bowel sounds, soft, nontender, no hepatosplenomegaly Musculoskeletal: Extremities: extremities normal to inspection Skin: no rashes, warm and dry Neurologic: Nonfocal exam Lymphatic: no cervical lymphadenopathy Results & Data Results & Data ([facility]) Vital Signs (Past 12 Hours) Vital Signs Temp Pulse Resp BP Pulse Ox 02/13/21 07:19 36.6 C 91 H 18 122/82 94 02/12/21 22:26 37 C 114 H 18 126/72 94 Chest tube with only 55 mL of output Laboratory Results 02/13/21 07:45 02/12/21 03:21 Pleural fluid studies: Differential: 78% neutrophils, 2% lymphocytes, 20% mesothelial cells Gram stain showed many PMNs with moderate gram-positive bacilli. Culture pending Diagnostic Findings Chest x-ray from today was independently reviewed. The pleural drain appears to be in good position. There is persistent opacity at the lung base. PG Care Time/CCT Total # of Minutes Spent Total Time Spent with Patient: Total time spent is greater than 50% in coordination of care (as documented) at patient's floor/unit and/or counseling patient: Coding Level of Care Code 74398 Subseq Hosp Care Lvl 3 Diagnoses Empyema J86.9 Pleural effusion J90 Abnormal chest CT R93.89
--- NOTE | 2021-02-13 10:20 | Hospitalist Progress Note ---
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 He is completely asymptomatic and hemodynamically stable. Pleural Effusion - likely Empyema - MRI-A/P performed for evaluation of known preexisting liver lesions incidentally discovered right-sided pleural effusion that had radiologic characteristics of empyemia - Pulmonology following, appreciate management insight and recommendations: - s/p pigtail catheter placement for collection of fluid - Empiric Zosyn -- modify based on pleural fluid culture, analysis - At this time, unclear if effusion will resolve with drainage +/- intrapleural thrombolysis -- if it does not, may require transfer for surgical intervention - Pleural fluid suggesting exudative pleural effusion -- maintain course for now, keep ABX - Repeat CXR not demonstrating significant change -- pulmonary aware, if no significant improvement, consider transfer to [facility] [place] [place] Colonic Adenocarcinoma -- follows with Dr. Masterson - Noted to have T4N0 adenocarcinoma -- s/p resection in October - Not on chemotherapy -- patient actively in discussion with Dr. Masterson - Liver lesions that previously were concerning for metastasis seem to be more consistent with hemangiomas based on most recent MRI Microcytic Anemia -- stable on repeat checks - Patient with known history of thalassemia and chronic anemia - Asymptomatic on history, exam - Baseline Hgb 7-9 - Hgb 3.3 on 02/11 - drawn in syringe w/ IV start -- suspect dilational, iatrogenic error - Did receive 1U pRBC in AM of 02/12 --> repeat Hgb 7.5 - Consider transfusion Hgb < 7 and symptomatic Chronic Medical Conditions Anxiety: Stable. Continue Lexapro. BPH: Continue Flomax GERD: Continue Protonix Dispo: MS FEN/GI: Regular PPX: pLov Code: FULL CODE (2) Hypercholesteremia: (3) Hyperlipidemia: (4) GERD (gastroesophageal reflux disease): (5) Renal insufficiency: (6) Thalassemia syndrome: (7) Acute kidney injury: (8) Sepsis: (9) Elevated d-dimer: (10) Acute respiratory failure with hypoxia: (11) Elevated troponin: (12) Microcytic anemia: (13) Adenocarcinoma, colon: (14) Adenocarcinoma: (15) Pleural effusion: Admission and Anticipated Discharge Date Admission Date: February 11, 2021 Supervising Physician Co-Signing Physician Notes Patient seen and examined with PGY-1 Dr. Trujillo. Agree with history, exam findings, assessment and plan of care as outlined. In brief, Mr. Blanco is an 85 year old male with history significant for adenocarcinoma of the colon and empyema admitted with new fluid collection in the right lung. Direct admission from pulm office. Feels well. Denies dyspnea and chest pain. Not requiring supplemental O2. No fevers. Well appearing. Chest tube in place. Decreased breath sounds on the right. 1. right pleural effusion. s/p thoracentesis with placement pigtail catheter. Appears to be exudative. Continue with zosyn. Appreciate pulmonology recommendations and management of this. 2. Colon adenocarcinoma. Followed by [facility]/Dr. Masterson. 3. Anemia. Asymptomatic. Transfused 1 unit with appropriate response. Hgb now 7.9. Other chronic issues stable. Home medications are being continued. Dispo: pending clinical improvement. Subjective No acute events overnight. Feeling well today. No chest pain, shortness of breath. Endorses a good appetite, enjoyed breakfast. No nausea. Continues to deny any other feelings of illness. Review of Systems Review of Systems: As per HPI Physical Exam Physical Exam: General: 85 year old male who is lying back in his hospital bed, relaxed, upon my arrival. NAD. Cardiac: Normal rate and regular rhythm; S1 and S2 present with no murmurs, rubs, or gallops. Pulmonary: Good respiratory effort with symmetric expansion of the chest. No use of accessory muscles. Left lung CTAB w/o crackles or wheezes; right thorax with chest tube in place, R lung demonstrates reduced sounds at the base extending into the midlung faulkner. Unchanged. Abdominal: Normoactive bowel sounds. Abdomen was soft, nondistended, and non- tender to palpation. Extremities: Upper and lower extremities are warm and well perfused. Results & Data Results & Data ([facility]) Vital Signs (Past 12 Hours) Vital Signs Temp Pulse Resp BP Pulse Ox 02/13/21 07:19 36.6 C 91 H 18 122/82 94 02/12/21 22:26 37 C 114 H 18 126/72 94
[2021-02-13] MEDS: ENOXAPARIN INJ 40 MG/0.4 ML SYR SQ SCH (16:32)
[2021-02-13] MEDS: TAMSULOSIN HCL 0.4 MG CAP PO SCH (20:31)
[2021-02-14] MEDS: PIPERACILLIN/TAZOBACTAM 3.375 GM in DEXTROSE 5% 100 ML IV SCH ×4 (00:11→23:34)
[2021-02-14] MEDS: ALTEPLASE, RECOMBINANT 10 MG in SYRINGE 50 ML IPL SCH ×3 (06:12→20:00)
[2021-02-14] MEDS: DORNASE ALFA 5 ML in SYRINGE 25 ML IPL SCH ×3 (07:16→21:00)
--- NOTE | 2021-02-14 07:22 | XRay Report ---
XR chest 1V not portable CLINICAL HISTORY: empyema COMPARISON STUDY: Chest CT February 10, 2021. Chest radiograph February 13, 2021. FINDINGS: Right pleural catheter remains in place. There is no pneumothorax. Right pleural effusion a nd opacity remain similar to prior exam. Cardiomediastinal silhouette is stable. IMPRESSION: Right pleural catheter in place. No pneumothorax. No significant change in a right basi lar density/effusion from prior chest radiograph. ACT 112: Negative or not required by law. Electronically signed by: Neil Venegas M.D. 02/14/2021 7:21 AM
[2021-02-14] MEDS: PANTOprazole 40 MG TAB PO SCH (08:02)
[2021-02-14] MEDS: ESCITALOPRAM OXALATE 10 MG TAB PO SCH (08:02)
[2021-02-14 08:25] LABS: Basophils # (auto) 0.01 K/uL (0-0.2); Basophils % (auto) 0.1 %; Eosinophils # (auto) 0.23 K/uL (0-0.5); Eosinophils % (auto) 1.7 %; Hemoglobin 8.5 g/dL (14.0-18.0); Immature Granulocytes # (auto) 0.02 K/uL (0.00-0.02); Immature Granulocytes % (auto) 0.2 %; Lymphocytes # (auto) 1.63 K/uL (1.2-3.4); Lymphocytes % (auto) 12.2 %; Mean Corpuscular Hemoglobin 20.4 pg (25-34); Mean Corpuscular Hgb Conc 30.4 g/dL (32-36); Mean Corpuscular Volume 67.1 fL (80-100); Monocytes # (auto) 0.83 K/uL (0.11-0.59); Monocytes % (auto) 6.2 %; Neutrophils # (auto) 10.61 K/uL (1.4-6.5); Neutrophils % (auto) 79.6 %; Platelet Count 749 K/uL (130-400); RDW Coefficient of Variation 21.8 % (11.5-14.5); RDW Standard Deviation 50.7 fL (36.4-46.3); Red Blood Count 4.17 M/uL (4.7-6.1); White Blood Count 13.33 K/uL (4.8-10.8)
[2021-02-14 09:08] LABS: Anisocytosis Present; Poikilocytosis Present; Polychromasia 1+
--- NOTE | 2021-02-14 09:12 | Pulmonology Progress Note ---
Date of Service February 14, 2021 Assessment & Plan (1) Empyema: (2) Pleural effusion: (3) Abnormal chest CT: Impression: 85-year-old male 3 of T4 adenocarcinoma the colon now with empyema status post 14 [place] pigtail catheter placed 02/12/2021. He has received 5 out of 6 doses of TPA and dornase per missed protocol without significant radiographic improvement. Discussed with the nurse at bedside and they stated that they are having difficulty getting anything to drain out of the tube. He does not appear radiographically better. Recommendations: 1. Empyema: Not sure the patient is responding favorably to intrapleural fibrinolysis with a 14gauge pigtail. We will repeat noncontrast CT scan of the chest and if there is significant residual fluid, would recommend that he be transferred for thoracic surgery evaluation. Discussed with resident at bedside 2. Agree with broad-spectrum antibiotics. Zosyn should be adequate. Cultures growing possible anaerobic gram-negative rods. Await speciation and sensitivity 3. Will review with thoracic surgery at [facility] once follow-up imaging is been performed. managment of the patients other medical issues per admitting service. Admission and Anticipated Discharge Date Admission Date: February 11, 2021 Subjective Patient seen and examined. He offers no complaints today. He denies any chest pain. He does have an occasional cough. He is not really expectorating much in the way of phlegm. No hemoptysis. No fevers chills or night sweats. Review of Systems Review of Systems: All systems reviewed & are unremarkable except as noted in HPI & below Physical Exam Constitutional: + frail appearing; no acute distress Neck: trachea midline, no thyromegaly Respiratory: normal respiratory effort; no respiratory distress and no labored breathing Cardiovascular: RRR, no murmur, no edema Chest (Breasts): Additional Comments: Chest tube with purulent discharge. No air leak. Gastrointestinal (Abdomen): normal bowel sounds, soft, nontender, no hepatosplenomegaly Musculoskeletal: Extremities: extremities normal to inspection Skin: no rashes, warm and dry Neurologic: Nonfocal exam Lymphatic: no cervical lymphadenopathy Results & Data Results & Data ([facility]) Vital Signs (Past 12 Hours) Vital Signs Temp Pulse Resp BP Pulse Ox 02/14/21 07:43 36.5 C 86 20 124/70 95 02/13/21 22:28 36.5 C 99 H 18 121/68 92 Laboratory Results 02/14/21 08:09 02/12/21 03:21 Microbiology 02/11/21 19:39 Blood Aerobic Blood Culture - Preliminary No growth in Aerobic bottle after 48 hours. 02/11/21 19:39 Blood Anaerobic Blood Culture - Preliminary No growth in Anaerobic bottle after 48 hours. 02/11/21 19:45 Blood Aerobic Blood Culture - Preliminary No growth in Aerobic bottle after 48 hours. 02/11/21 19:45 Blood Anaerobic Blood Culture - Preliminary No growth in Anaerobic bottle after 48 hours. 02/12/21 05:00 Pleural Fluid Gram Stain - Final 02/12/21 05:00 Pleural Fluid Aerobic and Anaerobic Culture - Preliminary Probable inocencia gram pos bacilli Diagnostic Findings Chest x-ray from today was independently reviewed. The tube appears to be in good position but there is persistent opacity at the right lung base consistent with effusion PG Care Time/CCT Total # of Minutes Spent Total Time Spent with Patient: Total time spent is greater than 50% in coordination of care (as documented) at patient's floor/unit and/or counseling patient: Coding Level of Care Code 71065 Subseq Hosp Care Lvl 3 Diagnoses Empyema J86.9 Pleural effusion J90 Abnormal chest CT R93.89 Time Spent (min) 45
--- NOTE | 2021-02-14 10:29 | CT Scan Report ---
CT SCAN OF THE CHEST WITHOUT IV CONTRAST CLINICAL HISTORY: Follow-up empyema. COMPARISON STUDY: Chest CT scans dated 02/10/2021 and 11/05/2020. TECHNIQUE: CT scan of the thorax was performed from the thoracic inlet to the upper abdomen. Images are reviewed in the axial, sagittal, and coronal planes. IV contrast was not administered for this ex amination as per the referring clinician. A dose lowering technique was utilized adhering to the missy Iraheta. The examination is degraded by motion artifact. CT DOSE: 478.42 mGy.cm FINDINGS: Thyroid: The thyroid gland is enlarged and heterogeneous in attenuation. Low-attenuation nodules nena ure up to 11 mm. Thoracic aorta: There is advanced atherosclerotic calcification of the thoracic aorta. There is mild aneurysmal dilatation of the ascending thoracic aorta which measures up to 4.4 cm in diameter. The re mainder of the thoracic aorta is normal in caliber, and the arch demonstrates bovine variant anatomy. Heart: The heart is enlarged noting trace pericardial effusion. The coronary arteries are densely brando cified. There is diminished attenuation of the cardiac blood pool as compared to the myocardium sugge sting anemia. Lungs and pleural spaces: There is a thick walled 12.6 x 9.0 x 5.3 cm gas and fluid containing pleura l collection at the right lung base seen on axial image #176. This is consistent with reported histor y of an empyema, and there is consolidative change seen throughout the right lower lobe. Loculated fl uid is identified tracking along the right major fissure. A pigtail catheter is present within subcut aneous soft tissues of the right posterior chest wall overlying the 9th rib (axial image #182). There is surrounding subcutaneous emphysema. There is trace left pleural effusion with left basilar atelec tasis. Secretions are noted within the distal trachea and the right mainstem bronchus. There are scat tered calcified granulomas. The esophagus is patulous and filled with fluid to the level of the aorti c arch. Mediastinum: Mildly enlarged metastatic lymph nodes are likely reactive. Amber: Not well assessed without IV contrast. Axillae: There is no axillary lymphadenopathy. Upper abdomen: There is a moderate hiatal hernia. The spleen is mildly enlarged measuring at least 13 .5 cm in length. A presumed hemangioma in the left lobe of liver on image #235 is unchanged and measu res 2.4 cm. Skeletal structures: The skeletal structures are osteopenic. No lytic or blastic bony lesions are see n. Degenerative change is noted in the shoulders and thoracic spine. Bursal fluid around the shoulder s is unchanged from previous. IMPRESSION: 1. A thick-walled 12.6 x 9.0 x 5.3 cm gas and fluid containing pleural collection at the right lung b ase is consistent with the reported history of empyema. 2. A pigtail catheter is present within the subcutaneous soft tissues of the right posterior chest wa ll overlying the 9th rib. This does not reach the pleural cavity. 3. Dense airspace consolidation is seen throughout the right lower lobe. 4. There is only trace left pleural effusion. 5. 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 6. Cardiomegaly. 7. The esophagus is patulous and filled with fluid to the level of the aortic arch. Note that this ma y place the patient at risk for aspiration. 8. Additional findings as above. ACT 112: Negative or not required by law. Electronically signed by: Zachary Hicks M.D. 02/14/2021 10:27 AM
--- NOTE | 2021-02-14 11:55 | Procedure Note ---
Procedure Note Date of Service February 14, 2021 Procedure: Removal and replacement of a 14 [place] skater catheter placement in the right pleural space Commissioner Of Internal Revenue: Dr. Rafa Reynaga Indication: Pleural effusion/empyema Consent: Signed by patient and verified with timeout prior to procedure Anesthesia: 5 mL's 1% lidocaine without epinephrine local. Procedure: Patient had undergone previous placement of a 14 [place] tube and was undergoing intrapleural fibrinolysis. The chest x-ray did not show significant improvement and a CT scan was obtained which demonstrated the pigtail catheter to be within the soft tissues. There was persistent empyema noted. Decision was made to remove the prior catheter and replace it with a new one. Labs and radiographic studies were reviewed and a timeout was performed. Patient [address] placed in a seated position at the bedside. Dressing for the existing catheter was taken down. It was detached from the suction device. The stay suture was removed. The pigtail locking system was released. Catheter was pulled on expiration. The skin at the previous pleurotomy site was cleaned using chlorhexidine and a sterile field established. Using 5 cc of lidocaine, the existing tract was anesthetized including down to the pleural space. I was able to aspirate purulent fluid again with the finder needle. The syringe was removed from the needle and a wire passed through the needle into the pleural space. The needle was removed with the wire left in place. A small skin mio was made with the scalpel. The tract was dilated over the wire without difficulty. After the dilator was removed, a 14 [place] skater catheter was advanced over the wire into the pleural space. The wire was removed and the catheter left intact. The pigtail was secured. A sterile dressing was applied and system attached to suction. Purulent fluid was again obtained and a total of 20 mL was removed. Fluid was not sent The patient tolerated the procedure well without obvious complication. Follow- up chest x-ray pending. We will continue mist 2 protocol to see how effective we can be with thrombolysis. Given the fact that the catheter is migrated I am not sure how effective prior doses of the TPA dornase were so we will restart the clock and see how he does with an additional 6 doses. Follow-up chest x-ray in a.m. Coding CPT Codes Pulmonary/Thoracic - Pulmonary and Thoracic: 18511 Pleural drainage w/o imaging ([id number]) Pulmonary/Thoracic - Pulmonary and Thoracic: 92498 Remove lung catheter ([id number]) Pulmonary/Thoracic - Pulmonary and Thoracic: 99412 Lyse chest fibrin subsequent ([id number]) [facility] [place] Procedure Codes (Charges) Pulmonary/Thoracic Procedure 1: Pulmonary and Thoracic: 63626 Pleural drainage w/o imaging Procedure 2: Pulmonary and Thoracic: 71729 Remove lung catheter Procedure 3: Pulmonary and Thoracic: 98876 Lyse chest fibrin subsequent
--- NOTE | 2021-02-14 12:44 | Hospitalist Progress Note ---
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 He is completely asymptomatic and hemodynamically stable. Empyema - MRI-A/P performed for evaluation of known preexisting liver lesions incidentally discovered right-sided pleural effusion that had radiologic characteristics of empyema - Pulmonology following, appreciate management insight and recommendations: - s/p pigtail catheter placement for collection of fluid -- replaced today by Pulmonary given migration - Continue Zosyn (prelim CX demonstrating Clostridium cadaveris, anaerobic GPBs) -- await sensitivities - Restart drainage protocol s/p replacement - At this time, unclear if effusion will resolve with drainage +/- intrapleural thrombolysis -- await repeat protocol results - Repeat CXR in AM Colonic Adenocarcinoma -- follows with Dr. Masterson - Noted to have T4N0 adenocarcinoma -- s/p resection in October - Not on chemotherapy -- patient actively in discussion with Dr. Masterson - Liver lesions that previously were concerning for metastasis seem to be more consistent with hemangiomas based on most recent MRI Microcytic Anemia -- stable on repeat checks - Patient with known history of thalassemia and chronic anemia - Asymptomatic on history, exam - Baseline Hgb 7-9 - Hgb 3.3 on 02/11 - drawn in syringe w/ IV start -- suspect dilational, iatrogenic error - Did receive 1U pRBC in AM of 02/12 --> repeat Hgb 7.5 - Consider transfusion Hgb < 7 and symptomatic Chronic Medical Conditions Anxiety: Stable. Continue Lexapro. BPH: Continue Flomax GERD: Continue Protonix Dispo: MS FEN/GI: Regular PPX: pLov Code: FULL CODE (2) Hypercholesteremia: (3) Hyperlipidemia: (4) GERD (gastroesophageal reflux disease): (5) Renal insufficiency: (6) Thalassemia syndrome: (7) Acute kidney injury: (8) Sepsis: (9) Elevated d-dimer: (10) Acute respiratory failure with hypoxia: (11) Elevated troponin: (12) Microcytic anemia: (13) Adenocarcinoma, colon: (14) Adenocarcinoma: (15) Pleural effusion: Admission and Anticipated Discharge Date Admission Date: February 11, 2021 Supervising Physician Co-Signing Physician Notes Attending attestation Pt seen and examined in concert with Dr. Trujillo. In agreement with the documented findings as noted in the resident documentation with any exceptions or additions as noted here. Resting comfortably in bed with intermittent nonproductive cough. On examination, S1/S2 nl RRR no MCG. Decreased RLL breath sounds. Abd NT/ND BS+ve Right-sided pleural effusion - pulmonology consultation - minimal drainage from pigtail preceding adjustment with improvement following. Continue zosyn. f/u Cx. Trend CBC, BMP Chronic anemia - stable s/p txf. Monitor CBC Else see resident documentation as noted. Subjective NAEO. Feeling well. No shortness of breath, coughing. No chest pain. No chills or night sweats through the evening. Really no other concerns from his perspective. Review of Systems Review of Systems: as per HPI Physical Exam Physical Exam: General: 85 year old male who is lying back in his hospital bed, relaxed, upon my arrival. NAD. Cardiac: Normal rate and regular rhythm; S1 and S2 present with no murmurs, rubs, or gallops. Pulmonary: Good respiratory effort with symmetric expansion of the chest. No use of accessory muscles. Left lung CTAB w/o crackles or wheezes; right thorax with chest tube in place, R lung demonstrates mildly reduced sounds at the base extending into the midlung faulkner. Unchanged. Extremities: Upper and lower extremities are warm and well perfused. Results & Data Results & Data ([facility]) Vital Signs (Past 12 Hours) Vital Signs Temp Pulse Resp BP Pulse Ox 02/14/21 12:14 36.6 C 80 20 114/70 90 02/14/21 07:43 36.5 C 86 20 124/70 95 Resident Activity Tracking Resident Involvement: Resident Care Provided Care Provided: Adult [facility] Medicine
--- NOTE | 2021-02-14 13:41 | XRay Report ---
SINGLE VIEW CHEST CLINICAL HISTORY: Chest tube placement. FINDINGS: An AP, portable, upright chest radiograph is compared to study dated 02/14/2021. The heart i s enlarged noting atherosclerotic calcification of the thoracic aorta. The pulmonary vasculature is n oncongested. A pigtail catheter projecting over the right lung base has been repositioned as compared to today's earlier examination. A right pleural collection and right basilar consolidation is simila r to previous. Trace left pleural effusion is noted. No pneumothorax is seen. The skeletal structures are osteopenic. The bony thorax is grossly intact. IMPRESSION: 1. A pigtail catheter projecting over the right lower chest has been repositioned. No pneumothorax is identified. 2. There are pleural collection and right basilar consolidation is similar to previous. 3. Cardiomegaly and trace left pleural effusion. ACT 112: Negative or not required by law. Electronically signed by: Zachary Hicks M.D. 02/14/2021 1:40 PM
[2021-02-14] MEDS: ENOXAPARIN INJ 40 MG/0.4 ML SYR SQ SCH (16:38)
[2021-02-14] MEDS: TAMSULOSIN HCL 0.4 MG CAP PO SCH (21:01)
[2021-02-15 07:06] LABS: Basophils # (auto) 0.01 K/uL (0-0.2); Basophils % (auto) 0.1 %; Eosinophils # (auto) 0.26 K/uL (0-0.5); Eosinophils % (auto) 2.6 %; Hematocrit (blood only) 26.7 % (42-52); Hemoglobin 8.1 g/dL (14.0-18.0); Immature Granulocytes # (auto) 0.02 K/uL (0.00-0.02); Immature Granulocytes % (auto) 0.2 %; Lymphocytes # (auto) 1.35 K/uL (1.2-3.4); Lymphocytes % (auto) 13.4 %; Mean Corpuscular Hemoglobin 20.4 pg (25-34); Mean Corpuscular Hgb Conc 30.3 g/dL (32-36); Mean Corpuscular Volume 67.1 fL (80-100); Monocytes # (auto) 0.71 K/uL (0.11-0.59); Neutrophils # (auto) 7.76 K/uL (1.4-6.5); Neutrophils % (auto) 76.7 %; Platelet Count 753 K/uL (130-400); RDW Coefficient of Variation 21.9 % (11.5-14.5); RDW Standard Deviation 50.8 fL (36.4-46.3); Red Blood Count 3.98 M/uL (4.7-6.1); White Blood Count 10.11 K/uL (4.8-10.8)
[2021-02-15 07:30] LABS: Anisocytosis Present; Hypochromasia Present; Microcytosis Present; Poikilocytosis Present
[2021-02-15] MEDS: PIPERACILLIN/TAZOBACTAM 3.375 GM in DEXTROSE 5% 100 ML IV SCH ×2 (08:16→15:48)
[2021-02-15] MEDS: ALTEPLASE, RECOMBINANT 10 MG in SYRINGE 50 ML IPL SCH ×2 (08:16→19:55)
[2021-02-15] MEDS: ESCITALOPRAM OXALATE 10 MG TAB PO SCH (08:17)
[2021-02-15] MEDS: PANTOprazole 40 MG TAB PO SCH (08:17)
--- NOTE | 2021-02-15 08:32 | XRay Report ---
XR chest 1V portable HISTORY: 85 years-old Male empyema COMPARISON: Chest radiograph and chest CT 02/14/2021 TECHNIQUE: Portable AP view of the chest FINDINGS: Cardiac mediastinal and hilar silhouettes are unchanged. Calcified plaque the thoracic aorta. Trace l eft pleural effusion. The left lung is generally clear. A right-sided pleural drainage catheter dista l tip overlies the right hilum. No pneumothorax. Right basilar pleural fluid collection with right mi dlung and right lung base consolidation is unchanged. Degenerative changes of the shoulders and spine . IMPRESSION: 1. Pigtail drainage catheter distal tip overlies the right hilum. No pneumothorax. 2. Unchanged right pleural effusion with right lung consolidation. 3. Trace left pleural effusion. 4. Cardiomegaly. ACT 112: Negative or not required by law. The above report was generated using voice recognition software. It may contain grammatical, syntax o r spelling errors. Electronically signed by: Benitez Valentin M.D. 02/15/2021 8:31 AM
[2021-02-15] MEDS: DORNASE ALFA 5 ML in SYRINGE 25 ML IPL SCH ×2 (09:24→21:04)
--- NOTE | 2021-02-15 10:36 | Pulmonology Progress Note ---
Date of Service February 15, 2021 Assessment & Plan (1) Empyema: (2) Pleural effusion: (3) Abnormal chest CT: Impression: 85-year-old male 3 of T4 adenocarcinoma the colon now with empyema status post 14 [place] pigtail catheter placed 02/12/2021. The catheter was replaced 02/14/2021 and missed protocol reinitiated due to catheter migration into the soft tissues Recommendations: 1. Empyema: Clostridium species identified on culture. Continue mist 2 protocol for the next 24 to 48 hours. If chest x-ray fails to improve, will repeat CT scan at that time and if residual pleural space abnormality identified, have a low threshold for transfer for thoracic surgery evaluation 2. Continue Zosyn. Sensitivities not typically available for Clostridium but she should be covered by Zosyn given its excellent anaerobic coverage. Defer ID consultation to primary service. 3. Management of the patient's other medical issues per the primary service We will continue to follow with you Admission and Anticipated Discharge Date Admission Date: February 11, 2021 Review of Systems Review of Systems: All systems reviewed & are unremarkable except as noted in HPI & below Physical Exam Constitutional: + frail appearing; no acute distress Neck: trachea midline, no thyromegaly Respiratory: normal respiratory effort; no respiratory distress and no labored breathing Cardiovascular: RRR, no murmur, no edema Gastrointestinal (Abdomen): normal bowel sounds, soft, nontender, no hepatosplenomegaly Musculoskeletal: Extremities: extremities normal to inspection Skin: no rashes, warm and dry Lymphatic: no cervical or axillary lymphadenopathy no cervical lymphadenopathy Results & Data Results & Data ([facility]) Vital Signs (Past 12 Hours) Vital Signs Temp Pulse Resp BP BP Pulse Ox 02/15/21 08:07 36.7 C 92 H 20 125/62 94 02/15/21 00:23 36.9 C 92 H 16 131/85 93 Laboratory Results 02/15/21 06:44 02/12/21 03:21 Pleural fluid cultures growing Clostridium cadaveris- no sensitivities but should be covered by zosyn. Diagnostic Findings Chest x-ray today was reviewed. The catheter appears to be in good position. No significant pneumothorax. Pleural effusion may be slightly decreased. PG Care Time/CCT Total # of Minutes Spent Total Time Spent with Patient: Total time spent is greater than 50% in coordination of care (as documented) at patient's floor/unit and/or counseling patient: Coding Level of Care Code 05894 Subseq Hosp Care Lvl 2 Diagnoses Empyema J86.9 Pleural effusion J90 Abnormal chest CT R93.89
--- NOTE | 2021-02-15 15:00 | Hospitalist Progress Note ---
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 He is completely asymptomatic and hemodynamically stable. Empyema - MRI-A/P performed for evaluation of known preexisting liver lesions incidentally discovered right-sided pleural effusion that had radiologic characteristics of empyema - Pulmonology following, appreciate management insight and recommendations: - s/p repositioning of pleural catheter on 02/15 - Continue Zosyn for now (prelim CX demonstrating Clostridium cadaveris, anaerobic GPBs) -- await sensitivities, if applicable - If no significant change despite reinitiation of mist/drainage protocol, can consider ID consult - At this time, unclear if effusion will resolve with drainage +/- intrapleural thrombolysis -- if not, consider thoracic surgery evaluation at tertiary care facility - Repeat CXR in AM Colonic Adenocarcinoma -- follows with Dr. Masterson - Noted to have T4N0 adenocarcinoma -- s/p resection in October - Not on chemotherapy -- patient actively in discussion with Dr. Masterson - Liver lesions that previously were concerning for metastasis seem to be more consistent with hemangiomas based on most recent MRI Microcytic Anemia -- stable on repeat checks, baseline Hgb 7 - 9 - Patient with known history of thalassemia and chronic anemia - Asymptomatic on history, exam - Hgb 3.3 on 02/11 - drawn in syringe w/ IV start -- suspect dilational, iatrogenic error - Did receive 1U pRBC in AM of 02/12 --> repeat Hgb 7.5 - Consider transfusion Hgb < 7 and symptomatic Chronic Medical Conditions Anxiety: Stable. Continue Lexapro. BPH: Continue Flomax GERD: Continue Protonix Dispo: MS FEN/GI: Regular Consults: Pulm PPX: pLov Code: FULL CODE (2) Hypercholesteremia: (3) Hyperlipidemia: (4) GERD (gastroesophageal reflux disease): (5) Renal insufficiency: (6) Thalassemia syndrome: (7) Acute kidney injury: (8) Sepsis: (9) Elevated d-dimer: (10) Acute respiratory failure with hypoxia: (11) Elevated troponin: (12) Microcytic anemia: (13) Adenocarcinoma, colon: (14) Adenocarcinoma: (15) Pleural effusion: Admission and Anticipated Discharge Date Admission Date: February 11, 2021 Supervising Physician Co-Signing Physician Notes Attending attestation Pt seen and examined in concert with Dr. Trujillo. In agreement with the documented findings as noted in the resident documentation with any exceptions or additions as noted here. Tolerating chest tube drainage well with intermittent nonproductive cough stable from previous. On examination, S1/S2 nl RRR no MCG. Decreased RLL breath sounds, chest tube draining cloudy/sanguinous. Abd NT/ND BS+ve Right-sided pleural effusion - pulmonology consultation - Continue zosyn. f/u Cx. Trend CBC, BMP Chronic anemia - stable s/p txf. Monitor CBC Else see resident documentation as noted. Subjective Feeling well. No questions or concerns this morning. Denies any chest wall pain. No shortness of breath. No coughing. No chills or night sweats overnight. Endorses a good appetite. Review of Systems Review of Systems: As per HPI Physical Exam Physical Exam: General: 85 year old male who is lying back in his hospital bed, relaxed, upon my arrival. Just finished breakfast. NAD. Cardiac: Normal rate and regular rhythm; S1 and S2 present with no murmurs, rubs, or gallops. Pulmonary: Good respiratory effort with symmetric expansion of the chest. No use of accessory muscles. Left lung CTAB w/o crackles or wheezes; right thorax with chest tube in place, R lung demonstrates mildly reduced sounds at the base extending into the midlung faulkner. Unchanged. Extremities: Upper and lower extremities are warm and well perfused. Results & Data Results & Data ([facility]) Vital Signs (Past 12 Hours) Vital Signs Temp Pulse Resp BP Pulse Ox 02/15/21 08:07 36.7 C 92 H 20 125/62 94 Resident Activity Tracking Resident Involvement: Resident Care Provided Care Provided: Adult Hospital Medicine
[2021-02-15] MEDS: ENOXAPARIN INJ 40 MG/0.4 ML SYR SQ SCH (15:48)
[2021-02-15] MEDS: TAMSULOSIN HCL 0.4 MG CAP PO SCH (20:01)
[2021-02-16] MEDS: PIPERACILLIN/TAZOBACTAM 3.375 GM in DEXTROSE 5% 100 ML IV SCH ×3 (00:50→16:15)
[2021-02-16] MEDS: PANTOprazole 40 MG TAB PO SCH (07:46)
[2021-02-16] MEDS: ESCITALOPRAM OXALATE 10 MG TAB PO SCH (07:46)
[2021-02-16] MEDS: ALTEPLASE, RECOMBINANT 10 MG in SYRINGE 50 ML IPL SCH ×2 (08:04→20:02)
[2021-02-16 08:57] LABS: Basophils # (auto) 0.02 K/uL (0-0.2); Basophils % (auto) 0.2 %; Eosinophils # (auto) 0.34 K/uL (0-0.5); Eosinophils % (auto) 3.7 %; Hemoglobin 7.7 g/dL (14.0-18.0); Immature Granulocytes # (auto) 0.02 K/uL (0.00-0.02); Immature Granulocytes % (auto) 0.2 %; Lymphocytes # (auto) 1.57 K/uL (1.2-3.4); Lymphocytes % (auto) 17.2 %; Mean Corpuscular Hemoglobin 20.3 pg (25-34); Mean Corpuscular Hgb Conc 29.6 g/dL (32-36); Mean Corpuscular Volume 68.4 fL (80-100); Mean Platelet Volume 11.3 fL (7.4-10.4); Monocytes # (auto) 0.63 K/uL (0.11-0.59); Monocytes % (auto) 6.9 %; Neutrophils # (auto) 6.53 K/uL (1.4-6.5); Neutrophils % (auto) 71.8 %; Platelet Count 827 K/uL (130-400); RDW Coefficient of Variation 22.4 % (11.5-14.5); RDW Standard Deviation 52.8 fL (36.4-46.3); White Blood Count 9.11 K/uL (4.8-10.8)
[2021-02-16] MEDS: DORNASE ALFA 5 ML in SYRINGE 25 ML IPL SCH ×2 (09:04→21:08)
--- NOTE | 2021-02-16 09:26 | XRay Report ---
XR chest 1V portable HISTORY: empyema COMPARISON: Chest 02/15/2021. FINDINGS: No change in the right-sided pleural drainage catheter which overlies the right hilum/midlu ng zone. Right pleural effusion and mid to lower lung zone opacity persists. Heart remains enlarged. Left lung is clear. IMPRESSION: No change in position of the right pleural drainage catheter. Right pleural effusion/consolidation pe rsists. ACT 112: Negative or not required by law. Electronically signed by: Rian Narvaez M.D. 02/16/2021 9:24 AM
[2021-02-16 09:43] LABS: Anisocytosis Present; Microcytosis Present; Poikilocytosis Present
--- NOTE | 2021-02-16 10:28 | Pulmonology Progress Note ---
Date of Service February 16, 2021 Assessment & Plan (1) Empyema: (2) Pleural effusion: (3) Abnormal chest CT: Impression: 85-year-old male 3 of T4 adenocarcinoma the colon now with empyema (2 Clostridium species) status post 14 Chinese pigtail catheter placed 02/12/2021. The catheter was replaced 02/14/2021 and MIST protocol reinitiated due to catheter migration into the soft tissues. He has had increased output but unfortunately it appears that the fluid collection is still present. Recommendations: 1. Empyema: Clostridium perfringens and cadaveris identified on culture. The patient is now completed almost 5 days of missed with what appears to be residual pleural fluid on the chest x-ray. Will obtain noncontrast CT scan of the chest at this point in time to better evaluate the pleural space. If there is residual fluid identified, recommend the patient be transferred to a tertiary facility with thoracic surgical evaluation for potential video-assisted thoracoscopic decortication and washout. Discussed with the admitting service at bedside. 2. Continue Zosyn. Sensitivities not typically available for Clostridium but she should be covered by Zosyn given its excellent anaerobic coverage. Defer ID consultation to primary service. 3. Management of the patient's other medical issues per the primary service We will continue to follow with you. Spouse updated by phone Admission and Anticipated Discharge Date Admission Date: February 11, 2021 Subjective Patient remains without complaint Review of Systems Review of Systems: All systems reviewed & are unremarkable except as noted in HPI & below Results & Data Results & Data ([facility]) Vital Signs (Past 12 Hours) Vital Signs Temp Pulse Resp BP BP Pulse Ox 02/16/21 07:38 36.5 C 90 18 127/69 95 02/15/21 23:19 36.4 C L 99 H 16 121/66 92 Chest tube: 277 ml Laboratory Results Abnormal lab results 02/16/21 Range/Units 08:21 RBC 3.80 L (4.7-6.1) M/uL Hgb 7.7 L (14.0-18.0) g/dL Hct 26.0 L (42-52) % MCV 68.4 L (80-100) fL MCH 20.3 L (25-34) pg MCHC 29.6 L (32-36) g/dL RDW Std Deviation 52.8 H (36.4-46.3) fL RDW Coeff of Maryann 22.4 H (11.5-14.5) % Plt Count 827 H (130-400) K/uL MPV 11.3 H (7.4-10.4) fL Neut # (Auto) 6.53 H (1.4-6.5) K/uL [place] # (Auto) 0.63 H (0.11-0.59) K/uL 02/16/21 08:21 02/12/21 03:21 Microbiology 02/12/21 05:00 Pleural Fluid Gram Stain - Final 02/12/21 05:00 Pleural Fluid Aerobic and Anaerobic Culture - Preliminary Clostridium cadaveris Clostridium perfringens 02/11/21 19:39 Blood Aerobic Blood Culture - Preliminary No growth in Aerobic bottle after 48 hours. 02/11/21 19:39 Blood Anaerobic Blood Culture - Preliminary No growth in Anaerobic bottle after 48 hours. 02/11/21 19:45 Blood Aerobic Blood Culture - Preliminary No growth in Aerobic bottle after 48 hours. 02/11/21 19:45 Blood Anaerobic Blood Culture - Preliminary No growth in Anaerobic bottle after 48 hours. Diagnostic Findings Chest x-ray from today was reviewed. There appears to be persistent pleural fluid collection. The pigtail catheter appears to be in good position. PG Care Time/CCT Total # of Minutes Spent Total Time Spent with Patient: Total time spent is greater than 50% in coordination of care (as documented) at patient's floor/unit and/or counseling patient: Coding Level of Care Code 72090 Subseq Hosp Care Lvl 3 Diagnoses Empyema J86.9 Pleural effusion J90 Abnormal chest CT R93.89 Time Spent (min) 40
--- NOTE | 2021-02-16 10:52 | Hospitalist Progress Note ---
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 He is now s/p 5 days of pleural drainage and undergoing evaluation to see if persistent fluid exists; if this is the case, he will require transfer to tertiary care facility for VADT and washout. He is completely asymptomatic and hemodynamically stable. Empyema - MRI-A/P performed for evaluation of known preexisting liver lesions incidentally discovered right-sided pleural effusion that had radiologic characteristics of empyema - Pulmonology following, appreciate management insight and recommendations: - s/p repositioning of pleural catheter on 02/15 - Continue Zosyn for now (pCx growing Clostridium perfringens, cadaveris) - CXR demonstrating persistance of effusion. Obtain Chest-CT per pulm - If persistent residual fluid on Chest CT, anticipate transfer to center w/ VATD given 5 days of attempted drainage - Consider ID consult if patient is not transferred - Await results. Will discuss with Pulmonology if transfer required. Colonic Adenocarcinoma -- follows with Dr. Masterson - Noted to have T4N0 adenocarcinoma -- s/p resection in October - Not on chemotherapy -- patient actively in discussion with Dr. Masterson - Liver lesions that previously were concerning for metastasis seem to be more consistent with hemangiomas based on most recent MRI Microcytic Anemia -- stable on repeat checks, baseline Hgb 7 - 9 - Patient with known history of thalassemia and chronic anemia - Asymptomatic on history, exam - Hgb 3.3 on 02/11 - drawn in syringe w/ IV start -- suspect dilational, iatrogenic error - Did receive 1U pRBC in AM of 02/12 --> repeat Hgb 7.5 - Consider transfusion Hgb < 7 and symptomatic Chronic Medical Conditions Anxiety: Stable. Continue Lexapro. BPH: Continue Flomax GERD: Continue Protonix Dispo: MS FEN/GI: Regular Consults: Pulm PPX: pLov Code: FULL CODE (2) Hypercholesteremia: (3) Hyperlipidemia: (4) GERD (gastroesophageal reflux disease): (5) Renal insufficiency: (6) Thalassemia syndrome: (7) Acute kidney injury: (8) Sepsis: (9) Elevated d-dimer: (10) Acute respiratory failure with hypoxia: (11) Elevated troponin: (12) Microcytic anemia: (13) Adenocarcinoma, colon: (14) Adenocarcinoma: (15) Pleural effusion: Admission and Anticipated Discharge Date Admission Date: February 11, 2021 Supervising Physician Co-Signing Physician Notes Attending attestation Pt seen and examined in concert with Dr. Trujillo. In agreement with the documented findings as noted in the resident documentation with any exceptions or additions as noted here. Tolerating chest tube drainage well with intermittent nonproductive cough stable from previous. On examination, S1/S2 nl RRR no MCG. Decreased RLL breath sounds, chest tube draining cloudy/sanguinous. Abd NT/ND BS+ve Right-sided pleural effusion - pulmonology consultation - CT chest today with improvement of collection. ID consultation for tomorrow. Continue zosyn. Trend CBC, BMP Chronic anemia - stable s/p txf. Monitor CBC Adenocarcinoma, colon - followed by [facility]CP (Aleja) Else see resident documentation as noted. Subjective Feeling well. Eager to know next steps, when he lives the hospital. No chest pain, shortness of breath. No chills or night sweats. No complaints otherwise. Review of Systems Review of Systems: as per HPI Physical Exam Physical Exam: General: 85 year old male who is lying back in his hospital bed, relaxed, upon my arrival. Just finished breakfast. NAD. Cardiac: Normal rate and regular rhythm WITH ectopy vs. irregular rhythm; S1 and S2 present with no murmurs, rubs, or gallops. Pulmonary: Good respiratory effort with symmetric expansion of the chest. No use of accessory muscles. Left lung CTAB w/o crackles or wheezes; right thorax with chest tube in place, R lung demonstrates mildly reduced sounds at the base extending into the midlung faulkner. Unchanged. Extremities: Upper and lower extremities are warm and well perfused. Results & Data Results & Data ([facility]) Vital Signs (Past 12 Hours) Vital Signs Temp Pulse Resp BP BP Pulse Ox 02/16/21 10:32 36.5 C 98 H 22 122/69 96 02/16/21 07:38 36.5 C 90 18 127/69 95 02/15/21 23:19 36.4 C L 99 H 16 121/66 92 Resident Activity Tracking Resident Involvement: Resident Care Provided Care Provided: Adult Hospital Medicine
--- NOTE | 2021-02-16 11:55 | CT Scan Report ---
CT chest diagnostic wo con CT DOSE: 606.06 mGy.cm HISTORY: follow up empyema TECHNIQUE: Multiaxial CT images of the chest were performed without contrast. A dose lowering techni que was utilized adhering to the principles of ALARA. COMPARISON: Chest CT 02/14/2021. FINDINGS: Small amount of subcutaneous edema and gas within the right posterior lateral lower chest w all likely due to the prior percutaneous pleural catheter placement. The catheter is located within t he right posterior pleural space. There has been significant decrease in size with near complete reso lution of the right posterior pleural fluid collection. There is only a trace amount of fluid remaini ng within the right posterior pleural space. Small amount of gas within the right pleural space consi stent with a loculated pneumothorax which is also likely due to the recent postoperative changes. No evidence for bronchopleural fistula at this time. Small amount of loculated fluid within the superior aspect of the right major fissure has also improved. Limited views of the upper abdomen demonstrate normal liver and spleen. There is a small hiatus hernia, unchanged. Improvement in the mild esophagea l distention. No mediastinal lymphadenopathy. The ascending thoracic aorta measures up to 4 cm in martin meter. The heart is borderline enlarged. No pericardial effusion. No suspicious lytic or blastic osse ous lesions. Persistent consolidation within the right lower lobe posteriorly with associated air bro nchograms. The left lung is essentially clear. IMPRESSION: 1. Interval placement of a right posterior pleural drainage catheter with near complete resolution of the loculated right pleural fluid collection/empyema. There is trace fluid remaining within the righ t posterior pleural space. Small amount of gas at this location is likely due to the postoperative ch danny. 2. Persistent consolidation within the right lower lobe posteriorly. This favors a pneumonia. Recomme nd follow-up to ensure resolution. 3. Additional findings as described above. ACT 112: Negative or not required by law. Electronically signed by: Rian Narvaez M.D. 02/16/2021 11:54 AM
[2021-02-16] MEDS: ENOXAPARIN INJ 40 MG/0.4 ML SYR SQ SCH (17:51)
[2021-02-16] MEDS: TAMSULOSIN HCL 0.4 MG CAP PO SCH (20:02)
--- NOTE | 2021-02-16 23:39 | Electrocardiogram Report ---
Test Reason : Blood Pressure : / mmHG Vent. Rate : 100 BPM Atrial Rate : 100 BPM P-R Int : 136 ms QRS Dur : 088 ms QT Int : 308 ms P-R-T Axes : 075 036 004 degrees QTc Int : 397 ms Sinus rhythm with Premature atrial complexes Nonspecific T wave abnormality Abnormal ECG When compared with ECG of 05-NOV-2020 15:46, Criteria for Inferior infarct are no longer Present Nonspecific T wave abnormality, worse in Anterolateral leads Confirmed by Theo Cain ([id number]) on 02/16/2021 11:39:27 PM Referred By: Gaston Humphrey Confirmed By:Theo Cain
[2021-02-17] MEDS: PIPERACILLIN/TAZOBACTAM 3.375 GM in DEXTROSE 5% 100 ML IV SCH ×4 (00:21→23:43)
[2021-02-17 06:20] LABS: Basophils # (auto) 0.01 K/uL (0-0.2); Basophils % (auto) 0.1 %; Eosinophils # (auto) 0.27 K/uL (0-0.5); Eosinophils % (auto) 3.7 %; Hematocrit (blood only) 24.9 % (42-52); Hemoglobin 7.5 g/dL (14.0-18.0); Immature Granulocytes # (auto) 0.02 K/uL (0.00-0.02); Immature Granulocytes % (auto) 0.3 %; Lymphocytes # (auto) 1.53 K/uL (1.2-3.4); Mean Corpuscular Hemoglobin 20.6 pg (25-34); Mean Corpuscular Hgb Conc 30.1 g/dL (32-36); Mean Corpuscular Volume 68.4 fL (80-100); Mean Platelet Volume 11.1 fL (7.4-10.4); Monocytes # (auto) 0.53 K/uL (0.11-0.59); Monocytes % (auto) 7.3 %; Neutrophils # (auto) 4.92 K/uL (1.4-6.5); Neutrophils % (auto) 67.6 %; Platelet Count 710 K/uL (130-400); RDW Coefficient of Variation 22.2 % (11.5-14.5); RDW Standard Deviation 52.9 fL (36.4-46.3); Red Blood Count 3.64 M/uL (4.7-6.1); White Blood Count 7.28 K/uL (4.8-10.8)
[2021-02-17 06:44] LABS: Anisocytosis Present; Hypochromasia Present; Microcytosis Present; Ovalocytes 1+; Tear Drop Cells 1+
[2021-02-17 06:54] LABS: Calcium 8.6 mg/dl (8.5-10.1); Creatinine Clr Calc Pharmacy 75.4 ml/min; Est GFR (African American) 97.5 ml/min; Est GFR (Non-African American) 84.1 ml/min; Potassium 3.8 mmol/L (3.5-5.1)
--- NOTE | 2021-02-17 08:20 | XRay Report ---
XR chest 1V portable HISTORY: empyema COMPARISON: Chest 02/16/2021. FINDINGS: Right pleural drainage catheter is unchanged in position. Improved aeration within the righ t mid to lower lung zone with decreased in size in the pleural effusion. No definite pneumothorax. Th e left lung is clear. The heart is normal in size. IMPRESSION: Right pleural drainage catheter is unchanged in position. Improved aeration within the right mid to l ower lung zone with decreased size of the right pleural effusion. ACT 112: Negative or not required by law. Electronically signed by: Rian Narvaez M.D. 02/17/2021 8:19 AM
[2021-02-17] MEDS: PANTOprazole 40 MG TAB PO SCH (08:48)
[2021-02-17] MEDS: ESCITALOPRAM OXALATE 10 MG TAB PO SCH (09:11)
--- NOTE | 2021-02-17 13:05 | Hospitalist Progress Note ---
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 He is now s/p 5 days of pleural drainage and undergoing evaluation to see if persistent fluid exists; if this is the case, he will require transfer to tertiary care facility for VADT and washout. He is completely asymptomatic and hemodynamically stable. Empyema - MRI-A/P performed for evaluation of known preexisting liver lesions incidentally discovered right-sided pleural effusion that had radiologic characteristics of empyema - Pulmonology following, appreciate management insight and recommendations: - s/p repositioning of pleural catheter on 02/15 - Continue Zosyn for now (pCx growing Clostridium perfringens, cadaveris). - Update 02/17: still draining pus. No airleak. Continue chest tube given there is still drainage. VATS now vs. abx and trial with pulling tube -- patient leaning towards taking tube out and monitoring. - Chest CT 02/16: Interval placement of a right posterior pleural drainage catheter with near complete resolution of the loculated right pleural fluid collection/empyema. There is trace fluid remaining within the right posterior pleural space. Small amount of gas at this location is likely due to the postoperative change. Persistent consolidation within the right lower lobe posteriorly. This favors a pneumonia. Recommend follow-up to ensure resolution. - CXR 02/17: Right pleural drainage catheter is unchanged in position. Improved aeration within the right mid to lower lung zone with decreased size of the right pleural effusion. - ID has been consulted and awaiting their recommendations. Colonic Adenocarcinoma -- follows with Dr. Masterson - Noted to have T4N0 adenocarcinoma -- s/p resection in October - Not on chemotherapy -- patient actively in discussion with Dr. Masterson - Liver lesions that previously were concerning for metastasis seem to be more consistent with hemangiomas based on most recent MRI Microcytic Anemia -- stable on repeat checks, baseline Hgb 7 - 9 - Patient with known history of thalassemia and chronic anemia - Asymptomatic on history, exam - Hgb 3.3 on 02/11 - drawn in syringe w/ IV start -- suspect dilational, iatrogenic error - Did receive 1U pRBC in AM of 02/12 --> repeat Hgb 7.5 - Consider transfusion Hgb < 7 and symptomatic Chronic Medical Conditions Anxiety: Stable. Continue Lexapro. BPH: Continue Flomax GERD: Continue Protonix Dispo: MS FEN/GI: Regular Consults: Pulm, ID PPX: pLov Code: FULL CODE (2) Hypercholesteremia: (3) Hyperlipidemia: (4) GERD (gastroesophageal reflux disease): (5) Renal insufficiency: (6) Thalassemia syndrome: (7) Acute kidney injury: (8) Sepsis: (9) Elevated d-dimer: (10) Acute respiratory failure with hypoxia: (11) Elevated troponin: (12) Microcytic anemia: (13) Adenocarcinoma, colon: (14) Adenocarcinoma: (15) Pleural effusion: Admission and Anticipated Discharge Date Admission Date: February 11, 2021 Supervising Physician Co-Signing Physician Notes I personally examined the patient and verified all chauhan points of history and exam, discussed case, and agree with decision making with Dr Brown Feeling okay, mostly just wants to go home. After discussion with pulmonary, he would prefer to try antibiotics and follow back on surgery if needed. Vitals noted, in general he is awake and alert pleasant no distress. HEENT normocephalic atraumatic mucous membranes moist. Breathing unlabored no accessory muscle use good effort. Skin shows no rashes no pallor or icterus. Empyemacontinue antibiotics and chest tube drainage for now, likely to give trial to antibiotics and close follow-up. If fails then can follow back on VATS. Clinically stable. Otherwise as above. Subjective Patient seen and evaluated at bedside this morning. States that he overall feels well and is currently asymptomatic. Specifically denies SOB, cough, CP, abd pain, n/v. Eating well. Sleeping well. Review of Systems Review of Systems: as per HPI Physical Exam Physical Exam: GENERAL: No acute distress. Well developed and well nourished. Vital signs reviewed as above. EYES: EOMI. Anicteric sclerae. HENT: Moist mucous membranes. RESPIRATORY: Diminished breath sounds on right. + crackles. No wheezing. CHEST WALL: Right sided chest tube in place draining purulent fluid. CARDIOVASCULAR: Regular rate and rhythm. No murmurs. ABDOMEN: Soft, non-tender and non-distended. Normal bowel sounds. EXTREMITIES: No edema. Non-tender. SKIN: Warm, dry. NEUROLOGIC: No focal neurological deficits. PSYCHIATRIC: Cooperative. Appropriate mood and affect. Results & Data Results & Data ([facility]) Vital Signs (Past 12 Hours) Vital Signs Temp Pulse Resp BP Pulse Ox 02/17/21 08:05 36.5 C 77 16 130/73 96 Resident Activity Tracking Resident Involvement: Resident Care Provided Care Provided: Adult Hospital Medicine
[2021-02-17] MEDS: ENOXAPARIN INJ 40 MG/0.4 ML SYR SQ SCH (16:22)
--- NOTE | 2021-02-17 16:31 | Pulmonology Progress Note ---
Date of Service February 17, 2021 Assessment & Plan (1) Empyema: (2) Pleural effusion: (3) Abnormal chest CT: Impression: 85-year-old male 3 of T4 adenocarcinoma the colon now with empyema (2 Clostridium species) status post 14 Korean pigtail catheter placed 02/12/2021. The catheter was replaced 02/14/2021 and MIST protocol reinitiated due to catheter migration into the soft tissues. --Right-sided empyema S/p pigtail catheter insertion 02/12/2021 --> changed 02/14/2021 On antibiotics Culture growing Clostridium perfringens and cadaveris On antibiotics Patient completed MIST protocol. --History of COVID-19 pneumonia Diagnosed 11/05/2020 S/p 4 days of dexamethasone He did not need any prolonged treatment He was treated with antibiotics for aspiration pneumonia at that time Unasyn and doxycycline. Plan: Right-sided chest tube level 1050 today. Still draining pus. No airleak. I am going to continue with chest tube given there is still drainage from it. CT scan done 02/16/2021 does show improvement in the effusion. There is still infiltrate there. Patient is 85 years old with clinical improvement on MIST protocol which has been completed. I did speak with him regarding that but he might need VATS to clear out everything given that it is still draining pus. He is inclining towards taking the tube out and see if he gets reaccumulated there and in that case go to mass directly. Please note the above document was generated using voice recognition software. It may contain grammatical, syntax or spelling errors.Any formal questions or concerns about the content, text or information contained within the body of this dictation should be directly addressed to the provider for clarification. Admission and Anticipated Discharge Date Admission Date: February 11, 2021 Subjective Patient seen and examined at bedside. No acute distress, no symptoms overnight. Patient says he is feeling better when it comes to his breathing. Denies any chest pain at the site of the chest tube. Denies any nausea or vomiting. No headache, no dizziness. Review of Systems Review of Systems: All systems reviewed & are unremarkable except as noted in Subjective Physical Exam Physical Exam: Constitutional: No acute distress HEENT: EOMI, PERRLA Respiratory system: Decreased air entry on the right side, positive crackles right lower lobe, no wheeze, no rhonchi CVS: S1-S2 positive, no murmurs or gallops Abdomen: Soft, nontender, nondistended, positive bowel sounds x4 Extremities: +2 pulses bilaterally radialis/ dorsalis pedis, no cyanosis, no edema Neuro: Awake alert oriented x3 Psych: Normal mood and affect G/U: No Faulkner Right-sided chest tube in place Skin: no rashes, warm and dry Lymphatic: no cervical or axillary lymphadenopathy Results & Data Results & Data ([facility]) Vital Signs (Past 12 Hours) Vital Signs Temp Pulse Resp BP Pulse Ox 02/17/21 08:05 36.5 C 77 16 130/73 96 02/17/21 05:58 02/17/21 05:58 PG Care Time/CCT Total # of Minutes Spent Total Time Spent with Patient: Total time spent is greater than 50% in coordina tion of care (as documented) at patient's floor/unit and/or counseling patient: Coding Level of Care Code 00642 Subseq Hosp Care Lvl 3 Diagnoses Empyema J86.9 Pleural effusion J90 Abnormal chest CT R93.89
--- NOTE | 2021-02-17 18:33 | Billing Data ---
Date of Service February 17, 2021 Coding Level of Care Code 73980 Subseq Hosp Care Lvl 2
[2021-02-17] MEDS: TAMSULOSIN HCL 0.4 MG CAP PO SCH (19:22)
[2021-02-18 05:39] LABS: Basophils # (auto) 0.02 K/uL (0-0.2); Basophils % (auto) 0.3 %; Eosinophils # (auto) 0.27 K/uL (0-0.5); Hematocrit (blood only) 24.3 % (42-52); Hemoglobin 7.1 g/dL (14.0-18.0); Immature Granulocytes # (auto) 0.01 K/uL (0.00-0.02); Immature Granulocytes % (auto) 0.1 %; Lymphocytes # (auto) 1.23 K/uL (1.2-3.4); Lymphocytes % (auto) 18.3 %; Mean Corpuscular Hemoglobin 19.9 pg (25-34); Mean Corpuscular Hgb Conc 29.2 g/dL (32-36); Mean Corpuscular Volume 68.1 fL (80-100); Mean Platelet Volume 10.9 fL (7.4-10.4); Monocytes # (auto) 0.52 K/uL (0.11-0.59); Monocytes % (auto) 7.7 %; Neutrophils # (auto) 4.68 K/uL (1.4-6.5); Neutrophils % (auto) 69.6 %; Platelet Count 721 K/uL (130-400); RDW Coefficient of Variation 21.8 % (11.5-14.5); RDW Standard Deviation 51.9 fL (36.4-46.3); Red Blood Count 3.57 M/uL (4.7-6.1); White Blood Count 6.73 K/uL (4.8-10.8)
[2021-02-18 06:01] LABS: BUN Creatinine Ratio 18.3 (10-20); Calcium 8.5 mg/dl (8.5-10.1); Creatinine Clr Calc Pharmacy 83.2 ml/min; Est GFR (African American) 101.5 ml/min; Est GFR (Non-African American) 87.6 ml/min; Potassium 3.7 mmol/L (3.5-5.1)
[2021-02-18 06:03] LABS: Hypochromasia Present; Poikilocytosis Present
[2021-02-18] MEDS: PANTOprazole 40 MG TAB PO SCH (08:58)
[2021-02-18] MEDS: ESCITALOPRAM OXALATE 10 MG TAB PO SCH (08:58)
[2021-02-18] MEDS: PIPERACILLIN/TAZOBACTAM 3.375 GM in DEXTROSE 5% 100 ML IV SCH ×2 (09:20→17:08)
--- NOTE | 2021-02-18 09:53 | Pulmonology Progress Note ---
Date of Service February 18, 2021 Assessment & Plan (1) Empyema: (2) Pleural effusion: (3) Abnormal chest CT: Impression: 85-year-old male 3 of T4 adenocarcinoma the colon now with empyema (2 Clostridium species) status post 14 Italian pigtail catheter placed 02/12/2021. The catheter was replaced 02/14/2021 and MIST protocol reinitiated due to catheter migration into the soft tissues. --Right-sided empyema S/p pigtail catheter insertion 02/12/2021 --> changed 02/14/2021 On antibiotics Culture growing Clostridium perfringens and cadaveris On antibiotics Patient completed MIST protocol. --History of COVID-19 pneumonia Diagnosed 11/05/2020 S/p 4 days of dexamethasone He did not need any prolonged treatment He was treated with antibiotics for aspiration pneumonia at that time Unasyn and doxycycline. Plan: Right-sided chest tube level 1100 today. 50 mL in the last 24 hours Still draining chalky colored fluid. No airleak. Continue with chest tube currently. Gave sterile water flushes into the chest tube 100 mL every 4 hours 24 hours to clear the pleural space. Case discussed with primary team. Please note the above document was generated using voice recognition software. It may contain grammatical, syntax or spelling errors.Any formal questions or concerns about the content, text or information contained within the body of this dictation should be directly addressed to the provider for clarification. Admission and Anticipated Discharge Date Admission Date: February 11, 2021 Subjective Patient seen and examined at bedside. No acute distress, no gross events overnight. Denies any chest pain. No shortness of breath. No fever. No nausea or vomiting. Fair appetite Review of Systems Review of Systems: All systems reviewed & are unremarkable except as noted in Subjective Physical Exam Physical Exam: Constitutional: No acute distress HEENT: EOMI, PERRLA Respiratory system: Decreased air entry on the right side, positive crackles right lower lobe, no wheeze, no rhonchi CVS: S1-S2 positive, no murmurs or gallops Abdomen: Soft, nontender, nondistended, positive bowel sounds x4 Extremities: +2 pulses bilaterally radialis/ dorsalis pedis, no cyanosis, no edema Neuro: Awake alert oriented x3 Psych: Normal mood and affect G/U: No Faulkner Right-sided chest tube in place Skin: no rashes, warm and dry Lymphatic: no cervical or axillary lymphadenopathy Results & Data Results & Data ([facility]) Vital Signs (Past 12 Hours) Vital Signs Temp Pulse Resp BP Pulse Ox 02/18/21 08:22 36.5 C 88 18 151/58 H 92 02/17/21 22:13 36.6 C 78 18 127/73 96 02/18/21 05:24 02/18/21 05:24 PG Care Time/CCT Total # of Minutes Spent Total Time Spent with Patient: Total time spent is greater than 50% in coordination of care (as documented) at patient's floor/unit and/or counseling patient: Coding Level of Care Code 66801 Subseq Hosp Care Lvl 3 Diagnoses Empyema J86.9 Pleural effusion J90 Abnormal chest CT R93.89
[2021-02-18] MEDS ORDERED: WATER STERILE FOR IPL SCH (10:00)
--- NOTE | 2021-02-18 10:57 | XRay Report ---
XR chest 1V portable HISTORY: Follow-up right pleural effusion. COMPARISON: Chest 02/17/2021. FINDINGS: No change in position of the right pleural drainage catheter. The small right pleural effus ion has almost completely resolved. Hazy right basilar densities persist. The heart remains mildly en larged. There is mild elevation of the right hemidiaphragm. No pneumothorax. IMPRESSION: Right pleural drainage catheter is unchanged in position. The small right pleural effusion has almost completely resolved. ACT 112: Negative or not required by law. Electronically signed by: Rian Narvaez M.D. 02/18/2021 10:56 AM
[2021-02-18] MEDS: WATER IPL SCH ×3 (11:38→19:04)
[2021-02-18] MEDS: STERILE IPL SCH ×3 (11:38→19:04)
--- NOTE | 2021-02-18 13:08 | Discharge Summary ---
Date of Service February 18, 2021 Admission HPI Per Admitting Provider 85-year-old male who was seen in pulmonary office for a pleural effusion with concern for empyema. Patient was sent as a direct admission for chest tube placement and removal with analysis of fluid. Patient is recovering from Covid pneumonia which was diagnosed October 30, 2020 is now outside of the 90-day window and will be retested. Patient also during that admission was found to have a large bowel obstruction which required surgical resection and was found to have stage IV adenocarcinoma. Patient most recently saw Dr. Masterson and although there was no defined metastatic disease there was some concerning lesions in the liver which may be hemangioma but further testing is required as the image but did have motion artifact degradation. Because the patient is still recovering from his significant illness as he was in the hospital for prolonged period of time and at rehab for prolonged period of time Dr. Masterson has postpone any chemotherapy due to his performance status and is hopeful that he could improve his nutrition and physical performance prior to initiating chemotherapy. Patiently brought in our facility he will be started on Zosyn therapy to cover gram negatives and anaerobes he will have a pulmonary consultation for possible ultrasound-guided drainage of his pleural effusion with analysis for empyema. Patient will have a Covid test on presentation and a MRSA nasal swab in case we would need to add coverage for MRSA Admission Exam Per Admitting Provider The patient appeared well nourished and normally developed. Vital signs as documented. Head exam is normocephalic atraumatic Neck is without JVD, thyromegaly, or carotid bruits. Lungs absent breath sounds at the right base with some minor crackles above appr oximately 1/3-1/[address], Cardiac exam, Rhythm is regular.. No murmurs, rubs or gallops. Abdominal exam reveals normal bowel sounds, soft non tender, no masses Extremities are nonedematous and both pedal pulses are present Neurologic exam is alert and oriented, no focal loss of strength or sensation Skin is without bruises or rashes Psychologically is without concerns for anxiety or depression Principal Diagnosis empyema Discharge Exam GENERAL: Awake and alert. No acute distress. Laying supine with HOB elevated. Resting comfortably. EYES: EOMI. Anicteric sclerae. HENT: Moist mucous membranes. RESPIRATORY: Breathing is unlabored. Decreased air movement throughout right lung faulkner. No wheezing, rales, or rhonci. CARDIOVASCULAR: Regular rate and rhythm. No murmurs. ABDOMEN: Soft, non-tender and non-distended. Normal bowel sounds. EXTREMITIES: No edema. Non-tender. SKIN: Warm, dry. Right chest wall with pigtail catheter in place. NEUROLOGIC: No focal neurological deficits. CN II-XII grossly intact, but not individually tested. PSYCHIATRIC: Cooperative. Appropriate mood and affect. Discharge Data Allergies Allergy/AdvReac Type Severity Reaction Status Date / Time No Known Allergies Allergy Mild Verified 02/10/21 15:56 Consultations 02/11/21 17:00 Consult Pulmonology Routine 02/16/21 18:37 Consult Infectious Diseases Routine 02/18/21 11:41 Burn CD for patient Stat Procedures Performed Diagnostic therapeutic US-guided 14F catheter placement in the right chest Ordered Studies 02/14/21 09:07 CT chest diagnostic wo con Routine 02/16/21 10:25 CT chest diagnostic wo con Routine Hospital Course (1) Empyema of right pleural space: Adrian is an 85 year old male with a history of COVID-19 pneumonia, adenocarcinoma of the colon, HTN, and HLD who presented as a 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 He is completely asympt omatic and hemodynamically stable. He is now s/p 7 days of pleural drainage with persistent fluid drainage. At this point, patient requires transfer to tertiary care facility for evaluation for VATS and washout. Empyema - MRI-A/P performed for evaluation of known preexisting liver lesions incidentally discovered right-sided pleural effusion that had radiologic characteristics of empyema - Pulmonology consulted. Pleural catheter placed 02/12 and replaced/repositioned 02/15. - Continue Zosyn for now (pCx growing Clostridium perfringens, cadaveris). - Chest CT 02/16: Interval placement of a right posterior pleural drainage catheter with near complete resolution of the loculated right pleural fluid collection/empyema. There is trace fluid remaining within the right posterior pleural space. Small amount of gas at this location is likely due to the postoperative change. Persistent consolidation within the right lower lobe posteriorly. This favors a pneumonia. Recommend follow-up to ensure resolution. - CXR 02/17: Right pleural drainage catheter is unchanged in position. Improved aeration within the right mid to lower lung zone with decreased size of the right pleural effusion. - As of 02/18, patient continues to have purulent drainage from right pleural space after 7 days of therapy. Plan for transfer to tertiary care surgery. - ID has been consulted. Unfortunately, patient was unable to have teleconsult with ID prior to transfer. Colonic Adenocarcinoma -- follows with Dr. Masterson - Noted to have T4N0 adenocarcinoma -- s/p resection in October - Not on chemotherapy -- patient actively in discussion with Dr. Masterson - Liver lesions that previously were concerning for metastasis seem to be more consistent with hemangiomas based on most recent MRI Microcytic Anemia -- stable on repeat checks, baseline Hgb 7 - 9 - Patient with known history of thalassemia and chronic anemia; Hgb was 8 on 02/05 - Asymptomatic on history, exam - Hgb 3.3 on 02/11 - drawn in syringe w/ IV start -- suspect dilational, iatrogenic error - Did receive 1U pRBC in AM of 02/12 --> repeat Hgb 7.5 - Hgb on day of transfer 7.1; patient asymptomatic - Consider transfusion Hgb < 7 and symptomatic Chronic Medical Conditions Anxiety: Stable. Continue Lexapro. BPH: Continue Flomax GERD: Continue Protonix Dispo: Transfer to tertiary care facility, [facility] [place] [facility]/GI: Regular Consults: Pulm, ID PPX: pLov Code: FULL CODE (2) Pleural effusion: (3) HTN (hypertension): (4) Hyperlipidemia: (5) GERD (gastroesophageal reflux disease): (6) Renal insufficiency: (7) Thalassemia syndrome: (8) Microcytic anemia: (9) Adenocarcinoma, colon: Total Time Total Time Spent Total Time Spent (In Minutes): <30 Discharge Plan Discharge Items Patient Disposition: Transfer Acute Care Hospital Reason For Visit: EMPYEMA Discharge Diagnosis: empyema Activity: Per Instructions section Non-emergency contact: Primary Care Provider and Documentation Supervisor Call non-emergency contact if: you have any medication questions Follow-up/Referrals: Francis Garcia MD [Primary Care Provider] - Diet: Regular Addtl Attending Provider Instructions: You were admitted after a collection of fluid was detected in your right lung on imaging. A chest tube catheter was placed to drain that fluid collection. Desp ite 7 days of therapy, there continues to be drainage from the catheter and at this time you will be transferred to [facility] for further care and evaluation for possible surgical intervention. Please see additional chart EMR information for further medication information. Pending Studies at Discharge: No Stand-Alone [facility]: [facility] Sk[facility] Items Patient informed of condition?: Yes DNR: No Discharge Level of Care: Other Communicable Disease: No Discharge Prognosis: Stable Lines: Peripheral IV Urinary Catheter: No Medications and DC Order Prescriptions: Continued psyllium husk [Metamucil] 0.52 gram capsule 0.52 gm PO QAM RF: 0 simvastatin 20 mg tablet 20 mg PO QPM Qty: 90 RF: 3 escitalopram oxalate [Lexapro] 10 mg tablet 10 mg PO QAM Qty: 90 RF: 3 aspirin [Aspirin Low Dose] 81 mg tablet,delayed release (DR/EC) 81 mg PO DAILY RF: 0 pantoprazole 40 mg tablet,delayed release (DR/EC) 40 mg PO DAILY RF: 0 tamsulosin 0.4 mg capsule 0.8 mg PO DAILY 90 Days Qty: 180 RF: 3 Discharge Orders: Discharge Order (Routine); Ordered 02/18/21 Ordered By: Elayne Brown Admission Data Admit Date/Time: 02/11/21 18:24 Attending Provider: Ry Renae Admit Provider: Gaston Humphrey Primary Care Provider: Francis Garcia Other Providers: Rafa Reynaga ; Syncano,[facility] ; Jordan Garcia ; Alexandrea Castle ; Venkat Garcia I. ; Caio Mason II ; Gale Allen ; Irving Guzmán Supervising Physician Co-Signing Physician Notes I personally examined the patient and verified all chauhan points of history and exam, discussed case, and agree with decision making with Dr Brown no new complaints. Vitals noted, in general he is awake and alert pleasant no distress. HEENT normocephalic atraumatic mucous membranes moist. Breathing unlabored no accessory muscle use good effort. Skin shows no rashes no pallor or icterus. Empyemacontinue antibiotics and chest tube drainage for now, since not improving - eval for VATS Resident Activity Tracking Resident Involvement: Resident Care Provided Care Provided: Adult Hospital Medicine
[2021-02-18] MEDS: ENOXAPARIN INJ 40 MG/0.4 ML SYR SQ SCH (17:09)
[2021-02-18] MEDS: TAMSULOSIN HCL 0.4 MG CAP PO SCH (19:04)
--- NOTE | 2021-02-18 19:17 | Billing Data ---
Date of Service February 18, 2021 Coding Level of Care Code D/C Day Management <30 mins
== END 2021-02-18 20:00 | disposition short-term general hospital (02) | DRG 178 ==
LOC: SUATTDRO 18:24 → 2W 18:24 → 3E 02-16 10:14

== ENCOUNTER 2022-01-05 11:59 | Inpatient (IN) ==
[2022-01-05] MEDS ORDERED: CEFEPIME 2,000 MG/20 ML VIAL IV STA (12:16)
[2022-01-05] MEDS ORDERED: SODIUM CHLORIDE 0.9% 1000ML 1,000 ML IV SCH (12:30)
--- NOTE | 2022-01-05 12:34 | Emergency Department Note ---
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 Rodriguez 12/05/2020 History of colonoscopy History of prostate surgery History of tonsillectomy and adenoidectomy History of tooth extraction Hx of cataract surgery LEFT Port-A-Cath in place (10/14/21) Insertion of Access Port - Left Cephalic(Left) - Marcus Rodriguez MD, FACS 10/14/2021 Family History Sister Breast cancer Brother History of throat cancer Denies family history of Colon cancer Ovarian cancer Prostate cancer Myocardial infarction Social History Smoking Status: Never smoker Tobacco Type: Cigars Second Hand Exposure: No; Hx Alcohol Use: No Hx Substance Use: No Preferred Language: [place] Communication Ability: Effective Visual Impairment: No Limitations Hearing Ability: Normal 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 Beliefs That Will Affect Care: None and Mormon Mormon Beliefs: RESTORATIONIST marital status: Current Living Situation: Spouse current occupational status: retired Feels Safe at Home: Yes Assistive Devices: Walker Allergies Allergies Allergy/AdvReac Type Severity Reaction Status Date / Time No Known Allergies Allergy Mild Verified 01/01/22 10:16 Home Meds Home Medications Medication Instructions Recorded Confirmed aspirin 81 mg tablet,delayed 81 mg PO QAM 01/27/21 01/01/22 release (Aspirin Low Dose) tamsulosin 0.4 mg capsule 0.4 mg PO QPM 10/09/21 01/01/22 Previous Rx's Medication Instructions Recorded Incentive Spirometer #1 ea 04/16/21 omeprazole 20 mg capsule,delayed 20 mg PO DAILY #90 cap 04/30/21 release escitalopram oxalate 10 mg tablet 10 mg PO QAM #90 tab 07/17/21 (Lexapro) simvastatin 20 mg tablet 20 mg PO QPM #90 tab 07/17/21 Results & Data (ED) Vital Signs Vital Signs - 24 hr 01/05/22 12:08 Temperature 38.1 C H Temperature Source Oral Pulse Rate 98 H Respiratory Rate 18 Respiratory Effort / Characteristics Non-Labored Respiratory Depth Normal Blood Pressure 182/92 H Blood Pressure Mean 122 Blood Pressure Position Lying Pulse Oximetry 99 Oxygen Delivery Method Room Air Sepsis Recent Fever Within 48 Hours Yes Sepsis New/Unexplained Change in Mental Status No Sepsis Action Taken by Nursing No Action Required Discharge Plan Visit Data Chief Complaint: Weakness ED Provider: Adebayo Omer Forms Stand Alone Forms: [facility] Prescriptions Prescriptions: No Action aspirin [Aspirin Low Dose] 81 mg tablet,delayed release (DR/EC) 81 mg PO QAM RF: 0 omeprazole 20 mg capsule,delayed release(DR/EC) 20 mg PO DAILY Qty: 90 RF: 3 (DME) Incentive Spirometer Misc See Rx Instructions .MEDSUPPLY Qty: 1 RF: 0 escitalopram oxalate [Lexapro] 10 mg tablet 10 mg PO QAM Qty: 90 RF: 3 simvastatin 20 mg tablet 20 mg PO QPM Qty: 90 RF: 3 tamsulosin 0.4 mg capsule 0.4 mg PO QPM RF: 0 Referrals Referrals: ProFrancis MD [Primary Care Provider] -
[2022-01-05] MEDS ORDERED: VANCOMYCIN CONSULT ACTIVE PRN ×2 (12:48→17:21)
[2022-01-05] MEDS ORDERED: VANCOMYCIN HCL 2,000 MG in SODIUM CHLORIDE 0.9% 500 ML IV ONE (12:48)
[2022-01-05 12:57] LABS: Mean Corpuscular Hgb Conc 30.9 g/dL (32-36)
[2022-01-05 13:06] LABS: Hematocrit (blood only) 27.8 % (42-52); Hemoglobin 8.6 g/dL (14.0-18.0); Mean Corpuscular Hemoglobin 23.4 pg (25-34); Mean Corpuscular Volume 75.7 fL (80-100); RDW Coefficient of Variation 23.9 % (11.5-14.5); RDW Standard Deviation 63.2 fL (36.4-46.3); Red Blood Count 3.67 M/uL (4.7-6.1); White Blood Count 6.22 K/uL (4.8-10.8)
[2022-01-05 13:14] LABS: Anisocytosis Present; Immature Granulocytes # (auto) 0.14 K/uL (0.00-0.02); Immature Granulocytes % (auto) 2.3 %; Lymphocytes # (auto) 0.65 K/uL (1.2-3.4); Lymphocytes % (auto) 10.5 %; Monocytes # (auto) 0.23 K/uL (0.11-0.59); Monocytes % (auto) 3.7 %; Neutrophils % (auto) 83.5 %; Ovalocytes 1+; Platelet Count 82 K/uL (130-400); Platelet Estimate Decreased (Normal); Spherocytes 1+
[2022-01-05 13:25] LABS: Albumin Level 3.2 gm/dl (3.4-5.0); BUN Creatinine Ratio 23.1 (10-20); Calcium 8.5 mg/dl (8.5-10.1); Creatinine Clr Calc Pharmacy 70.2 ml/min; Est GFR (African American) 94.7 ml/min; Est GFR (Non-African American) 81.7 ml/min; Globulin 3.2 gm/dl (2.5-4.0); Magnesium 1.9 mg/dl (1.7-2.4); Potassium 4.1 mmol/L (3.5-5.1); Total Protein 6.4 gm/dl (6.0-8.3)
--- NOTE | 2022-01-05 13:27 | Emergency Department Note ---
History of Present Illness General Chief complaint: Weakness Time Seen by Provider: 01/05/22 12:33 History of Present Illness 86-year-old male presents to the ED with a chief complaint of generalized weakness. The patient states that he is getting chemotherapy for liver cancer. He has had 6 episodes of chemotherapy thus far. He was diagnosed in September. His last episode of chemotherapy was Wednesday the , 5 days ago. He also recently had a blood transfusion. The patient states that he LDAP yesterday morning and passed out. Since that time he has been weak. He has not hurt his self. His states that he is fallen 4-5 times in the past couple of weeks. He has had decreased p.o. intake and appetite. Patient reports a chronic cough, nothing new. He has some associated nausea but no vomiting. He is on Zofran. Denies any abdominal pains. He does have decubitus wounds on his buttock as well as a wound in his right groin. The just noticed this over the past day or 2. Home Medications Medication Instructions Recorded Confirmed Type aspirin 81 mg tablet,delayed 81 mg PO QAM 01/27/21 01/05/22 History release (Aspirin Low Dose) Incentive Spirometer #1 ea 04/16/21 10/07/21 Rx omeprazole 20 mg capsule,delayed 20 mg PO DAILY #90 cap 04/30/21 01/05/22 Rx release escitalopram oxalate 10 mg tablet 10 mg PO QAM #90 tab 07/17/21 01/05/22 Rx (Lexapro) simvastatin 20 mg tablet 20 mg PO QPM #90 tab 07/17/21 01/05/22 Rx tamsulosin 0.4 mg capsule 0.4 mg PO QPM 10/09/21 01/05/22 History Allergies Allergy/AdvReac Type Severity Reaction Status Date / Time No Known Allergies Allergy Mild Verified 01/05/22 12:47 Past Med/Surg History Medical History Anxiety GERD (gastroesophageal reflux disease) CONTROLLED History of being hospitalized OCT 2020 DX COVID...(JONAS BARDALES)...DX PNEUMONIA, BOWEL BLOCKAGE AND LUNG INFECTION...REHAB CENTRE CREST/ENCOMPASS DISCHARGED FEBRUARY 2021 Hyperlipidemia HX Metastatic colon cancer to liver DX 09/30/20 Prostate cancer DX 2007 - HX SEED IMPLANT AND RADIATION THERAPY 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 Rodriguez 12/05/2020 History of colonoscopy History of prostate surgery History of tonsillectomy and adenoidectomy History of tooth extraction Hx of cataract surgery LEFT Port-A-Cath in place (10/14/21) Insertion of Access Port - Left Cephalic(Left) - Marcus Rodriguez MD, FACS 10/14/2021 Family History Sister Breast cancer Brother History of throat cancer Denies family history of Colon cancer Ovarian cancer Prostate cancer Myocardial infarction Social History Smoking Status: Never smoker Tobacco Type: Cigars Second Hand Exposure: No; Hx Alcohol Use: No Hx Substance Use: No Preferred Language: Japanese Communication Ability: Effective Visual Impairment: No Limitations Hearing Ability: Normal 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: No Beliefs That Will Affect Care: None and Sikhism Sikhism Beliefs: RESTORATIONISM marital status: Current Living Situation: Spouse current occupational status: retired Feels Safe at Home: Yes Assistive Devices: Walker Review of Systems A total of 10 systems reviewed and were otherwise negative Physical Exam Vital Signs Vital Signs - 24 hr 01/05/22 12:08 01/05/22 12:15 01/05/22 12:16 Temperature 38.1 C H Temperature Source Oral Pulse Rate 98 H 99 H Pulse Rate from SpO2 Sensor 104 H Respiratory Rate 18 19 Respiratory Effort / Characteristics Non-Labored Respiratory Depth Normal Blood Pressure 182/92 H 200/108 H Blood Pressure Mean 122 138 Blood Pressure Position Lying Pulse Oximetry 99 98 Oxygen Delivery Method Room Air Oxygen Flow Rate Sepsis Recent Fever Within 48 Hours Yes Sepsis New/Unexplained Change in Mental Status No Sepsis Action Taken by Nursing No Action Required 01/05/22 12:30 01/05/22 12:46 01/05/22 13:00 Temperature Temperature Source Pulse Rate 104 H 98 H 107 H Pulse Rate from SpO2 Sensor 158 H Respiratory Rate 17 18 Respiratory Effort / Characteristics Respiratory Depth Blood Pressure Blood Pressure Mean Blood Pressure Position Pulse Oximetry 93 Oxygen Delivery Method Room Air Oxygen Flow Rate Sepsis Recent Fever Within 48 Hours Sepsis New/Unexplained Change in Mental Status Sepsis Action Taken by Nursing 01/05/22 13:01 01/05/22 13:13 01/05/22 13:30 Temperature Temperature Source Pulse Rate 101 H 95 H Pulse Rate from SpO2 Sensor 136 H 83 Respiratory Rate 20 24 Respiratory Effort / Characteristics Respiratory Depth Blood Pressure 222/80 H 157/113 H Blood Pressure Mean 127 127 Blood Pressure Position Pulse Oximetry 94 91 Oxygen Delivery Method Nasal Cannula Oxygen Flow Rate 2 Sepsis Recent Fever Within 48 Hours Sepsis New/Unexplained Change in Mental Status Sepsis Action Taken by Nursing 01/05/22 14:00 01/05/22 14:01 01/05/22 14:13 Temperature 36.6 C Temperature Source Oral Pulse Rate 92 H 99 H Pulse Rate from SpO2 Sensor 94 H 100 H Respiratory Rate 18 22 Respiratory Effort / Characteristics Respiratory Depth Blood Pressure 167/100 H Blood Pressure Mean 122 Blood Pressure Position Pulse Oximetry 91 98 Oxygen Delivery Method Nasal Cannula Oxygen Flow Rate 2 Sepsis Recent Fever Within 48 Hours Sepsis New/Unexplained Change in Mental Status Sepsis Action Taken by Nursing CONSTITUTIONAL/VITAL SIGNS: Reviewed / noted above. GENERAL: Non-toxic in appearance. INTEGUMENTARY: Warm, dry, and [place]. HEAD: Normocephalic. EYES: without scleral icterus or trauma. ENT/OROPHARYNX: clear and moist. LYMPHADENOPATHY/NECK: Is supple without lymphadenopathy or meningismus. RESPIRATORY: Clear to auscultation bilaterally. No increased work of breathing. CARDIOVASCULAR: Regular rate and rhythm. GI/ABDOMEN: Soft and nontender. No organomegaly or pulsatile mass. EXTREMITIES: Warm and well perfused. The patient has a wound in the right groin with some surrounding cellulitis. There is also decubitus ulcer in the left buttock that is worse than the one in the right buttock. All of these wounds seem to involve subcutaneous fatty tissue. BACK: No CVA tenderness. NEUROLOGICAL: Intact without focal deficits. PSYCHIATRIC: normal affect. MUSCULOSKELETAL: Normally developed with good muscle tone. TRIAGE NURSING DOCUMENTATION REVIEWED. Course Administered Medications Vancomycin HCl 2,000 mg/ (Sodium Chloride) 540 mls @ 200 mls/hr IV NOW ONE Stop: 01/05/22 15:29 Last Admin: 01/05/22 13:20 Dose: 200 mls/hr Documented by: [id number] Discontinued Medications Sodium Chloride (Nss 1000ml) 1,000 mls @ 999 mls/hr IV .Q1H1M ADE Stop: 01/05/22 13:30 Last Admin: 01/05/22 12:41 Dose: 999 mls/hr Documented by: [id number] Cefepime HCl (Maxipime) 2,000 mg in 20 mls @ 5 mls/min IV NOW STA; Protocol Stop: 01/05/22 12:19 Last Admin: 01/05/22 12:40 Dose: 5 mls/min Documented by: [id number] Medical Decision Making Differential Diagnosis Differential includes viral illness, influenza, streptococcal pharyngitis, meningitis, pneumonia, sinusitis, UTI, pyelonephritis, otitis media. Medical Records Attestation: I reviewed the patient's medical records. Home Medications Current Medication List: was personally reviewed by me Laboratory Data Attestation: I reviewed the patient's lab results. Result diagrams: 01/05/22 12:30 01/05/22 12:30 Lab Results 01/05/22 01/05/22 01/05/22 Range/Units 12:30 12:30 12:30 WBC 6.22 (4.8-10.8) K/uL RBC 3.67 L (4.7-6.1) M/uL Hgb 8.6 L (14.0-18.0) g/dL Hct 27.8 L (42-52) % MCV 75.7 L (80-100) fL MCH 23.4 L (25-34) pg MCHC 30.9 L (32-36) g/dL RDW Std Deviation 63.2 H (36.4-46.3) fL RDW Coeff of Maryann 23.9 H (11.5-14.5) % Plt Count 82 L (130-400) K/uL Immature Gran % (Auto) 2.3 % Neut % (Auto) 83.5 % Lymph % (Auto) 10.5 % [place] % (Auto) 3.7 % Eos % (Auto) 0.0 % Baso % (Auto) 0.0 % Neut # (Auto) 5.20 (1.4-6.5) K/uL Lymph # (Auto) 0.65 L (1.2-3.4) K/uL [place] # (Auto) 0.23 (0.11-0.59) K/uL Eos # (Auto) 0.00 (0-0.5) K/uL Baso # (Auto) 0.00 (0-0.2) K/uL Immature Gran # (Auto) 0.14 H (0.00-0.02) K/uL Platelet Estimate Decreased L (Normal) Anisocytosis Present Spherocytes 1+ Ovalocytes 1+ PT 12.4 H (9.0-12.0) Seconds INR 1.2 H (0.9-1.1) APTT 31.7 H (21.0-31.0) Seconds PTT Ratio 1.2 Sodium 133 L (136-145) mmol/L Potassium 4.1 (3.5-5.1) mmol/L Chloride 98 (98-107) mmol/L Carbon Dioxide 29 (21-32) mmol/L Anion Gap 6 (3-11) BUN 18 (6-23) mg/dl Creatinine 0.78 (0.6-1.4) mg/dl Est Cr Clr Drug Dosing 70.2 ml/min Est GFR ( Amer) 94.7 ml/min Est GFR (Non-Af Amer) 81.7 ml/min BUN/Creatinine Ratio 23.1 H (10-20) Glucose 94 (70-99(Fasting)) mg/dl Lactate (0.4-2.0) mmol/L Calcium 8.5 (8.5-10.1) mg/dl Magnesium 1.9 (1.7-2.4) mg/dl Total Bilirubin 1.0 (0.2-1.0) mg/dl AST 21 (13-39) U/L ALT 15 (7-52) U/L Alkaline Phosphatase 54 (34-104) U/L Total Protein 6.4 (6.0-8.3) gm/dl Albumin 3.2 L (3.4-5.0) gm/dl Globulin 3.2 (2.5-4.0) gm/dl Albumin/Globulin Ratio 1.0 (0.9-2) Procalcitonin (0-0.5) ng/ml SARS-CoV-2 (PCR) (Negative) Influenza Type A (PCR) (Neg) Influenza Type B (PCR) (Neg) RSV (RT-PCR) (Neg) 01/05/22 01/05/22 01/05/22 Range/Units 12:30 12:30 12:43 WBC (4.8-10.8) K/uL RBC (4.7-6.1) M/uL Hgb (14.0-18.0) g/dL Hct (42-52) % MCV (80-100) fL MCH (25-34) pg MCHC (32-36) g/dL RDW Std Deviation (36.4-46.3) fL RDW Coeff of Maryann (11.5-14.5) % Plt Count (130-400) K/uL Immature Gran % (Auto) % Neut % (Auto) % Lymph % (Auto) % [place] % (Auto) % Eos % (Auto) % Baso % (Auto) % Neut # (Auto) (1.4-6.5) K/uL Lymph # (Auto) (1.2-3.4) K/uL [place] # (Auto) (0.11-0.59) K/uL Eos # (Auto) (0-0.5) K/uL Baso # (Auto) (0-0.2) K/uL Immature Gran # (Auto) (0.00-0.02) K/uL Platelet Estimate (Normal) Anisocytosis Spherocytes Ovalocytes PT (9.0-12.0) Seconds INR (0.9-1.1) APTT (21.0-31.0) Seconds PTT Ratio Sodium (136-145) mmol/L Potassium (3.5-5.1) mmol/L Chloride (98-107) mmol/L Carbon Dioxide (21-32) mmol/L Anion Gap (3-11) BUN (6-23) mg/dl Creatinine (0.6-1.4) mg/dl Est Cr Clr Drug Dosing ml/min Est GFR ( Amer) ml/min Est GFR (Non-Af Amer) ml/min BUN/Creatinine Ratio (10-20) Glucose (70-99(Fasting)) mg/dl Lactate 0.9 (0.4-2.0) mmol/L Calcium (8.5-10.1) mg/dl Magnesium (1.7-2.4) mg/dl Total Bilirubin (0.2-1.0) mg/dl AST (13-39) U/L ALT (7-52) U/L Alkaline Phosphatase (34-104) U/L Total Protein (6.0-8.3) gm/dl Albumin (3.4-5.0) gm/dl Globulin (2.5-4.0) gm/dl Albumin/Globulin Ratio (0.9-2) Procalcitonin 0.11 (0-0.5) ng/ml SARS-CoV-2 (PCR) NEGATIVE (Negative) Influenza Type A (PCR) Negative (Neg) Influenza Type B (PCR) Negative (Neg) RSV (RT-PCR) Negative (Neg) Imaging Data Radiologist's Impression: Chest X-Ray 01/05/22 12:16 XR chest 1V portable HISTORY: 86 years-old Male SEPSIS acute sepsis with weakness and cough COMPARISON: Chest radiograph 10/14/2021 TECHNIQUE: Portable AP view of the chest FINDINGS: Cardiac silhouette is upper limits of normal in size. Atherosclerosis of the thoracic aorta. No pneumothorax, pleural effusion, airspace consolidation or overt pulmonary edema. Unchanged right hemidiaphragmatic elevation. Mild chronic interstitial coarsening. Left subclavian Pkjeaw-r-Ojof catheter distal tip terminates within the region of the mid SVC. Degenerative changes of the should ers and spine. IMPRESSION: No acute process. ACT 112: Negative or not required by law. The above report was generated using voice recognition software. It may contain grammatical, syntax or spelling errors. Electronically signed by: Benitez Valentin M.D. 01/05/2022 2:01 PM ECG Data Attestation: I personally reviewed and interpreted this ECG as follows: Additional Comments: Twelve-lead EKG: Per my interpretation shows a sinus tachycardia at a rate of 105. There is a right bundle branch block. No PVCs. No ST elevation. MDM Narrative Patient presents with generalized weakness in the setting of liver cancer and recent chemotherapy. He has decreased appetite. He also is noted to have a fever here of 38.1. He has an ulcerous groin infection with some surrounding cellulitis. He also has decubiti ulcers in the bilateral buttock areas. No new upper respiratory symptoms. No abdominal pains urinary symptoms. He was treated empirically with IV cefepime and IV vancomycin as well as some IV fluids. He was given 1 L of IV fluids. His blood pressure is elevated. The patient CBC shows chronic anemia. Hemoglobin is 8.6. Procalcitonin was negative. Lactic acid is negative. Covid is negative. No leukocytosis. Patient was empirically started on IV cefepime and IV vancomycin. He was also given some IV fluids. He will be seen by the hospitalist for further inpatient evaluation and care. Impression & Plan Fever, Anemia, Cellulitis of groin, right, Generalized muscle weakness, A norexia Discharge Plan Visit Data Chief Complaint: Weakness ED Provider: Kg Acharya Discharge Problem: Fever, Anemia, Cellulitis of groin, right, Generalized muscle weakness, Anorexia Patient Disposition: Being Evaluated by Hospitalist Forms Stand Alone Forms: [facility] Prescriptions Prescriptions: No Action aspirin [Aspirin Low Dose] 81 mg tablet,delayed release (DR/EC) 81 mg PO QAM RF: 0 omeprazole 20 mg capsule,delayed release(DR/EC) 20 mg PO DAILY Qty: 90 RF: 3 (DME) Incentive Spirometer Misc See Rx Instructions .MEDSUPPLY Qty: 1 RF: 0 escitalopram oxalate [Lexapro] 10 mg tablet 10 mg PO QAM Qty: 90 RF: 3 simvastatin 20 mg tablet 20 mg PO QPM Qty: 90 RF: 3 tamsulosin 0.4 mg capsule 0.4 mg PO QPM RF: 0 Referrals Referrals: Francis Garcia MD [Primary Care Provider] -
[2022-01-05 13:36] LABS: INR 1.2 (0.9-1.1); Partial Thromboplastin Ratio 1.2; Partial Thromboplastin Time 31.7 Seconds (21.0-31.0); Prothrombin Time 12.4 Seconds (9.0-12.0)
[2022-01-05 13:43] LABS: Influenza A virus by PCR Negative (Neg); Influenza B virus by PCR Negative (Neg); RSV by PCR Negative (Neg); SARS CoV2 RNA(COVID-19) InHosp NEGATIVE (Negative)
--- NOTE | 2022-01-05 14:02 | XRay Report ---
XR chest 1V portable HISTORY: 86 years-old Male SEPSIS acute sepsis with weakness and cough COMPARISON: Chest radiograph 10/14/2021 TECHNIQUE: Portable AP view of the chest FINDINGS: Cardiac silhouette is upper limits of normal in size. Atherosclerosis of the thoracic aorta. No pneum othorax, pleural effusion, airspace consolidation or overt pulmonary edema. Unchanged right hemidiaph ragmatic elevation. Mild chronic interstitial coarsening. Left subclavian Uabhbw-u-[id number] catheter dist al tip terminates within the region of the mid SVC. Degenerative changes of the shoulders and spine. IMPRESSION: No acute process. ACT 112: Negative or not required by law. The above report was generated using voice recognition software. It may contain grammatical, syntax o r spelling errors. Electronically signed by: Benitez Valentin M.D. 01/05/2022 2:01 PM
--- NOTE | 2022-01-05 14:18 | History & Physical Report ---
Date of Service January 05, 2022 Assessment & Plan (1) Sepsis: Plan: Presents with generalized weakness and found to have fever, tachycardia, and right groin wound with cellulitis as the likely source In the setting of being immunocompromised while undergoing chemotherapy for metastatic colon cancer, last chemotherapy was 4/6 Lactate negative, blood pressures are actually elevated, renal function and hepatic function within normal limits, no respiratory failure but was placed on 2 L nasal cannula I believe for comfort Procalcitonin negative Chest x-ray negative Covid-19/influenza/RSV PCR negative Received 1 dose of IV cefepime and IV vancomycin as well as 1 L normal saline bolus in the ER -Admit to medical/surg floor -We will give broad-spectrum antibiotics given that he has a port in place until bacteremia is ruled out, but also to cover for cellulitis in the groin to include coverage for anaerobic organisms given incontinence to stool -Start IV Zosyn, IV vancomycin -Check MRSA swab and if negative, could likely stop vancomycin as he has no history of MRSA -Continue IV fluids given poor p.o. intake with LR at 80 mL's per hour -After discussion with oncology, will obtain CT of the chest/abdomen/pelvis with both IV and p.o. contrast for surveillance for metastatic disease as he was to have these done tomorrow as an outpatient anyway. But this might also be helpful in finding any other sources of infection -Follow blood cultures -Check wound culture of the right groin wound -Wound care consult ordered -Follow CBC, CMP, magnesium in the morning -UA not yet [id number] on result (2) Cellulitis of groin, right: Plan: As above Treating with IV antibiotics Wound care (3) Anemia: Plan: Hemoglobin 8.6 and stable from previous, microcytic, also with a history of thalassemia Recently received PRBC transfusion at the cancer center Check iron studies in the morning, B12, folate and replace as needed Transfusional support as needed if hemoglobin less than 8 (4) Hyponatremia: Plan: Sodium mildly low at 133, likely secondary to appropriate ADH release in the setting of dehydration Giving crystalloid volume replacement Follow BMP in the morning (5) Generalized muscle weakness: Plan: Secondary to chemotherapy side effects, dehydration, fever, and anemia Leading to multiple falls in the last few weeks Treating all of these things PT/OT consulted (6) Falls frequently: Plan: As above No acute injuries /OT consults (7) Metastatic colon cancer to liver: Plan: Currently receiving salvage chemotherapy through the cancer care partnership with Reina Romero PA-C Has had 6 treatments in the last 4 months of FOLFOX and bevacizumab Checking surveillance CT chest/abdomen/pelvis as above as requested by his oncology provider Follow CBC and give transfusional support as needed Dietitian consultation requested (8) HTN (hypertension): Plan: Blood pressures are elevated here but patient does not take any antihypertensives at home Continue to monitor Can give as needed medication as needed if becomes symptomatic (9) Hypercholesteremia: Plan: Continue home simvastatin (10) Microcytic anemia: Plan: As above, related to thalassemia and chemotherapy Follow CBC (11) BPH (benign prostatic hyperplasia): Plan: Continue Flomax No acute issues Plan: DVT prophylaxis-Lovenox, SCDs Disposition-admit to medical/surgical floor DNR/DNI as discussed with patient I discussed his care with his daughter on the phone History of Present Illness Chief Complaint: Weakness Primary Care Provider: Francis Garcia MD This patient is an 86-year-old male with stage IV colon cancer with mets to the liver currently on chemotherapy, empyema, prostate cancer, enlarged prostate, GERD, hyperlipidemia, thalassemia with anemia, anxiety, cervical spondylosis who presents to the ER with a complaint of generalized weakness and 4-5 falls in the last couple of weeks. He has been having a poor p.o. intake/low appetite more so in the last 24 hours. His most recent chemotherapy was administered on 12/31 and he also received PRBC transfusion at that time. That was his sixth chemotherapy session since September when diagnosed with stage IV colon cancer. He has a chronic cough but nothing new and his chest x-ray was negative. He denies any fevers or chills, no headaches, has a mild runny nose which is not new, no sore throat. Has chronic neck pain. He has had some nausea but no vomiting, and some chronic loose stools once to twice daily since starting on chemotherapy, but no abdominal pains. No urinary symptoms. He reports that yesterday morning when he got out of bed to go to the bathroom he lost his balance and fell but did not injure himself. He denies loss of consciousness. He was not able to get up as he has been so generally weak and called his life alert and the police helped him get back in bed. He slept for a few more hours and when he woke up he was able to get out of bed to his chair. He reports he fell also couple of weeks ago and stoved up his back and shoulders, but those pains have improved. He has decubitus wounds on his buttock and a wound in the right groin that his just noticed over the past 1 to 2 days. He thinks perhaps he scratched himself while taking his brief off. In the ER, he was found to be febrile to 38.1, tachycardic, and hypertensive. He was 93 of 94% on his pulse ox on room air but had 2 L nasal cannula placed for comfort I believe. The ER doctor noted cellulitis around the groin wound. On laboratory work-up, he had a normal WBC count, stable anemia at 8.6, and mild thrombocytopenia but stable from previous at 82. He was mildly hyponatremic with a sodium of 133, but chemistry was otherwise unremarkable. Lactate was normal. LFTs normal. Procalcitonin normal at 0.11. UA was not collected yet, blood cultures were drawn and pending. Covid-19/influenza/RSV all negative In the ER, he was given IV cefepime and IV vancomycin as well as 1 L of normal saline. He will be admitted for sepsis and groin cellulitis in the setting of immune suppression with chemotherapy as well as for generalized weakness and consideration for rehab placement. Allergies Allergy/AdvReac Type Severity Reaction Status Date / Time No Known Allergies Allergy Mild Verified 01/05/22 12:47 Home Medications Medication Instructions Recorded Confirmed Type aspirin 81 mg tablet,delayed 81 mg PO QAM 01/27/21 01/05/22 History release (Aspirin Low Dose) Incentive Spirometer #1 ea 04/16/21 10/07/21 Rx omeprazole 20 mg capsule,delayed 20 mg PO DAILY #90 cap 04/30/21 01/05/22 Rx release escitalopram oxalate 10 mg tablet 10 mg PO QAM #90 tab 07/17/21 01/05/22 Rx (Lexapro) simvastatin 20 mg tablet 20 mg PO QPM #90 tab 07/17/21 01/05/22 Rx tamsulosin 0.4 mg capsule 0.4 mg PO QPM 10/09/21 01/05/22 History Past Med/Surg History Medical History Anxiety GERD (gastroesophageal reflux disease) CONTROLLED History of being hospitalized OCT 2020 DX COVID...(JONAS BARDALES)...DX PNEUMONIA, BOWEL BLOCKAGE AND LUNG INFECTION...REHAB CENTRE CREST/ENCOMPASS DISCHARGED FEBRUARY 2021 Hyperlipidemia HX Metastatic colon cancer to liver DX 09/30/20 Prostate cancer DX 2006 - HX SEED IMPLANT AND RADIATION THERAPY 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 Rodriguez 12/05/2020 History of colonoscopy History of prostate surgery History of tonsillectomy and adenoidectomy History of tooth extraction Hx of cataract surgery LEFT Port-A-Cath in place (10/14/21) Insertion of Access Port - Left Cephalic(Left) - Marcus Rodriguez MD, FACS 10/14/2021 Family History Sister Breast cancer Brother History of throat cancer Denies family history of Colon cancer Ovarian cancer Prostate cancer Myocardial infarction Social History Smoking Status: Never smoker Tobacco Type: Cigars Second Hand Exposure: No; Hx Alcohol Use: No Hx Substance Use: No Preferred Language: Hebrew Communication Ability: Effective Visual Impairment: No Limitations Hearing Ability: Normal Escort Car Driver Required: No Beliefs That Will Affect Care: None and Taoist Taoist Beliefs: TEMPLE marital status: Current Living Situation: Spouse current occupational status: retired Feels Safe at Home: Yes Assistive Devices: Walker Review of Systems Review of Systems: All systems reviewed & are unremarkable except as noted in HPI & below Physical Exam Constitutional: WD/WN, vitals as above Eyes: PERRL, conjunctivae normal, anicteric sclerae ENMT: external ear and nose normal, oropharynx normal Neck: trachea midline, no thyromegaly Respiratory: normal respiratory effort, lungs clear to auscultation Cardiovascular: RRR, no murmur, no edema Chest (Breasts): Chest: normal inspection of chest Gastrointestinal (Abdomen): normal bowel sounds, soft, nontender, no hepatosplenomegaly Musculoskeletal: Extremities: extremities normal to inspection; no cyanosis and no clubbing Skin: no rashes, warm and dry + wound Right groin 2.5 cm in length open wound with surrounding erythema and induration, with copious purulent drainage, probes down to subcutaneous fat, tender to palpation Left greater than right buttocks decubitus ulcers left wound stage III with some surrounding erythema, no drainage. Right buttocks with stage I decubitus wound Neurologic: moves all extremities and awake; no focal motor deficits Psychiatric: A+Ox3, euthymic affect Lymphatic: no lymphedema Results & Data Results & Data ([facility]) Vital Signs (Past 12 Hours) Vital Signs Temp Pulse Resp BP Pulse Ox 01/05/22 13:13 94 01/05/22 12:46 98 H 93 01/05/22 12:08 38.1 C H 98 H 18 182/92 H 99 Laboratory Results 01/05/22 01/05/22 01/05/22 Range/Units 14:59 12:43 12:30 WBC (4.8-10.8) K/uL RBC (4.7-6.1) M/uL Hgb (14.0-18.0) g/dL Hct (42-52) % MCV (80-100) fL MCH (25-34) pg MCHC (32-36) g/dL RDW Std Deviation (36.4-46.3) fL RDW Coeff of Maryann (11.5-14.5) % Plt Count (130-400) K/uL Immature Gran % (Auto) % Neut % (Auto) % Lymph % (Auto) % [place] % (Auto) % Eos % (Auto) % Baso % (Auto) % Neut # (Auto) (1.4-6.5) K/uL Lymph # (Auto) (1.2-3.4) K/uL Marathon # (Auto) (0.11-0.59) K/uL Eos # (Auto) (0-0.5) K/uL Baso # (Auto) (0-0.2) K/uL Immature Gran # (Auto) (0.00-0.02) K/uL Platelet Estimate (Normal) Anisocytosis Spherocytes Ovalocytes PT (9.0-12.0) Seconds INR (0.9-1.1) APTT (21.0-31.0) Seconds PTT Ratio Sodium (136-145) mmol/L Potassium (3.5-5.1) mmol/L Chloride (98-107) mmol/L Carbon Dioxide (21-32) mmol/L Anion Gap (3-11) BUN (6-23) mg/dl Creatinine (0.6-1.4) mg/dl Est Cr Clr Drug Dosing ml/min Est GFR ( Amer) ml/min Est GFR (Non-Af Amer) ml/min BUN/Creatinine Ratio (10-20) Glucose (70-99(Fasting)) mg/dl Lactate (0.4-2.0) mmol/L Calcium (8.5-10.1) mg/dl Magnesium (1.7-2.4) mg/dl Total Bilirubin (0.2-1.0) mg/dl AST (13-39) U/L ALT (7-52) U/L Alkaline Phosphatase (34-104) U/L Total Protein (6.0-8.3) gm/dl Albumin (3.4-5.0) gm/dl Globulin (2.5-4.0) gm/dl Albumin/Globulin Ratio (0.9-2) Procalcitonin 0.11 (0-0.5) ng/ml Urine Color Pending Urine Appearance Pending Urine pH Pending Ur Specific [place] Pending Urine Protein Pending Urine Glucose (UA) Pending Urine Ketones Pending Urine Blood Pending Urine Nitrite Pending Urine Bilirubin Pending Urine Urobilinogen Pending Ur Leukocyte Esterase Pending SARS-CoV-2 (PCR) NEGATIVE (Negative) Influenza Type A (PCR) Negative (Neg) Influenza Type B (PCR) Negative (Neg) RSV (RT-PCR) Negative (Neg) 01/05/22 01/05/22 01/05/22 Range/Units 12:30 12:30 12:30 WBC (4.8-10.8) K/uL RBC (4.7-6.1) M/uL Hgb (14.0-18.0) g/dL Hct (42-52) % MCV (80-100) fL MCH (25-34) pg MCHC (32-36) g/dL RDW Std Deviation (36.4-46.3) fL RDW Coeff of Maryann (11.5-14.5) % Plt Count (130-400) K/uL Immature Gran % (Auto) % Neut % (Auto) % Lymph % (Auto) % [place] % (Auto) % Eos % (Auto) % Baso % (Auto) % Neut # (Auto) (1.4-6.5) K/uL Lymph # (Auto) (1.2-3.4) K/uL Marathon # (Auto) (0.11-0.59) K/uL Eos # (Auto) (0-0.5) K/uL Baso # (Auto) (0-0.2) K/uL Immature Gran # (Auto) (0.00-0.02) K/uL Platelet Estimate (Normal) Anisocytosis Spherocytes Ovalocytes PT 12.4 H (9.0-12.0) Seconds INR 1.2 H (0.9-1.1) APTT 31.7 H (21.0-31.0) Seconds PTT Ratio 1.2 Sodium 133 L (136-145) mmol/L Potassium 4.1 (3.5-5.1) mmol/L Chloride 98 (98-107) mmol/L Carbon Dioxide 29 (21-32) mmol/L Anion Gap 6 (3-11) BUN 18 (6-23) mg/dl Creatinine 0.78 (0.6-1.4) mg/dl Est Cr Clr Drug Dosing 70.2 ml/min Est GFR ( Amer) 94.7 ml/min Est GFR (Non-Af Amer) 81.7 ml/min BUN/Creatinine Ratio 23.1 H (10-20) Glucose 94 (70-99(Fasting)) mg/dl Lactate 0.9 (0.4-2.0) mmol/L Calcium 8.5 (8.5-10.1) mg/dl Magnesium 1.9 (1.7-2.4) mg/dl Total Bilirubin 1.0 (0.2-1.0) mg/dl AST 21 (13-39) U/L ALT 15 (7-52) U/L Alkaline Phosphatase 54 (34-104) U/L Total Protein 6.4 (6.0-8.3) gm/dl Albumin 3.2 L (3.4-5.0) gm/dl Globulin 3.2 (2.5-4.0) gm/dl Albumin/Globulin Ratio 1.0 (0.9-2) Procalcitonin (0-0.5) ng/ml Urine Color Urine Appearance Urine pH Ur Specific [place] Urine Protein Urine Glucose (UA) Urine Ketones Urine Blood Urine Nitrite Urine Bilirubin Urine Urobilinogen Ur Leukocyte Esterase SARS-CoV-2 (PCR) (Negative) Influenza Type A (PCR) (Neg) Influenza Type B (PCR) (Neg) RSV (RT-PCR) (Neg) 01/05/22 Range/Units 12:30 WBC 6.22 (4.8-10.8) K/uL RBC 3.67 L (4.7-6.1) M/uL Hgb 8.6 L (14.0-18.0) g/dL Hct 27.8 L (42-52) % MCV 75.7 L (80-100) fL MCH 23.4 L (25-34) pg MCHC 30.9 L (32-36) g/dL RDW Std Deviation 63.2 H (36.4-46.3) fL RDW Coeff of Maryann 23.9 H (11.5-14.5) % Plt Count 82 L (130-400) K/uL Immature Gran % (Auto) 2.3 % Neut % (Auto) 83.5 % Lymph % (Auto) 10.5 % Marathon % (Auto) 3.7 % Eos % (Auto) 0.0 % Baso % (Auto) 0.0 % Neut # (Auto) 5.20 (1.4-6.5) K/uL Lymph # (Auto) 0.65 L (1.2-3.4) K/uL Marathon # (Auto) 0.23 (0.11-0.59) K/uL Eos # (Auto) 0.00 (0-0.5) K/uL Baso # (Auto) 0.00 (0-0.2) K/uL Immature Gran # (Auto) 0.14 H (0.00-0.02) K/uL Platelet Estimate Decreased L (Normal) Anisocytosis Present Spherocytes 1+ Ovalocytes 1+ PT (9.0-12.0) Seconds INR (0.9-1.1) APTT (21.0-31.0) Seconds PTT Ratio Sodium (136-145) mmol/L Potassium (3.5-5.1) mmol/L Chloride (98-107) mmol/L Carbon Dioxide (21-32) mmol/L Anion Gap (3-11) BUN (6-23) mg/dl Creatinine (0.6-1.4) mg/dl Est Cr Clr Drug Dosing ml/min Est GFR ( Amer) ml/min Est GFR (Non-Af Amer) ml/min BUN/Creatinine Ratio (10-20) Glucose (70-99(Fasting)) mg/dl Lactate (0.4-2.0) mmol/L Calcium (8.5-10.1) mg/dl Magnesium (1.7-2.4) mg/dl Total Bilirubin (0.2-1.0) mg/dl AST (13-39) U/L ALT (7-52) U/L Alkaline Phosphatase (34-104) U/L Total Protein (6.0-8.3) gm/dl Albumin (3.4-5.0) gm/dl Globulin (2.5-4.0) gm/dl Albumin/Globulin Ratio (0.9-2) Procalcitonin (0-0.5) ng/ml Urine Color Urine Appearance Urine pH Ur Specific [place] Urine Protein Urine Glucose (UA) Urine Ketones Urine Blood Urine Nitrite Urine Bilirubin Urine Urobilinogen Ur Leukocyte Esterase SARS-CoV-2 (PCR) (Negative) Influenza Type A (PCR) (Neg) Influenza Type B (PCR) (Neg) RSV (RT-PCR) (Neg) Diagnostic Findings Chest X-Ray 01/05/22 12:16 XR chest 1V portable HISTORY: 86 years-old Male SEPSIS acute sepsis with weakness and cough COMPARISON: Chest radiograph 10/14/2021 TECHNIQUE: Portable AP view of the chest FINDINGS: Cardiac silhouette is upper limits of normal in size. Atherosclerosis of the thoracic aorta. No pneumothorax, pleural effusion, airspace consolidation or overt pulmonary edema. Unchanged right hemidiaphragmatic elevation. Mild chronic interstitial coarsening. Left subclavian [id number] catheter distal tip terminates within the region of the mid SVC. Degenerative changes of the shoulders and spine. IMPRESSION: No acute process. ACT 112: Negative or not required by law. The above report was generated using voice recognition software. It may contain grammatical, syntax or spelling errors. Electronically signed by: Benitez Valentin M.D. 01/05/2022 2:01 PM ECG Additional Comments: ECG on 01/05/2022 at 1227 with sinus tachycardia, rate 105, RBBB, T wave inversion in leads III and aVF changed from previous with the T wave inversions Code Status & VTE Plan Code Status DNR/DNI VTE Prophylaxis Plan VTE Prophylaxis will be ordered: Yes PG Care Time/CCT Total # of Minutes Spent Total Time Spent with Patient: Total time spent is greater than 50% in coordination of care (as documented) at patient's floor/unit and/or counseling patient: Coding Level of Care Code 77818 Initial Inpt Care Lvl 3 Diagnoses Anemia D64.9 Cellulitis of groin, right L03.314 Generalized muscle weakness M62.81 Metastatic colon cancer to liver C18.9; C78.7 HTN (hypertension) I10 Hypercholesteremia E78.00 Sepsis A41.9 Microcytic anemia D50.9 BPH (benign prostatic hyperplasia) N40.0 Hyponatremia E87.1 Falls frequently R29.6
[2022-01-05] MEDS ORDERED: MAGNESIUM SULFATE / D5W 1 GM/100 ML BAG IV ONE (14:48)
[2022-01-05 15:11] LABS: Appearance Urine Clear (Clear); Bacteria Urine Automated Negative (Negative); Bilirubin Urine Negative (Negative); Blood Urine Trace (Negative); Color Urine Yellow; Glucose Urine UA Negative (Negative); Ketones Urine Negative (Negative); Leukocyte Esterase Urine Negative (Negative); Nitrite Urine Negative (Negative); Specific Gravity Urine 1.015 (1.000-1.030); Urobilinogen Urine Negative (Negative); pH Urine 7.5 (4.5-7.5)
[2022-01-05 15:13] LABS: Protein Urine 1+ (Negative)
[2022-01-05] MEDS ORDERED: OPTIRAY 320 100ml IV ONE (16:53)
[2022-01-05] MEDS ORDERED: ONDANSETRON INJ 2 MG/ML 2 ML VIAL IV PRN (17:21)
[2022-01-05] MEDS ORDERED: ALUMINUM/MAGNESIUM SUSP 30 ML UDC PO PRN (17:21)
[2022-01-05] MEDS ORDERED: VANCOMYCIN HCL 1,000 MG in SODIUM CHLORIDE 0.9% 250 ML IV SCH (17:21)
[2022-01-05] MEDS ORDERED: PIPERACILL/TAZOBAC CONSULT ACTIVE PRN (17:21)
--- NOTE | 2022-01-05 17:44 | CT Scan Report ---
CHEST CT WITH CONTRAST; CT ABDOMEN AND PELVIS WITH IV AND ORAL CONTRAST CT DOSE: 777.57 mGy.cm HISTORY: Acute fever in a patient with metastatic colon cancer. fever,f/u metastatic colon CA TECHNIQUE: Multiaxial CT images of the chest, abdomen and pelvis were performed following the IV admi nistration of 94 cc of Optiray. Oral contrast was also utilized. A dose lowering technique was utiliz ed adhering to the principles of ALARA. COMPARISON: CT chest, abdomen and pelvis 09/26/2021. FINDINGS: CT CHEST: There is streak artifact from the patient's necklace which was not removed for the exam. Left subclav tato [id number] catheter distal tip terminates within the SVC. Moderate cardiomegaly with moderate coronary artery calcifications. Atherosclerosis of the thoracic aorta without aneurysm. Unremarkable pulmonary artery. A 21 cm hypodense left-sided thyroid nodule is better seen on the prior study. Unch anged mild lower mediastinal and retrocrural adenopathy. No new or progressive adenopathy of the ches t identified. Unchanged small right pleural effusion with stable right basilar consolidation suggestive of atelecta sis with scarring. No pneumothorax, overt pulmonary edema, suspicious pulmonary nodules or masses. Ce ntral airways are patent. The study is mildly degraded by respiratory motion artifact. Unremarkable s oft tissues. Gaseous distention of the esophagus with mild distal esophageal wall thickening. Moderat e sized hiatal hernia. Degenerative changes of the shoulders and spine. There are no destructive bone lesions identified. CT ABDOMEN/PELVIS: There is no pneumatosis or pneumoperitoneum. The spleen is enlarged measuring up to 16 cm in length. Mild to moderate pancreatic atrophy. Unremarkable right adrenal gland. Stable thickening of the left adrenal gland. Unremarkable gallbladder. Ill-defined mass within the hepatic dome measures approximat otto 6.3 x 5.3 cm, previously measured at 6.7 x 5.7 cm. Unchanged 2.7 cm lateral segment hepatic lesio n with multiple additional smaller ill-defined hypodense mostly subcentimeter hepatic foci. No new or enlarging hepatic lesions are identified. Patency of the hepatic and portal veins. Mild bilateral cortical thinning of the kidneys are noted along with renal sinus cysts. 7.8 cm exophy tic cyst of the superior pole right kidney. No hydronephrosis. Mild dilation of the distal left urete r. Partial distention of the urinary bladder with wall thickening, and mucosal hyperemia with perives icular stranding. There is a diverticulum along the right posterior aspect of the urinary bladder katerina suring 3.4 cm. Prostatomegaly with brachytherapy seeds of the prostate. Atherosclerosis of the abdomi nal aorta without aneurysm. Subcentimeter gastrohepatic lymph nodes redemonstrated. There is mild wal l thickening of the distal stomach, presumably from partial distention. Wall thickening of the inferi or rectum and anorectal junction is noted with mild surrounding inflammatory stranding. Postoperative changes of right hemicolectomy. No bowel obstruction. Mild generalized body wall edema. Degenerative changes of the spine, pelvis and hips. IMPRESSION: 1. No acute intrathoracic abnormality. 2. Stable small right pleural effusion with right lung base opacities suggestive of atelectasis/scarr ing. 3. Ill-defined mass of the hepatic dome measuring up to 6.3 x 5.3 cm is suggestive of hepatic metasta sis. This appears stable to mildly decreased in size from the comparison study. No new liver lesions are identified. 4. Unchanged indeterminate 2.7 cm lesion involving the lateral segment of the left hepatic lobe with several additional mostly subcentimeter hepatic foci. 5. Prior right hemicolectomy. No bowel obstruction. 6. Wall thickening of the inferior rectum and anorectal junction with mild perirectal inflammatory st randing. Correlate clinically to exclude a nonspecific proctitis. This could be correlated with colon oscopy. 7. Evidence of chronic bladder outlet obstruction. 8. Additional findings as above. ACT 112: Negative or not required by law. Dictated: 01/05/2022 4:59 PM Transcribed: 01/05/2022 5:31 PM Rosemarie [id number] [email or web address] Electronically signed by: Benitez Valentin M.D. 01/05/2022 5:43 PM
[2022-01-05] MEDS ORDERED: PIPERACILLIN/TAZOBACTAM 3.375 GM in DEXTROSE 5% 100 ML IV ONE (17:45)
[2022-01-05] MEDS ORDERED: hydrALAZINE HCL 20 MG/ML VIAL IV PRN (17:59)
[2022-01-05] MEDS: LACTATED RINGER'S 1,000 ML IV SCH (18:29)
[2022-01-05] MEDS: ENOXAPARIN INJ 40 MG/0.4 ML SYR SQ SCH (18:41)
[2022-01-05] MEDS: SIMVASTATIN 20 MG TAB PO SCH (20:11)
[2022-01-05] MEDS: TAMSULOSIN HCL 0.4 MG CAP PO SCH (20:11)
[2022-01-05] MEDS: PIPERACILLIN/TAZOBACTAM 3.375 GM in DEXTROSE 5% 100 ML IV SCH (22:01)
[2022-01-06] MEDS: PIPERACILLIN/TAZOBACTAM 3.375 GM in DEXTROSE 5% 100 ML IV SCH ×3 (05:40→22:16)
[2022-01-06] MEDS: LACTATED RINGER'S 1,000 ML IV SCH ×2 (05:40→18:09)
--- NOTE | 2022-01-06 08:23 | Hospitalist Progress Note ---
Date of Service January 06, 2022 Assessment & Plan (1) Sepsis: Plan: Presents with generalized weakness and found to have fever, tachycardia, and right groin wound and buttock wounds with cellulitis as the likely source In the setting of being immunocompromised while undergoing chemotherapy for metastatic colon cancer, last chemotherapy was 12/31 Lactate negative, blood pressures are actually elevated, renal function and hepatic function within normal limits, no respiratory failure but was placed on 2 L nasal cannula I believe for comfort Procalcitonin negative Chest x-ray negative Covid-19/influenza/RSV PCR negative Received 1 dose of IV cefepime and IV vancomycin as well as 1 L normal saline bolus in the ER - IV Zosyn, IV vancomycin -Continue IV fluids given poor p.o. intake with LR at 80 mL's per hour - CT of the chest/abdomen/pelvis 01/05/2022 no intrathoracic abnormalities small right pleural effusion ill-defined mass at the hepatic dome measuring 6 x 5 suggestive of hepatic metastasis. Stable unchanged 2.7 cm lesion in the lateral segment of the left hepatic lobe prior right hemicolectomy no bowel obstruction Given the unusual nature appearance of these areas we had pathology do an FNA. Of the right groin wound. Initially this does appear consistent with abscess and deep wound cultures were sent but pathology will also be taken for the fear this is cutaneous manifestation of his colonic adenocarcinoma. Kavya was called and made aware of our differential diagnosis with regard to this (2) Cellulitis of groin, right: (3) Anemia: Plan: Hemoglobin is dropped 7.1 patient has a history of thalassemia patient Recently received PRBC transfusion at the [facility] center Iron is undetectable patient will be transfused and then in the future will likely receive some venofer (4) Hyponatremia: Plan: Sodium mildly low at 133, likely secondary to appropriate ADH release in the setting of dehydration Giving crystalloid volume replacement Follow BMP in the morning (5) Generalized muscle weakness: Plan: Secondary to chemotherapy side effects, dehydration, fever, and anemia Leading to multiple falls in the last few weeks Treating all of these things PT/OT consulted (6) Falls frequently: Plan: As above No acute injuries /OT consults (7) Metastatic colon cancer to liver: Plan: Currently receiving salvage chemotherapy through the cancer care partnership with Reina Romero PA-C Has had 6 treatments in the last 4 months of FOLFOX and bevacizumab Checking surveillance CT chest/abdomen/pelvis as above as requested by his oncology provider Follow CBC and give transfusional support as needed Dietitian consultation requested (8) HTN (hypertension): Plan: Blood pressures are elevated here but patient does not take any antihypertensives at home Continue to monitor Can give as needed medication as needed if becomes symptomatic (9) Hypercholesteremia: Plan: Continue home simvastatin (10) Microcytic anemia: Plan: As above, related to thalassemia and chemotherapy Follow CBC (11) BPH (benign prostatic hyperplasia): Plan: Continue Flomax No acute issues Plan: DVT prophylaxis-Lovenox, SCDs Disposition-admit to medical/surgical floor DNR/DNI as discussed with patient Admission and Anticipated Discharge Date Admission Date: January 05, 2022 Subjective This pt is without complaints outside of the wounds on the groin and buttock, hgb did drop today will need transfusion, has been followed by [facility] with discussion of chemotherapy and his appointment in September patient's family feels he has been getting treatment since that time Review of Systems Review of Systems: Mild distress and fatigue no headache, no visual changes no speech or swallowing issues no chest pain, pressure or palpitations no shortness of breath, cough or wheezes no abdominal pain, nausea or vomiting, diarrhea or constipation no dysuria, hematuria or frequency no focal joint pain or swelling no back pain, CVA tenderness or radicular pain Patient has a painful open area in his right groin and painful open areas on his buttocks no focal signs of weakness or numbness or altered sensation no complaints of anxiety or depression.. Physical Exam Physical Exam: The patient appeared well nourished and normally developed. Vital signs as documented. Head exam is normocephalic atraumatic Neck is without JVD, thyromegaly, or carotid bruits. Lungs are clear to auscultation, no focal loss of breath sounds Cardiac exam, Rhythm is regular.. No murmurs, rubs or gallops. Abdominal exam reveals normal bowel sounds, soft non tender, no masses Extremities are nonedematous and both pedal pulses are present Neurologic exam is alert and oriented, no focal loss of strength or sensation Skin is with decubitus ulcers in right groin and buttocks. Psychologically is without concerns for anxiety or depression. Results & Data Results & Data ([facility]) Vital Signs (Past 12 Hours) Vital Signs Temp Pulse Resp BP Pulse Ox 01/06/22 07:38 98.1 F 89 16 160/74 H 96 01/06/22 04:54 16 01/06/22 01:30 16 97 01/06/22 00:00 16 97 01/05/22 22:56 98.2 F 93 H 18 178/87 H 100 PG Care Time/CCT Total # of Minutes Spent Total Time Spent with Patient: Total time spent is greater than 50% in coordination of care (as documented) at patient's floor/unit and/or counseling patient: Coding Level of Care Code 25962 Subseq Hosp Care Lvl 3 Diagnoses Sepsis A41.9 Cellulitis of groin, right L03.314 Anemia D64.9 Hyponatremia E87.1 Generalized muscle weakness M62.81 Falls frequently R29.6 Metastatic colon cancer to liver C18.9; C78.7 HTN (hypertension) I10 Hypercholesteremia E78.00 Microcytic anemia D50.9 BPH (benign prostatic hyperplasia) N40.0
[2022-01-06 08:26] LABS: Mean Corpuscular Hgb Conc 31.7 g/dL (32-36)
[2022-01-06 08:48] LABS: Hematocrit (blood only) 22.4 % (42-52); Hemoglobin 7.1 g/dL (14.0-18.0); Mean Corpuscular Hemoglobin 23.7 pg (25-34); Mean Corpuscular Volume 74.7 fL (80-100); RDW Standard Deviation 63.2 fL (36.4-46.3); White Blood Count 6.53 K/uL (4.8-10.8)
[2022-01-06 08:51] LABS: Anion Gap 8 (3-11); Calcium 7.7 mg/dl (8.5-10.1); Carbon Dioxide 26 mmol/L (21-32); Chloride 99 mmol/L (98-107); Magnesium 1.8 mg/dl (1.7-2.4); Potassium 3.6 mmol/L (3.5-5.1); Sodium 133 mmol/L (136-145)
[2022-01-06 08:57] LABS: BUN Creatinine Ratio 16.7 (10-20); Blood Urea Nitrogen 13 mg/dl (6-23); Creatinine Clr Calc Pharmacy 70.2 ml/min; Est GFR (African American) 94.7 ml/min; Est GFR (Non-African American) 81.7 ml/min; Glucose 90 mg/dl (70-99(Fasting))
[2022-01-06 08:58] LABS: Anisocytosis Present; Ovalocytes 1+; Platelet Count 57 K/uL (130-400); Platelet Estimate Decreased (Normal); Poikilocytosis Present
[2022-01-06] MEDS ORDERED: NON-FORMULARY MEDICATION (Omeprazole 20 mg capsule,delayed release(DR/EC)) PO SCH (09:00)
[2022-01-06] MEDS: PANTOprazole 40 MG TAB PO SCH (09:27)
[2022-01-06] MEDS: ASPIRIN 81 MG ECTAB PO SCH (09:27)
[2022-01-06] MEDS: ESCITALOPRAM OXALATE 10 MG TAB PO SCH (09:28)
[2022-01-06 09:30] LABS: Folate (Folic Acid) > 22.30 ng/ml (>5.38)
[2022-01-06 09:31] LABS: Vitamin B12 696 pg/ml (180-914)
[2022-01-06 10:01] LABS: Iron < 10 mcg/dl (35-175); Unsaturated Iron Binding Cap 186 mcg/dl (155-355)
[2022-01-06 11:07] LABS: ANC (manual) 5.79 K/uL (1.4-6.5); Lymphocytes % (manual) 6.1 %; Monocytes # (manual) 0.34 K/uL (0.11-0.59); Monocytes % (manual) 5.3 %; Neutrophils # (manual) 5.79 K/uL (1.4-6.5); Neutrophils % (manual) 88.6 %
--- NOTE | 2022-01-06 16:07 | Hospitalist Progress Note ---
Date of Service January 06, 2022 Assessment & Plan (1) Decubitus ulcer: Admission and Anticipated Discharge Date Admission Date: January 05, 2022 Results & Data Results & Data ([facility]) Vital Signs (Past 12 Hours) Vital Signs Temp Pulse Resp BP BP Pulse Ox 01/06/22 15:30 18 99 01/06/22 15:21 99.7 F H 96 H 20 153/72 H 99 01/06/22 14:00 18 99 01/06/22 12:00 16 98 01/06/22 11:30 18 99 01/06/22 11:00 17 99 01/06/22 10:30 17 98 01/06/22 10:00 17 99 01/06/22 09:45 98 H 102/68 01/06/22 09:30 17 01/06/22 09:00 17 98 01/06/22 08:00 18 99 01/06/22 07:38 98.1 F 89 16 160/74 H 96 01/06/22 07:30 19 01/06/22 04:54 16 PG Care Time/CCT Total # of Minutes Spent Total Time Spent with Patient: Total time spent is greater than 50% in coordination of care (as documented) at patient's floor/unit and/or counseling patient: Coding Diagnoses Decubitus ulcer L89.90
--- NOTE | 2022-01-06 16:09 | Hospitalist Progress Note ---
Date of Service January 06, 2022 Assessment & Plan Admission and Anticipated Discharge Date Admission Date: January 05, 2022 Results & Data Results & Data ([facility]) Vital Signs (Past 12 Hours) Vital Signs Temp Pulse Resp BP BP Pulse Ox 01/06/22 15:30 18 99 01/06/22 15:21 99.7 F H 96 H 20 153/72 H 99 01/06/22 14:00 18 99 01/06/22 12:00 16 98 01/06/22 11:30 18 99 01/06/22 11:00 17 99 01/06/22 10:30 17 98 01/06/22 10:00 17 99 01/06/22 09:45 98 H 102/68 01/06/22 09:30 17 01/06/22 09:00 17 98 01/06/22 08:00 18 99 01/06/22 07:38 98.1 F 89 16 160/74 H 96 01/06/22 07:30 19 01/06/22 04:54 16 PG Care Time/CCT Total # of Minutes Spent Total Time Spent with Patient: Total time spent is greater than 50% in coordination of care (as documented) at patient's floor/unit and/or counseling patient: Coding
--- NOTE | 2022-01-06 16:20 | Hospitalist Progress Note ---
Date of Service January 06, 2022 Assessment & Plan (1) Cellulitis of groin, right: Plan: [facility], [id number] Hospitalist Progress Note Signed Patient:CARLITA BARTH Admit Date:01/05/22 MR#:[id number] Att Phy:Gaston Humphrey MD Acct ID:[id number] Odalys Phy:Francis Garcia MD Date:1935 Fam Phy: Age:86 Location:3W Sex:M Room/Bed:[facility] cc: ~ *NOTICE TO RECEIVING LIBERTARIAN/AGENCY This information is strictly Confidential and protected under [place] law. [place] law prohibits you from making any further disclosure of this information unless further disclosure is expressly permitted by the written consent of the person to whom it pertains or is authorized by law. A general authorization for the release of medical or other information is not sufficient for this purpose. Hospital accepts no responsibility if the information is made available to any other person, INCLUDING THE PATIENT. Date of Service January 06, 2022 Assessment & Plan (1) Sepsis: Plan: Presents with generalized weakness and found to have fever, tachycardia, and right groin wound and buttock wounds with cellulitis as the likely source In the setting of being immunocompromised while undergoing chemotherapy for metastatic colon cancer, last chemotherapy was 12/31 Lactate negative, blood pressures are actually elevated, renal function and hepatic function within normal limits, no respiratory failure but was placed on 2 L nasal cannula I believe for comfort Procalcitonin negative Chest x-ray negative Covid-19/influenza/RSV PCR negative Received 1 dose of IV cefepime and IV vancomycin as well as 1 L normal saline bolus in the ER - IV Zosyn, IV vancomycin -Continue IV fluids given poor p.o. intake with LR at 80 mL's per hour - CT of the chest/abdomen/pelvis 01/05/2022 no intrathoracic abnormalities small right pleural effusion ill-defined mass at the hepatic dome measuring 6 x 5 suggestive of hepatic metastasis. Stable unchanged 2.7 cm lesion in the lateral segment of the left hepatic lobe prior right hemicolectomy no bowel obstruction Given the unusual nature appearance of these areas we had pathology do an FNA. Of the right groin wound. Initially this does appear consistent with abscess and deep wound cultures were sent but pathology will also be taken for the fear this is cutaneous manifestation of his colonic adenocarcinoma. Kavya was called and made aware of our differential diagnosis with regard to this (2) Cellulitis of groin, right: decubitus ulcer as seen on wound image likley stage 4 or unstageable, buttock decubitus ulcer stage 3 (3) Anemia: Plan: Hemoglobin is dropped 7.1 patient has a history of thalassemia patient Recently received PRBC transfusion at the cancer [facility] [place] is undetectable patient will be transfused and then in the future will likely receive some venofer (4) Hyponatremia: Plan: Sodium mildly low at 133, likely secondary to appropriate ADH release in the setting of dehydration Giving crystalloid volume replacement Follow BMP in the morning (5) Generalized muscle weakness: Plan: Secondary to chemotherapy side effects, dehydration, fever, and anemia Leading to multiple falls in the last few weeks Treating all of these things PT/OT consulted (6) Falls frequently: Plan: As above No acute injuries /OT consults (7) Metastatic colon cancer to liver: Plan: Currently receiving salvage chemotherapy through the cancer care partnership with Reina Romero PA-C Has had 6 treatments in the last 4 months of FOLFOX and bevacizumab Checking surveillance CT chest/abdomen/pelvis as above as requested by his onc ology provider Follow CBC and give transfusional support as needed Dietitian consultation requested (8) HTN (hypertension): Plan: Blood pressures are elevated here but patient does not take any antihypertensives at home Continue to monitor Can give as needed medication as needed if becomes symptomatic (9) Hypercholesteremia: Plan: Continue home simvastatin (10) Microcytic anemia: Plan: As above, related to thalassemia and chemotherapy Follow CBC (11) BPH (benign prostatic hyperplasia): Plan: Continue Flomax No acute issues Plan: DVT prophylaxis-Lovenox, SCDs Disposition-admit to medical/surgical floor DNR/DNI as discussed with patient Admission and Anticipated Discharge Date Admission Date: January 05, 2022 Results & Data Results & Data ([facility]) Vital Signs (Past 12 Hours) Vital Signs Temp Pulse Resp BP BP Pulse Ox 01/06/22 15:30 18 99 01/06/22 15:21 99.7 F H 96 H 20 153/72 H 99 01/06/22 14:00 18 99 01/06/22 12:00 16 98 04/12/22 11:30 18 99 01/06/22 11:00 17 99 01/06/22 10:30 17 98 01/06/22 10:00 17 99 01/06/22 09:45 98 H 102/68 01/06/22 09:30 17 01/06/22 09:00 17 98 01/06/22 08:00 18 99 01/06/22 07:38 98.1 F 89 16 160/74 H 96 01/06/22 07:30 19 01/06/22 04:54 16 PG Care Time/CCT Total # of Minutes Spent Total Time Spent with Patient: Total time spent is greater than 50% in coordination of care (as documented) at patient's floor/unit and/or counseling patient: Coding Level of Care Code None Diagnoses Cellulitis of groin, right L03.314
[2022-01-06] MEDS ORDERED: SODIUM CHLORIDE 0.9% 250 ML IV PRN (16:21)
[2022-01-06] MEDS: ACETAMINOPHEN 325 MG TAB PO PRN (17:05)
[2022-01-06] MEDS: ENOXAPARIN INJ 40 MG/0.4 ML SYR SQ SCH (17:43)
[2022-01-06] MEDS: TAMSULOSIN HCL 0.4 MG CAP PO SCH (20:44)
[2022-01-06] MEDS: SIMVASTATIN 20 MG TAB PO SCH (20:44)
--- NOTE | 2022-01-06 21:47 | Electrocardiogram Report ---
Test Reason : Blood Pressure : / mmHG Vent. Rate : 105 BPM Atrial Rate : 105 BPM P-R Int : 128 ms QRS Dur : 126 ms QT Int : 382 ms P-R-T Axes : 037 014 -16 degrees QTc Int : 504 ms Poor data quality, interpretation may be adversely affected Sinus tachycardia Premature atrial complexes Right bundle branch block T wave abnormality, consider inferior ischemia Abnormal ECG When compared with ECG of 11-DEC-2021 13:27, Vent. rate has increased BY 35 BPM Confirmed by Theo Cain ([id number]) on 01/06/2022 9:47:17 PM Referred By: Confirmed By:Theo Cain
[2022-01-07] MEDS: PIPERACILLIN/TAZOBACTAM 3.375 GM in DEXTROSE 5% 100 ML IV SCH ×3 (05:45→22:05)
--- NOTE | 2022-01-07 06:22 | Communication Note ---
Date of Service: January 07, 2022 Messaged about small area of firmness on R upper arm. On exam, there is a 1 inch diameter of palpable lump. Area is nontender. Mild red coloration of the o verlying skin. Patient is not on anticoagulation, but considered mild hematoma as most likely.
[2022-01-07] MEDS: LACTATED RINGER'S 1,000 ML IV SCH ×2 (08:24→18:22)
[2022-01-07] MEDS: PANTOprazole 40 MG TAB PO SCH (08:25)
[2022-01-07] MEDS: ASPIRIN 81 MG ECTAB PO SCH (08:25)
[2022-01-07] MEDS: ESCITALOPRAM OXALATE 10 MG TAB PO SCH (08:25)
[2022-01-07 09:28] LABS: Hematocrit (blood only) 27.9 % (42-52); Hemoglobin 8.8 g/dL (14.0-18.0); Mean Corpuscular Hemoglobin 24.6 pg (25-34); Mean Corpuscular Hgb Conc 31.5 g/dL (32-36); Mean Corpuscular Volume 78.2 fL (80-100); Platelet Count 37 K/uL (130-400); Platelet Estimate Decreased (Normal); RDW Coefficient of Variation 22.6 % (11.5-14.5); RDW Standard Deviation 61.4 fL (36.4-46.3); Red Blood Count 3.57 M/uL (4.7-6.1); White Blood Count 7.33 K/uL (4.8-10.8)
--- NOTE | 2022-01-07 13:37 | Hospitalist Progress Note ---
Date of Service January 07, 2022 Assessment & Plan (1) Cellulitis of groin, right: Plan: Assessment & Plan (1) Sepsis: Plan: Presents with generalized weakness and found to have fever, tachycardia, and right groin wound and buttock wounds with cellulitis as the likely source In the setting of being immunocompromised while undergoing chemotherapy for metastatic colon cancer, last chemotherapy was 12/31 Lactate negative, blood pressures are actually elevated, renal function and hepatic function within normal limits, no respiratory failure but was placed on 2 L nasal cannula I believe for comfort Procalcitonin negative Chest x-ray negative Covid-19/influenza/RSV PCR negative Received 1 dose of IV cefepime and IV vancomycin as well as 1 L normal saline bolus in the ER - IV Zosyn, IV vancomycin -Continue IV fluids given poor p.o. intake with LR at 80 mL's per hour - CT of the chest/abdomen/pelvis 01/05/2022 no intrathoracic abnormalities small right pleural effusion ill-defined mass at the hepatic dome measuring 6 x 5 suggestive of hepatic metastasis. Stable unchanged 2.7 cm lesion in the lateral segment of the left hepatic lobe prior right hemicolectomy no bowel obstruction Given the unusual nature appearance of these areas we had pathology do an FNA. Of the right groin wound. Initially this does appear consistent with abscess and deep wound cultures were sent but pathology came back, consistent with abscess (2) Cellulitis of groin, right: decubitus ulcer as seen on wound image likley stage 4 or unstageable, buttock decubitus ulcer stage 3 (3) Anemia: Plan: Hemoglobin is stable following transfusion, patient has a history of thalassemia patient Recently received PRBC transfusion at the [facility] center Iron is undetectable patient will be transfused and then in the future will likely receive some venofer (4) Hyponatremia: Plan: Sodium mildly low at 133, likely secondary to appropriate ADH release in the setting of dehydration Giving crystalloid volume replacement Follow BMP in the morning (5) Generalized muscle weakness: Plan: Secondary to chemotherapy side effects, dehydration, fever, and anemia Leading to multiple falls in the last few weeks Treating all of these things PT/OT consulted (6) Falls frequently: Plan: As above No acute injuries /OT consults (7) Metastatic colon cancer to liver: Plan: Currently receiving salvage chemotherapy through the cancer care partnership with Reina Romero PA-C Has had 6 treatments in the last 4 months of FOLFOX and bevacizumab Checking surveillance CT chest/abdomen/pelvis as above as requested by his oncology provider Follow CBC and give transfusional support as needed Dietitian consultation requested (8) HTN (hypertension): Plan: Blood pressures are elevated here but patient does not take any antihypertensives at home Continue to monitor Can give as needed medication as needed if becomes symptomatic (9) Hypercholesteremia: Plan: Continue home simvastatin (10) Microcytic anemia: Plan: As above, related to thalassemia and chemotherapy Follow CBC (11) BPH (benign prostatic hyperplasia): Plan: Continue Flomax No acute issues Plan: DVT prophylaxis-Lovenox, SCDs Disposition-admit to medical/surgical floor DNR/DNI as discussed with patient Plan: discharge in the next 24-48 hrs Admission and Anticipated Discharge Date Admission Date: January 05, 2022 Subjective patient seen and examined, no new complaints Review of Systems Review of Systems: All systems reviewed are negative, apart from the ones contained in the history. Physical Exam Physical Exam: The patient is awake, alert and oriented 3, well developed and well nourished, normocephalic and atraumatic, lying in bed and in no acute distress. HEENT--PERRL, EOMI, mucous membranes and oropharynx mildly dry Neck--supple. No JVD. No bruits. Thyroid normal, trachea midline, no adenopathy. Heart--normal S1 and S2. No murmurs, rubs or gallops. Lungs--clear bilaterally, no respiratory distress, no accessory muscle use. Abdomen--normal bowel sounds and soft. Mild epigastric and left sided abdominal pain Extremities--no cyanosis or clubbing. No edema. right groin wound Dermatologic--normal skin turgor, normal color, no abnormal lymph nodes, no rash. Neurologic--cranial nerves II through XII grossly intact. Rheumatologic--normal range of motion. Psychiatric--normal affect. Results & Data Results & Data ([facility]) Vital Signs (Past 12 Hours) Vital Signs Temp Pulse Pulse Resp BP BP Pulse Ox 01/07/22 11:35 95 H 16 125/74 98 01/07/22 07:00 98.2 F 86 16 145/71 H 95 01/07/22 02:20 98.1 F 94 H 18 159/75 H 96 PG Care Time/CCT Total # of Minutes Spent Total Time Spent with Patient: Total time spent is greater than 50% in coordination of care (as documented) at patient's floor/unit and/or counseling patient: Coding Level of Care Code 04599 Subseq Hosp Care Lvl 2 Diagnoses Cellulitis of groin, right L03.314 Time Spent (min) 35
[2022-01-07] MEDS: ACETAMINOPHEN 325 MG TAB PO PRN ×2 (16:08→22:05)
[2022-01-07] MEDS: ENOXAPARIN INJ 40 MG/0.4 ML SYR SQ SCH (17:32)
[2022-01-07] MEDS: TAMSULOSIN HCL 0.4 MG CAP PO SCH (22:06)
[2022-01-07] MEDS: SIMVASTATIN 20 MG TAB PO SCH (22:06)
[2022-01-08] MEDS: PIPERACILLIN/TAZOBACTAM 3.375 GM in DEXTROSE 5% 100 ML IV SCH ×3 (05:27→21:59)
[2022-01-08] MEDS: LACTATED RINGER'S 1,000 ML IV SCH (05:27)
[2022-01-08] MEDS: ESCITALOPRAM OXALATE 10 MG TAB PO SCH (08:47)
[2022-01-08] MEDS: ASPIRIN 81 MG ECTAB PO SCH (08:47)
[2022-01-08] MEDS: PANTOprazole 40 MG TAB PO SCH (08:48)
--- NOTE | 2022-01-08 15:08 | Hospitalist Progress Note ---
Date of Service January 08, 2022 Assessment & Plan (1) Cellulitis of groin, right: Plan: Assessment & Plan (1) Sepsis: Plan: Presents with generalized weakness and found to have fever, tachycardia, and right groin wound and buttock wounds with cellulitis as the likely source In the setting of being immunocompromised while undergoing chemotherapy for metastatic colon cancer, last chemotherapy was 12/31 - Resolving sepsis - IV Zosyn, IV vancomycin -Continue IV fluids given poor p.o. intake with LR at 80 mL's per hour - CT of the chest/abdomen/pelvis 01/05/2022 no intrathoracic abnormalities small right pleural effusion ill-defined mass at the hepatic dome measuring 6 x 5 suggestive of hepatic metastasis. Stable unchanged 2.7 cm lesion in the lateral segment of the left hepatic lobe prior right hemicolectomy no bowel obstruction Given the unusual nature appearance of these areas we had pathology do an FNA. Of the right groin wound. Initially this does appear consistent with abscess and deep wound cultures were sent but pathology came back, consistent with abscess (2) Cellulitis of groin, right: decubitus ulcer as seen on wound image likley stage 4 or unstageable, buttock decubitus ulcer stage 3 Continue wound management (3) Anemia: Plan: Hemoglobin is stable following transfusion, patient has a history of thalassemia patient Recently received PRBC transfusion at the cancer center [place] is undetectable patient will be transfused and then in the future will likely receive some venofer (4) Hyponatremia: Plan: Sodium mildly low at 133, likely secondary to appropriate ADH release in the setting of dehydration Giving crystalloid volume replacement Follow BMP in the morning (5) Generalized muscle weakness: Plan: Secondary to chemotherapy side effects, dehydration, fever, and anemia Leading to multiple falls in the last few weeks Treating all of these things PT/OT consulted (6) Falls frequently: Plan: As above No acute injuries /OT consults (7) Metastatic colon cancer to liver: Plan: Currently receiving salvage chemotherapy through the cancer care partnership with Reina Romero PA-C Has had 6 treatments in the last 4 months of FOLFOX and bevacizumab Checking surveillance CT chest/abdomen/pelvis as above as requested by his oncology provider Follow CBC and give transfusional support as needed Dietitian consultation requested (8) HTN (hypertension): Plan: Blood pressures are elevated here but patient does not take any antihypertensives at home Continue to monitor Can give as needed medication as needed if becomes symptomatic (9) Hypercholesteremia: Plan: Continue home simvastatin (10) Microcytic anemia: Plan: As above, related to thalassemia and chemotherapy Follow CBC (11) BPH (benign prostatic hyperplasia): Plan: Continue Flomax No acute issues Plan: DVT prophylaxis-Lovenox, SCDs Disposition-admit to medical/surgical floor DNR/DNI as discussed with patient Plan: discharge in the next 24-48 hrs Admission and Anticipated Discharge Date Admission Date: January 05, 2022 Subjective patient seen and examined, no new complaints, says he feels about the same Review of Systems Review of Systems: All systems reviewed are negative, apart from the ones contained in the history. Physical Exam Physical Exam: The patient is awake, alert and oriented 3, well developed and well nourished, normocephalic and atraumatic, lying in bed and in no acute distress. HEENT--PERRL, EOMI, mucous membranes and oropharynx mildly dry Neck--supple. No JVD. No bruits. Thyroid normal, trachea midline, no adenopathy. Heart--normal S1 and S2. No murmurs, rubs or gallops. Lungs--clear bilaterally, no respiratory distress, no accessory muscle use. Abdomen--normal bowel sounds and soft. Mild epigastric and left sided abdominal pain Extremities--no cyanosis or clubbing. No edema. right groin wound Dermatologic--normal skin turgor, normal color, no abnormal lymph nodes, no rash. Neurologic--cranial nerves II through XII grossly intact. Rheumatologic--normal range of motion. Psychiatric--normal affect. Results & Data Results & Data ([facility]) Vital Signs (Past 12 Hours) Vital Signs Temp Pulse Resp BP Pulse Ox 01/08/22 14:26 100.8 F H 108 H 20 165/87 H 94 01/08/22 07:43 99.1 F 102 H 18 163/72 H 93 PG Care Time/CCT Total # of Minutes Spent Total Time Spent with Patient: Total time spent is greater than 50% in coordination of care (as documented) at patient's floor/unit and/or counseling patient: Coding Level of Care Code 68133 Subseq Hosp Care Lvl 2 Diagnoses Cellulitis of groin, right L03.314 Time Spent (min) 35
[2022-01-08] MEDS: ACETAMINOPHEN 325 MG TAB PO PRN (16:03)
[2022-01-08] MEDS: HEPARIN 100 UNIT/ML 5ML FLUSH IV PRN (17:59)
[2022-01-08] MEDS: ENOXAPARIN INJ 40 MG/0.4 ML SYR SQ SCH (17:59)
[2022-01-08] MEDS: SIMVASTATIN 20 MG TAB PO SCH (20:06)
[2022-01-08] MEDS: TAMSULOSIN HCL 0.4 MG CAP PO SCH (20:06)
--- NOTE | 2022-01-09 04:49 | Communication Note ---
Date of Service: January 09, 2022 ordered anderson. per nursing, grossly incontinent and soiling wound dressings. failed condom cath K 2.9. repleting w/ 40 meq PO. check bmp, mg at noon
[2022-01-09] MEDS: PIPERACILLIN/TAZOBACTAM 3.375 GM in DEXTROSE 5% 100 ML IV SCH ×3 (05:37→21:39)
[2022-01-09 05:49] LABS: BUN Creatinine Ratio 21.7 (10-20); Calcium 7.8 mg/dl (8.5-10.1); Creatinine Clr Calc Pharmacy 59.5 ml/min; Potassium 2.9 mmol/L (3.5-5.1)
[2022-01-09 05:50] LABS: Hematocrit (blood only) 27.9 % (42-52); Hemoglobin 8.8 g/dL (14.0-18.0); Mean Corpuscular Hemoglobin 24.4 pg (25-34); Mean Corpuscular Hgb Conc 31.5 g/dL (32-36); Mean Corpuscular Volume 77.3 fL (80-100); Platelet Count 30 K/uL (130-400); RDW Coefficient of Variation 23.2 % (11.5-14.5); RDW Standard Deviation 63.7 fL (36.4-46.3); Red Blood Count 3.61 M/uL (4.7-6.1); White Blood Count 5.87 K/uL (4.8-10.8)
[2022-01-09 05:51] LABS: Platelet Estimate SIGNIFIC DECREASED (Normal)
[2022-01-09] MEDS ORDERED: POTASSIUM CHLORIDE CRTAB 20 MEQ TABCR PO STA (06:26)
[2022-01-09] MEDS: PANTOprazole 40 MG TAB PO SCH (08:35)
[2022-01-09] MEDS: ASPIRIN 81 MG ECTAB PO SCH (08:35)
[2022-01-09] MEDS: ESCITALOPRAM OXALATE 10 MG TAB PO SCH (08:35)
[2022-01-09] MEDS: HEPARIN 100 UNIT/ML 5ML FLUSH IV PRN ×2 (09:59→18:32)
[2022-01-09 13:49] LABS: BUN Creatinine Ratio 23.9 (10-20); Creatinine Clr Calc Pharmacy 59.5 ml/min; Potassium 3.3 mmol/L (3.5-5.1)
--- NOTE | 2022-01-09 16:16 | Hospitalist Progress Note ---
Date of Service January 09, 2022 Assessment & Plan (1) Cellulitis of groin, right: Plan: Assessment & Plan (1) Sepsis: Plan: Presents with generalized weakness and found to have fever, tachycardia, and right groin wound and buttock wounds with cellulitis as the likely source In the setting of being immunocompromised while undergoing chemotherapy for metastatic colon cancer, last chemotherapy was 12/31 - Resolving sepsis - IV Zosyn, IV vancomycin -Continue IV fluids given poor p.o. intake with LR at 80 mL's per hour - CT of the chest/abdomen/pelvis 01/05/2022 no intrathoracic abnormalities small right pleural effusion ill-defined mass at the hepatic dome measuring 6 x 5 suggestive of hepatic metastasis. Stable unchanged 2.7 cm lesion in the lateral segment of the left hepatic lobe prior right hemicolectomy no bowel obstruction Given the unusual nature appearance of these areas we had pathology do an FNA. Of the right groin wound. Initially this does appear consistent with abscess and deep wound cultures were sent but pathology came back, consistent with abscess (2) Cellulitis of groin, right: decubitus ulcer as seen on wound image likely stage 4 or unstageable, buttock decubitus ulcer stage 3 Continue wound management and wound care (3) Anemia: Plan: Hemoglobin is stable following transfusion, patient has a history of thalassemia patient Recently received PRBC transfusion at the cancer center Iron is undetectable patient will be transfused and then in the future will likely receive some venofer (4) Hyponatremia: Plan: resolved (5) Generalized muscle weakness: Plan: Secondary to chemotherapy side effects, dehydration, fever, and anemia Leading to multiple falls in the last few weeks Treating all of these things PT/OT consulted (6) Falls frequently: Plan: As above No acute injuries /OT consults (7) Metastatic colon cancer to liver: Plan: Currently receiving salvage chemotherapy through the cancer care partnership with Reina Romero PA-C Has had 6 treatments in the last 4 months of FOLFOX and bevacizumab Checking surveillance CT chest/abdomen/pelvis as above as requested by his oncology provider Follow CBC and give transfusional support as needed Dietitian consultation requested (8) HTN (hypertension): Plan: Blood pressures are better controlled now Continue to monitor Can give as needed medication as needed if becomes symptomatic (9) Hypercholesteremia: Plan: Continue home simvastatin (10) Microcytic anemia: Plan: As above, related to thalassemia and chemotherapy Follow CBC (11) BPH (benign prostatic hyperplasia): Plan: Continue Flomax No acute issues Plan: Discharge to SNF when accepted (2) Thrombocytasthenia: Plan: worsening thrombocytopenia could be due to his cancer or its treatment. Could also be due to HIT or antibiotics. Will HIT panel consult hematology Plan: discharge in the next 24-48 hrs to SNF when accepted Admission and Anticipated Discharge Date Admission Date: January 05, 2022 Subjective patient seen and examined, no new complaints, says he feels better Review of Systems Review of Systems: All systems reviewed are negative, apart from the ones contained in the history. Physical Exam Physical Exam: The patient is awake, alert and oriented 3, well developed and well nourished, normocephalic and atraumatic, lying in bed and in no acute distress. HEENT--PERRL, EOMI, mucous membranes and oropharynx mildly dry Neck--supple. No JVD. No bruits. Thyroid normal, trachea midline, no adenopathy. Heart--normal S1 and S2. No murmurs, rubs or gallops. Lungs--clear bilaterally, no respiratory distress, no accessory muscle use. Abdomen--normal bowel sounds and soft. Mild epigastric and left sided abdominal pain Extremities--no cyanosis or clubbing. No edema. right groin wound Dermatologic--normal skin turgor, normal color, no abnormal lymph nodes, no rash. Neurologic--cranial nerves II through XII grossly intact. Rheumatologic--normal range of motion. Psychiatric--normal affect. Results & Data Results & Data ([facility]) Vital Signs (Past 12 Hours) Vital Signs Temp Pulse Resp BP Pulse Ox 01/09/22 15:19 97.5 F L 117 H 18 138/82 94 01/09/22 07:37 107 H 01/09/22 07:28 98.2 F 120 H 18 145/75 H 93 PG Care Time/CCT Total # of Minutes Spent Total Time Spent with Patient: Total time spent is greater than 50% in coordination of care (as documented) at patient's floor/unit and/or counseling patient: Coding Level of Care Code 25522 Subseq Hosp Care Lvl 2 Diagnoses Cellulitis of groin, right L03.314 Thrombocytasthenia D69.1 Time Spent (min) 35
[2022-01-09 17:21] LABS: Fibrinogen 756 mg/dl (184-400)
[2022-01-09] MEDS ORDERED: IRON SUCROSE 400 MG in SODIUM CHLORIDE 0.9% 250 ML IV ONE (18:00)
[2022-01-09] MEDS: ENOXAPARIN INJ 40 MG/0.4 ML SYR SQ SCH (18:32)
[2022-01-09] MEDS: TAMSULOSIN HCL 0.4 MG CAP PO SCH (21:33)
[2022-01-09] MEDS: SIMVASTATIN 20 MG TAB PO SCH (21:33)
--- NOTE | 2022-01-09 21:49 | Electrocardiogram Report ---
Test Reason : Blood Pressure : / mmHG Vent. Rate : 102 BPM Atrial Rate : 138 BPM P-R Int : 160 ms QRS Dur : 140 ms QT Int : 364 ms P-R-T Axes : 048 004 -17 degrees QTc Int : 474 ms Multifocal atrial tachycardia Right bundle branch block Inferior infarct , age undetermined T wave abnormality, consider lateral ischemia Abnormal ECG When compared with ECG of 05-JAN-2022 12:27, No significant change Confirmed by Theo Cain ([id number]) on 01/09/2022 9:49:36 PM Referred By: REFERRED SELF Confirmed By:Theo Cain
[2022-01-10] MEDS: HEPARIN 100 UNIT/ML 5ML FLUSH IV PRN ×2 (00:54→19:27)
[2022-01-10] MEDS: PIPERACILLIN/TAZOBACTAM 3.375 GM in DEXTROSE 5% 100 ML IV SCH ×3 (05:25→22:08)
[2022-01-10 06:35] LABS: Hemoglobin 8.5 g/dL (14.0-18.0); Mean Corpuscular Hemoglobin 24.6 pg (25-34); Mean Corpuscular Hgb Conc 31.5 g/dL (32-36); Mean Corpuscular Volume 78.3 fL (80-100); Platelet Count 29 K/uL (130-400); Platelet Estimate SIGNIFIC DECREASED (Normal); RDW Standard Deviation 67.1 fL (36.4-46.3); Red Blood Count 3.45 M/uL (4.7-6.1); White Blood Count 5.79 K/uL (4.8-10.8)
[2022-01-10] MEDS ORDERED: SODIUM CHLORIDE 0.9% 250 ML IV PRN (08:09)
[2022-01-10] MEDS: ASPIRIN 81 MG ECTAB PO SCH (08:49)
[2022-01-10] MEDS: ESCITALOPRAM OXALATE 10 MG TAB PO SCH (08:49)
[2022-01-10] MEDS: PANTOprazole 40 MG TAB PO SCH (08:49)
[2022-01-10] MEDS: ACETAMINOPHEN 325 MG TAB PO PRN (09:30)
--- NOTE | 2022-01-10 14:30 | Hospitalist Progress Note ---
Date of Service January 10, 2022 Assessment & Plan (1) Cellulitis of groin, right: Plan: Assessment & Plan (1) Sepsis: Plan: Presented to the hospital with generalized weakness and found to have fever, tachycardia, and right groin wound and buttock wounds with cellulitis as the likely source In the setting of being immunocompromised while undergoing chemotherapy for metastatic colon cancer, last chemotherapy was 12/31 - Currently, sepsis is resolving - IV Zosyn, IV vancomycin -Transition to Oral antibiotics upon discharge -Continue IV fluids given poor p.o. intake with LR at 80 mL's per hour - CT of the chest/abdomen/pelvis 01/05/2022 no intrathoracic abnormalities small right pleural effusion ill-defined mass at the hepatic dome measuring 6 x 5 suggestive of hepatic metastasis. Stable unchanged 2.7 cm lesion in the lateral segment of the left hepatic lobe prior right hemicolectomy no bowel obstruction Given the unusual nature appearance of these areas we had pathology do an FNA of the right groin wound, pathology came back, consistent with abscess (2) Cellulitis of groin, right: decubitus ulcer as seen on wound image likely stage 4 or unstageable, buttock decubitus ulcer stage 3 Continue wound management and wound care (3) Anemia: Plan: Hemoglobin is stable following transfusion, patient has a history of thalassemia Recently received PRBC transfusion at the cancer center Iron is undetectable patient will be transfused and then in the future will likely receive some venofer (4) Hyponatremia: Plan: resolved (5) Generalized muscle weakness: Plan: Secondary to chemotherapy side effects, dehydration, fever, and anemia Leading to multiple falls in the last few weeks Treating all of these things PT/OT consulted (6) Falls frequently: Plan: As above No acute injuries /OT consults (7) Metastatic colon cancer to liver: Plan: Currently receiving salvage chemotherapy through the cancer care partnership with Reina Romero PA-C Has had 6 treatments in the last 4 months of FOLFOX and bevacizumab Checking surveillance CT chest/abdomen/pelvis as above as requested by his oncology provider Follow CBC and give transfusional support as needed Dietitian consultation requested (8) HTN (hypertension): Plan: Blood pressures are better controlled now Continue to monitor Can give as needed medication as needed if becomes symptomatic (9) Hypercholesteremia: Plan: Continue home simvastatin (10) Microcytic anemia: Plan: As above, related to thalassemia and chemotherapy Follow CBC (11) BPH (benign prostatic hyperplasia): Plan: Continue Flomax No acute issues Plan: Discharge to SNF when accepted (2) Thrombocytasthenia: Plan: worsening thrombocytopenia could be due to his cancer or its treatment. Could also be due to HIT or antibiotics. No evidence of DIC consult hematology, Transfuse platelets Plan: discharge to SNF when accepted Admission and Anticipated Discharge Date Admission Date: January 05, 2022 Subjective patient seen and examined, no new complaints, says he feels better Review of Systems Review of Systems: All systems reviewed are negative, apart from the ones contained in the history. Physical Exam Physical Exam: The patient is awake, alert and oriented 3, well developed and well nourished, normocephalic and atraumatic, lying in bed and in no acute distress. HEENT--PERRL, EOMI, mucous membranes and oropharynx mildly dry Neck--supple. No JVD. No bruits. Thyroid normal, trachea midline, no adenopat hy. Heart--normal S1 and S2. No murmurs, rubs or gallops. Lungs--clear bilaterally, no respiratory distress, no accessory muscle use. Abdomen--normal bowel sounds and soft. Mild epigastric and left sided abdominal pain Extremities--no cyanosis or clubbing. No edema. right groin wound Dermatologic--normal skin turgor, normal color, no abnormal lymph nodes, no rash. Neurologic--cranial nerves II through XII grossly intact. Rheumatologic--normal range of motion. Psychiatric--normal affect. Results & Data Results & Data ([facility]) Vital Signs (Past 12 Hours) Vital Signs Temp Pulse Pulse Resp BP BP Pulse Ox 01/10/22 12:31 97.9 F 93 H 16 128/79 96 01/10/22 11:28 97.7 F 95 H 18 132/79 95 01/10/22 10:28 99.1 F 97 H 18 108/65 92 01/10/22 09:58 99.1 F 113 H 16 115/72 95 01/10/22 09:43 99.0 F 102 H 18 127/71 94 01/10/22 09:40 99.1 F 110 H 18 141/77 H 97 01/10/22 09:24 99.5 F 107 H 18 138/77 90 01/10/22 07:26 98.2 F 116 H 18 178/52 H 92 Laboratory Results Laboratory Results - last 24 hr 01/09/22 01/09/22 01/10/22 16:44 16:44 05:28 WBC 5.79 RBC 3.45 L Hgb 8.5 L Hct 27.0 L MCV 78.3 L MCH 24.6 L MCHC 31.5 L RDW Std Deviation 67.1 H RDW Coeff of Maryann 24.0 H Plt Count 29 L* Platelet Estimate SIGNIFIC DECREASED Fibrinogen 756 H Vitamin B12 940 H PG Care Time/CCT Total # of Minutes Spent Total Time Spent with Patient: Total time spent is greater than 50% in coordination of care (as documented) at patient's floor/unit and/or counseling patient: Coding Level of Care Code 29608 Subseq Hosp Care Lvl 2 Diagnoses Cellulitis of groin, right L03.314 Thrombocytasthenia D69.1 Time Spent (min) 35
[2022-01-10] MEDS: ENOXAPARIN INJ 40 MG/0.4 ML SYR SQ SCH (17:45)
[2022-01-10] MEDS: SIMVASTATIN 20 MG TAB PO SCH (19:30)
[2022-01-10] MEDS: TAMSULOSIN HCL 0.4 MG CAP PO SCH (19:31)
[2022-01-11] MEDS: HEPARIN 100 UNIT/ML 5ML FLUSH IV PRN ×2 (01:38→18:10)
[2022-01-11] MEDS: PIPERACILLIN/TAZOBACTAM 3.375 GM in DEXTROSE 5% 100 ML IV SCH ×3 (05:42→21:06)
[2022-01-11 06:17] LABS: Mean Corpuscular Hgb Conc 31.3 g/dL (32-36)
[2022-01-11 06:28] LABS: Hematocrit (blood only) 26.2 % (42-52); Hemoglobin 8.2 g/dL (14.0-18.0); Mean Corpuscular Hemoglobin 24.5 pg (25-34); Mean Corpuscular Volume 78.2 fL (80-100); RDW Coefficient of Variation 24.1 % (11.5-14.5); RDW Standard Deviation 67.3 fL (36.4-46.3); Red Blood Count 3.35 M/uL (4.7-6.1); White Blood Count 4.91 K/uL (4.8-10.8)
[2022-01-11 06:43] LABS: BUN Creatinine Ratio 26.3 (10-20); Calcium 7.7 mg/dl (8.5-10.1); Creatinine Clr Calc Pharmacy 57.6 ml/min; Est GFR (African American) 83.7 ml/min; Est GFR (Non-African American) 72.2 ml/min; Potassium 3.1 mmol/L (3.5-5.1)
[2022-01-11 06:48] LABS: Platelet Count 27 K/uL (130-400)
[2022-01-11 06:51] LABS: Platelet Estimate SIGNIFIC DECREASED (Normal)
[2022-01-11] MEDS: PANTOprazole 40 MG TAB PO SCH (07:14)
[2022-01-11] MEDS: ESCITALOPRAM OXALATE 10 MG TAB PO SCH (07:14)
[2022-01-11] MEDS: ASPIRIN 81 MG ECTAB PO SCH (07:15)
--- NOTE | 2022-01-11 12:22 | Hospitalist Progress Note ---
Date of Service January 11, 2022 Assessment & Plan (1) Cellulitis of groin, right: Plan: 86-year-old white male hospitalized with sepsis syndrome associated with cellulitis of the right groin -Upfront had leukopenia (3.99) with tachycardia (117) and a fever of 100.94 F. -Underlying source thought to be cellulitis/wound of the right groin -Has been receiving wound care by the wound nurse. Appreciate recommendations -Given its atypical appearance, fine-needle aspiration obtained and sent for pathology given concern for cutaneous metastasis from underlying colon cancer. Pathology has since come back consistent with abscess/infectious process -Patient remains empirically on Zosyn and vancomycin -Culture data (obtained upfront) currently showing no growth -This is my first day seeing the patient; however, the wound in comparison to the pictures taken on 01/06ere seems to be significant worsening of the wound bed. There is mucopurulent drainage and concern for tendon exposure when lifting up the fold of the skin. Will repeat a CT scan of the abdomen and pelvis with contrast to look for underlying abscess. I have consulted general surgery as I do believe debridement is necessary; however, treatment options are limited at the moment given his thrombocytopenia. I have personally repeated his wound culture. If no growth, would be inclined to stop antibiotics and continue only with wound care (as antibiotics likely worsening his thrombocytopenia). We will keep on board for now (2) Fever: Plan: Presented with a fever of 100.94 degrees Fahrenheitsecondary to #1 -Has since defervesced (3) Thrombocytopenia: Plan: -Platelet count on 11/25 was normal at 274. Has been downtrending since -Likely multifactorial: --Chemotherapy (last session on 12/31) --Antibiotic driven --Infection driven --Aspirin (hold for now) --Lovenox (hold for now) -I have added a peripheral smear and Nasra test. The CT scan of his abdomen and pelvis to further evaluate the right inguinal wound and for abscess will also help identify for underlying splenomegaly -Consider hematology consult tomorrow if no improvement with stopping the aspirin and Lovenox (4) Hypokalemia: Plan: -Replace (5) Metastatic colon cancer to liver: Plan: -Known Colon CA with hepatic metastasisreceiving chemotherapy. Last session 12/31 Currently receiving salvage chemotherapy through the cancer care partnership with Reina Romero PA-C Has had 6 treatments in the last 4 months of FOLFOX and bevacizumab Checking surveillance CT chest/abdomen/pelvis as above as requested by his oncology provider Follow CBC and give transfusional support as needed Dietitian consultation requested (6) HTN (hypertension): Plan: Blood pressures are elevated here but patient does not take any antihypertensives at home Continue to monitor Can give as needed medication as needed if becomes symptomatic (7) Anemia: Plan: As above, related to thalassemia and chemotherapy Follow CBC H/H low but stable and at his baseline Plan: daughter updated at bedside Plan of care we discussed with Dr. Callaway. Further orders as warranted. Admission and Anticipated Discharge Date Admission Date: January 05, 2022 Subjective Patient seen on daily rounds today. Hospitalized 01/05 with fever, tachycardia, and concern for right groin cellulitis. Remains on Zosyn/vancomycin empirically. Was slightly leukopenic upon presentation (3.99) which has since improved. Patient's temperature upon arrival was 100.94 F and he was tachycardic at 113 bpm. He is now hemodynamically stable and has defervesced. He is receiving wound care for the right groin wound. He had a fine-needle aspiration as it was uncertain if this was a wound or cutaneous metastasis from his known colon CA. Pathology has since come back showing infection. Patient is complaining of pain in this region. Additionally, it is noted that the patient's platelet count has been dropping. Was 297 in the beginning of November. Has slowly been dropping. Did receive last chemotherapy session on 12/31. Again is on antibiotics for active infection. Additionally, is taking aspirin and on Lovenox for DVT prophylaxis. Review of Systems Review of Systems: All systems reviewed and are unremarkable except as noted in HPI and below Denies fevers, chills, headache, nasal congestion, sore throat, cough, chest pain, shortness of breath, palpitations, orthopnea, PND, abdominal pain, nausea, vomiting, diarrhea, constipation, dysuria, hematuria, frequency, back pain, joint pain or swelling, Physical Exam Physical Exam: General: Resting comfortably in his hospital bed. He does not appear ill or toxic. NAD. HEENT: Head is AT/NC. Buccal mucosa is moist and pink Neck: No JVD. Negative hepatojugular reflex Cardiac: RRR with 1/6 JOSE RAFAEL Lungs: CTA without W/R/R Abdomen: Normoactive X4. Soft and nontender in all quadrants. Extremities: No peripheral clubbing cyanosis or edema Neuro: A&O X4. Cranial nerves II through XII are grossly intact. No focal neuro deficits Skin: Wound noted to right inguinal region. There is mucopurulent drainage and sloughing of the skin.? Tendon exposure. The wound involving the deep inguinal region (under the pannus) with periwound erythema and mild eschar Psych: Appropriate affect. Pleasant and cooperative Results & Data Results & Data ([facility]) Vital Signs (Past 12 Hours) Vital Signs Temp Pulse Resp BP Pulse Ox 01/11/22 07:27 37.2 C 89 16 152/79 H 95 Laboratory Results 01/11/22 05:38 01/11/22 05:38 PG Care Time/CCT Total # of Minutes Spent Total Time Spent with Patient: Total time spent is greater than 50% in coordination of care (as documented) at patient's floor/unit and/or counseling patient: Coding Level of Care Code 60457 Subseq Hosp Care Lvl 2 Diagnoses Cellulitis of groin, right L03.314 Fever R50.9 Thrombocytopenia D69.6 Metastatic colon cancer to liver C18.9; C78.7 HTN (hypertension) I10 Hypokalemia E87.6 Anemia D64.9
[2022-01-11] MEDS: POTASSIUM CHLORIDE CRTAB 20 MEQ TABCR PO SCH ×2 (12:54→17:41)
[2022-01-11] MEDS: traMADol HCL 50 MG TABLET PO PRN (12:55)
--- NOTE | 2022-01-11 13:37 | Surgery Consultation ---
Date of Consultation January 11, 2022 Assessment & Plan (1) Cellulitis of groin, right: continue Zosyn WBC 4, plt [address] did not show abscess, repeat was ordered would prefer Plt near 50, Lovenox and ASA have been discontinued will follow for debridement/biopsy in next several days History of Present Illness Attending Physician: Jacob Callaway MD History of Present Illness 86 y/o male with metastatic colon cancer (resection 12/15) admitted 6 days ago for weakness, fever, tachycardia. Has nonhealing right groin wound and had FNA earlier this week to r/o metastatic disease. Pathology showed skin ulcer and abscess. Wound culture shows skin willy, blood cultures negative. We were asked to evaluate. Was having ongoing chemotherapy treatments as an outpatient. Allergies Allergy/AdvReac Type Severity Reaction Status Date / Time No Known Allergies Allergy Mild Verified 01/05/22 12:47 Home Medications Medication Instructions Recorded Confirmed Type aspirin 81 mg tablet,delayed 81 mg PO QAM 01/27/21 01/05/22 History release (Aspirin Low Dose) Incentive Spirometer #1 ea 04/16/21 10/07/21 Rx omeprazole 20 mg capsule,delayed 20 mg PO DAILY #90 cap 04/30/21 01/05/22 Rx release escitalopram oxalate 10 mg tablet 10 mg PO QAM #90 tab 07/17/21 01/05/22 Rx (Lexapro) simvastatin 20 mg tablet 20 mg PO QPM #90 tab 07/17/21 01/05/22 Rx tamsulosin 0.4 mg capsule 0.4 mg PO QPM 10/09/21 01/05/22 History Patient History Medical History Anxiety GERD (gastroesophageal reflux disease) CONTROLLED History of being hospitalized OCT 2020 DX COVID...([facility]DX PNEUMONIA, BOWEL BLOCKAGE AND LUNG INFECTION...REHAB CENTRE [facility]/ENCOMPASS DISCHARGED FEBRUARY 2021 Hyperlipidemia HX Metastatic colon cancer to liver DX 09/30/20 Prostate cancer DX 2006 - HX SEED IMPLANT AND RADIATION THERAPY 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 Rodriguez 12/05/2020 History of colonoscopy History of prostate surgery History of tonsillectomy and adenoidectomy History of tooth extraction Hx of cataract surgery LEFT Port-A-Cath in place (10/14/21) Insertion of Access Port - Left Cephalic(Left) - Marcus Rodriguez MD, FACS 10/14/2021 Family History Sister Breast cancer Brother History of throat cancer Denies family history of Colon cancer Ovarian cancer Prostate cancer Myocardial infarction Social History Smoking Status: Never smoker Tobacco Type: Cigars Second Hand Exposure: No; Hx Alcohol Use: No Hx Substance Use: No Preferred Language: Georgian Communication Ability: Effective Visual Impairment: No Limitations Hearing Ability: Normal 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 Beliefs That Will Affect Care: None marital status: Current Living Situation: Spouse current occupational status: retired Other Information That Helps Us Care for You: No Feels Safe at Home: Yes Safety Concerns: Feels Safe At This Time Assistive Devices: Walker Review of Systems Constitutional: no fever and no chills Gastrointestinal: no abdominal pain Physical Exam Constitutional: WD/WN, vitals as above Gastrointestinal (Abdomen): Percussion/Palpation: abdomen soft right groin wound approx 8x 15 cm, superficial, some purulent drainage on dressing Results & Data ([facility]) Vital Signs (Past 12 Hours) Vital Signs Temp Pulse Resp BP Pulse Ox 01/11/22 07:27 37.2 C 89 16 152/79 H 95 PG Care Time/CCT Total # of Minutes Spent Total Time Spent with Patient: Total time spent is greater than 50% in coordination of care (as documented) at patient's floor/unit and/or counseling patient: Coding Level of Care Code 39629 Initial Inpt Care Lvl 3 Diagnoses Cellulitis of groin, right L03.314
[2022-01-11] MEDS ORDERED: OPTIRAY 320 100ml IV ONE (16:10)
--- NOTE | 2022-01-11 16:26 | CT Scan Report ---
ABDOMEN AND PELVIS CT WITH IV AND ORAL CONTRAST CT DOSE: 662.01 mGy.cm HISTORY: Acute lower abdominal pain with reported wound of the right inguinal tissues. History of met astatic colon cancer wound right inguiinal region TECHNIQUE: Multiaxial CT images of the abdomen and pelvis were performed following the IV administrat ion of 94 cc of Optiray and oral contrast. A dose lowering technique was utilized adhering to the pr inciples of [facility]. COMPARISON STUDY: 01/05/2022 FINDINGS: Cardiomegaly with coronary artery calcifications. Trace left and small right pleural effusi on. Right greater than left bibasilar opacities are suggestive of atelectasis/scarring. There is no pneumatosis or pneumoperitoneum. The spleen is enlarged measuring up to 16 cm in length. Mild to moderate pancreatic atrophy. Unremarkable right adrenal gland. Stable thickening of the left adrenal gland. Contracted gallbladder. Ill-defined hepatic metastatic lesion within the hepatic dome measures approximately 6.3 x 5.3 cm, unchanged. Stable 2.7 cm lateral segment hepatic lesion with mul tiple additional smaller ill-defined hypodense mostly subcentimeter hepatic foci. No new or enlarging hepatic lesions are identified. Patency of the hepatic and portal veins. Mild bilateral cortical thinning of the kidneys are noted along with renal sinus cysts. 7.8 cm exophy tic cyst of the superior pole right kidney. No hydronephrosis. Decompressed urinary bladder with Fole y catheter in place. The previous noted urinary bladder diverticulum is not well visualized on today' s study. Prostatomegaly with brachytherapy seeds of the prostate. Atherosclerosis of the abdominal ao rta without aneurysm. Subcentimeter gastrohepatic lymph nodes redemonstrated. Small hiatal hernia. Wa ll thickening of the inferior rectum and anorectal junction is again noted. Postoperative changes of right hemicolectomy. No bowel obstruction. Mild generalized body wall edema with skin thickening most pronounced within the right inguinal tissues. No abscess.. Degenerative changes of the spine, pelvis and hips. IMPRESSION: 1. Mild diffuse generalized body wall edema. Subcutaneous edema with skin thickening of the right ing uinal tissues and proximal right thigh and may represent associated cellulitis. No abscess. 2. Unchanged mild wall thickening of the inferior rectum and anorectal junction. 3. Prior right hemicolectomy. No bowel obstruction. 4. Hepatic metastasis redemonstrated. 5. Trace left and small right pleural effusions with bibasilar opacities suggestive of atelectasis/sc arring. 6. Additional findings as above. ACT 112: Negative or not required by law. The above report was generated using voice recognition software. It may contain grammatical, syntax o r spelling errors. Electronically signed by: Benitez Valentin M.D. 01/11/2022 4:24 PM
[2022-01-11] MEDS: SIMVASTATIN 20 MG TAB PO SCH (20:05)
[2022-01-11] MEDS: TAMSULOSIN HCL 0.4 MG CAP PO SCH (20:05)
[2022-01-12] MEDS: PIPERACILLIN/TAZOBACTAM 3.375 GM in DEXTROSE 5% 100 ML IV SCH (05:55)
[2022-01-12 06:41] LABS: Mean Corpuscular Hgb Conc 31.1 g/dL (32-36)
[2022-01-12 06:54] LABS: BUN Creatinine Ratio 23.7 (10-20); Calcium 7.8 mg/dl (8.5-10.1); Creatinine Clr Calc Pharmacy 56.4 ml/min; Est GFR (African American) 81.6 ml/min; Est GFR (Non-African American) 70.4 ml/min; Magnesium 1.7 mg/dl (1.7-2.4)
[2022-01-12 07:01] LABS: Hematocrit (blood only) 28.3 % (42-52); Hemoglobin 8.8 g/dL (14.0-18.0); Mean Corpuscular Hemoglobin 24.7 pg (25-34); Mean Corpuscular Volume 79.5 fL (80-100); RDW Coefficient of Variation 24.2 % (11.5-14.5); RDW Standard Deviation 68.5 fL (36.4-46.3); Red Blood Count 3.56 M/uL (4.7-6.1); White Blood Count 6.43 K/uL (4.8-10.8)
[2022-01-12 07:21] LABS: INR 1.1 (0.9-1.1); Prothrombin Time 11.9 Seconds (9.0-12.0)
[2022-01-12 07:28] LABS: Platelet Count 37 K/uL (130-400)
[2022-01-12] MEDS: traMADol HCL 50 MG TABLET PO PRN (07:32)
[2022-01-12] MEDS: ACETAMINOPHEN 325 MG TAB PO PRN (07:32)
[2022-01-12] MEDS: ESCITALOPRAM OXALATE 10 MG TAB PO SCH (07:33)
[2022-01-12] MEDS: PANTOprazole 40 MG TAB PO SCH (07:33)
[2022-01-12 07:43] LABS: ANC (manual) 3.61 K/uL (1.4-6.5); Anisocytosis Present; Basophils # (manual) 0.06 K/uL (0-0.2); Basophils % (manual) 0.9 %; Eosinophils # (manual) 0.06 K/uL (0-0.5); Eosinophils % (manual) 0.9 %; Lymphocytes % (manual) 29.5 %; Monocytes # (manual) 0.75 K/uL (0.11-0.59); Monocytes % (manual) 11.6 %; Myelocytes # (manual) 0.06 K/uL (0-0); Myelocytes % (manual) 0.9 %; Neutrophils # (manual) 3.61 K/uL (1.4-6.5); Neutrophils % (manual) 56.2 %; Platelet Estimate Decreased (Normal); Tear Drop Cells 2+
[2022-01-12] MEDS: HEPARIN 100 UNIT/ML 5ML FLUSH IV PRN ×3 (08:10→22:19)
[2022-01-12] MEDS ORDERED: POTASSIUM CHLORIDE CRTAB 20 MEQ TABCR PO STA (08:50)
[2022-01-12] MEDS: POTASSIUM CHLORIDE / WTR 10 MEQ/100 ML PLCT IV SCH ×2 (09:30→10:37)
[2022-01-12] MEDS ORDERED: LORazepam 0.5 MG TAB PO PRN (10:18)
[2022-01-12] MEDS: MoRPHine SULFATE 2 MG/ML CARP IV PRN ×4 (10:48→22:19)
[2022-01-12] MEDS: GLYCOPYRROLATE 0.2 MG/ML VIAL IV PRN ×3 (10:48→20:34)
--- NOTE | 2022-01-12 11:03 | Surgery Progress Note ---
Date of Service January 12, 2022 Assessment & Plan (1) Cellulitis of groin, right: Plan: No abscess on repeat CT Plt 37 today, WBC 6 will tentatively plan for debridement of right groin wound tomorrow in OR, repeat labs in AM Admission and Anticipated Discharge Date Admission Date: January 05, 2022 Subjective patient sleeping Results & Data ([facility]) Vital Signs (Past 12 Hours) Vital Signs Temp Pulse Resp BP BP Pulse Ox 01/12/22 09:29 37.1 C 62 26 H 110/53 L 94 01/12/22 07:59 36.9 C 91 H 18 142/69 H 94 PG Care Time/CCT Total # of Minutes Spent Total Time Spent with Patient: Total time spent is greater than 50% in coordination of care (as documented) at patient's floor/unit and/or counseling patient: Coding Level of Care Code None Diagnoses Cellulitis of groin, right L03.314
--- NOTE | 2022-01-12 12:54 | Hospitalist Progress Note ---
Date of Service January 12, 2022 Assessment & Plan (1) Cellulitis of groin, right: Plan: 86-year-old white male hospitalized with sepsis syndrome associated with cellulitis of the right groin -Upfront had leukopenia (3.99) with tachycardia (117) and a fever of 100.9F. -Underlying source thought to be cellulitis/wound of the right groin -Has been receiving wound care by the wound nurse. Appreciate recommendations -Given its atypical appearance, fine-needle aspiration obtained and sent for pathology given concern for cutaneous metastasis from underlying colon cancer. Pathology has since come back consistent with abscess/infectious process -Patient has remained on Zosyn only, Vancomycin was stopped after dose on 01/05 after negative MRSA screen received -Culture data (obtained upfront) currently showing no growth -Repeat CT a/p as above, no evidence of abscess -General surgery consulted as debridement was felt to be warranted, were considering debridement 01/13 but will not proceed (see below) -Repeat wound culture done on 01/11, NGTD -Will stop all treatment due to ongoing decline, see below (2) Fever: Plan: Presented with a fever of 100.9 degrees Fahrenheitsecondary to #1 -Has since defervesced (3) Thrombocytopenia: Plan: -Platelet count on 11/25 was normal at 274. Has been downtrending since -Likely multifactorial: --Chemotherapy (last session on 12/31) --Antibiotic driven --Infection driven --Aspirin (hold for now) --Lovenox (hold for now) -peripheral smear and Nasra test were ordered and are pending -slow improvement today from 27,000 to 37,000 (4) Hypokalemia: Plan: -Replacement ordered but still low today at 3.0 -Couldn't tolerate pills, IV K Riders ordered (5) Metastatic colon cancer to liver: Plan: -Known Colon CA with hepatic metastasisreceiving chemotherapy. Last session 12/31 -Currently receiving salvage chemotherapy through the cancer care partnership with Reina Romero PA-C -Has had 6 treatments in the last 4 months of FOLFOX and bevacizumab -Checking surveillance CT chest/abdomen/pelvis as above as requested by his oncology provider -Follow CBC and give transfusional support as needed -Dietitian consultation requested (6) Anemia: Plan: -As above, related to thalassemia and chemotherapy -Follow CBC -H/H low but stable and at his baseline Plan: I had a lengthy discussion with patient's daughter, Melissa, who holds POA regarding patient's condition and my concerns. She verbalized that her father never wanted life sustaining measures and that he is a DNR/DNI. She wants him to be comfortable and does not want interventions that will prolong any suffering. She understands that his prognosis is poor and that he is reaching end of life. Melissa endorses father has been recently declining at home prior to this admission and states that he expressed wishes that if he was showing decline that he wanted to "go quickly." She is agreeable to stopping antibiotic therapy at this time and focusing more on comfort. Zosyn discontinued. Pt transferred to private room. Added Morphine for dyspnea/pain, Robinol for secretions, Ativan for agitation, prn O2 (palliative order set used). Updated Dr. Callaway who has also seen this patient due to change in condition. Also spoke with daughter, Melissa, at bedside. All are in agreement with current plan. Admission and Anticipated Discharge Date Admission Date: January 05, 2022 Subjective Patient seen on rounds this morning. He was hospitalized on 01/05 sepsis which was felt to be secondary to cellulitis with possible abscess of the right groin. He was placed on empiric abx therapy initially received dose of Cefepime and Vanco and then changed to Zosyn and Vanco. There was concern regarding appearance of his groin for cutaneous metastasis of his colon cancer, pathology performed FNA which came back with findings c/w infectious process and abscess. CT a/p performed 01/11 does not demonstrate abscess but pt felt to warrant possible debridement of his wound. Surgery consulted, saw on 01/11 does not want to pursue intervention d/t low platelets. Called to bedside by RN due to concern regarding pt's condition this morning, no tified the appeared pale, diaphoretic, with RR of 26. Upon my entry, pt appears to be sleeping but has audible secretions/gurgling and breathing mildly labored. He does awaken to sternal rub, oriented to person, place, and time. He denies pain or feeling short of breath. Review of Systems Review of Systems: All systems reviewed and are unremarkable except as noted in HPI and below Denies fevers, chills, headache, nasal congestion, sore throat, cough, chest pain, shortness of breath, palpitations, orthopnea, PND, abdominal pain, nausea, vomiting, diarrhea, constipation, dysuria, hematuria, frequency, back pain, joint pain or swelling, Physical Exam Physical Exam: GENERAL: 86 yo elderly thin white male. Appears ill, pale, and diaphoretic. LUNGS: Mildly labored, coarse audible breath sounds and bibasilar crackles. CARDIOVASCULAR: Regular rate and rhythm. No M/G/R. No JVD. ABDOMEN: Soft, non-tender and non-distended. BS normal x 4 quad. EXTREMITIES: No edema. Non-tender. Peripheral pulses +2/4. NEUROLOGIC: Somnolent but awakens to sternal rub, oriented x3 but falls asleep quickly while talking. PSYCHIATRIC: Cooperative. SKIN: Pale and diaphoretic. Right groin wound with purulent drainage in the groin fold, indurated, purplish in appearance. Results & Data Results & Data ([facility]) Vital Signs (Past 12 Hours) Vital Signs Temp Pulse Resp BP BP Pulse Ox 01/12/22 09:29 37.1 C 62 26 H 110/53 L 94 01/12/22 07:59 36.9 C 91 H 18 142/69 H 94 Laboratory Results 01/12/22 05:48 01/12/22 05:48 Diagnostic Findings Abdomen/Pelvis CT 01/11/22 12:[address] WITH IV AND ORAL CONTRAST CT DOSE: 662.01 mGy.cm HISTORY: Acute lower abdominal pain with reported wound of the right inguinal tissues. History of metastatic colon cancer wound right inguiinal region TECHNIQUE: Multiaxial CT images of the abdomen and pelvis were performed following the IV administration of 94 cc of Optiray and oral contrast. A dose lowering technique was utilized adhering to the principles of ALARA. COMPARISON STUDY: 01/05/2022 FINDINGS: Cardiomegaly with coronary artery calcifications. Trace left and small right pleural effusion. Right greater than left bibasilar opacities are suggestive of atelectasis/scarring. There is no pneumatosis or pneumoperitoneum. The spleen is enlarged measuring up to 16 cm in length. Mild to moderate pancreatic atrophy. Unremarkable right adrenal gland. Stable thickening of the left adrenal gland. Contracted gallbladder. Ill-defined hepatic metastatic lesion within the hepatic dome measures approximately 6.3 x 5.3 cm, unchanged. Stable 2.7 cm lateral segment hepatic lesion with multiple additional smaller ill-defined hypodense mostly subcentimeter hepatic foci. No new or enlarging hepatic lesions are identified. Patency of the hepatic and portal veins. Mild bilateral cortical thinning of the kidneys are noted along with renal sinus cysts. 7.8 cm exophytic cyst of the superior pole right kidney. No hydronephrosis. Decompressed urinary bladder with Faulkner catheter in place. The previous noted urinary bladder diverticulum is not well visualized on today's study. Prostatomegaly with brachytherapy seeds of the prostate. Atherosclerosis of the abdominal aorta without aneurysm. Subcentimeter gastrohepatic lymph nodes redemonstrated. Small hiatal hernia. Wall thickening of the inferior rectum and anorectal junction is again noted. Postoperative changes of right hemicolectomy. No bowel obstruction. Mild generalized body wall edema with skin thickening most pronounced within the right inguinal tissues. No abscess.. Degenerative changes of the spine, pelvis and hips. IMPRESSION: 1. Mild diffuse generalized body wall edema. Subcutaneous edema with skin thickening of the right inguinal tissues and proximal right thigh and may represent associated cellulitis. No abscess. 2. Unchanged mild wall thickening of the inferior rectum and anorectal junction. 3. Prior right hemicolectomy. No bowel obstruction. 4. Hepatic metastasis redemonstrated. 5. Trace left and small right pleural effusions with bibasilar opacities suggestive of atelectasis/scarring. 6. Additional findings as above. ACT 112: Negative or not required by law. The above report was generated using voice recognition software. It may contain grammatical, syntax or spelling errors. Electronically signed by: Benitez Valentin M.D. 01/11/2022 4:24 PM PG Care Time/CCT Total # of Minutes Spent Total Time Spent with Patient: Total time spent is greater than 50% in coordination of care (as documented) at patient's floor/unit and/or counseling patient: Coding Level of Care Code 48265 Subseq Hosp Care Lvl 3 Diagnoses Cellulitis of groin, right L03.314 Fever R50.9 Thrombocytopenia D69.6 Hypokalemia E87.6 Metastatic colon cancer to liver C18.9; C78.7 Anemia D64.9
--- NOTE | 2022-01-12 14:03 | Consultation Report ---
DATE OF SERVICE: 01/12/2022. REASON FOR CONSULTATION: Thrombocytopenia. HISTORY OF PRESENT ILLNESS: The patient is a pleasant 86-year-old gentleman with metastatic colon cancer, for which he started FOLFOX/Avastin under the care of Dr. Masterson on 10/14/2020. He most recently received cycle #6 of treatment on 12/31/2021. Patient was admitted to [facility] on 01/05/2022 after presenting with generalized weakness, poor appetite, and failure to thrive. On admission, patient was found to have fever, tachycardia and right groin wound suspicious for cellulitis. He was subsequently placed on broad- spectrum antibiotics for sepsis. Of note, patient was also found to be anemic with hemoglobin of 8.6, thought to be due to underlying thalassemia as well as chemotherapy. Hematology was consulted for worsening thrombocytopenia as platelet count was noted to have declined from 82,000 on admission to current platelet count of 37,000. At the time of my evaluation of patient today, he was very lethargic and did not answer any of my questions. 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 PAST MEDICAL HISTORY: 1. Metastatic colon cancer. 2. Thalassemia. 3. History of prostate cancer. 4. Renal insufficiency. 5. Cervical spondylosis. PAST SURGICAL HISTORY: 1. Tonsillectomy/adenoidectomy. 2. Right hemicolectomy. SOCIAL HISTORY: Denies smoking, alcohol and illicit drug use. FAMILY HISTORY: Nonsignificant. HOME MEDICATIONS PRIOR TO ADMISSION: 1. Tamsulosin 0.4 mg p.o. daily. 2. Escitalopram 10 mg p.o. daily. 3. Tylenol 650 p.o. q. 6 hours p.r.n. 4. Pantoprazole. 5. Simvastatin 20 mg p.o. at bedtime. 6. Aspirin 81 mg p.o. daily. 7. Zofran as needed. 8. Compazine as needed. ALLERGIES: No known drug allergies. REVIEW OF SYSTEMS: Unable to obtain PHYSICAL EXAMINATION: VITAL SIGNS: Blood pressure 110/53, heart rate 62, respiratory rate 26, temperature 37.1, oxygen saturation 94% on room air. Lethargic/nonresponsive LABORATORY DATA: White cell count 6.43, hemoglobin 8.8, hematocrit 28.3 with MCV of 79.5, platelet count of 37,000. Iron studies, ferritin on 10/27/2021 revealed ferritin of 41. Vitamin B12 level 940. Peripheral smear review by pathology on 01/11/2022 revealed moderate anisopoikilocytosis with acanthocytes, teardrop cells consistent with poikilocytosis and ovalocytes with no evidence of blasts, schistocytes and PMN leukocytes, signs of sepsis. IMAGING STUDIES: CT chest, abdomen and pelvis on 01/05/2022 revealed ill- defined mass in the hepatic dome measuring 6.3 x 5.3 cm suggestive of hepatic metastasis, which appeared stable to slightly decreased in size from comparison study as well as indeterminate 2.7 cm lesion involving the lateral segment of the left hepatic lobe with several additional mostly subcentimeter hepatic foci. IMPRESSION: 1. Thrombocytopenia. 2. Metastatic colon cancer, on palliative chemotherapy. 3. Anemia. 4. Altered mental status likley / to sepsis Pleasant 86-year-old gentleman with metastatic colon cancer who had until more recently been followed by my colleague, Dr. Masterosn who has since left [facility]. Patient most recently received treatment for his colon cancer on 12/31/2021. Review of prior labs indicate that his platelet count was completely normal around 11/2021. Workup for thrombocytopenia including vitamin B12 level and folate were essentially normal. Peripheral smear did not reveal any schistocytes to suggest underlying disseminated intravascular coagulation, thrombocytopenic purpura/hemolytic uremic syndrome. Given extensive workup, which has been unrevealing, I suspect that his thrombocytopenia is most likely multifactorial due to underlying liver disease from metastatic colon cancer, recent FOLFOX chemotherapy and sepsis. His condition has worsened overnight likely from sepsis and per patient's daughter, decision at this time is to switch to supportive care/hospice. Will therefore sign out at this time from an oncologic standpoint Thank you for this consult. Please feel free to call if you have any further questions. Job ID: [id number] [facility] HOSPITALMark
[2022-01-12] MEDS: LORazepam 2 MG/1 ML VIAL IV PRN ×2 (16:11→20:33)
[2022-01-12] MEDS: SIMVASTATIN 20 MG TAB PO SCH (20:24)
[2022-01-12] MEDS: TAMSULOSIN HCL 0.4 MG CAP PO SCH (20:24)
[2022-01-13] MEDS: GLYCOPYRROLATE 0.2 MG/ML VIAL IV PRN (00:35)
[2022-01-13] MEDS: LORazepam 2 MG/1 ML VIAL IV PRN (00:43)
--- NOTE | 2022-01-13 02:36 | Death Pronouncement Note ---
Date of Service January 13, 2022 Pronouncement Note Admission Date Admission Date: January 05, 2022 Date and Time of Date of : 01/13/22 Time of : 02:15 PCOD Preliminary cause of : Sepsis Contributing Factors (1) Cellulitis of groin, right: (2) Fever: (3) Thrombocytopenia: (4) Hypokalemia: (5) Metastatic colon cancer to liver: (6) Anemia: Summary Additional details: I was notified by nursing that patient had passed. I pronounced at 02:15 on 01/13/22. Patient was comfort measures status. I confirmed the as per below. I called and spoke with patient's daughter. Her requests are to keep patient's wedding ring on his finger. She would like his necklace retrieved and placed with his belongings that will go to his family. She requests simple crematory. No home. Additional Data Confirmation of : no pulse, no respirations, no heart sounds and pupils fixed and dilated Family: contacted Attending/PCP notified?: Yes Attending physician: Jacob Callaway MD Was code activated?: No Autopsy requested?: No Resident Activity Tracking Resident Involvement: Resident Care Provided Care Provided: Adult Hospital Medicine
--- NOTE | 2022-01-13 05:55 | Communication Note ---
Date of Service: January 13, 2022 Patient's daughter to call in this morning to arrange in-person visit. She was not present during the pronouncement, but wishes to visit in-person to speak w/ day hospitalist. Nursing to notify day care provider.
--- NOTE | 2022-01-13 08:38 | Discharge Summary ---
Date of Service January 13, 2022 Admission HPI Per Admitting Provider This patient is an 86-year-old male with stage IV colon cancer with mets to the liver currently on chemotherapy, empyema, prostate cancer, enlarged prostate, GERD, hyperlipidemia, thalassemia with anemia, anxiety, cervical spondylosis who presents to the ER with a complaint of generalized weakness and 4-5 falls in the last couple of weeks. He has been having a poor p.o. intake/low appetite more so in the last 24 hours. His most recent chemotherapy was administered on 12/31 and he also received PRBC transfusion at that time. That was his sixth chemotherapy session since September when diagnosed with stage IV colon cancer. He has a chronic cough but nothing new and his chest x-ray was negative. He denies any fevers or chills, no headaches, has a mild runny nose which is not new, no sore throat. Has chronic neck pain. He has had some nausea but no vomiting, and some chronic loose stools once to twice daily since starting on chemotherapy, but no abdominal pains. No urinary symptoms. He reports that yesterday morning when he got out of bed to go to the bathroom he lost his balance and fell but did not injure himself. He denies loss of consciousness. He was not able to get up as he has been so generally weak and called his life alert and the police helped him get back in bed. He slept for a few more hours and when he woke up he was able to get out of bed to his chair. He reports he fell also couple of weeks ago and stoved up his back and shoulders, but those pains have improved. He has decubitus wounds on his buttock and a wound in the right groin that his just noticed over the past 1 to 2 days. He thinks perhaps he scratched himself while taking his brief off. In the ER, he was found to be febrile to 38.1, tachycardic, and hypertensive. He was 93 of 94% on his pulse ox on room air but had 2 L nasal cannula placed for comfort I believe. The ER doctor noted cellulitis around the groin wound. On laboratory work-up, he had a normal WBC count, stable anemia at 8.6, and mild thrombocytopenia but stable from previous at 82. He was mildly hyponatremic with a sodium of 133, but chemistry was otherwise unremarkable. Lactate was normal. LFTs normal. Procalcitonin normal at 0.11. UA was not collected yet, blood cultures were drawn and pending. Covid-19/influenza/RSV all negative In the ER, he was given IV cefepime and IV vancomycin as well as 1 L of normal saline. He will be admitted for sepsis and groin cellulitis in the setting of immune suppression with chemotherapy as well as for generalized weakness and consideration for rehab placement. Principal Diagnosis Sepsis secondary to cellulitis of right groin Thrombocytopenia (multifactoral) Metastatic colon cancer Hypokalemia Discharge Exam patient pronounced by overnight staff Discharge Data Allergies Allergy/AdvReac Type Severity Reaction Status Date / Time No Known Allergies Allergy Mild Verified 01/05/22 12:47 Consultations 01/05/22 13:53 ED Decision to Admit Stat 01/09/22 16:06 Consult Hematology Routine 01/11/22 12:18 Consult General Surgery Routine 01/11/22 16:55 Consult Hematology Routine Procedures Performed Operation Date: 01/13/22 11:00 <No data on this case meets the specified criteria> Ordered Studies Chest X-Ray 01/05/22 12:16 XR chest 1V portable HISTORY: 86 years-old Male SEPSIS acute sepsis with weakness and cough COMPARISON: Chest radiograph 10/14/2021 TECHNIQUE: Portable AP view of the chest FINDINGS: Cardiac silhouette is upper limits of normal in size. Atherosclerosis of the thoracic aorta. No pneumothorax, pleural effusion, airspace consolidation or overt pulmonary edema. Unchanged right hemidiaphragmatic elevation. Mild chronic interstitial coarsening. Left subclavian Ahmufy-z-Cxdw catheter distal tip terminates within the region of the mid SVC. Degenerative changes of the shoulders and spine. IMPRESSION: No acute process. ACT 112: Negative or not required by law. The above report was generated using voice recognition software. It may contain grammatical, syntax or spelling errors. Electronically signed by: Benitez Valentin M.D. 01/05/2022 2:[address] 01/05/22 14:[address] WITH CONTRAST; CT ABDOMEN AND PELVIS WITH IV AND ORAL CONTRAST CT DOSE: 777.57 mGy.cm HISTORY: Acute fever in a patient with metastatic colon cancer. fever,f/u metastatic colon CA TECHNIQUE: Multiaxial CT images of the chest, abdomen and pelvis were performed following the IV administration of 94 cc of Optiray. Oral contrast was also utilized. A dose lowering technique was utilized adhering to the principles of ALARA. COMPARISON: CT chest, abdomen and pelvis 09/26/2021. FINDINGS: CT CHEST: There is streak artifact from the patient's necklace which was not removed for the exam. Left subclavian Uvabgb-f-Aplh catheter distal tip terminates within the SVC. Moderate cardiomegaly with moderate coronary artery calcifications. Atherosclerosis of the thoracic aorta without aneurysm. Unremarkable pulmonary artery. A 21 cm hypodense left-sided thyroid nodule is better seen on the prior study. Unchanged mild lower mediastinal and retrocrural adenopathy. No new or progressive adenopathy of the chest identified. Unchanged small right pleural effusion with stable right basilar consolidation suggestive of atelectasis with scarring. No pneumothorax, overt pulmonary edema, suspicious pulmonary nodules or masses. Central airways are patent. The study is mildly degraded by respiratory motion artifact. Unremarkable soft tissues. Gaseous distention of the esophagus with mild distal esophageal wall thickening. Moderate sized hiatal hernia. Degenerative changes of the shoulders and spine. There are no destructive bone lesions identified. CT ABDOMEN/PELVIS: There is no pneumatosis or pneumoperitoneum. The spleen is enlarged measuring up to 16 cm in length. Mild to moderate pancreatic atrophy. Unremarkable right adrenal gland. Stable thickening of the left adrenal gland. Unremarkable gallbladder. Ill-defined mass within the hepatic dome measures approximately 6.3 x 5.3 cm, previously measured at 6.7 x 5.7 cm. Unchanged 2.7 cm lateral segment hepatic lesion with multiple additional smaller ill-defined hypodense mostly subcentimeter hepatic foci. No new or enlarging hepatic lesions are identified. Patency of the hepatic and portal veins. Mild bilateral cortical thinning of the kidneys are noted along with renal sinus cysts. 7.8 cm exophytic cyst of the superior pole right kidney. No hydronephrosis. Mild dilation of the distal left ureter. Partial distention of the urinary bladder with wall thickening, and mucosal hyperemia with perivesicular stranding. There is a diverticulum along the right posterior aspect of the urinary bladder measuring 3.4 cm. Prostatomegaly with brachytherapy seeds of the prostate. Atherosclerosis of the abdominal aorta without aneurysm. Subcentimeter gastrohepatic lymph nodes redemonstrated. There is mild wall thickening of the distal stomach, presumably from partial distention. Wall thickening of the inferior rectum and anorectal junction is noted with mild surrounding inflammatory stranding. Postoperative changes of right hemicolectomy. No bowel obstruction. Mild generalized body wall edema. Degenerative changes of the spine, pelvis and hips. IMPRESSION: 1. No acute intrathoracic abnormality. 2. Stable small right pleural effusion with right lung base opacities suggestive of atelectasis/scarring. 3. Ill-defined mass of the hepatic dome measuring up to 6.3 x 5.3 cm is suggestive of hepatic metastasis. This appears stable to mildly decreased in size from the comparison study. No new liver lesions are identified. 4. Unchanged indeterminate 2.7 cm lesion involving the lateral segment of the left hepatic lobe with several additional mostly subcentimeter hepatic foci. 5. Prior right hemicolectomy. No bowel obstruction. 6. Wall thickening of the inferior rectum and anorectal junction with mild perirectal inflammatory stranding. Correlate clinically to exclude a nonspecific proctitis. This could be correlated with colonoscopy. 7. Evidence of chronic bladder outlet obstruction. 8. Additional findings as above. ACT 112: Negative or not required by law. Dictated: 01/05/2022 4:59 PM Transcribed: 01/05/2022 5:31 PM [facility] [id number] [email or web address] Electronically signed by: Benitez Valentin M.D. 01/05/2022 5:43 PM Abdomen/Pelvis CT 01/05/22 14:[address] WITH CONTRAST; CT ABDOMEN AND PELVIS WITH IV AND ORAL CONTRAST CT DOSE: 777.57 mGy.cm HISTORY: Acute fever in a patient with metastatic colon cancer. fever,f/u metastatic colon CA TECHNIQUE: Multiaxial CT images of the chest, abdomen and pelvis were performed following the IV administration of 94 cc of Optiray. Oral contrast was also utilized. A dose lowering technique was utilized adhering to the principles of ALARA. COMPARISON: CT chest, abdomen and pelvis 09/26/2021. FINDINGS: CT CHEST: There is streak artifact from the patient's necklace which was not removed for the exam. Left subclavian Iqntaz-o-Qrml catheter distal tip terminates within the SVC. Moderate cardiomegaly with moderate coronary artery calcifications. Atherosclerosis of the thoracic aorta without aneurysm. Unremarkable pulmonary artery. A 21 cm hypodense left-sided thyroid nodule is better seen on the prior study. Unchanged mild lower mediastinal and retrocrural adenopathy. No new or progressive adenopathy of the chest identified. Unchanged small right pleural effusion with stable right basilar consolidation suggestive of atelectasis with scarring. No pneumothorax, overt pulmonary edema, suspicious pulmonary nodules or masses. Central airways are patent. The study is mildly degraded by respiratory motion artifact. Unremarkable soft tissues. Gaseous distention of the esophagus with mild distal esophageal wall thickening. Moderate sized hiatal hernia. Degenerative changes of the shoulders and spine. There are no destructive bone lesions identified. CT ABDOMEN/PELVIS: There is no pneumatosis or pneumoperitoneum. The spleen is enlarged measuring up to 16 cm in length. Mild to moderate pancreatic atrophy. Unremarkable right adrenal gland. Stable thickening of the left adrenal gland. Unremarkable gallbladder. Ill-defined mass within the hepatic dome measures approximately 6.3 x 5.3 cm, previously measured at 6.7 x 5.7 cm. Unchanged 2.7 cm lateral segment hepatic lesion with multiple additional smaller ill-defined hypodense mostly subcentimeter hepatic foci. No new or enlarging hepatic lesions are identified. Patency of the hepatic and portal veins. Mild bilateral cortical thinning of the kidneys are noted along with renal sinus cysts. 7.8 cm exophytic cyst of the superior pole right kidney. No hydronephrosis. Mild dilation of the distal left ureter. Partial distention of the urinary bladder with wall thickening, and mucosal hyperemia with perivesicular stranding. There is a diverticulum along the right posterior aspect of the urinary bladder measuring 3.4 cm. Prostatomegaly with brachytherapy seeds of the prostate. Atherosclerosis of the abdominal aorta without aneurysm. Subcentimeter gastrohepatic lymph nodes redemonstrated. There is mild wall thickening of the distal stomach, presumably from partial distention. Wall thickening of the inferior rectum and anorectal junction is noted with mild surrounding inflammatory stranding. Postoperative changes of right hemicolectomy. No bowel obstruction. Mild generalized body wall edema. Degenerative changes of the spine, pelvis and hips. IMPRESSION: 1. No acute intrathoracic abnormality. 2. Stable small right pleural effusion with right lung base opacities suggestive of atelectasis/scarring. 3. Ill-defined mass of the hepatic dome measuring up to 6.3 x 5.3 cm is suggestive of hepatic metastasis. This appears stable to mildly decreased in size from the comparison study. No new liver lesions are identified. 4. Unchanged indeterminate 2.7 cm lesion involving the lateral segment of the left hepatic lobe with several additional mostly subcentimeter hepatic foci. 5. Prior right hemicolectomy. No bowel obstruction. 6. Wall thickening of the inferior rectum and anorectal junction with mild perirectal inflammatory stranding. Correlate clinically to exclude a nonspecific proctitis. This could be correlated with colonoscopy. 7. Evidence of chronic bladder outlet obstruction. 8. Additional findings as above. ACT 112: Negative or not required by law. Dictated: 01/05/2022 4:59 PM Transcribed: 01/05/2022 5:31 PM [facility] [id number] [email or web address] Electronically signed by: Benitez Valentin M.D. 01/05/2022 5:43 PM Abdomen/Pelvis CT 01/11/22 12:[address] WITH IV AND ORAL CONTRAST CT DOSE: 662.01 mGy.cm HISTORY: Acute lower abdominal pain with reported wound of the right inguinal tissues. History of metastatic colon cancer wound right inguiinal region TECHNIQUE: Multiaxial CT images of the abdomen and pelvis were performed following the IV administration of 94 cc of Optiray and oral contrast. A dose lowering technique was utilized adhering to the principles of ALARA. COMPARISON STUDY: 01/05/2022 FINDINGS: Cardiomegaly with coronary artery calcifications. Trace left and small right pleural effusion. Right greater than left bibasilar opacities are suggestive of atelectasis/scarring. There is no pneumatosis or pneumoperitoneum. The spleen is enlarged measuring up to 16 cm in length. Mild to moderate pancreatic atrophy. Unremarkable right adrenal gland. Stable thickening of the left adrenal gland. Contracted gallbladder. Ill-defined hepatic metastatic lesion within the hepatic dome measures approximately 6.3 x 5.3 cm, unchanged. Stable 2.7 cm lateral segment hepatic lesion with multiple additional smaller ill-defined hypodense mostly subcentimeter hepatic foci. No new or enlarging hepatic lesions are identified. Patency of the hepatic and portal veins. Mild bilateral cortical thinning of the kidneys are noted along with renal sinus cysts. 7.8 cm exophytic cyst of the superior pole right kidney. No hydronephrosis. Decompressed urinary bladder with Faulkner catheter in place. The previous noted urinary bladder diverticulum is not well visualized on today's study. Prostatomegaly with brachytherapy seeds of the prostate. Atherosclerosis of the abdominal aorta without aneurysm. Subcentimeter gastrohepatic lymph nodes redemonstrated. Small hiatal hernia. Wall thickening of the inferior rectum and anorectal junction is again noted. Postoperative changes of right hemicolectomy. No bowel obstruction. Mild generalized body wall edema with skin thickening most pronounced within the right inguinal tissues. No abscess.. Degenerative changes of the spine, pelvis and hips. IMPRESSION: 1. Mild diffuse generalized body wall edema. Subcutaneous edema with skin thickening of the right inguinal tissues and proximal right thigh and may represent associated cellulitis. No abscess. 2. Unchanged mild wall thickening of the inferior rectum and anorectal junction. 3. Prior right hemicolectomy. No bowel obstruction. 4. Hepatic metastasis redemonstrated. 5. Trace left and small right pleural effusions with bibasilar opacities suggestive of atelectasis/scarring. 6. Additional findings as above. ACT 112: Negative or not required by law. The above report was generated using voice recognition software. It may contain grammatical, syntax or spelling errors. Electronically signed by: Benitez Valentin M.D. 01/11/2022 4:24 PM Hospital Course (1) Cellulitis of groin, right: 86-year-old white male hospitalized with sepsis syndrome associated with cellulitis of the right groin -Upfront had leukopenia (3.99) with tachycardia (117) and a fever of 100.9F. -Underlying source thought to be cellulitis/wound of the right groin -Has been receiving wound care by the wound nurse. Appreciate recommendations -Given its atypical appearance, fine-needle aspiration obtained and sent for pathology given concern for cutaneous metastasis from underlying colon cancer. Pathology has since come back consistent with abscess/infectious process -Patient has remained on Zosyn only, Vancomycin was stopped after dose on 01/05 after negative MRSA screen received -Culture data (obtained upfront) currently showing no growth -Repeat CT a/p as above, no evidence of abscess -General surgery consulted as debridement was felt to be warranted, were considering debridement 01/13 but will not proceed (see below) -Repeat wound culture done on 01/11, NGTD -Will stop all treatment due to ongoing decline, see below (2) Fever: Presented with a fever of 100.9 degrees Fahrenheitsecondary to #1 -Has since defervesced (3) Thrombocytopenia: -Platelet count on 11/25 was normal at 274. Has been downtrending since -Likely multifactorial: --Chemotherapy (last session on 12/31) --Antibiotic driven --Infection driven --Aspirin (hold for now) --Lovenox (hold for now) -peripheral smear and Nasra test were ordered and pending -slow improvement noted 01/11 to 01/12 from 27,000 to 37,000 (4) Hypokalemia: -Replacement ordered but still low today at 3.0 -Couldn't tolerate pills, IV K Riders ordered (5) Metastatic colon cancer to liver: -Known Colon CA with hepatic metastasisreceiving chemotherapy. Last session 12/31 -Currently receiving salvage chemotherapy through the cancer care partnership with Reina Romero PA-C -Has had 6 treatments in the last 4 months of FOLFOX and bevacizumab -Checking surveillance CT chest/abdomen/pelvis as above as requested by his oncology provider -Follow CBC and give transfusional support as needed -Dietitian consultated (6) Anemia: -As above, related to thalassemia and chemotherapy -Follow CBC -H/H low but stable and at his baseline I had a lengthy discussion with patient's daughter, Melissa, who holds POA regarding patient's condition and my concerns. She verbalized that her father never wanted life sustaining measures and that he is a DNR/DNI. She wants him to be comfortable and does not want interventions that will prolong any suffering. She understands that his prognosis is poor and that he is reaching end of life. Melissa endorses father has been recently declining at home prior to this admission and states that he expressed wishes that if he was showing decline that he wanted to "go quickly." She is agreeable to stopping antibiotic therapy at this time and focusing more on comfort. Zosyn discontinued. Pt transferred to private room. Added Morphine for dyspnea/pain, Robinol for secretions, Ativan for agitation, prn O2 (palliative order set used). Updated Dr. Callaway who has also seen this patient due to change in condition. Also spoke with daughter, Melissa, at bedside. Overnight resident called to bedside after pt ceased breathing. He performed bedside pronouncement. Family was notified. Total Time Total Time Spent Total Time Spent (In Minutes): <30 minutes Discharge Plan Discharge Items Patient Disposition: Discharge Diagnosis: sepsis Addtl Attending Provider Instructions: 86-year-old male w/ metastatic colon cancer admitted for sepsis secondary to right groin cellulitis. His course worsened during the hospitalization and was transitioned to comfort measures status. Other Date/Time: 01/13/22 02:15 Supervising Physician Co-Signing Physician Notes I verified all chauhan points and agree with Alethea Nieves PA-C with the following exceptions and/or additions: Patient was not seen or examined on day he . Patient was made comfort care yesterday per family and patient's previous wishes. Coding Level of Care Code None Diagnoses Cellulitis of groin, right L03.314 Fever R50.9 Thrombocytopenia D69.6 Hypokalemia E87.6 Metastatic colon cancer to liver C18.9; C78.7 Anemia D64.9
--- NOTE | 2022-01-20 10:00 | Coding Query ---
CODING QUERY To promote full compliance with coding requirements relating to patient care, provider participation is requested in all cases of loss prevention representative uncertainty. Please assist us with the question(s) below: Coding Question(s): Pt admitted with sepsis due to groin cellulitis. Also had decubitus ulcers of right and left buttocks. Please document, if known or suspected , the Stage of the decubitus ulcers . Thank you . Arnav Aguila [facility] Physician's Response(s): Right buttock decubitus ulcer Stage : ___Stage 3 Left buttock decubitus ulcer Stage : ____Unstageable Cannot Clinically determine the ulcer stages : Other: please document: Principal Diagnosis: "that condition established after study, to be chiefly responsible for occasioning the admission of the patient to the hospital for care." Co-Existing Principal Diagnosis: "when two or more diagnoses equally meet the criteria for principal diagnosis as determined by the circumstances of admission, diagnostic work up, and/or therapy provided, and the Alphabetic Index, Tabular List, or another coding guideline does not provide sequencing direction, any one of the diagnoses may be sequenced first." "When the physician has documented what appears to be a current diagnosis in the body of the record, but has not included the diagnosis in the final diagnostic statement, the physician should be asked whether the diagnosis should be added." (Source Coding [facility] 2 QTR90. p3-4) [facility]
== END 2022-01-13 02:49 | disposition expired | DRG 871 ==
LOC: ED 11:59 → SUATTDRO 14:48 → 3W 14:48
DX: F17.290 Nicotine dependence, other tobacco product, uncomplicated; Z92.3 Personal history of irradiation; Y92.009 Unspecified place in unspecified non-institutional (private) residence as the place of occurrence of the external cause; L02.91 Cutaneous abscess, unspecified; E87.1 Hypo-osmolality and hyponatremia; Z51.5 Encounter for palliative care; Z80.42 Family history of malignant neoplasm of prostate; J90 Pleural effusion, not elsewhere classified; L03.314 Cellulitis of groin; E78.5 Hyperlipidemia, unspecified; E87.6 Hypokalemia; D84.9 Immunodeficiency, unspecified; T45.1X5A Adverse effect of antineoplastic and immunosuppressive drugs, initial encounter; Z66 Do not resuscitate; C78.7 Secondary malignant neoplasm of liver and intrahepatic bile duct; Z79.82 Long term (current) use of aspirin; D69.59 Other secondary thrombocytopenia; M79.81 Nontraumatic hematoma of soft tissue; J98.11 Atelectasis; D56.9 Thalassemia, unspecified; C18.9 Malignant neoplasm of colon, unspecified; L89.329 Pressure ulcer of left buttock, unspecified stage; L89.313 Pressure ulcer of right buttock, stage 3; C79.2 Secondary malignant neoplasm of skin; A41.9 Sepsis, unspecified organism; R29.6 Repeated falls